=== PATIENT | female | born 1945 | race Caucasian/White ===

== ENCOUNTER 2017-11-25 08:26 | Day surgery (SDC) | payer MEDICARE, OTHER, SELFPAY ==
[2017-11-23 09:42] LABS: Absolute Lymphocyte Count 2.62 X10^3/ul (0.83-4.51); Absolute Neutrophil Count 3.1 X10^3/uL (2.0-7.7); Basophil# 0.07 X10^3/uL; Basophil% 0.8 % (0-1); Eosinophil# 1.31 X10^3/uL; Eosinophils% 15.8 % (0-5); Hemoglobin 12.8 g/dl (12.0-15.0); Lymphocyte # 2.62 X10^3/ul (4.0); Lymphocyte % 31.6 % (19-41); Mean Corp Hgb Conc 32.8 g/gl (32-36); Mean Corpuscular Hgb 30.5 pg (27.0-32.0); Mean Corpuscular Volume 92.9 fL (81-99); Mean Platelet Vol. 11.5 fl (6.2-12.0); Monocyte# 1.16 X10^3/uL; Neutrophil # 3.09 X10^3/uL (2.7-7.7); Neutrophil % 37.4 % (47-70); Platelet Count 321 K/mm3 (150-450); RBC Distribution Width CV 13.3 % (11.6-14.6); RBC Distribution Width SD 44.1 fl (35.1-43.9); White Blood Count 8.3 K/mm3 (4.4-11.0)
[2017-11-23 09:45] LABS: POSITIVE COUNT NO; POSITIVE DIFFERENTIAL NO; POSITIVE MORPHOLOGY NO
[2017-11-23 10:12] LABS: ALB/GLOB Ratio 0.9 RATIO (0.9-2.4); AST(SGOT) 28 U/L (15-37); Alanine Aminotransfer ALT/SGPT 22 U/L (13-56); Albumin, Serum 3.5 g/dL (3.2-5.0); Alkaline Phosphatase 69 U/L (45-117); Anion Gap 6 (5-15); BUN 16 mg/dL (7-18); BUN/Creat Ratio 18.2 RATIO (10-20); Calcium,Total 9.1 mg/dL (8.5-10.1); Chloride 104 mmol/L (98-107); Creatinine, Serum 0.88 mg/dL (0.55-1.02); EST Glomerular Filtration Rate 67 mL/min (>60); Est Glom Filt Rate - Afr Amer 81 mL/min (>60); Globulin 4.1 g/dL (2.2-4.2); Glucose 86 mg/dL (74-106); Potassium 3.8 mmol/L (3.5-5.1); Protein, Total 7.6 g/dL (6.4-8.2); Sodium Level 142 mmol/L (136-145)
[2017-11-25 08:47] VITALS: BP 172/68; PULSE 47; RESP 14; TEMP 36.5; O2SAT 100; BMI 23.7
--- NOTE | 2017-11-25 10:00 | BON_PTH ---
PATIENT: DAVID BARRETO LOC: [facility] U#:[id number] AGE/SX: 72/F ROOM: RE11/25/[address]: Dr. Boone Fernandes DPM : 1945 BED: DIS: 11/25/2017 SPEC #: [id number] RECD: 11/25/17 16:06 STATUS: CAREY DEVIN #: [id number] MACY: 11/25/17 10:[address]: Boone Fernandes DEPT: SURGICAL PATHOLOGY RECD BY: Panchito Reina ENTERED: 11/28/17 07:35 SP TYPE: Bone OTHR DR: Dr. Mike Aden DO Tissues: Bone of foot, NOS Procedures: Decalcification bone/plaque Surgery Specimen Level III HEADER OPERATION: Left foot, second metatarsophalangeal joint implant arthroplasty PRE-OP DIAGNOSIS: Osteoarthritis, torn plantar plate, osteochondral lesion second metatarso-phalangeal joint; hammer toe second toe, deformed second metatarsal TISSUE SUBMITTED: Left foot, second metatarsal head MICROSCOPIC DIAGNOSIS Left foot, second metatarsal head: A piece of bone with reactive changes, clinically hammertoe. KAREN:kelley 12/01/17 MICROSCOPIC DESCRIPTION Slides are reviewed. GROSS DESCRIPTION Received in fixative is one container labeled with the patient's name and designated left foot, second metatarsal head. The specimen consists of one irregular fragment of light quiñones soft tissue that measures 1 x 1 x 0.4 cm. The entire specimen is submitted in one cassette after decalcification. / KAREN:kelley 11/28/17 TC:5 CPT: 50690, 02949
--- NOTE | 2017-11-25 10:25 | RAD_ITS ---
STUDY: X-RAY - LEFT FOOT CLINICAL: Female, 72 years old. Implant of the second metatarsophalangeal joint. TECHNIQUE: 7 C-arm view(s) of the foot. 30 seconds of fluoroscopy time. COMPARISON: MRI 08/03/2017. FINDINGS: This sequence of images shows a prosthesis in the head of the second metatarsal, and a K wire along the length of the second digit. Correlate with procedure note. Electronically Signed: Mejia Jane MD at 16:25 EDT , Service support , RAD/Foot min 3 Views
[2017-11-25] MEDS: Ondansetron 4 MG/2 ML Vial (10:28)
[2017-11-25] MEDS: Clindamycin 900 MG/50 ML BAG 75 MG IV (10:41)
[2017-11-25] MEDS: Bupivacaine Mpf 0.5% 30 ML VIAL (10:52)
--- NOTE | 2017-11-25 12:46 | RAD_ITS ---
STUDY: X-RAY - LEFT FOOT CLINICAL: Female, 72 years old. Postop left foot. TECHNIQUE: 3 view(s) of the foot. COMPARISON: Intraoperative radiographs of the same day.. FINDINGS: Post surgical changes of the second ray. There is a screw with prosthesis of the metatarsal head in the second metatarsal. Probable calcification, contrast or bone formation around the distal second metatarsal. Lateral view suggests possibility of a nondisplaced fracture along the dorsal surface of the distal metatarsal. A K wire passes through the phalanges of the second digit. Dorsal soft tissue swelling with air consistent with recent surgery. RAD/Foot min 3 Views IMPRESSION: Postoperative changes of the second ray. Calcifications, contrast, or bone fragments including possible fracture around the distal second metatarsal prosthesis. Electronically Signed: Mejia Jane MD at 16:38 EDT , Service support ,
[2017-11-25 12:50] VITALS: BP 140/66; BP 172/68; PULSE 78; RESP 18; TEMP 36.2; O2SAT 92
--- NOTE | 2017-11-25 12:52 | PCM.DC.POD ---
Discharge Diet: Light diet - advance as tolerated Discharge Activity: May Not Drive Weight Bearing Status: No weight bearing - No weightbearing left foot Keep extremity elevated above heart level: Left Leg - Keep left foot elevated for at least 50 minutes of every hour Call your doctor if your incision/area has: Continuous Slow Oozing, Sudden Increased Bleeding, Increased Pain/ Swelling, Foul Smelling Discharge Call your doctor if you observe: Fever of 101 or Higher, Coldness, Increased Pain, Shortness of breath, Chest pain, Increased palpitations (irregular heartbeat), Calf discomfort, Uncontrolled pain Cleanse incision/area with: Do not get Incision Wet, Keep Dressing Clean & Dry Allergies/Adverse Reactions: Allergies Penicillins Allergy (Verified 11/25/17 08:42) Rash acetaminophen [From Vicodin] Adverse Reaction (Verified 11/25/17 09:12) Nausea codeine Adverse Reaction (Verified 11/25/17 08:42) Nausea erythromycin base Adverse Reaction (Verified 11/25/17 08:42) Nausea hydrocodone [From Vicodin] Adverse Reaction (Verified 11/25/17 09:12) Nausea Sulfa (Sulfonamide Antibiotics) Adverse Reaction (Verified 11/25/17 08:42) Nausea Tetracyclines Adverse Reaction (Verified 11/25/17 08:42) Nausea Medications to take at Discharge Amlodipine Besylate [Norvasc] 2.5 mg PO DAILY 11/22/17 Aspirin [Aspirin, Baby] 81 mg PO DAILY@0800 11/22/17 Calcium Carbonate/Vitamin D3 [Calcium 500-Vit D3 600 Caplet] 1 each PO DAILY 11/22/17 Hydrochlorothiazide [Hctz] 25 mg PO DAILY 11/22/17 Levothyroxine Sodium [Synthroid] 100 mcg PO DAILY 11/22/17 Metoprolol Tartrate [Lopressor (beta sobia)] 50 mg PO BID 11/22/17 Multivitamin with Minerals [Hair, Skin & Nails] 1 each PO DAILY 11/22/17 Vitamin E 400 unit PO DAILY 11/22/17 Docusate Sodium [Colace] 100 mg PO BID #15 cap 11/25/17 Hydrocodone/Acetaminophen [Vicodin 5-300 mg Tablet] 1 - 2 tab PO Q6H PRN PRN 3 Days #30 tab 11/25/17 Ondansetron HCl [Zofran] 4 mg PO Q8H PRN PRN #15 tab 11/25/17 The following prescriptions were given: Hydrocodone/Acetaminophen [Vicodin 5-300 mg Tablet] 1 - 2 tab PO Q6H PRN PRN 3 Days #30 tab PRN Reason: Pain Ondansetron HCl [Zofran] 4 mg PO Q8H PRN PRN #15 tab PRN Reason: Nausea Docusate Sodium [Colace] 100 mg PO BID #15 cap Primary Care Physician: Mike Aden DO [Primary Care Provider] - Please Follow Up With: Boone Fernandes DPM When: within 1 week, sooner if needed
--- NOTE | 2017-11-25 12:55 | OP.PCM_ITS ---
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 Coco Shine Type of Anesthesia:: General Specimen's removed: Bone from left 2nd metatarsal head sent to pathology Estimated Blood Loss (mL): 2mL Description of Procedure: Indications: This is a 72 year old with chronic pain to the 2nd metatarsal phalagneal joint (2nd MTPJ) of the left foot despite extensive conservative/ nonsurgical management. Symptoms persist and she continues to have pain and significant activity limitations. She elected to undergo surgical intervention. We discussed the procedure. We reviewed the rationale of each as well as the possible benefits, risks, potential complications goals and expectations of each. This was discussed with her in great detail. Typical post op recovery was reviewed with her. She expressed understanding and agreement. The consent forms were reviewed with her in detail, and she freely signed them. No guarantees were given. All of her questions were answered. Operative Procedure: The patient was brought back into the operating room and was placed on the operating room table in the supine position. She was carefully secured to the operating room table with a safety belt around her waist. A time out was performed and the patient was properly identified and the surgical plan was confirmed. The patient received 2 grams of IV Ancef for antibiotic prophylaxis. A well padded pneumatic tourniquet was applied around the left ankle. The patient did receive general anesthesia per the anesthesiologist. The skin was cleansed with 70% Isopropyl alcohol, and 10mL of 0.5% Bupivacaine plain was given as a 2nd ray block on the left foot. The left foot was scrubbed, prepped, draped in the usual aseptic fashion. A timeout was performed and the patient was properly identified and the surgical plan was confirmed. The left foot was elevated for 3 minutes and the left ankle pneumatic tourniquet was inflated to 250mmHg. Attention was directed to the 2nd MTPJ, there was limited range of motion consistent with osteoarthritis, the toe was contracted consistent with a hammer toe. Using a 15 blade a linear longitudinal skin incision was overlying the dorsal lateral aspect of the 2nd metatarsal phalangeal joint (MTPJ). Careful blunt dissection was completed down through the subcutaneous layer to the dorsal 2nd MTPJ capsule. The capsule of the 2nd MTPJ was identified and was carefully incised dorsally, it was carefully reflected from the dorsal, medial and lateral aspect, exposing the 2nd metatarsal head. There was noted to be significant degenerative changes of the 2nd metatarsal head with significant chondral thinning and yellow nonviable cartilage. There was an osteochondral lesion to the head of the 2nd metatarsal head. The bone was softer than normal. The cartilage on the base of the 2nd toe proximal phalanx did appear healthier and more viable. A guide wire was placed centrally and perpendicular to the 2nd metatarsal head and was placed down the shaft of the 2nd metatarsal. This was checked using intraoperative fluoroscopy. A step drill was used to prepare the screw hole to the 2nd metatarsal head. The 7mm taper post fixation component was inserted in standard fashion; however during this process a nondisplaced stress fracture occurred to the distal 2nd metatarsal. The stress fracture was stabilized by wrapping 2 FiberWire around the fracture site. A reamer was carefully used to remove the nonviable damaged cartilage and bone to creat a socket for the implant. The excised bone / cartilage was sent to pathology ( with the resected portion of the 2nd metatarsal head) for further evaluation. All bone ledges were removed from the 2nd metatarsal head. The 2nd MTPJ plantar plate was also visualized, it was noted to be intact with no tear or degeneration seen, it was stable with negative dorsal drawer at this time. It was left intact. The Arthrosurface implant was ready to be inserted. The Arthrosurface implant was placed with bone cement into the prepared distal 2nd metatarsal surface. The uziel cement was also placed around the fracture site. The bone cement was allowed to dry. The implant was carefully tamped in place, being sure not to disrupt the fracture site or cause any new fracture. At this time, the implant was noted to be stable and in good position, this was confirmed using intra operative fluoroscopy without the use of a echocardiography radiology technologist. The fracture site was also stable and in good alignment. There was good smooth normal range of motion to the 2nd MTPJ with no grinding, popping or clicking. There was negative dorsal drawer or instability of the 2nd MTPJ plantar plate at this time. The site was flushed out with copious amounts of normal saline solution. The joint capsule was reapproximated using 3-0 Vicryl, the subcutaneous tissue layer was reapproximated using 3-0 Vicryl, and the skin was reapproximated using 3-0 Monocryl. Further attention was directed to the 2nd toe which was contracted at the distal interphalangeal joint. Two semi-elliptical conversing skin incisions were made using a 15 blade overlying the dorsal distal interphalangeal joint. The skin within these incisions was excised. Careful dissection was completed down to the extensor digitorum longus tendon and it was incised transversely over the joint, and it was retracted exposing the proximal interphalangeal joint capsule. The distal interphalangeal joint capsule was incised and the collateral ligament of the joint were released using a 15 blade. The cartilage on the head of the 2nd toe middle phalanx and base of the distal phalanx were resected using a powered sagittal saw as well as a bone cutting rongeur. A kwire was placed down the middle of the phalanges holding the toe in rectus position. The site was flushed out with copious amounts of normal saline solution. The skin was reapproximated using 3-0 Monocryl. The kwire was trimmed and capped. Intraoperative fluoroscopy confirmed proper placement of the kwire and rectus position of the 2nd toe. Cavilon was painted to the sutured skin edges and steristrips were applied across the sutured skin incisions. All vital structure, including all vital neurovascular structures were properly identified and protected as necessary throughout the procedure. The pneumatic tourniquet was deflated, there was immediate return of vascular flow to the foot and all toes. CFT < 2 seconds to all toes, and had normal temperature gradient present. An additional 10mL of 0.5 % Bupivacaine plain was given as a local nerve block around the 2nd ray of the left foot for further post operative pain control. A dressing was applied which consisted of Betadine soaked adaptic, 4x4 gauze, kerlix and loco dressing to the left foot. The patient tolerated the above operative procedure well at the anesthesia well with no complications. The patient was transported to the recovery room with vital signs stable and in good condition. Post operative orders were placed. Post operative instructions were reviewed with patient today. No weightbearing left foot, keep foot elevated for at least 50 minutes of every hour, keep dressing clean, dry and intact. Prescription for Vicodin 5mg/325mg was prescribed: 1-2 tabs PO q 6 hours PRN pain for pain control, as well as Zofran and Docusate. Patient was fitted for a surgical shoe. Post operative xrays were obtained in the recovery room which confirmed 2nd MTPJ implant arthroplasty, with bone cement around the fracture site; as well as arthrodesis of the 2nd toe DIPJ with intact kwire. Intact implant 2nd metatarsal head. Otherwise no acute changes and stable xrays. Grafts/Implants Used: 1 Arthrosurface lesser metatarsal implant, 1 Kwire - Complications None
[2017-11-25 13:00] VITALS: BP 138/58; BP 172/68; PULSE 73; RESP 16; O2SAT 93
[2017-11-25 13:15] VITALS: BP 133/58; BP 172/68; PULSE 75; RESP 16; O2SAT 99
[2017-11-25 13:26] VITALS: BP 144/67; BP 172/68; PULSE 67; RESP 16; TEMP 36; O2SAT 96
== END 2017-11-25 14:17 | disposition home or self-care (01) ==
LOC: SDC 08:27 → AC 08:27
PROVIDERS: Family Provider Preventive Medicine Occupational Medicine; PCP Preventive Medicine Occupational Medicine; Visit Provider Podiatrist
PROC: (CPT 28899; principal; 2017-11-25 09:45)
DX: M19.072 Primary osteoarthritis, left ankle and foot (principal); M20.42 Other hammer toe(s) (acquired), left foot; M92.62 Juvenile osteochondrosis of tarsus, left ankle; I47.1 Supraventricular tachycardia; I34.1 Nonrheumatic mitral (valve) prolapse; I10 Essential (primary) hypertension; E03.9 Hypothyroidism, unspecified; Z87.891 Personal history of nicotine dependence; Z79.82 Long term (current) use of aspirin; Z79.899 Other long term (current) drug therapy
CPT/HCPCS: 28285; 28899; 36415; 73630; 76000; 80053; 85025; 88304; 88305; 88311; J7120; J2405

== ENCOUNTER 2018-07-01 14:25 | Inpatient (IN) | payer MEDICARE, OTHER, SELFPAY ==
[2018-07-01] VITALS (18 sets, daily range): BP systolic 137–184; BP diastolic 53–89; PULSE 55–91; RESP 14–23; TEMP 36.7; O2SAT 94–99; BMI 23.0; BMI 22.8
--- NOTE | 2018-07-01 14:53 | ECHOD_ITS ---
Reason For Study: CHEST PAIN Procedure This was a 2D Doppler, Color Flow transthoracic echocardiogram. Exam performed portable in ED. Left Ventricle Normal size and thickness. The estimated ejection fraction is 75 %. Stage 2 diastolic dysfunction. No regional wall motion abnormalities noted. Right Ventricle Normal size and thickness. Normal systolic function. Atria Normal left atrium. Normal right atrium. Normal atrial septum. Mitral Valve Mild diffuse mitral valve thickening. Mild-Moderate (1-2+) eccentric mitral valve insufficiency. Tricuspid Valve Normal tricuspid valve. Mild (1+) tricuspid valve insufficiency. Right ventricular systolic pressure estimated to be 47 mmHg. Moderate pulmonary hypertension. Aortic Valve Normal aortic valve. Trisinus/trileaflet aortic valve. Pulmonic Valve Normal pulmonic valve. Great Vessels Normal aortic root. Mild atherosclerosis of the aortic arch. Normal inferior vena cava. Inferior vena cava collapse with sniff. MMode/2D Measurements & Calculations LVIDd: 3.5 cm IVSd: 1.0 cm Ao root diam: 3.0 cm LVIDs: 2.4 cm LVPWd: 1.00 cm RVDd: 3.2 cm FS: 32.8 % LAV(MOD-bp): 37.1 ml LVAd ap4: 25.6 cm2 SV(MOD-sp4): 46.3 ml LAV(MOD-bp) Indexed: 23.1 ml/m2 EDV(MOD-sp4): 77.6 ml LAV(MOD-sp2): 37.3 ml EDV(sp4-el): 84.2 ml LAV(MOD-sp4): 36.5 ml LVAs ap4: 14.8 cm2 ESV(MOD-sp4): 31.3 ml ESV(sp4-el): 32.7 ml EF(MOD-sp4): 59.6 % EF(sp4-el): 61.1 % SV(sp4-el): 51.4 ml LA dimension(2D): 3.9 cm LA A4 area: 16.2 cm2 RA A4 area: 14.5 cm2 Time Measurements MV dec time: 0.21 sec Doppler Measurements & Calculations MV E max loki: 88.0 cm/sec Lat Peak E' Loki: 9.3 cm/sec Med Peak E' Loki: 8.3 cm/sec MV A max loki: 85.8 cm/sec E/E' lat: 9.5 E/E' med: 10.6 MV E/A: 1.0 Ao V2 max: 128.1 cm/sec LV V1 max: 128.2 cm/sec TR max loki: 322.7 cm/sec Ao max P.6 mmHg LV V1 max P.6 mmHg TR max P.8 mmHg Interpretation Summary The estimated ejection fraction is 75 %. Stage 2 diastolic dysfunction. Mild-Moderate (1-2+) eccentric mitral valve insufficiency. Mild (1+) tricuspid valve insufficiency. Right ventricular systolic pressure estimated to be 47 mmHg. Moderate pulmonary hypertension. There is no comparison study available. Ordering Physician: Patrick Lopez Referring Physician: [place] WHITMAN Performed By: Solange Baca, MEENAKSHI, RVT
--- NOTE | 2018-07-01 14:54 | RAD_ITS ---
STUDY: X-RAY CHEST REASON FOR EXAM: Female, 73 years old. Chest pain TECHNIQUE: AP COMPARISON: None. FINDINGS: EKG leads project over the chest. Well-defined dense nodule in the lateral left upper lobe is compatible with a granuloma. Lungs are mildly hyperexpanded. No airspace consolidation. There is no demonstrated pleural abnormality. Normal size heart. Normal mediastinum and lior. Normal visualized pulmonary arteries. There is atherosclerotic calcification of the aortic arch with tortuosity. No acute bony process. There is no demonstrated abnormality of the visualized soft tissue structures of the upper abdomen. RAD/Chest 1 View (Portable) IMPRESSION: No airspace consolidation or pleural effusion. Electronically Signed: Rios Luu MD at 15:36 EST , Service support ,
[2018-07-01] MEDS: 0.9% Normal Saline 1,000 ML 150 ML IV (14:56)
[2018-07-01] MEDS: Metoprolol Tartrate 5 MG/5 ML Vial IV (15:09)
[2018-07-01 15:11] LABS: Absolute Lymphocyte Count 4.07 X10^3/ul (0.83-4.51); Absolute Neutrophil Count 4.3 X10^3/uL (2.0-7.7); Anion Gap 7 (5-15); BUN 20 mg/dL (7-18); BUN/Creat Ratio 22.8 RATIO (10-20); Basophil# 0.06 X10^3/uL; Basophil% 0.5 % (0-1); Calcium,Total 9.1 mg/dL (8.5-10.1); Chloride 105 mmol/L (98-107); Creatinine, Serum 0.88 mg/dL (0.55-1.02); EST Glomerular Filtration Rate 67 mL/min (>60); Eosinophil# 1.72 X10^3/uL; Eosinophils% 15.6 % (0-5); Est Glom Filt Rate - Afr Amer 81 mL/min (>60); Glucose 119 mg/dL (74-106); Hematocrit 38.6 % (37-47); Hemoglobin 12.8 g/dl (12.0-15.0); Lymphocyte # 4.07 X10^3/ul (4.0); Lymphocyte % 36.8 % (19-41); Mean Corp Hgb Conc 33.2 g/gl (32-36); Mean Corpuscular Volume 90.4 fL (81-99); Mean Platelet Vol. 10.8 fl (6.2-12.0); Monocyte# 0.88 X10^3/uL; Neutrophil % 38.8 % (47-70); POSITIVE COUNT NO; POSITIVE DIFFERENTIAL NO; POSITIVE MORPHOLOGY NO; Platelet Count 269 K/mm3 (150-450); Potassium 3.3 mmol/L (3.5-5.1); RBC Distribution Width CV 13.5 % (11.6-14.6); RBC Distribution Width SD 44.5 fl (35.1-43.9); Red Blood Count 4.27 M/mm3 (4.2-5.4); Sodium Level 141 mmol/L (136-145); White Blood Count 11.1 K/mm3 (4.4-11.0)
[2018-07-01] MEDS: Nitroglycerin Oint 1 INCH PACKET TRANSDERM. ×2 (15:17→17:31)
--- NOTE | 2018-07-01 15:27 | PCM.CONS.C ---
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 She apparently had a catheterization somewhere in [place] on 8-10 years ago, with reportedly normal coronary arteries. Prior to an ankle injury several months ago she used to walk between 4 and 5 miles per day without any difficulty whatsoever and has done so for the past 29 years. She is a non-smoker. She has not had a stress test since her last catheterization. Patient states that she was with her grandchild this morning when she developed midsternal chest pressure radiating down the inner part of both arms. She had no associated nausea, vomiting, shortness of breath or dyspnea. She denies any abdominal pain. When this did not resolve, she sought medical attention at the behest of her daughter who is a registered nurse in our office, and came to the emergency room. Upon arrival her blood pressure was 184/76, and in the emergency room an EKG was performed which showed normal sinus rhythm with subtle inferior and lateral ST segment depression, and subtle J-point elevation in aVL only. The patient was given a total of 3 sublingual nitroglycerin which reduced her pain down from a 5 down to a 2. In addition she received 5 mg of IV Lopressor and her chest pain further improved. Repeat EKG showed normal sinus rhythm with resolution of her ST segment changes. Blood pressure after medical therapy showed it to be 137/72. Urgent bedside echocardiogram showed normal LV size and function, hyperdynamic LV, EF around 75%, moderate pulmonary hypertension. Final result pending. On further history the patient states that she snores excessively, and is recently been noted to have daytime somnolence to the point where she has fallen asleep with food in her mouth. Her mobility is limited due to her injured foot, but she denies any exertional anginal symptoms. Her initial troponin is 0.329. [] Past Medical History Allergies/Adverse Reactions: Allergies Penicillins Allergy (Verified 07/01/18 14:26) Rash acetaminophen [From Vicodin] Adverse Reaction (Verified 07/01/18 14:26) Nausea codeine Adverse Reaction (Verified 07/01/18 14:26) Nausea erythromycin base Adverse Reaction (Verified 07/01/18 14:26) Nausea hydrocodone [From Vicodin] Adverse Reaction (Verified 07/01/18 14:26) Nausea Sulfa (Sulfonamide Antibiotics) Adverse Reaction (Verified 07/01/18 14:26) Nausea Tetracyclines Adverse Reaction (Verified 07/01/18 14:26) Nausea Home Medications: Ambulatory Orders Medication Instructions Recorded Amlodipine Besylate [Norvasc] 2.5 mg PO DAILY 11/22/17 Aspirin [Aspirin, Baby] 81 mg PO DAILY@0800 11/22/17 Calcium Carbonate/Vitamin D3 1 each PO DAILY 11/22/17 [Calcium 500-Vit D3 600 Caplet] Hydrochlorothiazide [Hctz] 25 mg PO DAILY 11/22/17 Levothyroxine Sodium [Synthroid] 100 mcg PO DAILY 11/22/17 Metoprolol Tartrate [Lopressor 50 mg PO BID 11/22/17 (beta sobia)] Vitamin E 400 unit PO DAILY 11/22/17 Multivitamin with Minerals [Hair, 1 each PO DAILY 07/01/18 Skin & Nails] Past Medical History (Chronic Problems): Chronic Problems Hypertension (Chronic) Surgical History: no surgical history Smoking Status: Former smoker Review of Systems - Review of Systems General: Denies: Fever, Night Sweats, Fatigue Cardiovascular: Reports: Chest Discomfort, Chest Discomfort at Rest. Denies: Shortness of Breath, Orthopnea, PND, Peripheral Edema, Palpitations, Lightheadedness, Dizziness, Near Syncope, Syncope Respiratory: Denies: Cough, Sputum Production, Hemoptysis Gastrointestinal: Denies: Hematemesis, Hematochezia, Melena Genitourinary: Denies: Dysuria, Hematuria Skin: Denies: Rash Subjectve: Patient resting comfortably, no acute distress. Objective: Vital Signs Temp Pulse Resp BP Pulse Ox 98.1 F 65 22 H 137/72 H 98 07/01/18 14:26 07/01/18 15:17 07/01/18 14:26 07/01/18 15:17 07/01/18 14:26 Oxygen Flow Rate (L/min) 2 Oxygen Delivery Method Nasal Cannula Weight: 130 lb Body Mass Index (BMI) 23.0 General: Awake, Alert, Oriented x 3 HEENT: PERRL, EOMI, Sclera Non Icteric Neck: Supple, Good ROM, No Lymph Node Enlargement Lungs: Clear to auscultation Cardiovascular: Regular Rhythm, Normal S1, Normal S2, No Murmurs, No Rubs, No Gallops Vascular: No Carotid Bruits, Normal Femoral Pulses, Normal Radial Pulses, Normal Dorsalis Pedal Pulse, Normal Posterior Tibial Pulses Abdomen: Bowel Sounds Present, Soft, Non Tender, No HSM, No Organomegaly Extremities: No Cyanosis, No Clubbing, No edema Neurological: No Focal Motor or Sensory Deficit 07/01/18 14:35: WBC 11.1 H, RBC 4.27, Hgb 12.8, Hct 38.6, MCV 90.4, MCH 30.0, MCHC 33.2, RDW 13.5, RDW Differential 44.5 H, Plt Count 269, MPV 10.8, Immature Gran % (Auto) 0.300, Neut % (Auto) 38.8 L, Lymph % (Auto) 36.8, [place] % (Auto) 8.0, Eos % (Auto) 15.6 H, Baso % (Auto) 0.5, Absolute Neuts (auto) 4.3, Total Counted Not Reportable 07/01/18 14:35: Sodium 141, Potassium 3.3 L, Chloride 105, Carbon Dioxide 29.0, Anion Gap 7, BUN 20 H, Creatinine 0.88, Est GFR (MDRD) Af Amer 81, Est GFR (MDRD) Non-Af 67, BUN/Creatinine Ratio 22.8 H, Glucose 119 H, Calcium 9.1, Troponin I 0.329 H Rhythm: EKG: As above ECHO: As above Stress Test: Cardiac Cath: PCI: CT Surgery: Holter monitor: EPS: PPM: CXR: Chest CT Scan: Assessment/Plan 1. Unstable angina: The patient presents with substernal chest pain radiating to both arms, with subtle dynamic EKG changes with inferior lateral ST segment depression, and subtle J-point elevation in aVL only. Stat bedside echo showed intact LV function in all major segments, and no evidence of hypokinesis inferiorly or laterally. Patient's chest pain has been relieved with sublingual nitroglycerin and IV beta-sobia for a significant hypertension. Her initial troponin is abnormal at 0.329. At this point I recommend baby aspirin 324 mill grams x1 which is artery been given, 81 mg a day, loaded with Plavix 3 mg x1 now, and 75 mg of Plavix daily. In addition I recommend Lovenox 1 mg/kg subcu twice daily as well as nitroglycerin paste 1 inch every 6 hours. Would recommend ruling out the patient with a series of troponins, and notifying cardiology if troponin is elevated above 5.0. If the patient's symptoms return during her hospital stay and have a low threshold for urgent catheterization. If however her chest pain remains at bay over the weekend, I would recommend left heart catheterization Tuesday morning. In addition recommend obtaining a fasting lipid profile to risk stratify her. The patient apparently had reportedly normal coronary arteries per the patient's daughter who is a registered nurse around 8-10 years ago. 2. Obstructive sleep apnea: The patient has signs and symptoms of possible non-diagnosed obstructive sleep apnea, would recommend an outpatient sleep study once her cardiac evaluation has been completed. 3. Hypertension: The patient's blood pressure was controlled with amlodipine, beta-blockers. Would recommend continuing Lopressor 50 mg p.o. twice daily, amlodipine 10 mg a day, and hydrochlorothiazide 25 mg p.o. daily. Keep potassium above 4.0 and magnesium above 2.0. 4. Discussed with Dr. Casiano. Thank you very much for the opportunity to participate in the cardiac care of your patient. Consultation time took place between 310 and 3:45 PM. Code Visit Inpatient E&M: 53737 Init Hosp L2
--- NOTE | 2018-07-01 15:53 | ED.VISSUMM ---
- ER Visit Summary Date of Service: 07/01/18 Chief Complaint: Chest pain ] History of Present Illness: The patient is a 73 F [presents to the emergency department with complaint of chest pain that started approximately 11:30 AM today. Patient describes a pressure in the center of her chest that radiates down into both arms to about the elbow. Patient denies any shortness of breath or nausea or vomiting. Patient denies any diaphoresis. Patient denies recent travel or surgery. She denies any pain in her back. Patient currently rates the pain a 5 out of 10. Patient is not had discomfort like this before. Patient does have a history of hypertension, SVT, and mitral valve prolapse.] Physical Examination: [HEENT-PERRLA, EOMI. Cranial nerves II through XII grossly intact. TMs clear. Mucous membranes moist. No adenopathy. Cardiovascular-regular rate and rhythm without murmur or ectopy Lungs-clear to auscultation, chest wall stable without crepitus or subcu emphysema Abdomen-normoactive bowel sounds, soft, nontender, no rebound or rigidity, no peritoneal signs. Extremities-intact ?4, normal range of motion, normal pulses, atraumatic] Test Results: [EKG obtained on arrival showed a sinus rhythm with a ventricular rate in the 70s with ST depression noted inferior laterally. No old EKGs available for comparison. Second EKG obtained actually looked somewhat improved with just subtle ST depression inferiorly. CBC with differential obtained showed a white count 11.1, hemoglobin 12.8, hematocrit 38.6, platelets 269. Chemistries unremarkable. Troponin was 0.329. Chest x-ray obtained showed nothing acute.] Emergency Department Course and Treatment: [Upon evaluation of the initial EKG I discussed case with cardiology and was able to fax the EKG to Dr. Patrick Lopez who then presented to the emergency department to evaluate the patient. I had concerns for an acute coronary syndrome given the patient's complaint and abnormal EKG. Dr. Lopez performed an echo at the bedside and did not see any wall motion abnormalities. Case will be discussed with hospitalist will evaluate patient for admission for suspected non-ST elevation MN] patient was treated in the department with nitroglycerin as well as Lopressor and Lovenox. Treatment Plan: [Admit] Disposition: [Admit] Impression: [Chest pain Non-ST elevation MN] This note was generated with Dragon dictation software. It may contain incorrect words, spelling, and punctuation that were not noted in review of the chart prior to signing ED Disposition - Plan for ED Patient: Chief Complaint: Chest Pain Referrals: Mike Aden DO [Primary Care Provider] -
--- NOTE | 2018-07-01 15:57 | ED.DCSUM_ITS ---
- ER Visit Summary Date of Service: 07/01/18 Chief Complaint: Chest pain ] History of Present Illness: The patient is a 73 F [presents to the emergency department with complaint of chest pain that started approximately 11:30 AM today. Patient describes a pressure in the center of her chest that radiates do wn into both arms to about the elbow. Patient denies any shortness of breath or nausea or vomiting. Patient denies any diaphoresis. Patient denies recent travel or surgery. She denies any pain in her back. Patient currently rates the pain a 5 out of 10. Patient is not had discomfort like this before. Patient does have a history of hypertension, SVT, and mitral valve prolapse.] Physical Examination: [HEENT-PERRLA, EOMI. Cranial nerves II through XII grossly intact. TMs clear. Mucous membranes moist. No adenopathy. Cardiovascular-regular rate and rhythm without murmur or ectopy Lungs-clear to auscultation, chest wall stable without crepitus or subcu emphysema Abdomen-normoactive bowel sounds, soft, nontender, no rebound or rigidity, no peritoneal signs. Extremities-intact ?4, normal range of motion, normal pulses, atraumatic] Test Results: [EKG obtained on arrival showed a sinus rhythm with a ventricular rate in the 70s with ST depression noted inferior laterally. No old EKGs available for comparison. Second EKG obtained actually looked somewhat improved with just subtle ST depression inferiorly. CBC with differential obtained showed a white count 11.1, hemoglobin 12.8, hematocrit 38.6, platelets 269. Chemistries unremarkable. Troponin was 0.329. Chest x-ray obtained showed nothing acute.] Emergency Department Course and Treatment: [Upon evaluation of the initial EKG I discussed case with cardiology and was able to fax the EKG to Dr. Patrick Lopez who then presented to the emergency department to evaluate the patient. I had concerns for an acute coronary syndrome given the patient's complaint and abnormal EKG. Dr. Lopez performed an echo at the bedside and did not see any wall motion abnormalities. Case will be discussed with hospitalist will evaluate patient for admission for suspected non-ST elevation [place]] patient was treated in the department with nitroglycerin as well as Lopressor and Lovenox. Treatment Plan: [Admit] Disposition: [Admit] Impression: [Chest pain Non-ST elevation ME] This note was generated with [employer] dictation software. It may contain incorrect words, spelling, and punctuation that were not noted in review of the chart prior to signing ED Disposition - Plan for ED Patient: Chief Complaint: Chest Pain Referrals: Mike Aden DO [Primary Care Provider] -
[2018-07-01 16:09] LABS: Cholesterol 216 mg/dL (200); High Density Lipoprotein 48 mg/dL; Triglycerides 188 mg/dL; Very Low Density Lipoprotein 38 mg/dL (5-40)
--- NOTE | 2018-07-01 16:11 | HP.PCM_ITS ---
Problem List (1) Hypertension Status: Chronic (2) STEMI (ST elevation myocardial infarction) Status: Acute (3) Hypothyroidism Status: Chronic History of Present Illness Date of Admission: 07/01/18 Chief Complaint: Chest pain. The patient is a 73 year old F who presents emergency room due to chest pain. Patient reports around 1130 this morning she developed sudden midsternal chest pressure which occurred while she was resting. Chest pain/pressure radiated to both arms. She denies associated dizziness, diaphoresis, shortness of breath, nausea. She states she has never had pain like this before. Patient's pain persisted until receiving nitro x3 in ER. She is currently pain-free. Patient reports a significant family history of heart disease with her brother and father both from [place]/CAD. Patient states she has had a stress test in the past which she reports was a few years ago and reported to be normal. She is a former smoker. Denies any history of CAD. Her other past medical history includes hypertension, hypothyroidism. Past Medical History Past Medical History (Chronic Problems): Chronic Problems Hypertension (Chronic) Hypothyroidism (Chronic) Allergies Penicillins Allergy (Verified 07/01/18 14:26) Rash acetaminophen [From Vicodin] Adverse Reaction (Verified 07/01/18 14:26) Nausea codeine Adverse Reaction (Verified 07/01/18 14:26) Nausea erythromycin base Adverse Reaction (Verified 07/01/18 14:26) Nausea hydrocodone [From Vicodin] Adverse Reaction (Verified 07/01/18 14:26) Nausea Sulfa (Sulfonamide Antibiotics) Adverse Reaction (Verified 07/01/18 14:26) Nausea Tetracyclines Adverse Reaction (Verified 07/01/18 14:26) Nausea Home Medications: Ambulatory Orders Medication Instructions Recorded Amlodipine Besylate [Norvasc] 2.5 mg PO DAILY 11/22/17 Aspirin [Aspirin, Baby] 81 mg PO DAILY@0800 11/22/17 Calcium Carbonate/Vitamin D3 1 each PO DAILY 11/22/17 [Calcium 500-Vit D3 600 Caplet] Hydrochlorothiazide [Hctz] 25 mg PO DAILY 11/22/17 Levothyroxine Sodium [Synthroid] 100 mcg PO DAILY 11/22/17 Metoprolol Tartrate [Lopressor 50 mg PO BID 11/22/17 (beta sobia)] Vitamin E 400 unit PO DAILY 11/22/17 Multivitamin with Minerals [Hair, 1 each PO DAILY 07/01/18 Skin & Nails] Surgical History: - - Hysterectomy, cystocele repair, second MTPJ implant arthroplasty left foot with correction of second digit hammertoe of left foot. Psychiatric History: No pertinent psych hx [employer] History: No pertinent [employer] history Lives: Alone Smoking Status: Former smoker Alcohol: Occasional Drugs: None - *Family History Maternal History Items: - - Past from complications following hernia surgery. Denies maternal cardiac history. Paternal History Items: Heart Disease - at age 74 from [place]. Review of Systems Constitutional: Denies: Chills, Fever, Weight Change HEENT: Denies: Head Aches, Sinus Congestion, Sinus Drainage Cardiovascular: Reports: Chest Pressure. Denies: Light Headedness, Palpitations, Syncope Respiratory: Denies: Cough, Shortness of breath at rest, Sputum production Gastrointestinal: Denies: Abdominal Pain, Nausea, Vomiting Genitourinary: Denies: Dysuria Musculoskeletal: Denies: Joint Pain, Joint Tenderness Skin: Denies: Rash, Wounds Neurological: Denies: Numbness, Tingling, Focal weakness Psychiatric: Denies: Anxiety, Depression, Homicidal Ideations, Suicidal Ideations Hematologic/ Lymphatic: Denies: Easy Bruising, Easy Bleeding VTE Information - Inpt Only VTE Present on Admission: No VTE Mechan Device Prophylaxis: None VTE Pharm Prophylaxis ordered?: Yes Patient Problems: Active and Suspected Problems STEMI (ST elevation myocardial infarction) (Acute) - Physical Exam General: Alert, Oriented x3, Cooperative HEENT: Atraumatic, PERRLA, EOMI, Normocephalic Neck: Supple, No JVD, Negative Carotid Bruits Lungs: Clear to auscultation, Normal air movement Cardiovascular: Regular rate, Regular Rhythm, Normal S1, Normal S2, No murmurs Abdomen: Bowel Sounds Present, Soft, Non Tender, Non-Distended Extremities: No clubbing, No cyanosis, No edema, Capillary Refill Less than 3 Seconds Skin: No rashes, No breakdown Musculoskeletal: No Tenderness to Palpation of Joints or Extremities Neurological: Cranial nerves II-XII grossly intact, Neuro grossly intact Psych/Mental Status: Normal Affect, Appropriate Vital Signs Temp Pulse Resp BP Pulse Ox 98.1 F 88 16 151/64 H 99 07/01/18 14:26 07/01/18 15:36 07/01/18 15:36 07/01/18 15:36 07/01/18 15:36 Oxygen Flow Rate (L/min) 2 Oxygen Delivery Method Nasal Cannula Weight: 130 lb Body Mass Index (BMI) 23.0 Laboratory Tests Past 24 Hrs 07/01/18 07/01/18 07/01/18 14:35 14:35 14:35 WBC 11.1 H RBC 4.27 Hgb 12.8 Hct 38.6 MCV 90.4 MCH 30.0 MCHC 33.2 RDW 13.5 RDW Differential 44.5 H Plt Count 269 MPV 10.8 Immature Gran % (Auto) 0.300 Neut % (Auto) 38.8 L Lymph % (Auto) 36.8 [place] % (Auto) 8.0 Eos % (Auto) 15.6 H Baso % (Auto) 0.5 Absolute Neuts (auto) 4.3 Absolute Lymphs (auto) 4.07 Total Counted Not Reportable Sodium 141 Potassium 3.3 L Chloride 105 Carbon Dioxide 29.0 Anion Gap 7 BUN 20 H Creatinine 0.88 Estim Creat Clear Calc 46.40 Est GFR (MDRD) Af Amer 81 Est GFR (MDRD) Non-Af 67 BUN/Creatinine Ratio 22.8 H Glucose 119 H Calcium 9.1 Troponin I 0.329 H Triglycerides Pending Cholesterol Pending LDL Cholesterol Pending VLDL Cholesterol Pending HDL Cholesterol Pending Assessment/Plan All Active Problems STEMI (ST elevation myocardial infarction) (Acute) 1. NSTEMI-initial troponin 0.3. EKG with inferior lateral ST depression. Dr. Lopez, cardiology consulted. Continue aspirin, Plavix. Therapeutic Lovenox. Nitropaste. Plan for cardiac catheterization Tuesday. Repeat EKG with new onset chest pain. Trend enzymes. Lipid panel pending. Echocardiogram completed in ER which shows an EF of 75%, stage II diastolic dysfunction, mild to moderate mitral valve insufficiency, mild tricuspid valve insufficiency, RVSP estimated to be 47 mmHg. 2. Hypertension-markedly elevated on admission. Improved. Patient received metoprolol 5 mg IV x1 in ER as well as amlodipine 10 mg p.o. x1. Started on metoprolol 50 mill grams p.o. twice daily per cardiology. Continue to monitor. 3. Mild hypokalemia-replace per protocol. Trend BMP. Suspect secondary to HCTZ regimen. 4. Hypothyroidism-continue Synthroid regimen. DVT prophylaxis- lovenox This patient was seen by [facility] under the supervision of Dr. Topete.
[2018-07-01] MEDS: Enoxaparin 60 MG/0.6 ML Syringe SC (17:30)
[2018-07-01] MEDS: amLODIPine 5 MG Tablet PO (17:30)
[2018-07-01] MEDS: Clopidogrel Bisulfate 300 MG Tablet PO (17:30)
[2018-07-01 18:00] LABS: Magnesium 2.1 mg/dL (1.6-2.6)
[2018-07-01] MEDS: Metoprolol Tartrate 50 MG Tablet PO (22:00)
[2018-07-01] MEDS: 0.9% NaCl Peripheral Flush Adult/Peds IV (22:35)
--- NOTE | 2018-07-01 22:55 | NURSING ---
This RN taking over care at this time.
--- NOTE | 2018-07-01 23:20 | NURSING ---
Report given to Jose Carlos Cardenas RN. She will resume care of pt at this time.
[2018-07-02] VITALS (32 sets, daily range): BP systolic 115–143; BP diastolic 56–103; PULSE 49–88; RESP 12–26; TEMP 36.8–37; O2SAT 92–97
[2018-07-02] MEDS: LORazepam 1 MG Tablet PO (01:07)
[2018-07-02] MEDS: Levothyroxine 100 MCG Tablet PO (05:43)
[2018-07-02] MEDS: Enoxaparin 60 MG/0.6 ML Syringe SC ×2 (05:43→22:22)
[2018-07-02] MEDS: Ondansetron 4 MG/2 ML Vial IV (08:42)
[2018-07-02] MEDS: 0.9% NaCl Peripheral Flush Adult/Peds IV ×2 (08:43→08:44)
[2018-07-02 09:42] LABS: Mucous, Urine 0 SEEN /hpf (<or=2+); Red Blood Cells-Urine 0 SEEN /hpf (0-5); Squamous Epithelial Cells - UA 0 SEEN /hpf (5-10)
[2018-07-02] MEDS: Aspirin 81 MG TAB.CHEW PO (09:43)
[2018-07-02] MEDS: hydroCHLOROthiazide 25 MG Tablet PO (09:43)
[2018-07-02] MEDS: Metoprolol Tartrate 50 MG Tablet PO ×2 (09:43→22:22)
[2018-07-02] MEDS: amLODIPine 5 MG Tablet PO (09:44)
[2018-07-02] MEDS: Clopidogrel Bisulfate 75 MG Tablet PO (09:44)
[2018-07-02] MEDS: Psyllium 1 PACKET PO ×2 (09:44→22:23)
[2018-07-02 09:50] LABS: Color, Urine Yellow (Yellow); Glucose, Dipstick Normal (Normal); Ketone-Dipstick Negative (Negative); Leukocyte Esterase-Dipstick 500 /ul (Negative); Nitrite-Dipstick Positive (Negative); Occult Blood-Urine 10 /ul (Negative); Protein-Dipstick Negative (Negative); Specific Gravity, Urine 1.015 (1.002-1.030); Urine Bilirubin Dipstick Negative (Negative); Urine Clarity Sl. Cloudy (Clear); Urine Urobilinogen Normal (Normal)
[2018-07-02 09:53] LABS: Bacteria 2+ /hpf (None Seen); White Blood Cells >100 SEEN /hpf (0-5)
--- NOTE | 2018-07-02 10:14 | PN.CARD_ITS ---
Subjectve: Patient doing well this morning except for some mild nausea. Her chest pain has markedly improved and is almost completely gone. Telemetry overnight showed sinus rhythm/sinus bradycardia, rare PVCs but no ventricular runs. EKG this morning shows normal sinus rhythm, no acute changes, and complete resolution of all ST segment changes. Peak troponin of 12.0. Bedside echo in ER yesterday showed excellent LV function with an EF of 75%, no wall motion abnormalities, and an RVSP of 47 mmHg. Objective: Vital Signs Temp Pulse Resp BP Pulse Ox 98.2 F 69 22 H 139/61 H 95 07/02/18 03:00 07/02/18 09:43 07/02/18 08:00 07/02/18 09:43 07/02/18 08:00 Oxygen Flow Rate (L/min) 2 Oxygen Delivery Method Room Air Weight: 132 lb 15.02 oz Body Mass Index (BMI) 22.8 Intake and Output for Last 24 Hours 06/30/18 07/01/18 07/02/18 23:59 23:59 23:59 Intake Total 692.8 / 692.8 Balance 692.8 / 692.8 General: Awake, Alert, Oriented x 3 HEENT: PERRL, EOMI, Sclera Non Icteric Neck: Supple, Good ROM, No Lymph Node Enlargement Lungs: Clear to auscultation Cardiovascular: Regular Rhythm, Normal S1, Normal S2, No Murmurs, No Rubs, No Gallops Vascular: No Carotid Bruits, Normal Femoral Pulses, Normal Radial Pulses, Normal Dorsalis Pedal Pulse, Normal Posterior Tibial Pulses Abdomen: Bowel Sounds Present, Soft, Non Tender, No HSM, No Organomegaly Extremities: No Cyanosis, No Clubbing, No edema Neurological: No Focal Motor or Sensory Deficit 07/01/18 14:35: WBC 11.1 H, RBC 4.27, Hgb 12.8, Hct 38.6, MCV 90.4, MCH 30.0, MCHC 33.2, RDW 13.5, RDW Differential 44.5 H, Plt Count 269, MPV 10.8, Immature Gran % (Auto) 0.300, Neut % (Auto) 38.8 L, Lymph % (Auto) 36.8, [place] % (Auto) 8.0, Eos % (Auto) 15.6 H, Baso % (Auto) 0.5, Absolute Neuts (auto) 4.3, Total Counted Not Reportable 07/01/18 14:35: Sodium 141, Potassium 3.3 L, Chloride 105, Carbon Dioxide 29.0, Anion Gap 7, BUN 20 H, Creatinine 0.88, Est GFR (MDRD) Af Amer 81, Est GFR (MDRD) Non-Af 67, BUN/Creatinine Ratio 22.8 H, Glucose 119 H, Calcium 9.1, Tr oponin I 0.329 H 07/01/18 14:35: Triglycerides 188, Cholesterol 216 H, LDL Cholesterol 130, VLDL Cholesterol 38, HDL Cholesterol 48 07/01/18 17:25: Troponin I 4.030 H* 07/01/18 17:25: Magnesium 2.1 07/01/18 20:26: Troponin I 12.700 H* 07/02/18 09:18: Urine Color Yellow, Urine Clarity Sl. Cloudy, Urine pH 8.0, Ur Specific [place] 1.015, Urine Protein Negative, Urine Glucose (UA) Normal, Urine Ketones Negative, Urine Occult Blood 10 H, Urine Nitrite Positive H, Urine Bilirubin Negative, Urine Urobilinogen Normal, Ur Leukocyte Esterase 500 H Rhythm: As above EKG: As above ECHO: As above Stress Test: Cardiac Cath: Pending PCI: CT Surgery: Holter monitor: EPS: PPM: CXR: Chest CT Scan: Medical Necessity - Tobacco Use Smoking Status: Former smoker Assessment/Plan 1. Unstable angina: The patient presented with substernal chest pain radiating to both arms, with subtle dynamic EKG changes with inferior lateral ST segment depression, and subtle J-point elevation in aVL only. Stat bedside echo showed intact LV function in all major segments, and no evidence of hypokinesis inferiorly or laterally. Patient's chest pain has been relieved with sublingual nitroglycerin and IV beta-sobia for a significant hypertension. Her initial troponin is abnormal at 0.329, and increased to 4.0, and peaked at 12.0. Telemetry showed normal sinus rhythm/sinus bradycardia with no PVCs. Repeat EKG this morning showed normal sinus rhythm, complete resolution of ST segment changes.. Would recommend continuing baby aspirin, beta blockers, Plavix, and proceeding with left heart catheterization tomorrow morning. Her chest vein is essentially resolved, and she has some mild nausea this morning, being treated with Zofran or equivalent. Should the patient's chest pain return, or the patient develop hemodynamic instability, I would have a low threshold for more urgent catheterization. Her LDL is 130, and HDL is 48. Recommend starting Lipitor 80 mg p.o. nightly. Repeat lipid profile in 6 weeks time. The patient apparently had reportedly normal coronary arteries per the patient's daughter who is a registered nurse around 8-10 years ago. 2. Obstructive sleep apnea: The patient has signs and symptoms of possible non- diagnosed obstructive sleep apnea, would recommend an outpatient sleep study once her cardiac evaluation has been completed. 3. Hypertension: The patient's blood pressure was controlled with amlodipine, beta-blockers. Would recommend continuing Lopressor 50 mg p.o. twice daily, am lodipine 10 mg a day, and hydrochlorothiazide 25 mg p.o. daily. Patient was placed on an IV nitroglycerin drip due to her elevated troponins and chest pain. Continue nitroglycerin drip until catheterization tomorrow morning. Keep potassium above 4.0 and magnesium above 2.0. 4. Thank you very much for the opportunity to participate in the cardiac care of your patient. Code Visit Inpatient E&M: 90566 Subs Hosp L2
--- NOTE | 2018-07-02 10:27 | PCM.PROGNOTE ---
<Nidhi Leslie - Last Filed: 07/02/18 10:44> Patient Problems: Active and Suspected Problems STEMI (ST elevation myocardial infarction) (Acute) Subjective: Patient seen and examined. States she had chest pain overnight which is now resolved. Complains of nausea this morning. Currently on nitro drip. - Physical Exam General: Alert, Oriented x3, Cooperative HEENT: Atraumatic, PERRLA, EOMI, Normocephalic Neck: Supple, No JVD, Negative Carotid Bruits Lungs: Clear to auscultation, Normal air movement Cardiovascular: Regular rate, Regular Rhythm, Normal S1, Normal S2, No murmurs Abdomen: Bowel Sounds Present, Soft, Non Tender, Non-Distended Extremities: No clubbing, No cyanosis, No edema, Capillary Refill Less than 3 Seconds Skin: No rashes, No breakdown Musculoskeletal: No Tenderness to Palpation of Joints or Extremities Neurological: Cranial nerves II-XII grossly intact, Neuro grossly intact Psych/Mental Status: Normal Affect, Appropriate Vital Signs Temp Pulse Resp BP Pulse Ox 98.3 F 70 16 125/76 H 95 07/02/18 09:00 07/02/18 10:00 07/02/18 10:00 07/02/18 10:00 07/02/18 10:00 Oxygen Flow Rate (L/min) 2 Oxygen Delivery Method Room Air Weight: 132 lb 15.02 oz Body Mass Index (BMI) 22.8 Intake and Output for Last 24 Hours 06/30/18 07/01/18 07/02/18 23:59 23:59 23:59 Intake Total 692.8 / 692.8 Balance 692.8 / 692.8 Laboratory Tests Past 24 Hrs 07/01/18 07/01/18 07/01/18 14:35 14:35 14:35 WBC 11.1 H RBC 4.27 Hgb 12.8 Hct 38.6 MCV 90.4 MCH 30.0 MCHC 33.2 RDW 13.5 RDW Differential 44.5 H Plt Count 269 MPV 10.8 Immature Gran % (Auto) 0.300 Neut % (Auto) 38.8 L Lymph % (Auto) 36.8 [place] % (Auto) 8.0 Eos % (Auto) 15.6 H Baso % (Auto) 0.5 Absolute Neuts (auto) 4.3 Absolute Lymphs (auto) 4.07 Total Counted Not Reportable Sodium 141 Potassium 3.3 L Chloride 105 Carbon Dioxide 29.0 Anion Gap 7 BUN 20 H Creatinine 0.88 Estim Creat Clear Calc 46.40 Est GFR (MDRD) Af Amer 81 Est GFR (MDRD) Non-Af 67 BUN/Creatinine Ratio 22.8 H Glucose 119 H Calcium 9.1 Magnesium Troponin I 0.329 H Triglycerides 188 Cholesterol 216 H LDL Cholesterol 130 VLDL Cholesterol 38 HDL Cholesterol 48 Urine Color Urine Clarity Urine pH Ur Specific [place] Urine Protein Urine Glucose (UA) Urine Ketones Urine Occult Blood Urine Nitrite Urine Bilirubin Urine Urobilinogen Ur Leukocyte Esterase Urine RBC Urine WBC Ur Squamous Epith Cells Urine Bacteria Urine Mucus 07/01/18 07/01/18 07/01/18 17:25 17:25 20:26 WBC RBC Hgb Hct MCV MCH MCHC RDW RDW Differential Plt Count MPV Immature Gran % (Auto) Neut % (Auto) Lymph % (Auto) [place] % (Auto) Eos % (Auto) Baso % (Auto) Absolute Neuts (auto) Absolute Lymphs (auto) Total Counted Sodium Potassium Chloride Carbon Dioxide Anion Gap BUN Creatinine Estim Creat Clear Calc Est GFR (MDRD) Af Amer Est GFR (MDRD) Non-Af BUN/Creatinine Ratio Glucose Calcium Magnesium 2.1 Troponin I 4.030 H* 12.700 H* Triglycerides Cholesterol LDL Cholesterol VLDL Cholesterol HDL Cholesterol Urine Color Urine Clarity Urine pH Ur Specific [place] Urine Protein Urine Glucose (UA) Urine Ketones Urine Occult Blood Urine Nitrite Urine Bilirubin Urine Urobilinogen Ur Leukocyte Esterase Urine RBC Urine WBC Ur Squamous Epith Cells Urine Bacteria Urine Mucus 07/02/18 09:18 WBC RBC Hgb Hct MCV MCH MCHC RDW RDW Differential Plt Count MPV Immature Gran % (Auto) Neut % (Auto) Lymph % (Auto) [place] % (Auto) Eos % (Auto) Baso % (Auto) Absolute Neuts (auto) Absolute Lymphs (auto) Total Counted Sodium Potassium Chloride Carbon Dioxide Anion Gap BUN Creatinine Estim Creat Clear Calc Est GFR (MDRD) Af Amer Est GFR (MDRD) Non-Af BUN/Creatinine Ratio Glucose Calcium Magnesium Troponin I Triglycerides Cholesterol LDL Cholesterol VLDL Cholesterol HDL Cholesterol Urine Color Yellow Urine Clarity Sl. Cloudy Urine pH 8.0 Ur Specific [place] 1.015 Urine Protein Negative Urine Glucose (UA) Normal Urine Ketones Negative Urine Occult Blood 10 H Urine Nitrite Positive H Urine Bilirubin Negative Urine Urobilinogen Normal Ur Leukocyte Esterase 500 H Urine RBC 0 SEEN Urine WBC >100 SEEN Ur Squamous Epith Cells 0 SEEN Urine Bacteria 2+ Urine Mucus 0 SEEN Medical Necessity - Tobacco Use Smoking Status: Former smoker Assessment/Plan All Active Problems STEMI (ST elevation myocardial infarction) (Acute) 1. NSTEMI-Trop peaked at 12.7. EKG on admission with inferior lateral ST depression. Repeat EKG showed resolution of ST changes. Dr. Lopez, cardiology consulted. Continue aspirin, Plavix, statin, beta-sobia. Therapeutic Lovenox. Nitro drip. Plan for cardiac catheterization Tuesday morning, 07/02/18. Echocardiogram completed in ER which shows an EF of 75%, stage II diastolic dysfunction, mild to moderate mitral valve insufficiency, mild tricuspid valve insufficiency, RVSP estimated to be 47 mmHg. 2. Hypertension-markedly elevated on admission. Improved. Patient received metoprolol 5 mg IV x1 in ER as well as amlodipine 10 mg p.o. x1. Continue amlodipine, metoprolol, HCTZ. 3. Mild hypokalemia-replaced per protocol. Trend BMP. Suspect secondary to HCTZ regimen. 4. Hypothyroidism-continue Synthroid regimen. 5. Hyperlipidemia-initiated on atorvastatin 80 mg p.o. nightly. 6. Asymptomatic bacteriuria-urinalysis with 500 leukocytes, positive nitrites. Patient denies urinary symptoms. Denies fever, chills. Check cx. DVT prophylaxis- lovenox This patient was seen by ELISA Bui under the supervision of Dr. Miller. <Dave Miller - Last Filed: 07/02/18 15:54> Subjective: Chest pain resolved. No shortness of breath. - Physical Exam General: Alert, Cooperative HEENT: Atraumatic, Normocephalic Oral: Moist Mucosa, No Gingival or Mucosal Lesions/ Ulcerations Lungs: Clear to auscultation, Normal air movement, No rhonchi, No wheeze Cardiovascular: Regular rate, Regular Rhythm, Normal S1, Normal S2 Abdomen: Bowel Sounds Present, Soft, Non Tender, Non-Distended Extremities: No edema, No Calf Tenderness Psych/Mental Status: Normal Affect, Appropriate Vital Signs Temp Pulse Resp BP Pulse Ox 36.8 C 71 15 135/68 H 96 07/02/18 09:00 07/02/18 14:00 07/02/18 14:00 07/02/18 14:00 07/02/18 14:00 Oxygen Flow Rate (L/min) 2 Oxygen Delivery Method Room Air Weight: 60.3 kg Body Mass Index (BMI) 22.8 Intake and Output for Last 24 Hours 06/30/18 07/01/18 07/02/18 23:59 23:59 23:59 Intake Total 1141.8 / 1141.8 Output Total 250 / 250 Balance 891.8 / 891.8 Laboratory Tests Past 24 Hrs 07/01/18 07/01/18 07/01/18 14:35 17:25 17:25 Magnesium 2.1 Troponin I 4.030 H* Triglycerides 188 Cholesterol 216 H LDL Cholesterol 130 VLDL Cholesterol 38 HDL Cholesterol 48 Urine Color Urine Clarity Urine pH Ur Specific [place] Urine Protein Urine Glucose (UA) Urine Ketones Urine Occult Blood Urine Nitrite Urine Bilirubin Urine Urobilinogen Ur Leukocyte Esterase Urine RBC Urine WBC Ur Squamous Epith Cells Urine Bacteria Urine Mucus 07/01/18 07/02/18 20:26 09:18 Magnesium Troponin I 12.700 H* Triglycerides Cholesterol LDL Cholesterol VLDL Cholesterol HDL Cholesterol Urine Color Yellow Urine Clarity Sl. Cloudy Urine pH 8.0 Ur Specific [place] 1.015 Urine Protein Negative Urine Glucose (UA) Normal Urine Ketones Negative Urine Occult Blood 10 H Urine Nitrite Positive H Urine Bilirubin Negative Urine Urobilinogen Normal Ur Leukocyte Esterase 500 H Urine RBC 0 SEEN Urine WBC >100 SEEN Ur Squamous Epith Cells 0 SEEN Urine Bacteria 2+ Urine Mucus 0 SEEN Assessment/Plan Patient seen and examined independently. Data reviewed. I agree with the above note by the nurse practitioner. 1. Non-STEMI Troponins peaked as high as 12.7 Symptomatically patient is improved On nitroglycerin drip, aspirin, Plavix, weight-based Lovenox, metoprolol tartrate 2. Hypertension Fair control HCTZ, metoprolol Code Visit Inpatient E&M: 66584 Subs Hosp L2
--- NOTE | 2018-07-02 10:31 | PN_ITS ---
<Nidhi Leslie - Last Filed: 07/02/18 10:44> Patient Problems: Active and Suspected Problems STEMI (ST elevation myocardial infarction) (Acute) Subjective: Patient seen and examined. States she had chest pain overnight which is now resolved. Complains of nausea this morning. Currently on nitro drip. - Physical Exam General: Alert, Oriented x3, Cooperative HEENT: Atraumatic, PERRLA, EOMI, Normocephalic Neck: Supple, No JVD, Negative Carotid Bruits Lungs: Clear to auscultation, Normal air movement Cardiovascular: Regular rate, Regular Rhythm, Normal S1, Normal S2, No murmurs Abdomen: Bowel Sounds Present, Soft, Non Tender, Non-Distended Extremities: No clubbing, No cyanosis, No edema, Capillary Refill Less than 3 S econds Skin: No rashes, No breakdown Musculoskeletal: No Tenderness to Palpation of Joints or Extremities Neurological: Cranial nerves II-XII grossly intact, Neuro grossly intact Psych/Mental Status: Normal Affect, Appropriate Vital Signs Temp Pulse Resp BP Pulse Ox 98.3 F 70 16 125/76 H 95 07/02/18 09:00 07/02/18 10:00 07/02/18 10:00 07/02/18 10:00 07/02/18 10:00 Oxygen Flow Rate (L/min) 2 Oxygen Delivery Method Room Air Weight: 132 lb 15.02 oz Body Mass Index (BMI) 22.8 Intake and Output for Last 24 Hours 06/30/18 07/01/18 07/02/18 23:59 23:59 23:59 Intake Total 692.8 / 692.8 Balance 692.8 / 692.8 Laboratory Tests Past 24 Hrs 07/01/18 07/01/18 07/01/18 14:35 14:35 14:35 WBC 11.1 H RBC 4.27 Hgb 12.8 Hct 38.6 MCV 90.4 MCH 30.0 MCHC 33.2 RDW 13.5 RDW Differential 44.5 H Plt Count 269 MPV 10.8 Immature Gran % (Auto) 0.300 Neut % (Auto) 38.8 L Lymph % (Auto) 36.8 [place] % (Auto) 8.0 Eos % (Auto) 15.6 H Baso % (Auto) 0.5 Absolute Neuts (auto) 4.3 Absolute Lymphs (auto) 4.07 Total Counted Not Reportable Sodium 141 Potassium 3.3 L Chloride 105 Carbon Dioxide 29.0 Anion Gap 7 BUN 20 H Creatinine 0.88 Estim Creat Clear Calc 46.40 Est GFR (MDRD) Af Amer 81 Est GFR (MDRD) Non-Af 67 BUN/Creatinine Ratio 22.8 H Glucose 119 H Calcium 9.1 Magnesium Troponin I 0.329 H Triglycerides 188 Cholesterol 216 H LDL Cholesterol 130 VLDL Cholesterol 38 HDL Cholesterol 48 Urine Color Urine Clarity Urine pH Ur Specific [place] Urine Protein Urine Glucose (UA) Urine Ketones Urine Occult Blood Urine Nitrite Urine Bilirubin Urine Urobilinogen Ur Leukocyte Esterase Urine RBC Urine WBC Ur Squamous Epith Cells Urine Bacteria Urine Mucus 07/01/18 07/01/18 07/01/18 17:25 17:25 20:26 WBC RBC Hgb Hct MCV MCH MCHC RDW RDW Differential Plt Count MPV Immature Gran % (Auto) Neut % (Auto) Lymph % (Auto) [place] % (Auto) Eos % (Auto) Baso % (Auto) Absolute Neuts (auto) Absolute Lymphs (auto) Total Counted Sodium Potassium Chloride Carbon Dioxide Anion Gap BUN Creatinine Estim Creat Clear Calc Est GFR (MDRD) Af Amer Est GFR (MDRD) Non-Af BUN/Creatinine Ratio Glucose Calcium Magnesium 2.1 Troponin I 4.030 H* 12.700 H* Triglycerides Cholesterol LDL Cholesterol VLDL Cholesterol HDL Cholesterol Urine Color Urine Clarity Urine pH Ur Specific [place] Urine Protein Urine Glucose (UA) Urine Ketones Urine Occult Blood Urine Nitrite Urine Bilirubin Urine Urobilinogen Ur Leukocyte Esterase Urine RBC Urine WBC Ur Squamous Epith Cells Urine Bacteria Urine Mucus 07/02/18 09:18 WBC RBC Hgb Hct MCV MCH MCHC RDW RDW Differential Plt Count MPV Immature Gran % (Auto) Neut % (Auto) Lymph % (Auto) [place] % (Auto) Eos % (Auto) Baso % (Auto) Absolute Neuts (auto) Absolute Lymphs (auto) Total Counted Sodium Potassium Chloride Carbon Dioxide Anion Gap BUN Creatinine Estim Creat Clear Calc Est GFR (MDRD) Af Amer Est GFR (MDRD) Non-Af BUN/Creatinine Ratio Glucose Calcium Magnesium Troponin I Triglycerides Cholesterol LDL Cholesterol VLDL Cholesterol HDL Cholesterol Urine Color Yellow Urine Clarity Sl. Cloudy Urine pH 8.0 Ur Specific [place] 1.015 Urine Protein Negative Urine Glucose (UA) Normal Urine Ketones Negative Urine Occult Blood 10 H Urine Nitrite Positive H Urine Bilirubin Negative Urine Urobilinogen Normal Ur Leukocyte Esterase 500 H Urine RBC 0 SEEN Urine WBC >100 SEEN Ur Squamous Epith Cells 0 SEEN Urine Bacteria 2+ Urine Mucus 0 SEEN Medical Necessity - Tobacco Use Smoking Status: Former smoker Assessment/Plan All Active Problems STEMI (ST elevation myocardial infarction) (Acute) 1. NSTEMI-Trop peaked at 12.7. EKG on admission with inferior lateral ST depression. Repeat EKG showed resolution of ST changes. Dr. Lopez, cardiology consulted. Continue aspirin, Plavix, statin, beta-sobia. Therapeutic Loven ox. Nitro drip. Plan for cardiac catheterization Tuesday morning, 07/02/18. Echocardiogram completed in ER which shows an EF of 75%, stage II diastolic dysfunction, mild to moderate mitral valve insufficiency, mild tricuspid valve insufficiency, RVSP estimated to be 47 mmHg. 2. Hypertension-markedly elevated on admission. Improved. Patient received metoprolol 5 mg IV x1 in ER as well as amlodipine 10 mg p.o. x1. Continue amlodipine, metoprolol, HCTZ. 3. Mild hypokalemia-replaced per protocol. Trend BMP. Suspect secondary to HCTZ regimen. 4. Hypothyroidism-continue Synthroid regimen. 5. Hyperlipidemia-initiated on atorvastatin 80 mg p.o. nightly. 6. Asymptomatic bacteriuria-urinalysis with 500 leukocytes, positive nitrites. Patient denies urinary symptoms. Denies fever, chills. Check cx. DVT prophylaxis- lovenox This patient was seen by ELISA Bui under the supervision of Dr. Miller. <Dave Miller - Last Filed: 07/02/18 15:54> Subjective: Chest pain resolved. No shortness of breath. - Physical Exam General: Alert, Cooperative HEENT: Atraumatic, Normocephalic Oral: Moist Mucosa, No Gingival or Mucosal Lesions/ Ulcerations Lungs: Clear to auscultation, Normal air movement, No rhonchi, No wheeze Cardiovascular: Regular rate, Regular Rhythm, Normal S1, Normal S2 Abdomen: Bowel Sounds Present, Soft, Non Tender, Non-Distended Extremities: No edema, No Calf Tenderness Psych/Mental Status: Normal Affect, Appropriate Vital Signs Temp Pulse Resp BP Pulse Ox 36.8 C 71 15 135/68 H 96 07/02/18 09:00 07/02/18 14:00 07/02/18 14:00 07/02/18 14:00 07/02/18 14:00 Oxygen Flow Rate (L/min) 2 Oxygen Delivery Method Room Air Weight: 60.3 kg Body Mass Index (BMI) 22.8 Intake and Output for Last 24 Hours 06/30/18 07/01/18 07/02/18 23:59 23:59 23:59 Intake Total 1141.8 / 1141.8 Output Total 250 / 250 Balance 891.8 / 891.8 Laboratory Tests Past 24 Hrs 07/01/18 07/01/18 07/01/18 14:35 17:25 17:25 Magnesium 2.1 Troponin I 4.030 H* Triglycerides 188 Cholesterol 216 H LDL Cholesterol 130 VLDL Cholesterol 38 HDL Cholesterol 48 Urine Color Urine Clarity Urine pH Ur Specific [place] Urine Protein Urine Glucose (UA) Urine Ketones Urine Occult Blood Urine Nitrite Urine Bilirubin Urine Urobilinogen Ur Leukocyte Esterase Urine RBC Urine WBC Ur Squamous Epith Cells Urine Bacteria Urine Mucus 07/01/18 07/02/18 20:26 09:18 Magnesium Troponin I 12.700 H* Triglycerides Cholesterol LDL Cholesterol VLDL Cholesterol HDL Cholesterol Urine Color Yellow Urine Clarity Sl. Cloudy Urine pH 8.0 Ur Specific [place] 1.015 Urine Protein Negative Urine Glucose (UA) Normal Urine Ketones Negative Urine Occult Blood 10 H Urine Nitrite Positive H Urine Bilirubin Negative Urine Urobilinogen Normal Ur Leukocyte Esterase 500 H Urine RBC 0 SEEN Urine WBC >100 SEEN Ur Squamous Epith Cells 0 SEEN Urine Bacteria 2+ Urine Mucus 0 SEEN Assessment/Plan Patient seen and examined independently. Data reviewed. I agree with the above note by the nurse practitioner. 1. Non-STEMI * Troponins peaked as high as 12.7 * Symptomatically patient is improved * On nitroglycerin drip, aspirin, Plavix, weight-based Lovenox, metoprolol tartrate 2. Hypertension * Fair control * HCTZ, metoprolol Code Visit Inpatient E&M: [id number] Subs Hosp L2
[2018-07-02] MEDS: Magnesium Hydroxide 30 ML UDC PO (12:32)
[2018-07-02] MEDS: Atorvastatin Calcium 80 MG Tablet PO (22:22)
[2018-07-03] VITALS (48 sets, daily range): BP systolic 99–163; BP diastolic 35–72; PULSE 57–77; RESP 15–23; TEMP 36.8; O2SAT 92–100
[2018-07-03] MEDS: amLODIPine 5 MG Tablet PO (05:05)
[2018-07-03] MEDS: Metoprolol Tartrate 50 MG Tablet PO ×2 (05:05→19:46)
[2018-07-03] MEDS: Levothyroxine 100 MCG Tablet PO (05:05)
[2018-07-03] MEDS: Clopidogrel Bisulfate 75 MG Tablet PO (05:05)
[2018-07-03] MEDS: Aspirin 81 MG TAB.CHEW PO (05:06)
[2018-07-03] MEDS: 0.9% Normal Saline 1,000 ML 15 ML IV (05:11)
[2018-07-03 05:16] LABS: Absolute Lymphocyte Count 2.26 X10^3/ul (0.83-4.51); Absolute Neutrophil Count 6.4 X10^3/uL (2.0-7.7); Basophil# 0.04 X10^3/uL; Basophil% 0.3 % (0-1); Eosinophil# 0.97 X10^3/uL; Eosinophils% 8.2 % (0-5); Hematocrit 37.2 % (37-47); Hemoglobin 12.3 g/dl (12.0-15.0); Lymphocyte # 2.26 X10^3/ul (4.0); Lymphocyte % 19.2 % (19-41); Mean Corp Hgb Conc 33.1 g/gl (32-36); Mean Corpuscular Hgb 30.4 pg (27.0-32.0); Mean Corpuscular Volume 91.9 fL (81-99); Mean Platelet Vol. 10.8 fl (6.2-12.0); Monocyte# 2.07 X10^3/uL; Monocyte% 17.6 % (0-10); Neutrophil # 6.42 X10^3/uL (2.7-7.7); Neutrophil % 54.4 % (47-70); Platelet Count 234 K/mm3 (150-450); RBC Distribution Width CV 13.7 % (11.6-14.6); RBC Distribution Width SD 45.3 fl (35.1-43.9); Red Blood Count 4.05 M/mm3 (4.2-5.4); White Blood Count 11.8 K/mm3 (4.4-11.0)
[2018-07-03 05:17] LABS: Differential Indicated SCAN CRITERIA MET; POSITIVE COUNT NO; POSITIVE DIFFERENTIAL YES; POSITIVE MORPHOLOGY NO
[2018-07-03] MEDS: Acetaminophen 325 MG Tablet 650 MG PO (05:19)
[2018-07-03 05:27] LABS: Anion Gap 7 (5-15); BUN 12 mg/dL (7-18); Calcium,Total 8.7 mg/dL (8.5-10.1); Chloride 105 mmol/L (98-107); EST Glomerular Filtration Rate 74 mL/min (>60); Est Glom Filt Rate - Afr Amer 90 mL/min (>60); Estimated Creatinine Clearance 53.28 ml/min; Glucose 101 mg/dL (74-106); Potassium 4.1 mmol/L (3.5-5.1); Sodium Level 140 mmol/L (136-145)
[2018-07-03 05:28] LABS: International Normalized Ratio 1.1
[2018-07-03 05:29] LABS: Partial Thromboplast Time 39.5 Seconds (24.1-36.2)
--- NOTE | 2018-07-03 05:55 | EKG12_ITS ---
Test Reason : AM EKG Blood Pressure : / mmHG Vent. Rate : 062 BPM Atrial Rate : 062 BPM P-R Int : 146 ms QRS Dur : 072 ms QT Int : 404 ms P-R-T Axes : 054 -07 047 degrees QTc Int : 410 ms Normal sinus rhythm Normal ECG When compared with ECG of 01-JUL-2018 21:57, MANUAL COMPARISON REQUIRED, DATA IS UNCONFIRMED Confirmed by AMALIA WU ([id number]), film or videotape editor KASIA YUNG ([id number] on 07/18/2018 1:11:49 PM Referred By: DR JACOB Confirmed By:AMALIA WU
[2018-07-03] MEDS: DiphenhydrAMINE 25 MG Capsule 50 MG PO (06:15)
--- NOTE | 2018-07-03 06:43 | NURSING ---
Report given to Shiela in laboratory sampler at this time by this RN.
--- NOTE | 2018-07-03 07:07 | NURSING ---
Patient off floor, taken to cardiac cath lab manager with this RN and EXERCISE PHYSIOLOGIST. Verbal report given to MELVINA Marshall.
--- NOTE | 2018-07-03 07:52 | NURSING ---
Report called to Neha in ICU
--- NOTE | 2018-07-03 08:21 | CL.I_ITS ---
Patient Name: DAVID BARRTEO Study Date: 07/03/2018 Performing: Patrick Lopez MD Ht: 64.17 inches 163 cm : 1945 Wt: 132.28 lbs 60 kg Age: 73 Gender: female BSA: 1.64 PROCEDURE(S) PERFORMED [id number] W OR WO PTCA, SINGLE CORONARY ARTERY CLINICAL PROFILE AND CO-MORBIDITIES Patient presents with NSTEMI for urgent cardiac cath Indications: ACS > 24 hrs, Suspected CAD Heart Failure: None Stress/Imaging Stress/Image Study Performed: No Angina Classification Anginal Classification w/in 2 Weeks: CCS IV CAD Presentations: Unstable angina. Non-STEMI. 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 Non obstructive coronary arteries of LAD/DIAG Normal LV size, wall motion,and systolic function Normal Left Ventricular systolic function Successful PTCA/SHEMAR mid LCX with a 2.25 x 12 Promus Synergy, 1000%-->0%, no dissection. RECOMMENDATIONS Referred for immediate PCI Elective PCI of distal RCA in 3 weeks. Highly recommend quitting all tobacco products Follow up with primary president trust company Risk factor modification ASA Indefinitley Plavix for at least 12 months Routine post interventional care Refer for Outpatient Cardiac Rehab Manual sheath removal per protocol Follow up with Dr. Lopez Elective PCI of RCA in 3 weeks. Manual sheath removal as pt is too skinny for Mynx closure. DESCRIPTION OF PROCEDURE The patient arrived to the procedure lab. The risks and benefits of the procedure as well as a full d escription of our services here and lack of surgical backup were fully explained to the patient and/o r their significant other prior to the catheterization. The Timeout was completed, verifying the gen ect patient and procedure. The patient's procedural site was prepped and draped in the usual fashion. Local anesthetic was given subcutaneously to right groin region with Lidocaine 2%. Using a modified Seldinger technique, arterial access was obtained via the right femoral artery, a 4Fr sheath was inse rted. Left Coronary Artery selective angiography was performed in multiple views using a 4 Fr. JL5 c atheter. Right Coronary Artery selective angiography was then performed in multiple views using a 4 F r. 3DRC catheter. Left Ventriculography was performed in BABIN projection using a 4 Fr. Pigtail cathete r. LV to AO pullback pressures were then recordedThe images were reviewed and options discussed. A decision was then made to proceed with an Intervention, IVUS or other adjunct procedure. Arterial sheath was exchanged for a 6 Fr Sheath. EBU 3.5 Guide catheter was inserted and engaged into the LCA. Arterial sheath was exchanged for a 6 Fr x 45cm Sheath. EBU 3.5 Guide catheter was inse rted and engaged into the LCA. JL 4 Guide catheter was inserted and engaged into the LCA. Runthrough Guide wire was advanced to the Circumflex. 2 x 8 Emerge Balloon catheter was inserted. Angiogram perf ormed pre balloon dilatation. 2 x 8 Emerge Balloon catheter was inserted. Balloon catheter was advanc ed across lesion in the circumflex, mid. PTCA balloon inflated at 4 atms for 8 secs. Angiogram perfor med pre balloon dilatation. PTCA balloon inflated at 4 atms for 8 secs. PTCA balloon inflated at 5 at ms for 11 secs. Angiogram performed post balloon dilatation. 2.25 x 12 Synergy Drug Eluting stent was inserted. Drug Eluting stent was advanced across the lesion in the circumflex, mid. Angiogram perfor med pre stent deployment. Angiogram performed post stent deployment. Arterial sheath was exchanged for a 6 Fr x 11 cm Sheath. The arterial sheath was sutured in place and capped CORONARY ANGIOGRAPHY DOMINANCE: Right Dominant LEFT HEART ASSESSMENT Left Ventricular Ejection Fraction: by LV Gram 65 % Normal Left Ventricular systolic function Normal LV wall motion LEFT MAIN: Mild calcification LEFT ANTERIOR DECENDING ARTERY: PROX LAD: Moderate calcification, Mild luminal irregularities less than 30% DIAGONAL 1: Proximal - Moderate luminal irregularities up to 50% CIRCUMFLEX ARTERY: MID CIRC: is occluded RIGHT CORONARY ARTERY: PROX RCA: Mild luminal irregularities less than 30% DISTAL RCA: 85 % Stenosis COLLATERAL FLOW: Collateral flow from Right to Left INTERVENTION INFORMATION LESION SITE: Circumflex (Mid) Lesion Complexity: High/C, lesion at bifurcation: No, thrombus present: Yes, lesion length: 12 mm, cu lprit lesion: Yes Pre Stenosis: 100 % Pre intervention DONALD flow: 0 PROCEDURE: Drug Eluting Stent with pre and post dilatation Post Stenosis: 0 % Post intervention DONALD flow: 3 Lesion Devices: Terumo .014 Runthrough Extra Floppy 180cm straight Dynamic Yieldtronic 6 Fr JL4.0 100cm Guide Catheter Clarence Sci EMERGE MR 2.00x08 BALLOON Clarence Sci Synergy MR SHEMAR 2.25x12 COMPLICATIONS No Complications PROCEDURE MEDICATIONS Oxygen: 2 L/min via nasal cannula Heparin 6000 unit(s) IV 07/03/2018 07:42:19 Nitro glycerin 25mg / 250ml D5W @ 5 mcg/min IV cont. from floor 07/03/2018 07:11:02 Nitro glycerin 25mg / 250ml D5W @ 0 mcg/min discontinued 07/03/2018 07:42:33 Nitro 200 mcg IC 07/03/2018 07:55:27 Nitro 200 mcg IC 07/03/2018 07:59:24 Nitro 200 mcg IC 07/03/2018 08:03:22 Nitro glycerin 25mg / 250ml D5W @ 5 mcg/min IV started 07/03/2018 08:11:30 IV Bolus: .9 NaCl 500 ml total 07/03/2018 08:07:56 IV Fluids: .9 NaCl increased to WO ml/hr 07/03/2018 07:42:46 SUMMARY OF HEMODYNAMIC DATA Time AIR REST ECG 07:12:25 AO 125/48 (76) SA 07:34:13 LV 118/1, 14 07:39:33 LV 120/-17, 12 07:39:43 LV 125/-17, 14 07:39:49 LVp 121/-21, 14 07:39:54 AOp 121/43 (73) 07:39:59 Signed By Patrick Lopez MD On 07/03/2018 08:20:34 Patrick Lopez MD
--- NOTE | 2018-07-03 08:49 | PCM.PN.HOSP ---
Patient Problems: Active and Suspected Problems NSTEMI (non-ST elevated myocardial infarction) (Acute) Subjective: post cath today w SHEMAR to mid LCx. No chest pain. No shortness of breath. Vitals/I&O's: Vital Signs Temp Pulse Resp BP Pulse Ox 36.8 C 60 21 H 104/72 95 07/03/18 06:00 07/03/18 07:00 07/03/18 07:00 07/03/18 07:00 07/03/18 07:00 Oxygen Flow Rate (L/min) 2 Oxygen Delivery Method Room Air Weight: 60.3 kg Body Mass Index (BMI) 22.8 Intake and Output for Last 24 Hours 07/01/18 07/02/18 07/03/18 23:59 23:59 23:59 Intake Total 1658.8 / 1658.8 568.9 / 568.9 Output Total 250 / 250 Balance 1408.8 / 1408.8 568.9 / 568.9 General: Alert, No apparent distress, - - lying flat, post cath. HEENT: Atraumatic, Normocephalic Oral: Moist Mucosa Neck: No Nodes, Thyroid Normal Size and Texture Lungs: Clear to auscultation, Normal air movement, No rhonchi, No wheeze Cardiovascular: Regular rate, Regular Rhythm, Normal S1, Normal S2, No murmurs Abdomen: Bowel Sounds Present, Soft, Non Tender, Non-Distended Extremities: No edema, No Calf Tenderness Skin: No rashes, No breakdown Musculoskeletal: No Tenderness to Palpation of Joints or Extremities, No Muscle Wasting Psych/Mental Status: Normal Affect, Appropriate Laboratory Results 07/02/18 09:18: Urine Color Yellow, Urine Clarity Sl. Cloudy, Urine pH 8.0, Ur Specific [place] 1.015, Urine Protein Negative, Urine Glucose (UA) Normal, Urine Ketones Negative, Urine Occult Blood 10 H, Urine Nitrite Positive H, Urine Bilirubin Negative, Urine Urobilinogen Normal, Ur Leukocyte Esterase 500 H, Urine RBC 0 SEEN, Urine WBC >100 SEEN, Ur Squamous Epith Cells 0 SEEN, Urine Bacteria 2+, Urine Mucus 0 SEEN 07/03/18 05:08: WBC 11.8 H, RBC 4.05 L, Hgb 12.3, Hct 37.2, MCV 91.9, MCH 30.4, MCHC 33.1, RDW 13.7, RDW Differential 45.3 H, Plt Count 234, MPV 10.8, Immature Gran % (Auto) 0.300, Neut % (Auto) 54.4, Lymph % (Auto) 19.2, [place] % (Auto) 17.6 H, Eos % (Auto) 8.2 H, Baso % (Auto) 0.3, Absolute Neuts (auto) 6.4, Absolute Lymphs (auto) 2.26, Total Counted Not Reportable 07/03/18 05:08: PT 14.0, INR 1.1, APTT 39.5 H 07/03/18 05:08: Sodium 140, Potassium 4.1, Chloride 105, Carbon Dioxide 28.0, Anion Gap 7, BUN 12, Creatinine 0.80, Estim Creat Clear Calc 53.28, Est GFR (MDRD) Af Amer 90, Est GFR (MDRD) Non-Af 74, BUN/Creatinine Ratio 15.0, Glucose 101, Calcium 8.7 Current Medications Acetaminophen (Tylenol) 650 mg PO Q6H PRN PRN PRN Reason: Mild Pain (1-3)/Temp > 100.7 F Last Admin: 07/03/18 05:19 Dose: 650 mg Amlodipine Besylate (Norvasc) 5 mg PO DAILY [facility] Last Admin: 07/03/18 05:05 Dose: 5 mg Aspirin (Aspirin, Baby) 81 mg PO DAILY@0800 [facility] Last Admin: 07/03/18 05:06 Dose: 81 mg Atorvastatin Calcium (Lipitor) 80 mg PO QHS [facility] Last Admin: 07/02/18 22:22 Dose: 80 mg Clopidogrel Bisulfate (Plavix) 75 mg PO DAILY [facility] Last Admin: 07/03/18 05:05 Dose: 75 mg Enoxaparin Sodium (Lovenox) 60 mg SC Q12 [facility] Last Admin: 07/02/18 22:22 Dose: 60 mg Hydrochlorothiazide (Hctz) 25 mg PO DAILY [facility] Last Admin: 07/02/18 09:43 Dose: 25 mg Nitroglycerin/Dextrose 25 mg/ (N/A) 250 mls @ 3 mls/hr IV .[id number] [facility] Last Admin: 07/01/18 22:29 Dose: 3 mls/hr Sodium Chloride () 1,000 mls @ 15 mls/hr IV .Q48H [facility] Last Admin: 07/03/18 05:11 Dose: 15 mls/hr Sodium Chloride () 250 mls @ 15 mls/hr IV .[id number] PRN PRN Reason: SALINE FLUSH Sodium Chloride () 250 mls @ 15 mls/hr IV .[id number] PRN PRN Reason: SALINE FLUSH Levothyroxine Sodium (Synthroid) 100 mcg PO DAILY@0600 [facility] Last Admin: 07/03/18 05:05 Dose: 100 mcg Magnesium Hydroxide (Milk Of Magnesia) 30 ml PO DAILY PRN PRN Reason: Constipation Last Admin: 07/02/18 12:32 Dose: 30 ml Metoprolol Tartrate (Lopressor (Beta Sarthak)) 50 mg PO BID [facility] Last Admin: 07/03/18 05:05 Dose: 50 mg Morphine Sulfate () 2 mg IV Q4H PRN PRN PRN Reason: PAIN Ondansetron HCl (Zofran) 4 mg IV Q6H PRN PRN PRN Reason: NAUSEA Last Admin: 07/02/18 08:42 Dose: 4 mg Potassium Chloride (K-Dur) 20 meq PO DAILYCM [facility] Last Admin: 07/03/18 05:06 Dose: 20 meq Psyllium Hydrophilic Mucilloid (Metamucil) 1 packet PO BID [facility] Last Admin: 07/02/18 22:23 Dose: 1 packet Sodium Chloride () 5 - 15 ml IV UD PRN PRN Reason: SALINE FLUSH Last Admin: 07/02/18 08:44 Dose: 10 ml Medical Necessity - Tobacco Use Smoking Status: Former smoker Assessment/Plan All Active Problems STEMI (ST elevation myocardial infarction) (Ruled-out) NSTEMI (non-ST elevated myocardial infarction) (Acute) 1. Non-STEMI Troponins peaked as high as 12.7 Symptomatically patient is improved s/p SHEMAR to mid LCx will have outpt PCI to RCA continue ASA, Plavix and high-intensity statin Bedrest until 0 2. Hypertension Fair control HCTZ, metoprolol 3. Bunion patient has follow up appointment with podiatry on 07/06. Per patient, this is a follow up, and no surgery is planned. I told her she would be able to keep that appointment 4. DVT prophylaxis anticoagulated on Lovenox 5. Disposition: pending on her post-cath course and cardiology, but anticipate discharge 07/04. Code Visit Inpatient E&M: [id number] Subs Hosp L2
[2018-07-03] MEDS: 0.9% Normal Saline 1,000 ML 150 ML IV ×2 (08:50)
--- NOTE | 2018-07-03 08:56 | PN_ITS ---
Patient Problems: Active and Suspected Problems NSTEMI (non-ST elevated myocardial infarction) (Acute) Subjective: post cath today w SHEMAR to mid LCx. No chest pain. No shortness of breath. Vitals/I&O's: Vital Signs Temp Pulse Resp BP Pulse Ox 36.8 C 60 21 H 104/72 95 07/03/18 06:00 07/03/18 07:00 07/03/18 07:00 07/03/18 07:00 07/03/18 07:00 Oxygen Flow Rate (L/min) 2 Oxygen Delivery Method Room Air Weight: 60.3 kg Body Mass Index (BMI) 22.8 Intake and Output for Last 24 Hours 07/01/18 07/02/18 07/03/18 23:59 23:59 23:59 Intake Total 1658.8 / 1658.8 568.9 / 568.9 Output Total 250 / 250 Balance 1408.8 / 1408.8 568.9 / 568.9 General: Alert, No apparent distress, - - lying flat, post cath. HEENT: Atraumatic, Normocephalic Oral: Moist Mucosa Neck: No Nodes, Thyroid Normal Size and Texture Lungs: Clear to auscultation, Normal air movement, No rhonchi, No wheeze Cardiovascular: Regular rate, Regular Rhythm, Normal S1, Normal S2, No murmurs Abdomen: Bowel Sounds Present, Soft, Non Tender, Non-Distended Extremities: No edema, No Calf Tenderness Skin: No rashes, No breakdown Musculoskeletal: No Tenderness to Palpation of Joints or Extremities, No Muscle Wasting Psych/Mental Status: Normal Affect, Appropriate Laboratory Results 07/02/18 09:18: Urine Color Yellow, Urine Clarity Sl. Cloudy, Urine pH 8.0, Ur Specific [place] 1.015, Urine Protein Negative, Urine Glucose (UA) Normal, Urine Ketones Negative, Urine Occult Blood 10 H, Urine Nitrite Positive H, Urine Bilirubin Negative, Urine Urobilinogen Normal, Ur Leukocyte Esterase 500 H, Urine RBC 0 SEEN, Urine WBC >100 SEEN, Ur Squamous Epith Cells 0 SEEN, Urine Bacteria 2+, Urine Mucus 0 SEEN 07/03/18 05:08: WBC 11.8 H, RBC 4.05 L, Hgb 12.3, Hct 37.2, MCV 91.9, MCH 30.4, MCHC 33.1, RDW 13.7, RDW Differential 45.3 H, Plt Count 234, MPV 10.8, Immature Gran % (Auto) 0.300, Neut % (Auto) 54.4, Lymph % (Auto) 19.2, [place] % (Auto) 17.6 H, Eos % (Auto) 8.2 H, Baso % (Auto) 0.3, Absolute Neuts (auto) 6.4, Absolute Lymphs (auto) 2.26, Total Counted Not Reportable 07/03/18 05:08: PT 14.0, INR 1.1, APTT 39.5 H 07/03/18 05:08: Sodium 140, Potassium 4.1, Chloride 105, Carbon Dioxide 28.0, Anion Gap 7, BUN 12, Creatinine 0.80, Estim Creat Clear Calc 53.28, Est GFR (MDRD) Af Amer 90, Est GFR (MDRD) Non-Af 74, BUN/Creatinine Ratio 15.0, Glucose 101, Calcium 8.7 Current Medications Acetaminophen (Tylenol) 650 mg PO Q6H PRN PRN PRN Reason: Mild Pain (1-3)/Temp > 100.7 F Last Admin: 07/03/18 05:19 Dose: 650 mg Amlodipine Besylate (Norvasc) 5 mg PO DAILY [facility] Last Admin: 07/03/18 05:05 Dose: 5 mg Aspirin (Aspirin, Baby) 81 mg PO DAILY@0800 [facility] Last Admin: 07/03/18 05:06 Dose: 81 mg Atorvastatin Calcium (Lipitor) 80 mg PO QHS [facility] Last Admin: 07/02/18 22:22 Dose: 80 mg Clopidogrel Bisulfate (Plavix) 75 mg PO DAILY [facility] Last Admin: 07/03/18 05:05 Dose: 75 mg Enoxaparin Sodium (Lovenox) 60 mg SC Q12 [facility] Last Admin: 07/02/18 22:22 Dose: 60 mg Hydrochlorothiazide (Hctz) 25 mg PO DAILY [facility] Last Admin: 07/02/18 09:43 Dose: 25 mg Nitroglycerin/Dextrose 25 mg/ (N/A) 250 mls @ 3 mls/hr IV .[id number] [facility] Last Admin: 07/01/18 22:29 Dose: 3 mls/hr Sodium Chloride () 1,000 mls @ 15 mls/hr IV .Q48H [facility] Last Admin: 07/03/18 05:11 Dose: 15 mls/hr Sodium Chloride () 250 mls @ 15 mls/hr IV .[id number] PRN PRN Reason: SALINE FLUSH Sodium Chloride () 250 mls @ 15 mls/hr IV .[id number] PRN PRN Reason: SALINE FLUSH Levothyroxine Sodium (Synthroid) 100 mcg PO DAILY@0600 [facility] Last Admin: 07/03/18 05:05 Dose: 100 mcg Magnesium Hydroxide (Milk Of Magnesia) 30 ml PO DAILY PRN PRN Reason: Constipation Last Admin: 07/02/18 12:32 Dose: 30 ml Metoprolol Tartrate (Lopressor (Beta Sarthak)) 50 mg PO BID [facility] Last Admin: 07/03/18 05:05 Dose: 50 mg Morphine Sulfate () 2 mg IV Q4H PRN PRN PRN Reason: PAIN Ondansetron HCl (Zofran) 4 mg IV Q6H PRN PRN PRN Reason: NAUSEA Last Admin: 07/02/18 08:42 Dose: 4 mg Potassium Chloride (K-Dur) 20 meq PO DAILYCM [facility] Last Admin: 07/03/18 05:06 Dose: 20 meq Psyllium Hydrophilic Mucilloid (Metamucil) 1 packet PO BID [facility] Last Admin: 07/02/18 22:23 Dose: 1 packet Sodium Chloride () 5 - 15 ml IV UD PRN PRN Reason: SALINE FLUSH Last Admin: 07/02/18 08:44 Dose: 10 ml Medical Necessity - Tobacco Use Smoking Status: Former smoker Assessment/Plan All Active Problems STEMI (ST elevation myocardial infarction) (Ruled-out) NSTEMI (non-ST elevated myocardial infarction) (Acute) 1. Non-STEMI * Troponins peaked as high as 12.7 * Symptomatically patient is improved * s/p SHEMAR to mid LCx * will have outpt PCI to RCA * continue ASA, Plavix and high-intensity statin * Bedrest until 0 2. Hypertension * Fair control * HCTZ, metoprolol 3. Bunion * patient has follow up appointment with podiatry on 07/06. Per patient, this is a follow up, and no surgery is planned. * I told her she would be able to keep that appointment 4. DVT prophylaxis * anticoagulated on Lovenox 5. Disposition: * pending on her post-cath course and cardiology, but anticipate discharge 07/04. Code Visit Inpatient E&M: [id number] Subs Hosp L2
--- NOTE | 2018-07-03 10:00 | EKG12_ITS ---
Test Reason : POST PCI Blood Pressure : / mmHG Vent. Rate : 064 BPM Atrial Rate : 064 BPM P-R Int : 162 ms QRS Dur : 084 ms QT Int : 426 ms P-R-T Axes : 055 -14 048 degrees QTc Int : 439 ms Normal sinus rhythm Normal ECG Confirmed by AMALIA WU [id number]), deputy editor in chief KASIA YUNG ([id number] on 07/18/2018 1:21:13 PM Referred By: BRYCE Confirmed By:AMALIA WU
--- NOTE | 2018-07-03 10:14 | CASEMGMT ---
SW met w/pt and daughter Amanda in the room to assess for any discharge needs. Pt alert and oriented, sleepy as just recently returned from the [place], and is on bed rest at present. Pt lives home alone, fully independent with all ADL's, drives, uses no DME. Pt's PCP is Dr. Mike Aden, pt's pharmacy is [facility] in [place]. Pt has Medicare and [employer] insurance. 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 Pt's daughter Amanda in the room states pt has four daughters, four son in laws and 12 grandchildren, pt confirms has a lot of family support. Pt and daughter anticipated pt will be able to return home at discharge and will not have any homegoing needs. SW let pt and daughter know if any needs arise, SW is available today and to ask RN, SW can return. Otherwise, plan will be for pt to return home at discharge with family support as needed. 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
[2018-07-03 11:10] LABS: ACT Activated Clotting Time 158 sec (74-137)
[2018-07-03 11:36] LABS: ACT Activated Clotting Time 202 sec (74-137)
[2018-07-03] MEDS: Psyllium 1 PACKET PO (19:45)
[2018-07-03] MEDS: Atorvastatin Calcium 80 MG Tablet PO (19:46)
[2018-07-03] MEDS: Ciprofloxacin 500 MG Tablet PO (19:49)
[2018-07-04] VITALS (14 sets, daily range): BP systolic 119–137; BP diastolic 42–68; PULSE 60–78; RESP 14–23; TEMP 36.8–36.9; O2SAT 94–98
[2018-07-04 04:46] LABS: Anion Gap 8 (5-15); BUN 12 mg/dL (7-18); BUN/Creat Ratio 18.1 RATIO (10-20); Calcium,Total 8.8 mg/dL (8.5-10.1); Chloride 107 mmol/L (98-107); Creatinine, Serum 0.66 mg/dL (0.55-1.02); EST Glomerular Filtration Rate 93 mL/min (>60); Est Glom Filt Rate - Afr Amer 112 mL/min (>60); Estimated Creatinine Clearance 42.62 ml/min; Glucose 92 mg/dL (74-106); Potassium 4.2 mmol/L (3.5-5.1); Sodium Level 142 mmol/L (136-145)
[2018-07-04 04:48] LABS: Absolute Lymphocyte Count 2.45 X10^3/ul (0.83-4.51); Absolute Neutrophil Count 5.4 X10^3/uL (2.0-7.7); Basophil# 0.04 X10^3/uL; Basophil% 0.4 % (0-1); Eosinophil# 1.03 X10^3/uL; Eosinophils% 9.8 % (0-5); Hematocrit 35.4 % (37-47); Hemoglobin 11.6 g/dl (12.0-15.0); Lymphocyte # 2.45 X10^3/ul (4.0); Lymphocyte % 23.3 % (19-41); Mean Corp Hgb Conc 32.8 g/gl (32-36); Mean Corpuscular Hgb 29.9 pg (27.0-32.0); Mean Corpuscular Volume 91.2 fL (81-99); Mean Platelet Vol. 11.1 fl (6.2-12.0); Monocyte# 1.58 X10^3/uL; Neutrophil # 5.41 X10^3/uL (2.7-7.7); Neutrophil % 51.4 % (47-70); Platelet Count 225 K/mm3 (150-450); RBC Distribution Width SD 46.6 fl (35.1-43.9); Red Blood Count 3.88 M/mm3 (4.2-5.4); White Blood Count 10.5 K/mm3 (4.4-11.0)
[2018-07-04 04:50] LABS: Differential Indicated SCAN CRITERIA MET; POSITIVE COUNT NO; POSITIVE DIFFERENTIAL YES; POSITIVE MORPHOLOGY NO
[2018-07-04] MEDS: Levothyroxine 100 MCG Tablet PO (05:23)
--- NOTE | 2018-07-04 07:48 | PCM.DC.SUM ---
Discharge Date and Diagnosis - Problem List Patient Problems: Active and Suspected Problems NSTEMI (non-ST elevated myocardial infarction) (Acute) Date of Admission: 07/01/18 Date of Discharge: 07/04/18 - Primary Discharge Diagnosis Active and Suspected Problems NSTEMI (non-ST elevated myocardial infarction) (Acute) Cystitis - due to E. Coli (resistant to Fluroquinolones - Secondary Discharge Diagnosis Chronic Problems Hypertension (Chronic) Hypothyroidism (Chronic) Coronary artery disease Stage II diastolic dysfunction Moderate pulmonary hypertension Mitral [id number]-[id number]+ Tricuspid regurgitation 1+ Hospital Course and Treatment Imaging Results: Clinical Impression(s) from Imaging Studies Chest X-Ray 07/01/18 14:54 IMPRESSION: No airspace consolidation or pleural effusion. Electronically Signed: Rios Luu MD at 15:36 EST , Service support , Laboratory Results - last 24 hr 07/03/18 07/03/18 07/04/18 08:07 10:51 04:05 WBC 10.5 RBC 3.88 L Hgb 11.6 L Hct 35.4 L MCV 91.2 MCH 29.9 MCHC 32.8 RDW 14.0 RDW Differential 46.6 H Plt Count 225 MPV 11.1 Immature Gran % (Auto) 0.100 Neut % (Auto) 51.4 Lymph % (Auto) 23.3 Tyler % (Auto) 15.0 H Eos % (Auto) 9.8 H Baso % (Auto) 0.4 Absolute Neuts (auto) 5.4 Absolute Lymphs (auto) 2.45 Total Counted Not Reportable Differential Comment Activated Clotting Time 202 H 158 H Sodium Potassium Chloride Carbon Dioxide Anion Gap BUN Creatinine Estim Creat Clear Calc Est GFR (MDRD) Af Amer Est GFR (MDRD) Non-Af BUN/Creatinine Ratio Glucose Calcium 07/04/18 04:05 WBC RBC Hgb Hct MCV MCH MCHC RDW RDW Differential Plt Count MPV Immature Gran % (Auto) Neut % (Auto) Lymph % (Auto) Tyler % (Auto) Eos % (Auto) Baso % (Auto) Absolute Neuts (auto) Absolute Lymphs (auto) Total Counted Differential Comment Activated Clotting Time Sodium 142 Potassium 4.2 Chloride 107 Carbon Dioxide 27.0 Anion Gap 8 BUN 12 Creatinine 0.66 Estim Creat Clear Calc 42.62 Est GFR (MDRD) Af Amer 112 Est GFR (MDRD) Non-Af 93 BUN/Creatinine Ratio 18.1 Glucose 92 Calcium 8.8 Microbiology 07/02/18 09:18 Urine, Clean Catch Urine Culture - Final Escherichia coli Dr. Patrick Lopez[facility] Operations: None Procedures: Cardiac catheterization - With SHEMAR To the mid circumflex artery which was 100% occluded preprocedure and 0% occluded post procedure, Transthoracic echo - Estimated ejection fraction is 75%, stage II diastolic dysfunction, 1-2+ MR, 1+ TR, right ventricular systolic pressure elevated to 47 consistent with moderate pulmonary hypertension. Summary of Care Provided: The patient is a 73 year old F with a past medical history of hypertension and hypothyroidism who presented to the emergency department at [facility] on 07/01/2018 complaining of chest pain radiating into both arms. She received 3 sublingual nitroglycerin tablets in the emergency department and her pain subsided. The initial troponin was 0.329 and peaked at 12.7. She was seen in consultation by Dr. Patrick Lopez and an echocardiogram was obtained which showed a 75% ejection fraction with stage II diastolic dysfunction, 1-2+ MR, 1+ TR, elevated right ventricular systolic pressure at 47 and no wall motion abnormalities. She was taken to the [facility] on 07/03/2018 and had a 100% occluded circumflex artery. PTCA/SHEMAR was performed and the postprocedure stenosis was 0%. Postprocedure she was transferred to the intensive care unit. She had no significant ventricular ectopy overnight. On 07/04 she denied chest pain, shortness of breath, nausea, palpitation, lightheadedness. An incidental finding in the emergency room was a UA showing greater than 100 WBCs per high-power field with 0 squamous epithelial cells. The urine was nitrate positive and she was started on ciprofloxacin. Urine culture grew E. coli resistant to cristobal quinolones and she was discharged with a prescription for Duricef 1 g p.o. daily times 7 tablets. She was discharged on 07/04 on atorvastatin, Lopressor, Lasix, aspirin, Norvasc, Plavix and Duricef. She was given a prescription for Nitrostat. General: alert, oriented X3, NAD, appropriate with normal affect, sitting in a chair at the bedside Neck: supple, trachea midline, carotids have brisk upstroke and normal pulse volume, no JVD Lungs: CTA, symmetric chest expansion, not tachypneic, able to lie flat with no respiratory distress Heart: Regular rate and rhythm, normal S1, normal S2, no murmur, no gallop, no rub Abdomen: soft, NT, ND, BS's present Extremities: no edema, no calf tenderness, peripheral pulses are normal, no cyanosis R groin bandage is dry and there is no hematoma or tenderness at the site with palpation This note was generated with [employer] dictation software. It may contain incorrect words, spelling, and punctuation that were not noted in checking the note before signing. Patient Problems: Active and Suspected Problems NSTEMI (non-ST elevated myocardial infarction) (Acute) - Physical Exam Vital Signs Temp Pulse Resp BP Pulse Ox 98.3 F 75 17 133/48 H 95 07/04/18 00:00 07/04/18 07:20 07/04/18 07:00 07/04/18 07:00 07/04/18 07:00 Oxygen Flow Rate (L/min) 2 Oxygen Delivery Method Room Air Weight: 132 lb 15.02 oz Body Mass Index (BMI) 22.8 Intake and Output for Last 24 Hours 07/02/18 07/03/18 07/04/18 23:59 23:59 23:59 Intake Total 1658.8 / 1658.8 1868.9 / 1868.9 360 / 360 Output Total 250 / 250 1100 / 1100 Balance 1408.8 / 1408.8 768.9 / 768.9 360 / 360 Microbiology Past 72 Hours 07/02/18 09:18 Urine Culture - Final Urine, Clean Catch Escherichia coli Laboratory Tests Past 24 Hrs 07/03/18 07/03/18 07/04/18 08:07 10:51 04:05 WBC 10.5 RBC 3.88 L Hgb 11.6 L Hct 35.4 L MCV 91.2 MCH 29.9 MCHC 32.8 RDW 14.0 RDW Differential 46.6 H Plt Count 225 MPV 11.1 Immature Gran % (Auto) 0.100 Neut % (Auto) 51.4 Lymph % (Auto) 23.3 [place] % (Auto) 15.0 H Eos % (Auto) 9.8 H Baso % (Auto) 0.4 Absolute Neuts (auto) 5.4 Absolute Lymphs (auto) 2.45 Total Counted Not Reportable Differential Comment Activated Clotting Time 202 H 158 H Sodium Potassium Chloride Carbon Dioxide Anion Gap BUN Creatinine Estim Creat Clear Calc Est GFR (MDRD) Af Amer Est GFR (MDRD) Non-Af BUN/Creatinine Ratio Glucose Calcium 07/04/18 04:05 WBC RBC Hgb Hct MCV MCH MCHC RDW RDW Differential Plt Count MPV Immature Gran % (Auto) Neut % (Auto) Lymph % (Auto) Tyler % (Auto) Eos % (Auto) Baso % (Auto) Absolute Neuts (auto) Absolute Lymphs (auto) Total Counted Differential Comment Activated Clotting Time Sodium 142 Potassium 4.2 Chloride 107 Carbon Dioxide 27.0 Anion Gap 8 BUN 12 Creatinine 0.66 Estim Creat Clear Calc 42.62 Est GFR (MDRD) Af Amer 112 Est GFR (MDRD) Non-Af 93 BUN/Creatinine Ratio 18.1 Glucose 92 Calcium 8.8 Discharge Diet: Low fat/ Low Cholesterol Discharge Activity: - - You may remove the dressing in 1 day.You may shower in 1 day.No sex for 10-14 days.Do not lift more than 10 pounds for the next 10-14 days. No strenuous activity. You may start a walking program and work up to 30 minutes daily 5-6 times a week. No hills. Call your doctor if your incision/area has: Continuous Slow Oozing, Sudden Increased Bleeding, Increased Pain/ Swelling, Increased Redness, Foul Smelling Discharge, - - Swelling at the puncture site in the right groin Call your doctor if you observe: Fever of 101 or Higher, Shortness of breath, Dizziness, Fainting spells, Swelling in the ankles, Chest pain, - - Call your PCP if severe diarrhea ( > 5 stools a day), painful sores in the mouth, painful swallowing, rash or itching. Taking a probiotic such as Lactobacillus or Kefir can help with loose stools while taking antibiotics. Home Medications: Medications to take at Discharge Aspirin [Aspirin, Baby] 81 mg PO DAILY@0800 11/22/17 Calcium Carbonate/Vitamin D3 [Calcium 500-Vit D3 600 Caplet] 1 each PO DAILY 11/22/17 Hydrochlorothiazide [Hctz] 25 mg PO DAILY 11/22/17 Levothyroxine Sodium [Synthroid] 100 mcg PO DAILY 11/22/17 Metoprolol Tartrate [Lopressor (beta sarthak)] 50 mg PO BID 11/22/17 Vitamin E 400 unit PO DAILY 11/22/17 Multivitamin with Minerals [Hair, Skin and Nails] 1 each PO DAILY 07/01/18 clopidogrel 75 mg tablet 75 mg PO DAILY #30 tab 07/03/18 Amlodipine [Norvasc] 5 mg PO DAILY #30 tab 07/04/18 Atorvastatin Calcium [Lipitor] 80 mg PO QHS #30 tab 07/04/18 Cefadroxil 1 gm PO DAILY #7 tab 07/04/18 Fluconazole [Diflucan] 150 mg PO X1 #1 tab 07/04/18 Nitroglycerin [Nitrostat] 0.4 mg SUBLINGUAL Q5M PRN #1 bottle 07/04/18 Potassium Chloride [K-Dur] 20 meq PO DAILYCM #30 tab 07/04/18 Following Prescrptions Were Given to Patient: Amlodipine [Norvasc] 5 mg PO DAILY #30 tab Atorvastatin Calcium [Lipitor] 80 mg PO QHS #30 tab Cefadroxil 1 gm PO DAILY #7 tab Fluconazole [Diflucan] 150 mg PO X1 #1 tab Nitroglycerin [Nitrostat] 0.4 mg SUBLINGUAL Q5M PRN #1 bottle PRN Reason: Chest Pain Potassium Chloride [K-Dur] 20 meq PO DAILYCM #30 tab Primary Care Physician: Mike Aden DO [Primary Care Provider] - Please follow up with your Primary Care Physician in: 7-10 days Please Follow Up With: Patrick Lopez MD When: 1 week Disposition: Home Minutes spent on discharge:: 35 Patient Condition:: Good Medical Necessity - Tobacco Use Smoking Status: Former smoker Tobacco Use: Non-smoker Meaningful Use Info Meaningful Use Diagnoses (Choose all that apply): AMI - AMI Aspirin given w/in 24hrs of arrival?: Yes ASA at discharge?: Yes Statins at discharge?: Yes Hira/ARB at discharge?: No Reason Hira/ARB not ordered:: Not indicated Beta Sarthak at discharge?: Yes Done w/ Acute [place] measure.: Yes Code Visit Inpatient E&M: 83682 Disch Hosp
--- NOTE | 2018-07-04 07:52 | DS.PCM_ITS ---
Discharge Date and Diagnosis - Problem List Patient Problems: Active and Suspected Problems NSTEMI (non-ST elevated myocardial infarction) (Acute) Date of Admission: 07/01/18 Date of Discharge: 07/04/18 - Primary Discharge Diagnosis Active and Suspected Problems NSTEMI (non-ST elevated myocardial infarction) (Acute) Cystitis - due to E. Coli (resistant to Fluroquinolones - Secondary Discharge Diagnosis Chronic Problems Hypertension (Chronic) Hypothyroidism (Chronic) Coronary artery disease Stage II diastolic dysfunction Moderate pulmonary hypertension Mitral [id number]-5-2+ Tricuspid regurgitation 1+ Hospital Course and Treatment Imaging Results: Clinical Impression(s) from Imaging Studies Chest X-Ray 07/01/18 14:54 IMPRESSION: No airspace consolidation or pleural effusion. Electronically Signed: Rios Luu MD at 15:36 EST , Service support , Laboratory Results - last 24 hr 07/03/18 07/03/18 07/04/18 08:07 10:51 04:05 WBC 10.5 RBC 3.88 L Hgb 11.6 L Hct 35.4 L MCV 91.2 MCH 29.9 MCHC 32.8 RDW 14.0 RDW Differential 46.6 H Plt Count 225 MPV 11.1 Immature Gran % (Auto) 0.100 Neut % (Auto) 51.4 Lymph % (Auto) 23.3 [place] % (Auto) 15.0 H Eos % (Auto) 9.8 H Baso % (Auto) 0.4 Absolute Neuts (auto) 5.4 Absolute Lymphs (auto) 2.45 Total Counted Not Reportable Differential Comment Activated Clotting Time 202 H 158 H Sodium Potassium Chloride Carbon Dioxide Anion Gap BUN Creatinine Estim Creat Clear Calc Est GFR (MDRD) Af Amer Est GFR (MDRD) Non-Af BUN/Creatinine Ratio Glucose Calcium 07/04/18 04:05 WBC RBC Hgb Hct MCV MCH MCHC RDW RDW Differential Plt Count MPV Immature Gran % (Auto) Neut % (Auto) Lymph % (Auto) [place] % (Auto) Eos % (Auto) Baso % (Auto) Absolute Neuts (auto) Absolute Lymphs (auto) Total Counted Differential Comment Activated Clotting Time Sodium 142 Potassium 4.2 Chloride 107 Carbon Dioxide 27.0 Anion Gap 8 BUN 12 Creatinine 0.66 Estim Creat Clear Calc 42.62 Est GFR (MDRD) Af Amer 112 Est GFR (MDRD) Non-Af 93 BUN/Creatinine Ratio 18.1 Glucose 92 Calcium 8.8 Microbiology 07/02/18 09:18 Urine, Clean Catch Urine Culture - Final Escherichia coli Dr. Patrick Lopez-[facility] Operations: None Procedures: Cardiac catheterization - With SHEMAR To the mid circumflex artery which was 100% occluded preprocedure and 0% occluded post procedure, Transthoracic echo - Estimated ejection fraction is 75%, stage II diastolic dysfunction, 1-2+ MR, 1+ TR, right ventricular systolic pressure elevated to 47 consistent with moderate pulmonary hypertension. Summary of Care Provided: The patient is a 73 year old F with a past medical history of hypertension and hypothyroidism who presented to the emergency department at [facility] on 07/01/2018 complaining of chest pain radiating into both arms. She received 3 sublingual nitroglycerin tablets in the emergency department and her pain subsided. The initial troponin was 0.329 and peaked at 12.7. She was seen in consultation by Dr. Patrick Lopez and an echocardiogram was obtained which showed a 75% ejection fraction with stage II diastolic dysfunction, 1-2+ MR, 1+ TR, elevated right ventricular systolic pressure at 47 and no wall motion abnormalities. She was taken to [facility] on 07/03/2018 and had a 100% occluded circumflex artery. PTCA/SHEMAR was performed and the postprocedure stenosis was 0%. Postprocedure she was transferred to the intensive care unit. She had no significant ventricular ectopy overnight. On 07/04 she denied chest pain, shortness of breath, nausea, palpitation, lightheadedness. An incidental finding in the emergency room was a UA showing greater than 100 WBCs per high-power field with 0 squamous epithelial cells. The urine was nitrate positive and she was started on ciprofloxacin. Urine culture grew E. coli resistant to cristobal quinolones and she was discharged with a prescription for Duricef 1 g p.o. daily times 7 tablets. She was discharged on 07/04 on atorvastatin, Lopressor, Lasix, aspirin, Norvasc, Plavix and Duricef. She was given a prescription for Nitrostat. General: alert, oriented X3, NAD, appropriate with normal affect, sitting in a chair at the bedside Neck: supple, trachea midline, carotids have brisk upstroke and normal pulse volume, no JVD Lungs: CTA, symmetric chest expansion, not tachypneic, able to lie flat with no respiratory distress Heart: Regular rate and rhythm, normal S1, normal S2, no murmur, no gallop, no rub Abdomen: soft, NT, ND, BS's present Extremities: no edema, no calf tenderness, peripheral pulses are normal, no cyanosis R groin bandage is dry and there is no hematoma or tenderness at the site with palpation This note was generated with [employer] dictation software. It may contain incorrect words, spelling, and punctuation that were not noted in checking the note before signing. Patient Problems: Active and Suspected Problems NSTEMI (non-ST elevated myocardial infarction) (Acute) - Physical Exam Vital Signs Temp Pulse Resp BP Pulse Ox 98.3 F 75 17 133/48 H 95 07/04/18 00:00 07/04/18 07:20 07/04/18 07:00 07/04/18 07:00 07/04/18 07:00 Oxygen Flow Rate (L/min) 2 Oxygen Delivery Method Room Air Weight: 132 lb 15.02 oz Body Mass Index (BMI) 22.8 Intake and Output for Last 24 Hours 07/02/18 07/03/18 07/04/18 23:59 23:59 23:59 Intake Total 1658.8 / 1658.8 1868.9 / 1868.9 360 / 360 Output Total 250 / 250 1100 / 1100 Balance 1408.8 / 1408.8 768.9 / 768.9 360 / 360 Microbiology Past 72 Hours 07/02/18 09:18 Urine Culture - Final Urine, Clean Catch Escherichia coli Laboratory Tests Past 24 Hrs 07/03/18 07/03/18 07/04/18 08:07 10:51 04:05 WBC 10.5 RBC 3.88 L Hgb 11.6 L Hct 35.4 L MCV 91.2 MCH 29.9 MCHC 32.8 RDW 14.0 RDW Differential 46.6 H Plt Count 225 MPV 11.1 Immature Gran % (Auto) 0.100 Neut % (Auto) 51.4 Lymph % (Auto) 23.3 Josephine % (Auto) 15.0 H Eos % (Auto) 9.8 H Baso % (Auto) 0.4 Absolute Neuts (auto) 5.4 Absolute Lymphs (auto) 2.45 Total Counted Not Reportable Differential Comment Activated Clotting Time 202 H 158 H Sodium Potassium Chloride Carbon Dioxide Anion Gap BUN Creatinine Estim Creat Clear Calc Est GFR (MDRD) Af Amer Est GFR (MDRD) Non-Af BUN/Creatinine Ratio Glucose Calcium 07/04/18 04:05 WBC RBC Hgb Hct MCV MCH MCHC RDW RDW Differential Plt Count MPV Immature Gran % (Auto) Neut % (Auto) Lymph % (Auto) Josephine % (Auto) Eos % (Auto) Baso % (Auto) Absolute Neuts (auto) Absolute Lymphs (auto) Total Counted Differential Comment Activated Clotting Time Sodium 142 Potassium 4.2 Chloride 107 Carbon Dioxide 27.0 Anion Gap 8 BUN 12 Creatinine 0.66 Estim Creat Clear Calc 42.62 Est GFR (MDRD) Af Amer 112 Est GFR (MDRD) Non-Af 93 BUN/Creatinine Ratio 18.1 Glucose 92 Calcium 8.8 Discharge Diet: Low fat/ Low Cholesterol Discharge Activity: - - You may remove the dressing in 1 day.You may shower in 1 day.No sex for 10-14 days.Do not lift more than 10 pounds for the next 10-14 days. No strenuous activity. You may start a walking program and work up to 30 minutes daily 5-6 times a week. No hills. Call your doctor if your incision/area has: Continuous Slow Oozing, Sudden Increased Bleeding, Increased Pain/ Swelling, Increased Redness, Foul Smelling Discharge, - - Swelling at the puncture site in the right groin Call your doctor if you observe: Fever of 101 or Higher, Shortness of breath, Dizziness, Fainting spells, Swelling in the ankles, Chest pain, - - Call your PCP if severe diarrhea ( > 5 stools a day), painful sores in the mouth, painful swallowing, rash or itching. Taking a probiotic such as Lactobacillus or Kefir can help with loose stools while taking antibiotics. Home Medications: Medications to take at Discharge Aspirin [Aspirin, Baby] 81 mg PO DAILY@0800 11/22/17 Calcium Carbonate/Vitamin D3 [Calcium 500-Vit D3 600 Caplet] 1 each PO DAILY 11/22/17 Hydrochlorothiazide [Hctz] 25 mg PO DAILY 11/22/17 Levothyroxine Sodium [Synthroid] 100 mcg PO DAILY 11/22/17 Metoprolol Tartrate [Lopressor (beta sarthak)] 50 mg PO BID 11/22/17 Vitamin E 400 unit PO DAILY 11/22/17 Multivitamin with Minerals [Hair, Skin and Nails] 1 each PO DAILY 07/01/18 clopidogrel 75 mg tablet 75 mg PO DAILY #30 tab 07/03/18 Amlodipine [Norvasc] 5 mg PO DAILY #30 tab 07/04/18 Atorvastatin Calcium [Lipitor] 80 mg PO QHS #30 tab 07/04/18 Cefadroxil 1 gm PO DAILY #7 tab 07/04/18 Fluconazole [Diflucan] 150 mg PO X1 #1 tab 07/04/18 Nitroglycerin [Nitrostat] 0.4 mg SUBLINGUAL Q5M PRN #1 bottle 07/04/18 Potassium Chloride [K-Dur] 20 meq PO DAILYCM #30 tab 07/04/18 Following Prescrptions Were Given to Patient: Amlodipine [Norvasc] 5 mg PO DAILY #30 tab Atorvastatin Calcium [Lipitor] 80 mg PO QHS #30 tab Cefadroxil 1 gm PO DAILY #7 tab Fluconazole [Diflucan] 150 mg PO X1 #1 tab Nitroglycerin [Nitrostat] 0.4 mg SUBLINGUAL Q5M PRN #1 bottle PRN Reason: Chest Pain Potassium Chloride [K-Dur] 20 meq PO DAILYCM #30 tab Primary Care Physician: Mike Aden DO [Primary Care Provider] - Please follow up with your Primary Care Physician in: 7-10 days Please Follow Up With: Patrick Lopez MD When: 1 week Disposition: Home Minutes spent on discharge:: 35 Patient Condition:: Good Medical Necessity - Tobacco Use Smoking Status: Former smoker Tobacco Use: Non-smoker Meaningful Use Info Meaningful Use Diagnoses (Choose all that apply): AMI - AMI Aspirin given w/in 24hrs of arrival?: Yes ASA at discharge?: Yes Statins at discharge?: Yes Hira/ARB at discharge?: No Reason Hira/ARB not ordered:: Not indicated Beta Sarthak at discharge?: Yes Done w/ Acute [place] measure.: Yes Code Visit Inpatient E&M: 38459 Disch Hosp
[2018-07-04] MEDS: hydroCHLOROthiazide 25 MG Tablet PO (08:40)
[2018-07-04] MEDS: Psyllium 1 PACKET PO (08:40)
[2018-07-04] MEDS: amLODIPine 5 MG Tablet PO (08:40)
[2018-07-04] MEDS: Clopidogrel Bisulfate 75 MG Tablet PO (08:41)
[2018-07-04] MEDS: Aspirin 81 MG TAB.CHEW PO (08:41)
[2018-07-04] MEDS: Ceftriaxone 1 GM/50 ML BAG IV (08:42)
[2018-07-04] MEDS: Metoprolol Tartrate 50 MG Tablet PO (08:43)
--- NOTE | 2018-07-04 10:17 | PN.CARD_ITS ---
Subjectve: Patient doing very well, no 24-hour events. EKG shows normal sinus rhythm, no acute changes. Telemetry negative. Right groin is clean/dry/intact without evidence of thrills, bruits or hematoma. 2+ DP and PT pulses bilaterally. Creatinine and hemoglobin within nominal limits. Objective: Vital Signs Temp Pulse Resp BP Pulse Ox 98.3 F 76 20 H 127/52 H 95 07/04/18 00:00 07/04/18 08:43 07/04/18 08:00 07/04/18 08:43 07/04/18 08:30 Oxygen Flow Rate (L/min) 2 Oxygen Delivery Method Room Air Weight: 132 lb 15.02 oz Body Mass Index (BMI) 22.8 Intake and Output for Last 24 Hours 07/02/18 07/03/18 07/04/18 23:59 23:59 23:59 Intake Total 1658.8 / 1658.8 1868.9 / 1868.9 360 / 360 Output Total 250 / 250 1100 / 1100 Balance 1408.8 / 1408.8 768.9 / 768.9 360 / 360 General: Awake, Alert, Oriented x 3 HEENT: PERRL, EOMI, Sclera Non Icteric Neck: Supple, Good ROM, No Lymph Node Enlargement Lungs: Clear to auscultation Cardiovascular: Regular Rhythm, Normal S1, Normal S2, No Murmurs, No Rubs, No Gallops Vascular: No Carotid Bruits, Normal Femoral Pulses, Normal Radial Pulses, Normal Dorsalis Pedal Pulse, Normal Posterior Tibial Pulses Abdomen: Bowel Sounds Present, Soft, Non Tender, No HSM, No Organomegaly Extremities: No Cyanosis, No Clubbing, No edema Neurological: No Focal Motor or Sensory Deficit 07/04/18 04:05: WBC 10.5, RBC 3.88 L, Hgb 11.6 L, Hct 35.4 L, MCV 91.2, MCH 29.9, MCHC 32.8, RDW 14.0, RDW Differential 46.6 H, Plt Count 225, MPV 11.1, Immature Gran % (Auto) 0.100, Neut % (Auto) 51.4, Lymph % (Auto) 23.3, [place] % (Auto) 15.0 H, Eos % (Auto) 9.8 H, Baso % (Auto) 0.4, Absolute Neuts (auto) 5.4, Total Counted Not Reportable 07/04/18 04:05: Sodium 142, Potassium 4.2, Chloride 107, Carbon Dioxide 27.0, Anion Gap 8, BUN 12, Creatinine 0.66, Est GFR (MDRD) Af Amer 112, Est GFR (MDRD) Non-Af 93, BUN/Creatinine Ratio 18.1, Glucose 92, Calcium 8.8 Rhythm: EKG: ECHO: Stress Test: Cardiac Cath: PCI: CT Surgery: Holter monitor: EPS: PPM: CXR: Chest CT Scan: Medical Necessity - Tobacco Use Smoking Status: Former smoker Tobacco Use: Non-smoker Assessment/Plan 1. Unstable angina: The patient presented with substernal chest pain radiating to both arms, with subtle dynamic EKG changes with inferior lateral ST segment depression, and subtle J-point elevation in aVL only. Stat bedside echo showed intact LV function in all major segments, and no evidence of hypokinesis inferiorly or laterally. Patient's chest pain has been relieved with sublingual nitroglycerin and IV beta-sobia for a significant hypertension. Her initial troponin is abnormal at 0.329, and increased to 4.0, and peaked at 12.0. Telemetry showed normal sinus rhythm/sinus bradycardia with no PVCs. Repeat EKG this morning showed normal sinus rhythm, complete resolution of ST segment changes.. Patient underwent left heart catheterization yesterday which demonstrated an occluded small left circumflex artery, with adequate right to left collaterals. Patient underwent successful angioplasty and drug-eluting stenting of her mid left circumflex. Patient will return in 3 weeks time for elective angioplasty and stenting of her distal and possible proximal RCA. LAD had minor nonobstructive disease. LV function was intact. She will continue baby aspirin, Plavix and antihypertensive medications as outlined in the MRF. Her LDL is 130, and HDL is 48. Recommend starting Lipitor 80 mg p.o. nightly. Repeat lipid profile in 6 weeks time. The patient apparently had reportedly normal coronary arteries per the patient's daughter who is a registered nurse around 8-10 years ago. 2. Obstructive sleep apnea: The patient has signs and symptoms of possible non- diagnosed obstructive sleep apnea, would recommend an outpatient sleep study once her cardiac evaluation has been completed. 3. Hypertension: The patient's blood pressure was controlled with amlodipine, beta-blockers. Would recommend continuing Lopressor 50 mg p.o. twice daily, amlodipine 10 mg a day, and hydrochlorothiazide 25 mg p.o. daily. Keep potassium above 4.0 and magnesium above 2.0. 4. Thank you very much for the opportunity to participate in the cardiac care of your patient. Patient may be discharged home. Code Visit Inpatient E&M: 27425 Subs Hosp L2
--- NOTE | 2018-07-04 10:49 | DCINST_ITS ---
- Discharge Diagnoses Current Active Problems: Current Active and Chronic Problems NSTEMI (non-ST elevated myocardial infarction) (Acute) Hypertension (Chronic) Hypothyroidism (Chronic) You will use the following diet at home:: Cardiac Your food should be the consistency of: Regular Your liquids should be the consistency of: Regular/Thin Discharge Activity: - - You may remove the dressing in 1 day.You may shower in 1 day.No sex for 10-14 days.Do not lift more than 10 pounds for the next 10-14 days. No strenuous activity. You may start a walking program and work up to 30 minutes daily 5-6 times a week. No hills. Call your doctor if your incision/area has: Continuous Slow Oozing, Sudden Increased Bleeding, Increased Pain/ Swelling, Increased Redness, Foul Smelling Discharge, - - Swelling at the puncture site in the right groin Call your doctor if you observe: Fever of 101 or Higher, Shortness of breath, Dizziness, Fainting spells, Swelling in the ankles, Chest pain, - - Call your PCP if severe diarrhea ( > 5 stools a day), painful sores in the mouth, painful swallowing, rash or itching. Taking a probiotic such as Lactobacillus or Kefir can help with loose stools while taking antibiotics. Allergies/Adverse Reactions: Allergies Penicillins Allergy (Verified 07/01/18 14:26) Rash acetaminophen [From Vicodin] Adverse Reaction (Verified 07/01/18 14:26) Nausea codeine Adverse Reaction (Verified 07/01/18 14:26) Nausea erythromycin base Adverse Reaction (Verified 07/01/18 14:26) Nausea hydrocodone [From Vicodin] Adverse Reaction (Verified 07/01/18 14:26) Nausea Sulfa (Sulfonamide Antibiotics) Adverse Reaction (Verified 07/01/18 14:26) Nausea Tetracyclines Adverse Reaction (Verified 07/01/18 14:26) Nausea Medications to take at Discharge Aspirin [Aspirin, Baby] 81 mg PO DAILY@0800 11/22/17 Calcium Carbonate/Vitamin D3 [Calcium 500-Vit D3 600 Caplet] 1 each PO DAILY 11/22/17 Hydrochlorothiazide [Hctz] 25 mg PO DAILY 11/22/17 Levothyroxine Sodium [Synthroid] 100 mcg PO DAILY 11/22/17 Metoprolol Tartrate [Lopressor (beta sobia)] 50 mg PO BID 11/22/17 Vitamin E 400 unit PO DAILY 11/22/17 Multivitamin with Minerals [Hair, Skin and Nails] 1 each PO DAILY 07/01/18 clopidogrel 75 mg tablet 75 mg PO DAILY #30 tab 07/03/18 Amlodipine [Norvasc] 5 mg PO DAILY #30 tab 07/04/18 Atorvastatin Calcium [Lipitor] 80 mg PO QHS #30 tab 07/04/18 Cefadroxil 1 gm PO DAILY #7 tab 07/04/18 Fluconazole [Diflucan] 150 mg PO X1 #1 tab 07/04/18 Nitroglycerin [Nitrostat] 0.4 mg SUBLINGUAL Q5M PRN #1 bottle 07/04/18 Potassium Chloride [K-Dur] 20 meq PO DAILYCM #30 tab 07/04/18 The following prescriptions were given: Amlodipine [Norvasc] 5 mg PO DAILY #30 tab Atorvastatin Calcium [Lipitor] 80 mg PO QHS #30 tab Cefadroxil 1 gm PO DAILY #7 tab Fluconazole [Diflucan] 150 mg PO X1 #1 tab Nitroglycerin [Nitrostat] 0.4 mg SUBLINGUAL Q5M PRN #1 bottle PRN Reason: Chest Pain Potassium Chloride [K-Dur] 20 meq PO DAILYCM #30 tab Primary Care Physician: Mike Aden DO [Primary Care Provider] - Please follow up with your Primary Care Physician in: 7-10 days Test Results: Test results from this visit will be discussed in further detail at your follow- up appointment, if applicable. Please Follow Up With: Patrick Lopez MD When: 1 week Proposed Discharge Date: 07/04/18
--- NOTE | 2018-07-05 09:21 | CRPHASE1 ---
Patient Data/Charges Refer Phase II:: Yes Reason Not Completed:: Patient had been discharged. Patient was contacted by CR staff on 07/05/18 via phone. Patient stated she did receive the CR Booklet from ICU staff at discharge. Reviewed information with patient and advised she would probably be receiving a call from us after receiving the physician referral for outpatient CR. Phase II Referral:: [facility] Start Phase II:: 2-weeks (14-days) of discharge. Risk Factors/Lifestyle Hx Dyslipidemia: Yes Height: 5 ft 4 in Weight:: 132 lb BMI: 22.6 Risk Factor for Sedentary Lifestyle: Lowest Risk Laboratory Values: Cardiac Rehab Phase I Labs Triglycerides 188 mg/dL (-199) 07/01/18 14:35 Cholesterol 216 mg/dL (200) H 07/01/18 14:35 LDL Cholesterol 130 mg/dL (0-130) 07/01/18 14:35 HDL Cholesterol 48 mg/dL (40-) 07/01/18 14:35 Phase I Education Given On:: [place] Knowledge of Condition:: Yes Learning Preferences: Verbal, Written, Audio/Visual Medical/Surgical History [place]:: Yes - NSTEMI CAD:: Yes Cardiomyopathy:: Yes - Stage II diastolic dysfunction Pulmonary:: Yes - moderate pulmonary hypertension Hypertension:: Yes Dyslipidemia:: Yes
--- NOTE | 2018-07-05 09:25 | CRPHASE1_ITS ---
Patient Data/Charges Refer Phase II:: Yes Reason Not Completed:: Patient had been discharged. Patient was contacted by CR staff on 07/05/18 via phone. Patient stated she did receive the CR Booklet from ICU staff at discharge. Reviewed information with patient and advised she would probably be receiving a call from us after receiving the physician referral for outpatient CR. Phase II Referral:: [facility] Start Phase II:: 2-weeks (14-days) of discharge. Risk Factors/Lifestyle Hx Dyslipidemia: Yes Height: 5 ft 4 in Weight:: 132 lb BMI: 22.6 Risk Factor for Sedentary Lifestyle: Lowest Risk Laboratory Values: Cardiac Rehab Phase I Labs Triglycerides 188 mg/dL (-199) 07/01/18 14:35 Cholesterol 216 mg/dL (200) H 07/01/18 14:35 LDL Cholesterol 130 mg/dL (0-130) 07/01/18 14:35 HDL Cholesterol 48 mg/dL (40-) 07/01/18 14:35 Phase I Education Given On:: [place] Knowledge of Condition:: Yes Learning Preferences: Verbal, Written, Audio/Visual Medical/Surgical History CT:: Yes - NSTEMI CAD:: Yes Cardiomyopathy:: Yes - Stage II diastolic dysfunction Pulmonary:: Yes - moderate pulmonary hypertension Hypertension:: Yes Dyslipidemia:: Yes
[2018-07-05 09:27] VITALS: BMI 22.6
--- NOTE | 2018-07-05 09:29 | CRPH1.INSTRU ---
General Education CAD and cardiac anatomy and function:: Patient communicates acknowledgment Explanation of diagnoses and procedures:: Patient communicates acknowledgment Sign/Symptoms of CT:: Patient communicates acknowledgment Antiplatelet therapy: Patient communicates acknowledgment Proper use of NTG-SL: Patient communicates acknowledgment Emergency procedures and activation of EMS: Patient communicates acknowledgment Compliance of all prescribed medications: Patient communicates acknowledgment - Communication via telephone Smoking Patient Nicotine/Smoking Risk Factors Are:: Never smoked Dyslipidemia Patient Dyslipidemia Risk Factors Are:: Total Cholesterol - 216, Triglycerides - 188, HDL - 48, LDL - 130 Recommendations Include:: Lipid profile provided Dyslipidemia Response Code:: Patient communicates acknowledgment Overweight/Obesity Patient Overweight/Obesity Risk Factors Are:: BMI Normal [18-25 & < 65 years old] Overweight/Obesity:: Patient communicates acknowledgment Hypertension Patient Hypertension Risk Factors Are:: No documented hx of HTN Recommendations Include:: Maintain BP <130/85, DASH dietary guidelines Hypertension:: Patient communicates acknowledgment Heart Disease Patient Heart Disease Risk Factors Are:: Family history of heart disease < 65 years old, Previous cardiac event Recommendations Include:: Educated family members of their risk Heart Disease Response Code:: Patient communicates acknowledgment
== END 2018-07-04 11:30 | disposition home or self-care (01) | DRG 247 ==
LOC: ED 15:05 → PCU 16:27 → ICU 07-03 07:41
PROVIDERS: Internal Medicine Cardiovascular Disease; Nurse Practitioner Family; Admitting Provider Internal Medicine; Emergency Provider Emergency Medicine; Family Provider Preventive Medicine Occupational Medicine; PCP Preventive Medicine Occupational Medicine; Visit Provider Internal Medicine
DX: I21.4 Non-ST elevation (NSTEMI) myocardial infarction (principal); I25.110 Atherosclerotic heart disease of native coronary artery with unstable angina pectoris; E87.6 Hypokalemia; E03.9 Hypothyroidism, unspecified; Z82.49 Family history of ischemic heart disease and other diseases of the circulatory system; Z87.891 Personal history of nicotine dependence; I10 Essential (primary) hypertension; Z79.899 Other long term (current) drug therapy; E78.5 Hyperlipidemia, unspecified; Z16.23 Resistance to quinolones and fluoroquinolones; N30.90 Cystitis, unspecified without hematuria; B96.20 Unspecified Escherichia coli [E. coli] as the cause of diseases classified elsewhere; I27.20 Pulmonary hypertension, unspecified; I08.1 Rheumatic disorders of both mitral and tricuspid valves
CPT/HCPCS: 36415; 71045; 80048; 80061; 81001; 83735; 84484; 85025; 85347; 85610; 85730; 87086; 87088; 87186; 92928; 93005; 93306; 93458; 99284; J7030; A4216; C1725; C1769; C1874; C1887; C1894; C9600; J2405; Q9967

== ENCOUNTER → 2018-07-24 13:40 | Outpatient (CLI) | payer MEDICARE, OTHER, SELFPAY ==
[2018-07-18 08:58] VITALS: BMI 23.6
--- NOTE | 2018-07-24 13:47 | CDU_ITS ---
Reason For Study: Dizziness, Facial Numbness Rt. Velocities/BP Lt. Velocities/BP Prox CCA 87/18 cm/sec. Prox CCA 93/20 cm/sec. Mid CCA 72/16 cm/sec. Mid CCA 74/17 cm/sec. Dist CCA 52/15 cm/sec. Dist CCA 74/18 cm/sec. Prox ICA 240/58 cm/sec. Prox ICA 92/21 cm/sec. Mid ICA 230/59 cm/sec. Mid ICA 90/25 cm/sec. Dist ICA 132/34 cm/sec. Dist ICA 88/25 cm/sec. Rt. ICA/CCA = 3.33. Lt. ICA/CCA = 1.24. Prox ECA 60/7 cm/sec. Prox ECA 84/11 cm/sec. Rt. Vert. 77/19 cm/sec. Lt. Vert. 39/9 cm/sec. Right Extracranial There is heterogeneous, irregular atherosclerotic plaque noted in the right common carotid artery. There is heterogeneous, irregular atherosclerotic plaque noted in the right internal carotid artery. There is heterogeneous, irregular atherosclerotic plaque noted in the right external carotid artery. Antegrade flow is noted in the right vertebral artery. Left Extracranial There is homogeneous, smooth atherosclerotic plaque noted in the left common carotid artery. There is heterogeneous, irregular atherosclerotic plaque noted in the left internal carotid artery. There is intimal thickening but no significant atherosclerotic plaque noted in the left external carotid artery. Antegrade flow is noted in the left vertebral artery. Procedure Carotid Duplex [id number]. Prelim given to Murtaza Slaughter NP. Exam performed in department. 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 Mild calcific plague left distal common carotid. Mild irregular plague within the proximal left internal carotid with <50% stenosis. Normal flow bilateral external carotids Patent and antegrade vertebrals bilaterally Ordering Physician: Murtaza Slaughter Referring Physician: Mike Aden Performed By: Maxine Slaughter, MEENAKSHI, RVT
== END ==
PROVIDERS: Family Provider Preventive Medicine Occupational Medicine; PCP Preventive Medicine Occupational Medicine; Referring Provider Nurse Practitioner Family; Visit Provider Nurse Practitioner Family
DX: R42 Dizziness and giddiness (principal)
CPT/HCPCS: 93880

== ENCOUNTER 2018-07-26 09:31 | Day surgery (SDC) | payer MEDICARE, OTHER, SELFPAY ==
[2018-07-01 16:35] VITALS: BMI 22.8
[2018-07-18 08:58] VITALS: BMI 23.6
[2018-07-26] VITALS (32 sets, daily range): BP systolic 103–148; BP diastolic 38–59; PULSE 57–82; RESP 15–23; TEMP 36.8; O2SAT 92–97; BMI 23.3
[2018-07-26] MEDS: Nitroglycerin Infusion 250 ML 3 MG IV (11:30)
--- NOTE | 2018-07-26 11:56 | CL.I_ITS ---
Patient Name: DAVID BARRETO Study Date: 07/26/2018 Performing: Patrick Lopez MD Ht: inches cm : 1945 Wt: 132.28 lbs 60 kg Age: 73 Gender: female BSA: PROCEDURE(S) PERFORMED [id number] W OR WO PTCA, SINGLE CORONARY ARTERY CLINICAL PROFILE AND CO-MORBIDITIES Indications: Stable Known CAD Heart Failure: None Stress/Imaging Stress/Image Study Performed: No Angina Classification Anginal Classification w/in 2 Weeks: CCS I CAD Presentations: Unstable angina. Comorbidities/Risk Factors: Hypertension Dyslipidemia Prior NM Prior PCI CONCLUSIONS Successful PTCA/SHEMAR of distal RCA with a 3.0 x 12 Promus Synergy; 85%-->0%, no dissection. Successful PTCA/SHEMAR proximal RCA with a 3.0 x 12 Promus Synergy, post dilated with a 3.0 x 8 NC Ballo on; 75%-->0%, no dissection. RECOMMENDATIONS Highly recommend quitting all tobacco products Follow up with primary freelance copywriter Risk factor modification ASA Indefinitley Plavix for at least 12 months Routine post interventional care Refer for Outpatient Cardiac Rehab Manual sheath removal per protocol Follow up with Dr. Lopez Manual sheath removal given significant RFA calcification and shallow access site. Stress test in 3 weeks to evaluate LAD/DIAG lesions; if abnormal may need PCI of DIAG and LAD prior t o cardiac rehab. If no anterior ischemia, will proceed with cardiac rehab. DESCRIPTION OF PROCEDURE The patient arrived to the procedure lab. The risks and benefits of the procedure as well as a full d escription of our services here and current unavailability of surgical backup were fully explained to the patient and/or their significant other prior to the catheterization. The Timeout was completed, verifying the correct patient and procedure. The patient's procedural site was prepped and draped in the usual fashion. Local anesthetic was given subcutaneously to right groin region with Lidocaine 2%. Using a modified Seldinger technique, arterial access was obtained via the right femoral artery, a 6 Fr 45 cm sheath was inserted.. HS1 Guide catheter was inserted and engaged into the RCA. BMW Oberon Guide wire was advanced t o the RCA. Emerge 2.0 x 8 Balloon catheter was inserted. Balloon catheter was advanced across lesion in the right coronary, distal. PTCA balloon inflated at 10 atms for 8 secs. Balloon catheter was repo sitioned to additional lesion in the right coronary, proximal. PTCA balloon inflated at 12 atms for 8 secs. Angiogram performed post balloon dilatation. Synergy 3.0 x 12 Drug Eluting stent was inserted. Drug Eluting stent was advanced across the lesion in the right coronary, distal. Angiogram performed pre stent deployment. Angiogram performed post stent deployment. Synergy 3.0 x 12 Drug Eluting stent was inserted. Drug Eluting stent was advanced across the lesion in the graft to the RCA. Angiogram p erformed post stent deployment. NC Emerge 3.0 x 8 Balloon catheter was inserted. Balloon catheter was advanced across lesion in the right coronary, distal. Angiogram performed post balloon dilatation. Balloon catheter was repositioned to additional lesion in the right coronary, proximal. A ngiogram performed post balloon dilatation. Arterial sheath was exchanged for a 6 Fr 11cm Sheath. Con trast was injected through the sheath and the Right Iliac and Femoral artery were assessed for possib le closure device. The arterial sheath was sutured in place and capped INTERVENTION INFORMATION LESION SITE: RCA (Distal) Lesion Complexity: Non-High/Non-C, lesion at bifurcation: Yes, thrombus present: No, culprit lesion: No Pre Stenosis: 85 % Pre intervention DONALD flow: 3 PROCEDURE: Drug Eluting Stent with pre dilatation. Post Stenosis: 0 % Post intervention DONALD flow: 3 Lesion Devices: Medtronic 6 Fr HS1 100cm Guide Catheter Ferrer .014 BMW Oberon Straight 190cm Clarence Sci EMERGE MR 2.00x08 BALLOON Clarence Sci Synergy MR SHEMAR 3.00x12 Clarence Sci NC EMERGE MR 3.00x08 BALLOON LESION SITE: RCA (Proximal) Lesion Complexity: Non-High/Non-C, lesion at bifurcation: No, thrombus present: No, lesion length: 12 mm, culprit lesion: No Pre Stenosis: 75 % Pre intervention DONALD flow: 3 PROCEDURE: Drug Eluting Stent with pre and post dilatation Post Stenosis: 0 % Post intervention DONALD flow: 3 Lesion Devices: Medtronic 6 Fr HS1 100cm Guide Catheter Ferrer .014 BMW Oberon Straight 190cm Clarence Sci EMERGE MR 2.00x08 BALLOON Clarence Sci Synergy MR SHEMAR 3.00x12 Clarence Sci NC EMERGE MR 3.00x08 BALLOON COMPLICATIONS No Complications PROCEDURE MEDICATIONS Oxygen: 2 L/min via nasal cannula Heparin 6000 unit(s) IV 07/26/2018 11:27:23 Nitro 200 mcg IC 07/26/2018 11:28:50 Nitro 200 mcg IC 07/26/2018 11:28:50 Nitro 200 mcg IC 07/26/2018 11:35:01 Nitro glycerin 25mg / 250ml D5W @ 5 mcg/min IV started 07/26/2018 11:52:18 IV Bolus: .9 NaCl 500 ml total 07/26/2018 11:26:47 IV Fluids: .9 NaCl decreased to 150 ml/hr 07/26/2018 11:50:36 SUMMARY OF HEMODYNAMIC DATA Time AIR REST ECG 09:54:57 AO 167/58 (102) SA 11:28:43 Signed By Patrick Lopez MD On 07/26/2018 11:54:54 AM Patrick Lopez MD
[2018-07-26 12:06] LABS: ACT Activated Clotting Time 180 sec (74-137)
--- NOTE | 2018-07-26 12:10 | EKG12_ITS ---
Test Reason : POST PCI Blood Pressure : / mmHG Vent. Rate : 065 BPM Atrial Rate : 065 BPM P-R Int : 176 ms QRS Dur : 088 ms QT Int : 428 ms P-R-T Axes : 118 188 126 degrees QTc Int : 445 ms Suspect arm lead reversal, interpretation assumes no reversal Normal sinus rhythm Normal ECG Confirmed by MARISOL LOVE, JOSEFINA ([id number]), supervising film or videotape editor ADWOA LAWTON ([id number]) on 07/31/2018 10:05:04 AM Referred By: Patrick Lopez Confirmed By:JOSEFINA DAMON MD
[2018-07-26] MEDS: 0.9% Normal Saline 1,000 ML 150 ML IV (12:30)
[2018-07-26 13:16] LABS: ACT Activated Clotting Time 153 sec (74-137)
--- NOTE | 2018-07-26 14:05 | CRPHASE1 ---
Patient Data/Charges Clinching Machine Operator:: Patrick Hoover Admit Date:: 07/26/18 Phase I Charge:: Level I - Education Risk Factors/Lifestyle Smoking Status: Never smoker Hx Hypertension: Yes Weight:: 59.8 kg Post-Menopausal: Yes ETOH: No Caffeine: Yes Substance Abuse: No Family History: Family History (Last Reviewed 07/18/18 @ 08:58 by Carlita Wood) Father CAD (coronary artery disease) Hypertension Brother CAD (coronary artery disease) Stented coronary artery Brother Lung cancer CAD (coronary artery disease) Stented coronary artery Sister Diabetes Daughter Thyroid disorder Family History: Heart Disease Past Cardiac Illness: Previous PCI w/Stent Phase I Education Given On:: [place], Nutrition Issues Affecting Care:: None Knowledge of Condition:: Yes Hospital Course Cardiac Cath Date:: 07/26/18 Medical/Surgical History [place]:: Yes - 07/01/2018 Hypertension:: Yes PTCA:: Yes - 07/03/18 Discharge/Home/Social Eval Discharge Disposition: Home - She needs a stress test p rior to starting rehab per Dr. hoover
--- NOTE | 2018-07-26 14:09 | CRPHASE1_ITS ---
Patient Data/Charges Bank Consultant:: Patrick Hoover Admit Date:: 07/26/18 Phase I Charge:: Level I - Education Risk Factors/Lifestyle Smoking Status: Never smoker Hx Hypertension: Yes Weight:: 59.8 kg Post-Menopausal: Yes ETOH: No Caffeine: Yes Substance Abuse: No Family History: Family History (Last Reviewed 07/18/18 @ 08:58 by Carlita Wood) Father CAD (coronary artery disease) Hypertension Brother CAD (coronary artery disease) Stented coronary artery Brother Lung cancer CAD (coronary artery disease) Stented coronary artery Sister Diabetes Daughter Thyroid disorder Family History: Heart Disease Past Cardiac Illness: Previous PCI w/Stent Phase I Education Given On:: [place], Nutrition Issues Affecting Care:: None Knowledge of Condition:: Yes Hospital Course Cardiac Cath Date:: 07/26/18 Medical/Surgical History [place]:: Yes - 07/01/2018 Hypertension:: Yes PTCA:: Yes - 07/03/18 Discharge/Home/Social Eval Discharge Disposition: Home - She needs a stress test p rior to starting rehab per Dr. hoover
--- NOTE | 2018-07-26 14:09 | CRPH1.INSTRU ---
General Education CAD and cardiac anatomy and function:: Patient communicates acknowledgment, Family communicates acknowledgment Explanation of diagnoses and procedures:: Patient communicates acknowledgment, Family communicates acknowledgment Smoking Patient Nicotine/Smoking Risk Factors Are:: Never smoked Dyslipidemia Recommendations Include:: Lipid profile not available Hypertension Recommendations Include:: Maintain BP <130/85 Hypertension:: Patient communicates acknowledgment Heart Disease Patient Heart Disease Risk Factors Are:: Family history of heart disease < 65 years old, Previous cardiac event Heart Disease Response Code:: Patient communicates acknowledgment Diabetes Patient Diabetes Risk Factors Are:: No documented hx of diabetes Metabolic Syndrome Patient Metabolic Syndrome Risk Factors Are [3 of 5]:: Hypertension Recommendations Include:: Does not meet criteria Sedentary Recommendations Include:: Aerobic exercise 5-7 times/week for 20-30 minutes continuously - Shr has been exercising for many yrs on own. Stress Patient Stress Risk Factors Are:: Patient denies stress as a risk factor
--- NOTE | 2018-07-26 16:42 | DCINST_ITS ---
Discharge Diet: No Restrictions - You may continue your normal diet. May shower in (days): 1 May resume sexual activity in: 1 week - if no groin problems occur. Lifting Restrictions: 10 pounds and also avoid any pushing or pulling for 3 days after your test. Call your doctor if your incision/area has: Increased Pain/ Swelling, Increased Redness, Foul Smelling Discharge, Swelling at the incision site Call your doctor if you observe: Fever of 101 or Higher Remove Dressing in (days):: 1 Additional Dressing/Incision Instructions:: Keep the dressing (bandage) on until the next morning. You may then shower, but do not take a tub bath for 5 days after your test. It is normal to have some tenderness and discomfort at the puncture site. Sometimes bruising also occurs. However, if pain, numbness, or coldness occurs below the puncture site (in your leg, toes, arms or fingers) call your doctor at once. You may have a small, marble sized knot at the puncture site. This is normal. Do not rub it. It will go away in 4-6 weeks. Bleeding can occur from the area where the puncture was done. Blood may spurt or drip from the site. If blood spurts, apply pressure right away to stop bleeding and call 911. Although rare, bleeding into the tissue (hematoma) can also occur. If this happens, a large, firm area goose egg under the skin will appear. If any of these occur, lie down as flat as you can and have someone apply firm pressure to the cath site with a gauze pad or a clean washcloth for 10-15 minutes. Call 911 or go to the Emergency Department. Additional Instructions: You will need to stay on your plavix for at least one year post stent placement We will discuss cardiac rehab at your next Office visit Allergies/Adverse Reactions: Allergies Penicillins Allergy (Verified 07/13/18 08:47) Rash acetaminophen [From Vicodin] Adverse Reaction (Verified 07/13/18 08:47) Nausea codeine Adverse Reaction (Verified 07/13/18 08:47) Nausea erythromycin base Adverse Reaction (Verified 07/13/18 08:47) Nausea hydrocodone [From Vicodin] Adverse Reaction (Verified 07/13/18 08:47) Nausea Sulfa (Sulfonamide Antibiotics) Adverse Reaction (Verified 07/13/18 08:47) Nausea Tetracyclines Adverse Reaction (Verified 07/13/18 08:47) Nausea Medications to take at Discharge RX: Aspirin [Aspirin, Baby] 81 mg PO DAILY@0800 11/22/17 RX: Calcium Carbonate/Vitamin D3 [Calcium 500-Vit D3 600 Caplet] 1 ea PO DAILY 11/22/17 RX: Levothyroxine Sodium [Synthroid] 100 mcg PO DAILY 11/22/17 RX: Vitamin E 400 unit PO DAILY 11/22/17 RX: Multivitamin with Minerals [Hair, Skin and Nails] 1 ea PO DAILY 07/01/18 RX: Nitroglycerin [Nitrostat] 0.4 mg SUBLINGUAL Q5M PRN #1 bottle 07/04/18 atorvastatin 80 mg tablet 80 mg PO QHS #90 tab 07/18/18 diclofenac 1 % topical gel 2 g TOPICAL UD 07/18/18 meclizine 25 mg tablet 12.5 mg PO DAILY PRN tab 07/18/18 potassium chloride ER 20 mEq tablet,extended release(part/cryst) 20 meq PO DAILYCM #90 tab 07/18/18 clopidogrel 75 mg tablet 75 mg PO DAILY #90 tab 07/25/18 hydrochlorothiazide 25 mg tablet 25 mg PO DAILY #90 tab 07/25/18 isosorbide mononitrate ER 30 mg tablet,extended release 24 hr 30 mg PO DAILY #90 tab 07/25/18 metoprolol tartrate 50 mg tablet 50 mg PO BID #180 tab 07/25/18 Primary Care Physician: Mike Aden DO [Primary Care Provider] - Test Results: Test results from this visit will be discussed in further detail at your follow- up appointment, if applicable. Please Follow Up With: Patrick Lopez MD When: 08/10 at 2:30 Cardiac Rehabilitation Info Cardiac Rehabilitation Program Information: Cardiac Rehabilitation is important for patients like you who are recovering from a heart problem. Cardiac rehabilitation programs are recognized as integral to the continued care of the patient with coronary heart disease. The cardiac rehabilitation program is designed to optimize a patient's physical, psychological, and social functioning. Health restorative care technician work in cardiac rehabilitation programs and assist you with getting the treatments you need to get stronger and healthier - like exercise, healthy eating habits, and medications. Cardiac rehabilitation has been show to help people with heart problems live longer and have better life enjoyment than people who do not go to cardiac rehabilitation. Please contact the Cardiac Rehabilitation Program at [facility] at in two weeks if you have not heard from them.
[2018-07-26] MEDS: Metoprolol Tartrate 50 MG Tablet PO (21:29)
[2018-07-26] MEDS: Atorvastatin Calcium 80 MG Tablet PO (21:29)
[2018-07-26] MEDS: 0.9% NaCl Peripheral Flush Adult/Peds IV (21:30)
[2018-07-27] VITALS (15 sets, daily range): BP systolic 125–152; BP diastolic 30–55; PULSE 61–84; RESP 14–25; TEMP 36.7–37.2; O2SAT 85–96
[2018-07-27 04:35] LABS: Hematocrit 34.2 % (37-47); Hemoglobin 11.1 g/dl (12.0-15.0); Mean Corp Hgb Conc 32.5 g/gl (32-36); Mean Corpuscular Hgb 30.1 pg (27.0-32.0); Mean Corpuscular Volume 92.7 fL (81-99); Mean Platelet Vol. 11.1 fl (6.2-12.0); Platelet Count 252 K/mm3 (150-450); RBC Distribution Width SD 45.6 fl (35.1-43.9); Red Blood Count 3.69 M/mm3 (4.2-5.4); White Blood Count 10.3 K/mm3 (4.4-11.0)
[2018-07-27 04:37] LABS: Scan Indicated on CBC? Y/N NO
[2018-07-27 04:51] LABS: ALB/GLOB Ratio 0.9 RATIO (0.9-2.4); AST(SGOT) 27 U/L (15-37); Alanine Aminotransfer ALT/SGPT 30 U/L (13-56); Albumin, Serum 3.1 g/dL (3.2-5.0); Alkaline Phosphatase 79 U/L (45-117); Anion Gap 8 (5-15); BUN 15 mg/dL (7-18); BUN/Creat Ratio 22.2 RATIO (10-20); Calcium,Total 8.8 mg/dL (8.5-10.1); Chloride 109 mmol/L (98-107); Creatinine, Serum 0.68 mg/dL (0.55-1.02); EST Glomerular Filtration Rate 90 mL/min (>60); Est Glom Filt Rate - Afr Amer 109 mL/min (>60); Estimated Creatinine Clearance 40.83 ml/min; Globulin 3.5 g/dL (2.2-4.2); Glucose 89 mg/dL (74-106); Potassium 3.9 mmol/L (3.5-5.1); Protein, Total 6.6 g/dL (6.4-8.2); Sodium Level 143 mmol/L (136-145)
[2018-07-27] MEDS: Levothyroxine 100 MCG Tablet PO (06:02)
[2018-07-27] MEDS: hydroCHLOROthiazide 25 MG Tablet PO (07:53)
[2018-07-27] MEDS: Metoprolol Tartrate 50 MG Tablet PO (07:53)
[2018-07-27] MEDS: Aspirin 81 MG TAB.CHEW PO (07:53)
[2018-07-27] MEDS: Clopidogrel Bisulfate 75 MG Tablet PO (07:54)
[2018-07-27] MEDS: Vitamin E 400 UNITS Capsule PO (07:54)
--- NOTE | 2018-07-27 10:00 | EKG12_ITS ---
Test Reason : AM EKG Blood Pressure : / mmHG Vent. Rate : 070 BPM Atrial Rate : 070 BPM P-R Int : 160 ms QRS Dur : 082 ms QT Int : 402 ms P-R-T Axes : 059 000 069 degrees QTc Int : 434 ms Normal sinus rhythm Normal ECG When compared with ECG of 26-JUL-2018 12:23, MANUAL COMPARISON REQUIRED, DATA IS UNCONFIRMED Confirmed by MARISOL LOVE, JOSEFINA ([id number]), proposal editor ADWOA LAWTON ([id number]) on 07/31/2018 9:55:15 AM Referred By: Patrick Lopez Confirmed By:JOSEFINA DAMON MD
--- OUTSIDE RECORDS SUMMARY | 2018-09-30 01:22 | XMS RPT_ITS ---
:1945 Author Organization [place] Support Name Relationship Address Phone MINOR, NAYE Unavailable Unavailable + MINOR, NAYE Unavailable Unavailable + MINOR, NAYE Unavailable Unavailable + R Unavailable Unavailable Unavailable THUT, MARK Unavailable [address] + [place] [address] MINOR, NAYE Unavailable [address] + [place] [address] R Unavailable Unavailable Unavailable THUT, MARK Unavailable [address] + [place] [address] MINOR, NAYE Unavailable [address] + [place] [address] R Unavailable Unavailable Unavailable THUT, MARK Unavailable [address] + [place] [address] MINOR, NAYE Unavailable [address] + [place] [address] R Unavailable Unavailable Unavailable THUT, MARK Unavailable [address] + [place] [address] MINOR, NAYE Unavailable [address] + [place] [address] MINOR, NAYE Unavailable Unavailable + MINOR, NAYE Unavailable Unavailable + MINOR, NAYE Unavailable Unavailable + R Unavailable Unavailable Unavailable THUT, MARK Unavailable [address] + [place] [address] MINOR, NAYE Unavailable [address] + [place] [address] R Unavailable Unavailable Unavailable THUT, MARK Unavailable [address] + [place] [address] MINOR, NAYE Unavailable [address] + [place] [address] R Unavailable Unavailable Unavailable THUT, MARK Unavailable [address] + [place] [address] MINOR, NAYE Unavailable [address] + [place] [address] R Unavailable Unavailable Unavailable THUT, MARK Unavailable [address] + [place] [address] MINOR, NAYE Unavailable [address] + [place] [address] R Unavailable Unavailable Unavailable THUT, MARK Unavailable [address] + [place] [address] MINOR, NAYE Unavailable [address] + [place] [address] R Unavailable Unavailable Unavailable THUT, MARK Unavailable [address] + [place] [address] MINOR, NAYE Unavailable [address] + [place] [address] R Unavailable Unavailable Unavailable THUT, MARK Unavailable [address] + [place] [address] MINOR, NAYE Unavailable [address] + [place] [address] R Unavailable Unavailable Unavailable THUT, MARK Unavailable [address] + [place] [address] MINOR, NAYE Unavailable [address] + [place] [address] R Unavailable Unavailable Unavailable THUT, MARK Unavailable [address] + [place] [address] MINOR, NAYE Unavailable [address] + [place] [address] R Unavailable Unavailable Unavailable THUT, MARK Unavailable [address] + [place] [address] MINOR, NAYE Unavailable [address] + [place] [address] MINOR, NAYE Unavailable Unavailable + MINOR, NAYE Unavailable Unavailable + MINOR, NAYE Unavailable Unavailable + MINOR, NAYE Unavailable Unavailable + MINOR, ANYE Unavailable Unavailable + MINOR, NAYE Unavailable Unavailable + MINOR, NAYE Unavailable Unavailable + MINOR, NAYE Unavailable Unavailable + MINOR, NAYE Unavailable Unavailable + R Unavailable Unavailable Unavailable THRICHAR, MARK Unavailable [address] + [place] [address] MINOR, NAYE Unavailable [address] + [place] [address] Care Team Providers Name Role Phone [facility] Unavailable Tereletsky, Mohsen Admitting Unavailable Patrick Wu Consulting Unavailable SemenJosi mccain Attending Unavailable Patrick Wu Attending Unavailable [facility] Unavailable Tereletsky, Mohsen Admitting Unavailable [facility] Unavailable Patrick Wu Consulting Unavailable Tereletsky, Mohsen Attending Unavailable Tereletsky, Mohsen Consulting Unavailable Tereletsky, Mohsen Admitting Unavailable Patrick Wu Attending Unavailable [facility] Unavailable Patrick Wu Consulting Unavailable Joppindira Dave Consulting Unavailable Tereletsky, Mohsen Admitting Unavailable [facility] Unavailable Patrick Wu Consulting Unavailable Jopperi, Dave Attending Unavailable Jopperi, Dave Consulting Unavailable Tereletsky, Mohsen Admitting Unavailable Jopperi, Dave Attending Unavailable [facility] Unavailable Patrick Wu Consulting Unavailable Joppindira, Dave Consulting Unavailable Tereletsky, Mohsen Admitting Unavailable Patrick Wu Attending Unavailable [facility] Unavailable Patrick Wu Consulting Unavailable Sementi, Josi Consulting Unavailable Tereletsky, Mohsen Admitting Unavailable Sementi, Josi Attending Unavailable [facility] Unavailable Patrick Wu Consulting Unavailable Sementi, Josi Consulting Unavailable Patrick Wu Attending Unavailable Christal, Wilman Referring Unavailable Wu, Patrick Attending Unavailable Wu, Patrick Referring Unavailable Christal, Wilman Primary Care Unavailable Roof, Murtaza H Attending Unavailable Roof, Murtaza H Referring Unavailable Christal, Wilman Primary Care Unavailable Cebul, Wilman Attending Unavailable Roof, Murtaza H Referring Unavailable Christal, Wilman Primary Care Unavailable Roof, Murtaza H Consulting Unavailable Bryce, Patrick Attending Unavailable Sementi, Josi Referring Unavailable Roof, Murtaza H Attending Unavailable Boone Fernandes Attending Unavailable Odellnndoris, Boone Referring Unavailable Christal, Wilman Primary Care Unavailable [place] DPM, DR. BOONE Contreras Attending Unavailable [place] DPM, DR. 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 / I25.10(ICD-10) 07/24/2018 Unknown R42 - Dizziness and Cebul, Wilman Active [place] giddiness / Community R42(ICD-10) Hospital Repository 07/18/2018 Unknown R06.83 - Snoring / Patrick Wu Active [place] R06.83(ICD-10) [facility] Repository 07/25/2018 Unknown R07.9 - Chest pain, Patrick Wu Active [place] unspecified / Community R07.9(ICD-10) Hospital Repository 11/25/2017 Unknown 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 Heart size and mediastinal contours are within normal limits for age and projection. No acute skeletal abnormality. Mild ca lcification of the aortic knob. IMPRESSION: No acute cardiopulmonary process. Interpreted By: Eusebio Raines MD Preliminary Report By: Eusebio Raines MD Electronically Signed By: Eusebio Raines MD Dictated Date: 08/01/2018 11:38:33 PM Prelim Date: 08/01/2018 11:38:33 PM Sign Date: 08/01/2018 11:38:58 PM 12 LEAD ELECTROCARDIOGRAM Observed: 07/31/2018 Status: F Source: [place] 10:05 AM [facility] REPOSITORY [facility] Cardiovascular Services [address] [place] [address] 12 Lead EKG 07/26/18 1223 MR#: [id number] Acct: [id number] Name: DAVID BARRETO Rep #: [id number] : 1945 73 From: Antonio Mason MD Attending Dr: Patrick Wu MD Status: [facility] Ordering Dr: Patrick Wu MD Date: 07/26/18 Location: [facility] Sex: F C Admitted: Test Reason : POST PCI Blood Pressure : / mmHG Vent. Rate : 065 BPM Atrial Rate : 065 BPM P-R Int : 176 ms QRS Dur : 088 ms QT Int : 428 ms P-R-T Axes : 118 188 126 degrees QTc Int : 445 ms Suspect arm lead reversal, interpretation assumes no reversal Normal sinus rhythm Normal ECG Confirmed by ANTONIO MASON MD ([id number]), web editor ADWOA LAWTON ([id number]) on 07/31/2018 10:05:04 AM Referred By: Patrick Wu Confirmed By:ANTONIO MASON MD 07/31/18 1005 Date Antonio Mason MD CC: Patrick Wu MD; Wilman Aden DO Signed 12 LEAD ELECTROCARDIOGRAM Observed: 07/31/2018 Status: F Source: [place] 9:55 AM [facility] REPOSITORY [facility] Cardiovascular Services [address] [address] 12 Lead EKG 07/27/18 0532 MR#: [id number] Acct: [id number] Name: DAVID BARRETO Rep #: [id number] : 1945 73 From: Antonio Mason MD Attending Dr: Patrick Wu MD Status: DEP [facility] Ordering Dr: Patrick Wu MD Date: 07/27/18 Location: [facility] Sex: F C Admitted: Test Reason : AM EKG Blood Pressure : / mmHG Vent. Rate : 070 BPM Atrial Rate : 070 BPM P-R Int : 160 ms QRS Dur : 082 ms QT Int : 402 ms P-R-T Axes : 059 000 069 degrees QTc Int : 434 ms Normal sinus rhythm Normal ECG When compared with ECG of 26-JUL-2018 12:23, MANUAL COMPARISON REQUIRED, DATA IS UNCONFIRMED Confirmed by ANTONIO MASON MD ([id number]), web editor ADWOA LAWTON ([id number]) on 07/31/2018 9:55:15 AM Referred By: Patrick Wu Confirmed By:ANTONIO MASON MD 07/31/18 0955 Date Antonio Mason MD CC: Patrick Wu MD; Wilman Aden DO Signed DISCHARGE INSTRUCTION Observed: 07/27/2018 Status: F Source: [place] 10:13 AM [facility] Medical Records Department [address] [place] [address] Instructions for Home/Discharge Instructions 07/26/18 [facility] MR#: [id number] Acct: [id number] Name: DAVID BARRETO Rep #: [id number] : 1945 73 From: Frida JOAQUIN PCP: Wilman Aden DO Status: REG [facility] Discharge Diet: No Restrictions - You may continue your normal diet. May shower in (days): 1 May resume sexual activity in: 1 week - if no groin problems occur. Lifting Restrictions: 10 pounds and also avoid any pushing or pulling for 3 days after your test. Call your doctor if your incision/area has: Increased Pain/ Swelling, Increased Redness, Foul Smelling Discharge, Swelling at the incision site Call your doctor if you observe: Fever of 101 or Higher Remove Dressing in (days):: 1 Additional Dressing/Incision Instructions:: Keep the dressing (bandage) on until the next morning. You may then shower, but do not take a tub bath for 5 days after your test. It is normal to have some tenderness and discomfort at the puncture site. Sometimes bruising also occurs. However, if pain, numbness, or coldness occurs below the puncture site (in your leg, toes, arms or fingers) call your doctor at once. You may have a small, marble sized knot at the puncture site. This is normal. Do not rub it. It will go away in 4-6 weeks. Bleeding can occur from the area where the puncture was done. Blood may spurt or drip from the site. If blood spurts, apply pressure right away to stop bleeding and call 911. Although rare, bleeding into the tissue (hematoma) can also occur. If this happens, a large, firm area goose egg under the skin will appear. If any of these occur, lie down as flat as you can and have someone apply firm pressure to the cath site with a gauze pad or a clean washcloth for 10-15 minutes. Call 911 or go to the Emergency Department. Additional Instructions: You will need to stay on your plavix for at least one year post stent placement We will discuss cardiac rehab at your next Office visit Allergies/Adverse Reactions: Allergies Penicillins Allergy (Verified 07/13/18 08:47) Rash acetaminophen [From Vicodin] Adverse Reaction (Verified 07/13/18 08:47) Nausea codeine Adverse Reaction (Verified 07/13/18 08:47) Nausea erythromycin base Adverse Reaction (Verified 07/13/18 08:47) Nausea hydrocodone [From Vicodin] Adverse Reaction (Verified 07/13/18 08:47) Nausea Sulfa (Sulfonamide Antibiotics) Adverse Reaction (Verified 07/13/18 08:47) Nausea Tetracyclines Adverse Reaction (Verified 07/13/18 08:47) Nausea Medications to take at Discharge RX: Aspirin [Aspirin, Baby] 81 mg PO DAILY@0800 11/22/17 RX: Calcium Carbonate/Vitamin D3 [Calcium 500-Vit D3 600 Caplet] 1 ea PO DAILY 11/22/17 RX: Levothyroxine Sodium [Synthroid] 100 mcg PO DAILY 11/22/17 RX: Vitamin E 400 unit PO DAILY 11/22/17 RX: Multivitamin with Minerals [Hair, Skin and Nails] 1 ea PO DAILY 07/01/18 RX: Nitroglycerin [Nitrostat] 0.4 mg SUBLINGUAL Q5M PRN #1 bottle 07/04/18 atorvastatin 80 mg tablet 80 mg PO QHS #90 tab 07/18/18 diclofenac 1 % topical gel 2 g TOPICAL UD 07/18/18 meclizine 25 mg tablet 12.5 mg PO DAILY PRN tab 07/18/18 potassium chloride ER 20 mEq tablet,extended release(part/cryst) 20 meq PO DAILYCM #90 tab 07/18/18 clopidogrel 75 mg tablet 75 mg PO DAILY #90 tab 07/25/18 hydrochlorothiazide 25 mg tablet 25 mg PO DAILY #90 tab 07/25/18 isosorbide mononitrate ER 30 mg tablet,extended release 24 hr 30 mg PO DAILY #90 tab 07/25/18 metoprolol tartrate 50 mg tablet 50 mg PO BID #180 tab 07/25/18 Primary Care Physician: Wilman Aden DO [Primary Care Provider] - Test Results: Test results from this visit will be discussed in further detail at your follow-up appointment, if applicable. Please Follow Up With: Patrick Wu MD When: 08/10 at 2:30 Cardiac Rehabilitation Info Cardiac Rehabilitation Program Information: Cardiac Rehabilitation is important for patients like you who are recovering from a heart problem. Cardiac rehabilitation programs are recognized as integral to the continued care of the patient with coronary heart disease. The cardiac rehabilitation program is designed to optimize a patient's physical, psychological, and social functioning. Health rn complex care work in cardiac rehabilitation programs and assist you with getting the treatments you need to get stronger and healthier - like exercise, healthy eating habits, and medications. Cardiac rehabilitation has been show to help people with heart problems live longer and have better life enjoyment than people who do not go to cardiac rehabilitation. Please contact the Cardiac Rehabilitation Program at [facility] at in two weeks if you have not heard from them. 07/27/18 1013 <Electronically signed by Frida JOAQUIN> Date Frida JOAQUIN CC: Wilman Aden DO Signed CBC-COMPLETE BLOOD CNT Collected: 07/27/2018 Status: F Source: [place] NO DIFF 4:20 AM [facility] REPOSITORY TYPE CODE TESTS RESULT OUT OF RANGE REFERENCE UNITS LAB L100.1000 4.4-11.0 K/mm3 Normal WBC 10.3 LAB L100.1200 4.2-5.4 M/mm3 Low RBC 3.69 LAB L100.1300 12.0-15.0 g/dl Low HGB 11.1 LAB L100.1400 37-47 % Low HCT 34.2 LAB L100.1500 81-99 fL Normal MCV 92.7 LAB L100.1600 27.0-32.0 pg Normal MCH 30.1 LAB L100.1700 32-36 g/gl Normal MCHC 32.5 LAB L100.1810 11.6-14.6 % Normal RDW CV 14.0 LAB L100.1820 35.1-43.9 fl High RDW SD 45.6 LAB L100.1900 150-450 K/mm3 Normal PLT 252 LAB L100.2000 6.2-12.0 fl Normal MPV 11.1 Performed By: #### L100.0500 #### [facility] [address], [address] COMPREHENSIVE METABOLIC Collected: 07/27/2018 Status: F Source: [place] PROFIL 4:20 AM [facility] REPOSITORY TYPE CODE TESTS RESULT OUT OF RANGE REFERENCE UNITS LAB L501.0100 74-106 mg/dL Normal GLU 89 Result Comment: Please note revised GLUCOSE reference range effective 2017. LAB L501.1000 7-18 mg/dL Normal BUN 15 LAB L501.1100 0.55-1.02 mg/dL Normal CREAT,SERUM 0.68 Result Comment: The validity of the calculated GFR AND GFRAA in patients over 70 years has not been determined. Clinical correlation is essential. LAB L501.1110 >60 mL/min Normal EST GFR 90 Result Comment: Non- GFR Calc LAB L501.1115 >60 mL/min Normal EST GFR - AA 109 Result Comment: GFR Calc LAB L501.1255 ml/min Normal Estimated CRCL 40.83 LAB L501.1300 10-20 RATIO High BUN/CRE 22.2 LAB L501.1500 6.4-8. g/dL Normal 2 T PROT 6.6 LAB L501.1800 3.2-5. g/dL Low 0 ALB 3.1 LAB L501.1950 2.2-4. g/dL Normal 2 GLOB 3.5 LAB L501.2000 0.9-2. RATIO Normal 4 A/G 0.9 LAB L501.2200 8.5-10 mg/dL Normal .1 CA 8.8 LAB L501.4100 15-37 U/L Normal AST 27 LAB L501.4305 45-117 U/L Normal ALK P 79 LAB L501.4405 13-56 U/L Normal ALT 30 LAB L501.4600 0.20-1 mg/dL Normal .00 T BILI 0.70 LAB L501.5300 136-14 mmol/L Normal 5 NA 143 LAB L501.5600 3.5-5. mmol/L Normal 1 K 3.9 LAB L501.5900 98-107 mmol/L High CL 109 LAB L501.6100 21.0-3 mmol/L Normal 2.0 CO2 26.0 LAB L501.6200 5-15 Normal GAP 8 Performed By: #### L500.4050 #### [facility] [address] [place], [place], [address] ACT ACTIVATED CLOTTING Collected: 07/26/2018 Status: F Source: [place] TIME 1:06 PM [facility] REPOSITORY TYPE CODE TESTS RESULT OUT OF RANGE REFERENCE UNITS LAB L9100.0100 74-137 sec High ACTk CLOT 153 TIME Performed By: #### L9100.0100 #### [facility] Point of [facility] [address] [place], [place] [address] ACT ACTIVATED CLOTTING Collected: 07/26/2018 Status: F Source: [place] TIME 11:47 AM [facility] REPOSITORY TYPE CODE TESTS RESULT OUT OF RANGE REFERENCE UNITS LAB L9100.0100 74-137 sec High ACTk CLOT 180 TIME Performed By: #### L9100.0100 #### [facility] Point of Care [address] [place] [place] [address] CAROTID DUPLEX Observed: 07/24/2018 Status: F Source: [place] ULTRASOUND 2:36 PM [facility] REPOSITORY [facility] Cardiovascular Services [address] [place] [address] Carotid Duplex Ultrasound 07/24/18 1348 MR#: [id number] Acct: [id number] Name: DAVID BARRETO Rep #: [id number] : 1945 73 From: Wilman Flores MD Attending Dr: Murtaza Slaughter NP Status: REG CLI Ordering Dr: Murtaza Slaughter REINFORCING ROD 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 Velocities/BP Lt. Velocities/BP Prox CCA 87/18 cm/sec. Prox CCA 93/20 cm/sec. Mid CCA 72/16 cm/sec. Mid CCA 74/17 cm/sec. Dist CCA 52/15 cm/sec. Dist CCA 74/18 cm/sec. Prox ICA 240/58 cm/sec. Prox ICA 92/21 cm/sec. Mid ICA 230/59 cm/sec. Mid ICA 90/25 cm/sec. Dist ICA 132/34 cm/sec. Dist ICA 88/25 cm/sec. Rt. ICA/CCA = 3.33. Lt. ICA/CCA = 1.24. Prox ECA 60/7 cm/sec. Prox ECA 84/11 cm/sec. Rt. Vert. 77/19 cm/sec. Lt. Vert. 39/9 cm/sec. Right Extracranial There is heterogeneous, irregular atherosclerotic plaque noted in the right common carotid artery. There is heterogeneous, irregular atherosclerotic plaque noted in the right internal carotid artery. There is heterogeneous, irregular atherosclerotic plaque noted in the right external carotid artery. Antegrade flow is noted in the right vertebral artery. Left Extracranial There is homogeneous, smooth atherosclerotic plaque noted in the left common carotid artery. There is heterogeneous, irregular atherosclerotic plaque noted in the left internal carotid artery. There is intimal thickening but no significant atherosclerotic plaque noted in the left external carotid artery. Antegrade flow is noted in the left vertebral artery. Procedure Carotid Duplex 38526. Prelim given to Murtaza Slaughter NP. Exam performed in department. 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 Mild calcific plague left distal common carotid. Mild irregular plague within the proximal left internal carotid with <50% stenosis. Normal flow bilateral external carotids Patent and antegrade vertebrals bilaterally Ordering Physician: Murtaza Slaughter Referring Physician: Wilman Aden Performed By: Maxine Slaughter, MEENAKSHI, RVT 07/24/18 1435 Date Wilman Flores MD CC: SABAS Slaughter; Wilman Aden DO Date Dictated: 07/24/18 1348 Date Transcribed: 07/24/181434 Vendor Relationship Manager: Signed 12 LEAD ELECTROCARDIOGRAM Observed: 07/18/2018 Status: F Source: [place] 1:21 PM [facility] REPOSITORY [facility] Cardiovascular Services [address] [place] [address] 12 Lead EKG 07/03/18 0830 MR#: [id number] Acct: [id number] Name: DAVID BARRETO Rep #: [id number] : 1945 73 From: Patrick Wu MD Attending Dr: Josi Young Status: DIS IN Ordering Dr: Patrick Wu MD Date: 07/03/18 Location: ICU Sex: F C Admitted: 07/01/18 Test Reason : POST PCI Blood Pressure : / mmHG Vent. Rate : 064 BPM Atrial Rate : 064 BPM P-R Int : 162 ms QRS Dur : 084 ms QT Int : 426 ms P-R-T Axes : 055 -14 048 degrees QTc Int : 439 ms Normal sinus rhythm Normal ECG Confirmed by PATRICK WU ([id number]), web editor KASIA YUNG ([id number]) on 07/18/2018 1:21:13 PM Referred By: BRYCE Confirmed By:PATRICK WU 07/18/18 1321 Date Patrick Wu MD CC: Josi Young; Patrick Wu MD; Wilman Aden DO Signed 12 LEAD ELECTROCARDIOGRAM Observed: 07/18/2018 Status: F Source: [place] 1:12 PM [facility] REPOSITORY [facility] Cardiovascular Services [address] [place] [address] 12 Lead EKG 07/03/18 0600 MR#: [id number] Acct: [id number] Name: DAVID BARRETO Chelsi Rep #: [id number] : 1945 73 From: Patrick Wu MD Attending Dr: Josi Young Status: DIS IN Ordering Dr: Patrick Wu MD Date: 07/03/18 Location: ICU Sex: F C Admitted: 07/01/18 Test Reason : AM EKG Blood Pressure : / mmHG Vent. Rate : 062 BPM Atrial Rate : 062 BPM P-R Int : 146 ms QRS Dur : 072 ms QT Int : 404 ms P-R-T Axes : 054 -07 047 degrees QTc Int : 410 ms Normal sinus rhythm Normal ECG When compared with ECG of 01-JUL-2018 21:57, MANUAL COMPARISON REQUIRED, DATA IS UNCONFIRMED Confirmed by PATRICK WU ([id number]), web editor KASIA YUNG ([id number]) on 07/18/2018 1:11:49 PM Referred By: DR JACOB Confirmed By:PATRICK WU 07/18/18 1311 Date Patrick Wu MD CC: Josi Young; Patrick Wu MD; Wilman Aden DO Signed CARDIOLOGY VISIT Observed: 07/18/2018 Status: F Source: [place] REPORT 9:49 AM [facility] REPOSITORY [facility] 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 At that time she developed midsternal chest pain, and came to the emergency room where an urgent echocardiogram was performed which showed hyperdynamic LV function with an EF around 75%. Patient was treated medically, and underwent a left heart catheterization on 07/03/18 which demonstrated a occluded vessel in her mid left circumflex which was quite small. She underwent a successful angioplasty and drug-eluting stenting receiving a 2.25 ex- 12 Promus Synergy stent. She also has a significant lesion in her mid RCA and is awaiting elective angioplasty of her RCA. Patient had nonobstructive disease of her LAD and diagonal which do not appear to require intervention In addition the patient has a history of excessive snoring, and is in the process of awaiting a sleep study. Patient denies any exertional chest pain, angina, shortness of breath or dyspnea on exertion. She is taking and tolerating her medicines well. In our office today her blood pressure is 130/60, pulse is 72 and regular. Her physical exam is as below. Her lipids as of 07/01/18 show an LDL of 130 and an HDL of 48. Intake Vital Signs07/18/18 Height 5 ft 3 in 07/18/18 Weight: 133 lb 07/18/18 Body Mass Index (BMI) 23.6 07/18/18 Blood Pressure 130/60 H Intake Visit Reasons: 2 WK S/P PCI Registered Nurse Cardiac Telemetry Required: No Is patient in pain?: No Allergies Penicillins Allergy (Verified 07/13/18 08:47) Rash acetaminophen [From Vicodin] Adverse Reaction (Verified 07/13/18 08:47) Nausea codeine Adverse Reaction (Verified 07/13/18 08:47) Nausea erythromycin base Adverse Reaction (Verified 07/13/18 08:47) Nausea hydrocodone [From Vicodin] Adverse Reaction (Verified 07/13/18 08:47) Nausea Sulfa (Sulfonamide Antibiotics) Adverse Reaction (Verified 07/13/18 08:47) Nausea Tetracyclines Adverse Reaction (Verified 07/13/18 08:47) Nausea Medications Aspirin [Aspirin, Baby] 81 mg PO DAILY@0800 11/22/17 [History Confirmed 07/13/18] Calcium Carbonate/Vitamin D3 [Calcium 500-Vit D3 600 Caplet] 1 ea PO DAILY 11/22/17 [History Confirmed 07/13/18] Hydrochlorothiazide [Hctz] 25 mg PO DAILY 11/22/17 [History Confirmed 07/13/18] Levothyroxine Sodium [Synthroid] 100 mcg PO DAILY 11/22/17 [History Confirmed 07/13/18] Metoprolol Tartrate [Lopressor (beta sobia)] 50 mg PO BID 11/22/17 [History Confirmed 07/13/18] Vitamin E 400 unit PO DAILY 11/22/17 [History Confirmed 07/13/18] Multivitamin with Minerals [Hair, Skin and Nails] 1 ea PO DAILY 07/01/18 [History Confirmed 07/13/18] clopidogrel 75 mg tablet 75 mg PO DAILY #30 tab 07/03/18 [Rx Confirmed 07/13/18] Amlodipine [Norvasc] 5 mg PO DAILY #30 tab 07/04/18 [Rx Confirmed 07/13/18] Nitroglycerin [Nitrostat] 0.4 mg SUBLINGUAL Q5M PRN #1 bottle 07/04/18 [Rx Confirmed 07/13/18] atorvastatin 80 mg tablet 80 mg PO QHS #90 tab 07/18/18 [Rx] diclofenac 1 % topical gel 2 g TOPICAL .COMPLEX 07/18/18 [History Confirmed 07/18/18] meclizine 25 mg tablet 12.5 mg PO DAILY PRN tab 07/18/18 [History Confirmed 07/18/18] potassium chloride ER 20 mEq tablet,extended release(part/cryst) 20 meq PO DAILYCM #90 tab 07/18/18 [Rx Confirmed 07/18/18] [facility] Medical History Bursitis of right hip (Chronic) Premature ventricular contractions (Chronic) Snoring (Chronic) Daytime somnolence (Chronic) History of non-ST elevation myocardial infarction (NSTEMI) (Chronic 07/03/18) Atherosclerotic heart disease of [place] coronary artery without angina pectoris (Chronic) Hypertension (Chronic) Hypothyroidism (Chronic) Surgical History History of left heart catheterization (Chronic 06/22/05) Stented coronary artery (Chronic 07/03/18) H/O total hysterectomy (Chronic 11/17/88) History of bladder suspension procedure (Chronic) Status post left foot surgery (Chronic 11/22/17) Family History Father CAD (coronary artery disease) Hypertension Brother CAD (coronary artery disease) Stented coronary artery Brother Lung cancer CAD (coronary artery disease) Stented coronary artery Sister Diabetes Daughter Thyroid disorder Social History Smoking Status: Former smoker ROS Const Const: Positive for other (Had NSTEMI, PCI of LCX on 07/03/18: feels well now); negative for fatigue, weakness, body ache, fever(s), headache(s), chills, frequent falls, night sweats, daytime sleepiness, difficulty sleeping, excessive sweating, weight gain, weight loss, increased appetite, poor appetite or anorexia Eyes Eyes: Negative for blind spots, loss of peripheral vision, transient loss of vision, blurry vision, change in vision, double vision, floaters, tunnel vision or other ENT ENT: Negative for headache(s), dizziness, hearing loss, tinnitus, Nosebleed/epistaxis, balance problems, post nasal drip, lip swelling, tongue swelling, bleeding gums, hoarseness, neck pain, dry mouth or other Cardio Chest Pain: No Palpitations: Yes (right after stent felt a little, none now) Edema: None Muscle aches with walking: None Resp Respiratory: Positive for Cough (Gets sinus drainage every winter.); negative for SOB with activity, SOB at rest, SOB orthopnea\SOB lying down, Coughing up blood/hemoptysis, chest congestion, pain on inspiration, snoring, stridor, wheezing, crackles, paroxysmal nocturnal dyspnea or other GI GI: Negative nausea, vomiting, heartburn, constipation, belching, bloating, cramping, vomiting blood/hematemesis, bright, red blood in stools, black,tarry stools, loose stools, Difficulty Swallowing or other : Negative for hematuria, frequent nighttime urination/ nocturia, erectile dysfunction or abnormal vaginal bleeding Musc Musc: Negative for balance problems, muscle aches/ myalgia, muscle weakness or joint pain Skin Skin: Negative redness, non-healing lesions, rash, unusual bruising, skin ulcer, wounds, jaundice or other Neuro Neuro: Negative for weakness, headache(s), frequent falls, blurry vision, double vision, dizziness, lightheadedness, near syncope, syncope, orthostatic symptoms, confusion, memory loss, restless legs, vertigo, seizures, lack of coordination or other Johan Hematologic/Lymphatic: Negative for easy bleeding, easy bruising, enlarged lymph nodes or other Endo Endo: Negative for fatigue, excessive sweating, cold intolerance, heat intolerance, flushing, increased thirst/drinking, increased hunger, hair loss, hair growth or other Psych Psych: Negative for anxiety, depression, thoughts of harming anyone, thoughts of harming yourself, visual hallucinations, panic attacks or audible hallucinations Allergy Allergy/Immunology: Negative for lip swelling, Negative for tongue swelling, Negative for rash, Negative for throat swelling, Negative for hives Cardiology Exam Const Appearance: cooperative, healthy appearing and no acute distress Nutritional Appearance: well nourished Orientation: alert, oriented x3 and oriented to person Head Head: normal to inspection, atraumatic and normocephalic Nose: external nose normal Face and Sinus: face symmetric Mouth: oral mucosae normal Eyes General: appearance normal, both eyes and all related structures Eyelids: eyelids normal Conjunctivae: conjunctivae normal Pupils: PERRL and normal by confrontation EOM: EOM intact bilaterally Neck Neck: normal visual inspection and full ROM Carotids: normal carotid upstroke Chest Chest inspection: normal inspection of the chest Auscultation: Bilateral: Clear to Auscultation Cardio Palpation: normal PMI Rate: regular rate Rhythm: regular rhythm Heart sounds: S1 normal and S2 normal GI GI: normal to inspection, no hepatosplenomegaly and bowel sounds present Neuro General: alert, oriented x3, awake, CN's II-XI intact bilaterally and moves all extremities Skin Skin: no rashes or lesions noted Extremities Pulses: Normal: Right Femoral Pulse, Left Femoral Pulse, Right Dorsalis Pedis Pulse, Left Dorsalis Pedis Pulse, Right Posterior Tibial Pulse, Left Posterior Tibial Pulse, Right Radial Pulse, Left Radial Pulse Lower Extremity Edema: None: Bilateral Psych Psychological: normal affect Assessment AND Plan 1. Atherosclerotic heart disease of [place] coronary artery without angina pectoris I25.10 SHEMAR to mid LCX (2.25 X 12 Promus Synergy) per Dr. Wu @ [facility]: pt to have staged PCI to RCA on 07/26/17 Plan 1. Coronary artery disease: Patient denies any chest pain or angina and is awaiting elective angioplasty of her distal RCA. She has nonobstructive disease of her LAD and diagonal, and would not recommend further intervention at this time. Would recommend that she continue her baby aspirin, Plavix, amlodipine and metoprolol. Once we have revascularized her RCA, would recommend proceeding with cardiac rehab. I advised the patient not to use her snowblower even after repairing her RCA. In addition she will continue her atorvastatin and repeat lipid profile in 6 weeks time 2. Snoring R06.83 Plan 2. Excessive snoring: Patient reports that she has excessive snoring and has for some time. She will undergo a sleep study once we have repaired her RCA. 3. Return office in 6 months. This note was generated using a voice recognition system and there may be incorrect words, spelling or punctuation that were not noted when reviewing the office note prior to saving. Plan Detail Other Medications New: Refilled: Follow Up +6M (Bryce) Coding Level of Care Code Off vis,est,level 3 Diagnoses Atherosclerotic heart disease of [place] coronary artery without angina pectoris I25.10 Snoring R06.83 Coding Level of Care Code Off vis,est,level 3 Diagnoses Atherosclerotic heart disease of [place] coronary artery without angina pectoris I25.10 Snoring R06.83 Supplemental Info Supplemental Information Labs LDL Cholesterol 130 mg/dL (0-130) 07/01/18 HDL Cholesterol 48 mg/dL (40-) 07/01/18 Triglycerides 188 mg/dL (-199) 07/01/18 VLDL Cholesterol 38 mg/dL (5-40) 07/01/18 Diagnostics Echocardiogram 07/01/18 Chest X-Ray 07/01/18 07/18/18 0949 <Electronically signed by Patrick Wu MD> Date Patrick Wu MD Cosigner Signature: Date (if applicable) CC: Wilman Aden DO DISCHARGE SUMMARY Observed: 07/04/2018 Status: F Source: [place] 10:50 AM [facility] REPOSITORY [facility] Medical Records Department [address] [place] [address] [place] [address] Discharge Summary 07/04/18 0748 MR#: [id number] Acct: [id number] Name: DAVID BARRETO Rep #: [id number] : 1945 73 From: Peyton Young DO PCP: Wilman Aden DO Status: ADM IN Y Location: ICU [id number] Discharge Date and Diagnosis - Problem List Patient Problems: Active and Suspected Problems NSTEMI (non-ST elevated myocardial infarction) (Acute) Date of Admission: 07/01/18 Date of Discharge: 07/04/18 - Primary Discharge Diagnosis Active and Suspected Problems NSTEMI (non-ST elevated myocardial infarction) (Acute) Cystitis - due to E. Coli (resistant to Fluroquinolones - Secondary Discharge Diagnosis Chronic Problems Hypertension (Chronic) Hypothyroidism (Chronic) Coronary artery disease Stage II diastolic dysfunction Moderate pulmonary hypertension Mitral [id number]+ Tricuspid regurgitation 1+ Hospital Course and Treatment Imaging Results: Clinical Impression(s) from Imaging Studies Chest X-Ray 07/01/18 14:54 IMPRESSION: No airspace consolidation or pleural effusion. Electronically Signed: Rios Luu MD at 15:36 EST , Service support , Laboratory Results - last 24 hr WBC 10.5 RBC 3.88 L Hgb 11.6 L Hct 35.4 L MCV 91.2 MCH 29.9 MCHC 32.8 RDW 14.0 RDW Differential 46.6 H Microbiology 07/02/18 09:18 Urine, Clean Catch Urine Culture - Final Escherichia coli Dr. Patrick Wu-[facility] Operations: None Procedures: Cardiac catheterization - With SHEMAR To the mid circumflex artery which was 100% occluded preprocedure and 0% occluded post procedure, Transthoracic echo - Estimated ejection fraction is 75%, stage II diastolic dysfunction, 1-2+ MR, 1+ TR, right ventricular systolic pressure elevated to 47 consistent with moderate pulmonary hypertension. Summary of Care Provided: The patient is a 73 year old F with a past medical history of hypertension and hypothyroidism who presented to the emergency department at [facility] on 07/01/2018 complaining of chest pain radiating into both arms. She received 3 sublingual nitroglycerin tablets in the emergency department and her pain subsided. The initial troponin was 0.329 and peaked at 12.7. She was seen in consultation by Dr. Patrick Wu and an echocardiogram was obtained which showed a 75% ejection fraction with stage II diastolic dysfunction, 1-2+ MR, 1+ TR, elevated right ventricular systolic pressure at 47 and no wall motion abnormalities. She was taken to [facility] on 07/03/2018 and had a 100% occluded circumflex artery. PTCA/SHEMAR was performed and the postprocedure stenosis was 0%. Postprocedure she was transferred to the intensive care unit. She had no significant ventricular ectopy overnight. On 07/04 she denied chest pain, shortness of breath, nausea, palpitation, lightheadedness. An incidental finding in the emergency room was a UA showing greater than 100 WBCs per high-power field with 0 squamous epithelial cells. The urine was nitrate positive and she was started on ciprofloxacin. Urine culture grew E. coli resistant to cristobal quinolones and she was discharged with a prescription for Duricef 1 g p.o. daily times 7 tablets. She was discharged on 07/04 on atorvastatin, Lopressor, Lasix, aspirin, Norvasc, Plavix and Duricef. She was given a prescription for Nitrostat. General: alert, oriented X3, NAD, appropriate with normal affect, sitting in a chair at the bedside Neck: supple, trachea midline, carotids have brisk upstroke and normal pulse volume, no JVD Lungs: CTA, symmetric chest expansion, not tachypneic, able to lie flat with no respiratory distress Heart: Regular rate and rhythm, normal S1, normal S2, no murmur, no gallop, no rub Abdomen: soft, NT, ND, BS's present Extremities: no edema, no calf tenderness, peripheral pulses are normal, no cyanosis R groin bandage is dry and there is no hematoma or tenderness at the site with palpation This note was generated with Morphy dictation software. It may contain incorrect words, spelling, and punctuation that were not noted in checking the note before signing. Patient Problems: Active and Suspected Problems NSTEMI (non-ST elevated myocardial infarction) (Acute) - Physical Exam Vital Signs Temp Pulse Resp BP Pulse Ox 98.3 F 75 17 133/48 H 95 07/04/18 00:00 07/04/18 07:20 07/04/18 07:00 07/04/18 07:00 07/04/18 07:00 Oxygen Flow Rate (L/min) 2 Oxygen Delivery Method Room Air Weight: 132 lb 15.02 oz Body Mass Index (BMI) 22.8 Intake and Output for Last 24 Hours Intake Total 1658.8 / 1658.8 1868.9 / 1868.9 360 / 360 Output Total 250 / 250 1100 / 1100 Balance 1408.8 / 1408.8 768.9 / 768.9 360 / 360 Microbiology Past 72 Hours 07/02/18 09:18 Urine Culture - Final Urine, Clean Catch Escherichia coli Laboratory Tests Past 24 Hrs WBC 10.5 RBC 3.88 L Hgb 11.6 L Hct 35.4 L MCV 91.2 MCH 29.9 MCHC 32.8 RDW 14.0 RDW Differential 46.6 H Discharge Diet: Low fat/ Low Cholesterol Discharge Activity: - - You may remove the dressing in 1 day.You may shower in 1 day.No sex for 10-14 days.Do not lift more than 10 pounds for the next 10- 14 days. No strenuous activity. You may start a walking program and work up to 30 minutes daily 5-6 times a week. No hills. Call your doctor if your incision/area has: Continuous Slow Oozing, Sudden Increased Bleeding, Increased Pain/ Swelling, Increased Redness, Foul Smelling Discharge, - - Swelling at the puncture site in the right groin Call your doctor if you observe: Fever of 101 or Higher, Shortness of breath, Dizziness, Fainting spells, Swelling in the ankles, Chest pain, - - Call your PCP if severe diarrhea ( > 5 stools a day), painful sores in the mouth, painful swallowing, rash or itching. Taking a probiotic such as Lactobacillus or Kefir can help with loose stools while taking antibiotics. Home Medications: Medications to take at Discharge Aspirin [Aspirin, Baby] 81 mg PO DAILY@0800 11/22/17 Calcium Carbonate/Vitamin D3 [Calcium 500-Vit D3 600 Caplet] 1 each PO DAILY 11/22/17 Hydrochlorothiazide [Hctz] 25 mg PO DAILY 11/22/17 Levothyroxine Sodium [Synthroid] 100 mcg PO DAILY 11/22/17 Metoprolol Tartrate [Lopressor (beta sobia)] 50 mg PO BID 11/22/17 Vitamin E 400 unit PO DAILY 11/22/17 Multivitamin with Minerals [Hair, Skin and Nails] 1 each PO DAILY 07/01/18 clopidogrel 75 mg tablet 75 mg PO DAILY #30 tab 07/03/18 Amlodipine [Norvasc] 5 mg PO DAILY #30 tab 07/04/18 Atorvastatin Calcium [Lipitor] 80 mg PO QHS #30 tab 07/04/18 Cefadroxil 1 gm PO DAILY #7 tab 07/04/18 Fluconazole [Diflucan] 150 mg PO X1 #1 tab 07/04/18 Nitroglycerin [Nitrostat] 0.4 mg SUBLINGUAL Q5M PRN #1 bottle 07/04/18 Potassium Chloride [K-Dur] 20 meq PO DAILYCM #30 tab 07/04/18 Following Prescrptions Were Given to Patient: Amlodipine [Norvasc] 5 mg PO DAILY #30 tab Atorvastatin Calcium [Lipitor] 80 mg PO QHS #30 tab Cefadroxil 1 gm PO DAILY #7 tab Fluconazole [Diflucan] 150 mg PO X1 #1 tab Nitroglycerin [Nitrostat] 0.4 mg SUBLINGUAL Q5M PRN #1 bottle PRN Reason: Chest Pain Potassium Chloride [K-Dur] 20 meq PO DAILYCM #30 tab Primary Care Physician: Wilman Aden DO [Primary Care Provider] - Please follow up with your Primary Care Physician in: 7-10 days Please Follow Up With: Patrick Wu MD When: 1 week Disposition: Home Minutes spent on discharge:: 35 Patient Condition:: Good Medical Necessity - Tobacco Use Smoking Status: Former smoker Tobacco Use: Non-smoker Meaningful Use Info Meaningful Use Diagnoses (Choose all that apply): AMI - AMI Aspirin given w/in 24hrs of arrival?: Yes ASA at discharge?: Yes Statins at discharge?: Yes Loco/ARB at discharge?: No Reason Loco/ARB not ordered:: Not indicated Beta Sobia at discharge?: Yes Done w/ Acute MS measure.: Yes Code Visit Inpatient E AND M: 23044 Disch Hosp 07/04/18 1050 <Electronically signed by Peyton Young DO> Date M Fabiana Young DO Cosigner Signature (if applicable): Date CC: Josi Young; Patrick Wu MD; Wilman Aden DO Signed DISCHARGE INSTRUCTION Observed: 07/04/2018 Status: F Source: [place] 10:49 AM [facility] REPOSITORY [facility] Medical Records Department [address] [place] [address] Instructions for Home/Discharge Instructions 07/04/18 1047 MR#: [id number] Acct: [id number] Name: DAVID BARRETO Rep #: [id number] : 1945 73 From: Peyton Young DO PCP: Wilman Aden DO Status: ADM IN - Discharge Diagnoses Current Active Problems: Current Active and Chronic Problems NSTEMI (non-ST elevated myocardial infarction) (Acute) Hypertension (Chronic) Hypothyroidism (Chronic) You will use the following diet at home:: Cardiac Your food should be the consistency of: Regular Your liquids should be the consistency of: Regular/Thin Discharge Activity: - - You may remove the dressing in 1 day.You may shower in 1 day.No sex for 10-14 days.Do not lift more than 10 pounds for the next 10- 14 days. No strenuous activity. You may start a walking program and work up to 30 minutes daily 5-6 times a week. No hills. Call your doctor if your incision/area has: Continuous Slow Oozing, Sudden Increased Bleeding, Increased Pain/ Swelling, Increased Redness, Foul Smelling Discharge, - - Swelling at the puncture site in the right groin Call your doctor if you observe: Fever of 101 or Higher, Shortness of breath, Dizziness, Fainting spells, Swelling in the ankles, Chest pain, - - Call your PCP if severe diarrhea ( > 5 stools a day), painful sores in the mouth, painful swallowing, rash or itching. Taking a probiotic such as Lactobacillus or Kefir can help with loose stools while taking antibiotics. Allergies/Adverse Reactions: Allergies Penicillins Allergy (Verified 07/01/18 14:26) Rash acetaminophen [From Vicodin] Adverse Reaction (Verified 07/01/18 14:26) Nausea codeine Adverse Reaction (Verified 07/01/18 14:26) Nausea erythromycin base Adverse Reaction (Verified 07/01/18 14:26) Nausea hydrocodone [From Vicodin] Adverse Reaction (Verified 07/01/18 14:26) Nausea Sulfa (Sulfonamide Antibiotics) Adverse Reaction (Verified 07/01/18 14:26) Nausea Tetracyclines Adverse Reaction (Verified 07/01/18 14:26) Nausea Medications to take at Discharge Aspirin [Aspirin, Baby] 81 mg PO DAILY@0800 11/22/17 Calcium Carbonate/Vitamin D3 [Calcium 500-Vit D3 600 Caplet] 1 each PO DAILY 11/22/17 Hydrochlorothiazide [Hctz] 25 mg PO DAILY 11/22/17 Levothyroxine Sodium [Synthroid] 100 mcg PO DAILY 11/22/17 Metoprolol Tartrate [Lopressor (beta sobia)] 50 mg PO BID 11/22/17 Vitamin E 400 unit PO DAILY 11/22/17 Multivitamin with Minerals [Hair, Skin and Nails] 1 each PO DAILY 07/01/18 clopidogrel 75 mg tablet 75 mg PO DAILY #30 tab 07/03/18 Amlodipine [Norvasc] 5 mg PO DAILY #30 tab 07/04/18 Atorvastatin Calcium [Lipitor] 80 mg PO QHS #30 tab 07/04/18 Cefadroxil 1 gm PO DAILY #7 tab 07/04/18 Fluconazole [Diflucan] 150 mg PO X1 #1 tab 07/04/18 Nitroglycerin [Nitrostat] 0.4 mg SUBLINGUAL Q5M PRN #1 bottle 07/04/18 Potassium Chloride [K-Dur] 20 meq PO DAILYCM #30 tab 07/04/18 The following prescriptions were given: Amlodipine [Norvasc] 5 mg PO DAILY #30 tab Atorvastatin Calcium [Lipitor] 80 mg PO QHS #30 tab Cefadroxil 1 gm PO DAILY #7 tab Fluconazole [Diflucan] 150 mg PO X1 #1 tab Nitroglycerin [Nitrostat] 0.4 mg SUBLINGUAL Q5M PRN #1 bottle PRN Reason: Chest Pain Potassium Chloride [K-Dur] 20 meq PO DAILYCM #30 tab Primary Care Physician: Wilman Aden DO [Primary Care Provider] - Please follow up with your Primary Care Physician in: 7-10 days Test Results: Test results from this visit will be discussed in further detail at your follow-up appointment, if applicable. Please Follow Up With: Patrick Wu MD When: 1 week Proposed Discharge Date: 07/04/18 07/04/18 1049 <Electronically signed by Peyton Young DO> Date Peyton Young DO CC: Patrick Wu MD; Wilman Aden DO Signed BASIC METABOLIC Collected: 07/04/2018 Status: F Source: [place] PROFILE (BMP) 4:05 AM [facility] REPOSITORY TYPE CODE TESTS RESULT OUT OF RANGE REFERENCE UNITS LAB L501.0100 74-106 mg/dL Normal GLU 92 Result Comment: Please note revised GLUCOSE reference range effective 2017. LAB L501.1000 7-18 mg/dL Normal BUN 12 LAB L501.1100 0.55-1.02 mg/dL Normal CREAT,SERUM 0.66 Result Comment: The validity of the calculated GFR AND GFRAA in patients over 70 years has not been determined. Clinical correlation is essential. LAB L501.1110 >60 mL/min Normal EST GFR 93 Result Comment: Non- GFR Calc LAB L501.1115 >60 mL/min Normal EST GFR - AA 112 Result Comment: GFR Calc LAB L501.1255 ml/min Normal Estimated CRCL 42.62 LAB L501.1300 10-20 RATIO Normal BUN/CRE 18.1 LAB L501.2200 8.5-10 mg/dL Normal .1 CA 8.8 LAB L501.5300 136-14 mmol/L Normal 5 NA 142 LAB L501.5600 3.5-5. mmol/L Normal 1 K 4.2 LAB L501.5900 98-107 mmol/L Normal CL 107 LAB L501.6100 21.0-3 mmol/L Normal 2.0 CO2 27.0 LAB L501.6200 5-15 Normal GAP 8 Performed By: #### L500.2500 #### [facility] [address] [place], [address] CBC W/DIFF, AUTOMATED Collected: 07/04/2018 Status: F Source: [place] 4:05 AM [facility] REPOSITORY TYPE CODE TESTS RESULT OUT OF RANGE REFERENCE UNITS LAB L100.1000 4.4-11.0 K/mm3 Normal WBC 10.5 LAB L100.1200 4.2-5.4 M/mm3 Low RBC 3.88 LAB L100.1300 12.0-15.0 g/dl Low HGB 11.6 LAB L100.1400 37-47 % Low HCT 35.4 LAB L100.1500 81-99 fL Normal MCV 91.2 LAB L100.1600 27.0-32.0 pg Normal MCH 29.9 LAB L100.1700 32-36 g/gl Normal MCHC 32.8 LAB L100.1810 11.6-14.6 % Normal RDW CV 14.0 LAB L100.1820 35.1-43.9 fl High RDW SD 46.6 LAB L100.1900 150-450 K/mm3 Normal PLT 225 LAB L100.2000 6.2-12.0 fl Normal MPV 11.1 LAB L100.2100 47-70 % Normal NEUT% 51.4 LAB L100.2200 19-41 % Normal LY% 23.3 LAB L100.2300 0-10 % High MONO% 15.0 LAB L100.2400 0-5 % High EO% 9.8 LAB L100.2500 0-1 % Normal BASO% 0.4 LAB L100.2550 0.0-0.9 % Normal IM GRAN % 0.100 Result Comment: IG% - Immature Granulocytes (promyelocytes, myelocytes and metamyelocytes) > 1% indicates that a LEFT SHIFT is Present. LAB L100.2620 2.0-7.7 X10 3/uL Normal Absolute Neut 5.4 LAB L100.2720 0.83-4.51 X10 3/ul Normal Absolute Lymph 2.45 LAB L100.4500 SMEAR Normal COMMENT Result Comment: MONOCYTOSIS NOTED Performed By: #### L100.0100 #### [facility] [address] [place], [address] ACT ACTIVATED [place]OTTING Collected: 07/03/2018 Status: F Source: [place] TIME 10:51 AM [facility] REPOSITORY TYPE CODE TESTS RESULT OUT OF RANGE REFERENCE UNITS LAB L9100.0100 74-137 sec High ACTk CLOT 158 TIME Performed By: #### L9100.0100 #### [facility] Point of Care [address] [place] [address] ACT ACTIVATED [place]ING Collected: 07/03/2018 Status: F Source: [place] TIME 8:07 AM [facility] REPOSITORY TYPE CODE TESTS RESULT OUT OF RANGE REFERENCE UNITS LAB L9100.0100 74-137 sec High ACTk CLOT 202 TIME Performed By: #### L9100.0100 #### [facility] Point of Care [address] [place] [address] CBC W/DIFF, AUTOMATED Collected: 07/03/2018 Status: F Source: [place] 5:08 AM [facility] REPOSITORY TYPE CODE TESTS RESULT OUT OF RANGE REFERENCE UNITS LAB L100.1000 4.4-11.0 K/mm3 High WBC 11.8 LAB L100.1200 4.2-5.4 M/mm3 Low RBC 4.05 LAB L100.1300 12.0-15.0 g/dl Normal HGB 12.3 LAB L100.1400 37-47 % Normal HCT 37.2 LAB L100.1500 81-99 fL Normal MCV 91.9 LAB L100.1600 27.0-32.0 pg Normal MCH 30.4 LAB L100.1700 32-36 g/gl Normal MCHC 33.1 LAB L100.1810 11.6-14.6 % Normal RDW CV 13.7 LAB L100.1820 35.1-43.9 fl High RDW SD 45.3 LAB L100.1900 150-450 K/mm3 Normal PLT 234 LAB L100.2000 6.2-12.0 fl Normal MPV 10.8 LAB L100.2100 47-70 % Normal NEUT% 54.4 LAB L100.2200 19-41 % Normal LY% 19.2 LAB L100.2300 0-10 % High MONO% 17.6 LAB L100.2400 0-5 % High EO% 8.2 LAB L100.2500 0-1 % Normal BASO% 0.3 LAB L100.2550 0.0-0.9 % Normal IM GRAN % 0.300 Result Comment: IG% - Immature Granulocytes (promyelocytes, myelocytes and metamyelocytes) > 1% indicates that a LEFT SHIFT is Present. LAB L100.2620 2.0-7.7 X10 3/uL Normal Absolute Neut 6.4 LAB L100.2720 0.83-4.51 X10 3/ul Normal Absolute Lymph 2.26 Performed By: #### L100.0100, L500.2500 #### [facility] [address], [address] BASIC METABOLIC Collected: 07/03/2018 Status: F Source: [facility] PROFILE ([facility]) 5:08 AM [facility] REPOSITORY TYPE CODE TESTS RESULT OUT OF RANGE REFERENCE UNITS LAB L501.0100 74-106 mg/dL Normal GLU 101 Result Comment: Fasting Glucose result from 100 to 125 mg/dL suggests IMPAIRED HOMEOSTASIS per A.D.A. criteria. Please note revised GLUCOSE reference range effective 2017. LAB L501.1000 7-18 mg/dL Normal BUN 12 LAB L501.1100 0.55-1.02 mg/dL Normal CREAT,SERUM 0.80 Result Comment: The validity of the calculated GFR AND GFRAA in patients over 70 years has not been determined. Clinical correlation is essential. LAB L501.1110 >60 mL/min Normal EST GFR 74 Result Comment: Non- GFR Calc LAB L501.1115 >60 mL/min Normal EST GFR - AA 90 Result Comment: GFR Calc LAB L501.1255 ml/min Normal Estimated CRCL 53.28 LAB L501.1300 10-20 RATIO Normal BUN/CRE 15.0 LAB L501.2200 8.5-10 mg/dL Normal .1 CA 8.7 LAB L501.5300 136-14 mmol/L Normal 5 NA 140 LAB L501.5600 3.5-5. mmol/L Normal 1 K 4.1 LAB L501.5900 98-107 mmol/L Normal CL 105 LAB L501.6100 21.0-3 mmol/L Normal 2.0 CO2 28.0 LAB L501.6200 5-15 Normal GAP 7 Performed By: #### L100.0100, L500.2500 #### [facility] [address] [place], [place], [id number] PROTHROMBIN TIME W/INR Collected: 07/03/2018 Status: F Source: [place] 5:08 AM [facility] REPOSITORY TYPE CODE TESTS RESULT OUT OF RANGE REFERENCE UNITS LAB L300.4150 11.7-14.9 SECONDS Normal PROTIME 14.0 LAB L300.4200 Normal INR 1.1 Performed By: #### L300.3900, L300.4310 #### [facility] [address] [facility] [place], [address] PARTIAL THROMBOPLAST Collected: 07/03/2018 Status: F Source: [place] TIME 5:08 AM [facility] REPOSITORY TYPE CODE TESTS RESULT OUT OF REFERENCE UNITS RANGE LAB L300.4310 24.1-36.2 Seconds High PTT 39.5 Performed By: #### L300.3900, L300.4310 #### [facility] [address] [facility] [place], [address] URINALYSIS, COMPLETE Collected: 07/02/2018 Status: F Source: [place] 9:18 AM [facility] REPOSITORY Order Comment: How was Urine Obtained? FAMILY AND CONSUMER SCIENCE PROFESSOR TO SPECIFY TYPE CODE TESTS RESULT OUT OF RANGE REFERENCE UNITS LAB L400.3000 Yellow COLOR Normal Yellow LAB L400.3050 Clear Normal CLARITY Sl. Cloudy LAB L400.3200 Normal mg/dl Normal GLUCOSE, UR Normal LAB L400.3300 Negative mg/dL Normal BILIRUBIN URINE Negative LAB L400.3400 Negative mg/dl Normal KETONE UR Negative LAB L400.3465 1.002-1.030 Normal SP.GR. DIPSTX 1.015 LAB L400.3550 5.0 - 8.0 pH UR Normal 8.0 LAB L400.3600 Negative mg/dl PROT Normal DIPSTX Negative LAB L400.3700 Normal mg/dl Normal UROBILI Normal LAB L400.3750 Negative High NITRITE UR Positive LAB L400.3780 Negative /ul High 10 OCCULT BLOOD-UR LAB L400.3800 Negative /ul High LEUK ESTERASE 500 LAB L400.4050 0-5 /hpf WBC Normal >100 SEEN LAB L400.4100 0-5 /hpf 0 Normal RBC-UA SEEN LAB L400.4150 5-10 /hpf SQUAM 0 Normal EPI SEEN LAB L400.4300 None Seen /hpf 2+ Normal BACTERIA LAB L400.4350 <or=2+ /hpf 0 Normal MUCUS, URINE SEEN Performed By: #### L400.0001 #### [facility] [address] [place], [address] Observed: 07/02/2018 Status: F Source: [place] CULTURE, URINE 9:18 AM [facility] REPOSITORY Comments: please add on to UA Urine Culture ORGANISM 1: Presumptive E. coli [place] Count >100,000 Presumptive E. coli: REACTION Amoxacillin/Clavulanic Acid $ 4 S Ampicillin $ 4 S Ampicillin/Sulbactam $ <=2 S Cefazolin $ <=4 S Cefepime $ <=1 S Ceftriaxone $ <=1 S Ciprofloxacin $ >=4 R ESBL - Ertapenim $$$ <=0.5 S Gentamicin $ <=1 S Imipenem *NF <=0.25 S Levofloxacin $ >=8 R Nitrofurantoin $ <=16 S Piperacillin/Tazobactam $$ <=4 S Tobramycin $ <=1 S Trimethoprim/Sulfametho $ <=20 S (NF) indicates non-formulary drug at [facility]. Approval by Infectious Disease Specialist required before non-formulary drugs may be ordered and/or dispensed. Performed By: #### M100.0650 #### [facility] [address] [place], [address] TROPONIN-I Collected: 07/01/2018 Status: F Source: [place] 8:26 PM [facility] REPOSITORY Order Comment: 'TROP' Serial specimen #1, #2 or #3: 3 TYPE CODE TESTS RESULT OUT OF RANGE REFERENCE UNITS LAB L501.4010 <0.045 ng/mL High alert 12.700 TROPONIN-I Result Comment: Critical Result(s) Called MELVINA Ramirez at: 21:19:07 07/01/2018 by: NIDHI HUA TROPONIN-I EXPECTED VALUES <0.045 Negative 0.045 - 0.590 Consistent with Cardiac Damage > OR = 0.600 Critical Value Not every elevated troponin is indicative of MS. These values should be used with clinical judgement in examining the patient's clinical picture for diagnosis. To establish a diagnosis of MS versus myocardial injury, there must be a demonstrated rise and/or fall in the troponin values, in addition to ischemic symptoms, EKG changes, new regional wall motion abnormality, and/or angiographical evidence. PLEASE NOTE: REFERENCE RANGES EDITED 17 Performed By: #### L501.4010 #### [facility] [address] [place], [address] HISTORY AND PHYSICAL Observed: 07/01/2018 Status: F Source: [place] EXAM 8:09 PM [facility] REPOSITORY [facility] Medical Records Department [address] [place] [address] History and Physical 07/01/18 1606 MR#: [id number] Acct: [id number] Name: DAVID BARRETO Chelsi Rep #: [id number] : 1945 73 From: Nidhi Leslie NP-C PCP: Wilman Aden DO Status: ADM IN Y Location: [facility] [id number] ADDENDUM by Mohsen Topete DO on 07/01/18 at 2009 Code Visit Patient seen and examined independently of Nidhi Leslie today, she was seen in the emergency room at [facility] with complaints of midsternal chest pressure radiating down to the inner part of both arms that started this morning. Patient had no nausea or vomiting, she did not complain of any shortness of breath. Upon arrival in the emergency room, it was noted that her blood pressure was elevated, patient was given a total of 3 sublingual nitroglycerin which reduced her chest pain. Patient also received 5 mg IV Lopressor. EKG performed in the emergency room upon her arrival showed a normal sinus rhythm with a subtle inferior and lateral ST segment depression. An urgent echocardiogram was obtained and Dr. Wu saw the patient in the emergency room. Echocardiogram showed a preserved ejection fraction at 75% with moderate pulmonary hypertension. Patient had labs drawn, initial troponin was 0.32, white blood cell count was 11.1, BUN was elevated at 20, and potassium was 3.3. Physical exam: On examination she appeared in good health and spirits. Vital signs as documented. Skin warm and dry and without overt rashes. Neck without JVD. Lungs clear. Heart exam notable for regular rhythm, normal sounds and absence of murmurs, rubs or gallops. Abdomen unremarkable and without evidence of organomegaly, masses, or abdominal aortic enlargement. Extremities nonedematous. Neuro: Cranial nerves II through XII are grossly intact, no focal motor deficits were noted. Psych: Patient is alert and oriented x3, she does not appear anxious or depressed at this time. Patient will be admitted to PCU for acute non-STEMI, cardiac enzymes will be cycled, she will be fully anticoagulated with Lovenox. I have reviewed Nidhi Leslie's history and physical including her assessment and medical plan of care and endorse it. Inpatient E AND M: 03197 Init Hosp L3 07/01/182008 <Electronically signed by Mohsen Topete DO> Date Mohsen Topete DO cc: ELISA Leslie; Mohsen Topete DO; Wilman Aden DO * Signed Problem List (1) Hypertension Status: Chronic (2) STEMI (ST elevation myocardial infarction) Status: Acute (3) Hypothyroidism Status: Chronic History of Present Illness Date of Admission: 07/01/18 Chief Complaint: Chest pain. The patient is a 73 year old F who presents emergency room due to chest pain. Patient reports around 1130 this morning she developed sudden midsternal chest pressure which occurred while she was resting. Chest pain/pressure radiated to both arms. She denies associated dizziness, diaphoresis, shortness of breath, nausea. She states she has never had pain like this before. Patient's pain persisted until receiving nitro x3 in ER. She is currently pain-free. Patient reports a significant family history of heart disease with her brother and father both from MS/CAD. Patient states she has had a stress test in the past which she reports was a few years ago and reported to be normal. She is a former smoker. Denies any history of CAD. Her other past medical history includes hypertension, hypothyroidism. Past Medical History Past Medical History (Chronic Problems): Chronic Problems Hypertension (Chronic) Hypothyroidism (Chronic) Allergies Penicillins Allergy (Verified 07/01/18 14:26) Rash acetaminophen [From Vicodin] Adverse Reaction (Verified 07/01/18 14:26) Nausea codeine Adverse Reaction (Verified 07/01/18 14:26) Nausea erythromycin base Adverse Reaction (Verified 07/01/18 14:26) Nausea hydrocodone [From Vicodin] Adverse Reaction (Verified 07/01/18 14:26) Nausea Sulfa (Sulfonamide Antibiotics) Adverse Reaction (Verified 07/01/18 14:26) Nausea Tetracyclines Adverse Reaction (Verified 07/01/18 14:26) Nausea Home Medications: Ambulatory Orders Medication Instructions Recorded Amlodipine Besylate [Norvasc] 2.5 mg PO DAILY 11/22/17 Aspirin [Aspirin, Baby] 81 mg PO DAILY@0800 11/22/17 Surgical History: - - Hysterectomy, cystocele repair, second MTPJ implant arthroplasty left foot with correction of second digit hammertoe of left foot. 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 Denies maternal cardiac history. Paternal History Items: Heart Disease - at age 74 from MS. Review of Systems Constitutional: Denies: Chills, Fever, Weight Change HEENT: Denies: Head Aches, Sinus Congestion, Sinus Drainage Cardiovascular: Reports: Chest Pressure. Denies: Light Headedness, Palpitations, Syncope Respiratory: Denies: Cough, Shortness of breath at rest, Sputum production Gastrointestinal: Denies: Abdominal Pain, Nausea, Vomiting Genitourinary: Denies: Dysuria Musculoskeletal: Denies: Joint Pain, Joint Tenderness Skin: Denies: Rash, Wounds Neurological: Denies: Numbness, Tingling, Focal weakness Psychiatric: Denies: Anxiety, Depression, Homicidal Ideations, Suicidal Ideations Hematologic/ Lymphatic: Denies: Easy Bruising, Easy Bleeding VTE Information - Inpt Only VTE Present on Admission: No VTE Mechan Device Prophylaxis: None VTE Pharm Prophylaxis ordered?: Yes Patient Problems: Active and Suspected Problems STEMI (ST elevation myocardial infarction) (Acute) - Physical Exam General: Alert, Oriented x3, Cooperative HEENT: Atraumatic, PERRLA, EOMI, Normocephalic Neck: Supple, No JVD, Negative Carotid Bruits Lungs: Clear to auscultation, Normal air movement Cardiovascular: Regular rate, Regular Rhythm, Normal S1, Normal S2, No murmurs Abdomen: Bowel Sounds Present, Soft, Non Tender, Non-Distended Extremities: No clubbing, No cyanosis, No edema, Capillary Refill Less than 3 Seconds Skin: No rashes, No breakdown Musculoskeletal: No Tenderness to Palpation of Joints or Extremities Neurological: Cranial nerves II-XII grossly intact, Neuro grossly intact Psych/Mental Status: Normal Affect, Appropriate Vital Signs Temp Pulse Resp BP Pulse Ox 98.1 F 88 16 151/64 H 99 07/01/18 14:26 07/01/18 15:36 07/01/18 15:36 07/01/18 15:36 07/01/18 15:36 Oxygen Flow Rate (L/min) 2 Oxygen Delivery Method Nasal Cannula Weight: 130 lb Body Mass Index (BMI) 23.0 Laboratory Tests Past 24 Hrs WBC 11.1 H RBC 4.27 Hgb 12.8 Hct 38.6 MCV 90.4 MCH 30.0 MCHC 33.2 Assessment/Plan All Active Problems STEMI (ST elevation myocardial infarction) (Acute) 1. NSTEMI-initial troponin 0.3. EKG with inferior lateral ST depression. Dr. Wu, cardiology consulted. Continue aspirin, Plavix. Therapeutic Lovenox. Nitropaste. Plan for cardiac catheterization Tuesday. Repeat EKG with new onset chest pain. Trend enzymes. Lipid panel pending. Echocardiogram completed in ER which shows an EF of 75%, stage II diastolic dysfunction, mild to moderate mitral valve insufficiency, mild tricuspid valve insufficiency, RVSP estimated to be 47 mmHg. 2. Hypertension-markedly elevated on admission. Improved. Patient received metoprolol 5 mg IV x1 in ER as well as amlodipine 10 mg p.o. x1. Started on metoprolol 50 mill grams p.o. twice daily per cardiology. Continue to monitor. 3. Mild hypokalemia-replace per protocol. Trend BMP. Suspect secondary to HCTZ regimen. 4. Hypothyroidism-continue Synthroid regimen. DVT prophylaxis- lovenox This patient was seen by ELISA Bui under the supervision of Dr. Topete. 07/01/181623 <Electronically signed by Nidhi PÉREZ> Date Nidhi ÉPREZ 07/01/182003<Electronically signed by Mohsen Topete DO> Cosigner Signature: Date (if applicable) Mohsen Topete DO CC: ELISA Leslie; Mohsen Topete DO; Wilman Aden DO Signed MAGNESIUM Collected: 07/01/2018 Status: F Source: [facility] 5:25 PM [facility] REPOSITORY TYPE CODE TESTS RESULT OUT OF RANGE REFERENCE UNITS LAB L501.5200 1.6-2.6 mg/dL Normal MG 2.1 Performed By: #### L501.5200 #### [facility] [address] [place], [address] TROPONIN-I Collected: 07/01/2018 Status: F Source: [place] 5:25 PM [facility] REPOSITORY Order Comment: 'TROP' Serial specimen #1, #2 or #3: 2 'TROP' Serial specimen #1, #2, #3, or #4: 2 TYPE CODE TESTS RESULT OUT OF RANGE REFERENCE UNITS LAB L501.4010 <0.045 ng/mL High alert 4.030 TROPONIN-I Result Comment: Critical Result(s) Called to MELVINA Lagos at: 18:10:26 07/01/2018 by: NIDHI HUA TROPONIN-I EXPECTED VALUES <0.045 Negative 0.045 - 0.590 Consistent with Cardiac Damage > OR = 0.600 Critical Value Not every elevated troponin is indicative of MS. These values should be used with clinical judgement in examining the patient's clinical picture for diagnosis. To establish a diagnosis of MS versus myocardial injury, there must be a demonstrated rise and/or fall in the troponin values, in addition to ischemic symptoms, EKG changes, new regional wall motion abnormality, and/or angiographical evidence. PLEASE NOTE: REFERENCE RANGES EDITED 17 Performed By: #### L501.4010 #### [facility] [address] [facility] [place], [address] EMERGENCY DEPARTMENT Observed: 07/01/2018 Status: F Source: [place] SUMMARY 3:57 PM [facility] REPOSITORY [facility] Medical Records Department [address] [place] [address] Emergency Department Summary 07/01/18 1553 MR#: [id number] Acct: [id number] Name: DAVID BARRETO Rep #: [id number] : 1945 73 From: Edward Archuleta DO PCP: Wilman Aden DO Status: REG ER - ER Visit Summary Date of Service: 07/01/18 Chief Complaint: Chest pain ] History of Present Illness: The patient is a 73 F [presents to the emergency department with complaint of chest pain that started approximately 11:30 AM today. Patient describes a pressure in the center of her chest that radiates down into both arms to about the elbow. Patient denies any shortness of breath or nausea or vomiting. Patient denies any diaphoresis. Patient denies recent travel or surgery. She denies any pain in her back. Patient currently rates the pain a 5 out of 10. Patient is not had discomfort like this before. Patient does have a history of hypertension, SVT, and mitral valve prolapse.] Physical Examination: [HEENT-PERRLA, EOMI. Cranial nerves II through XII grossly intact. TMs clear. Mucous membranes moist. No adenopathy. Cardiovascular-regular rate and rhythm without murmur or ectopy Lungs-clear to auscultation, chest wall stable without crepitus or subcu emphysema Abdomen-normoactive bowel sounds, soft, nontender, no rebound or rigidity, no peritoneal signs. Extremities-intact 4, normal range of motion, normal pulses, atraumatic] Test Results: [EKG obtained on arrival showed a sinus rhythm with a ventricular rate in the 70s with ST depression noted inferior laterally. No old EKGs available for comparison. Second EKG obtained actually looked somewhat improved with just subtle ST depression inferiorly. CBC with differential obtained showed a white count 11.1, hemoglobin 12.8, hematocrit 38.6, platelets 269. Chemistries unremarkable. Troponin was 0.329. Chest x-ray obtained showed nothing acute.] Emergency Department Course and Treatment: [Upon evaluation of the initial EKG I discussed case with cardiology and was able to fax the EKG to Dr. Patrick Wu who then presented to the emergency department to evaluate the patient. I had concerns for an acute coronary syndrome given the patient's complaint and abnormal EKG. Dr. Wu performed an echo at the bedside and did not see any wall motion abnormalities. Case will be discussed with hospitalist will evaluate patient for admission for suspected non-ST elevation MS] patient was treated in the department with nitroglycerin as well as Lopressor and Lovenox. Treatment Plan: [Admit] Disposition: [Admit] Impression: [Chest pain Non-ST elevation MS] This note was generated with Morphy dictation software. It may contain incorrect words, spelling, and punctuation that were not noted in review of the chart prior to signing ED Disposition - Plan for ED Patient: Chief Complaint: Chest Pain Referrals: Wilman Aden DO [Primary Care Provider] - What to do if you have Problems For any increased pain, shortness of breath, bleeding, nausea or vomiting, chest pain, or any unexpected problems, contact your Primary Care Provider. Call [facility] ([phone]) or report to the closest Emergency Room. Call 911 if necessary. 07/01/18 1557 <Electronically signed by Edward Archuleta DO> Date Edward Archuleta DO Isela Signature (If Indicated): Date CC: Wilman Aden DO ECHOCARDIOGRAM COMPLETE Observed: 07/01/2018 Status: F Source: [place] 3:55 PM [facility] REPOSITORY [facility] Cardiovascular Services [address] [place] [address] Echo Complete 07/01/18 1506 MR#: [id number] Acct: [id number] Name: DAVID BARRETO Rep #: [id number] : 1945 73 From: Patrick Wu MD Attending Dr: Status: REG ER Ordering Dr: Patrick Wu MD Date: 07/01/18 Location: ED Sex: F C Admitted: Reason For Study: CHEST PAIN Procedure This was a 2D Doppler, Color Flow transthoracic echocardiogram. Exam performed portable in ED. Left Ventricle Normal size and thickness. The estimated ejection fraction is 75 %. Stage 2 diastolic dysfunction. No regional wall motion abnormalities noted. Right Ventricle Normal size and thickness. Normal systolic function. Atria Normal left atrium. Normal right atrium. Normal atrial septum. Mitral Valve Mild diffuse mitral valve thickening. Mild-Moderate (1-2+) eccentric mitral valve insufficiency. Tricuspid Valve Normal tricuspid valve. Mild (1+) tricuspid valve insufficiency. Right ventricular systolic pressure estimated to be 47 mmHg. Moderate pulmonary hypertension. Aortic Valve Normal aortic valve. Trisinus/trileaflet aortic valve. Pulmonic Valve Normal pulmonic valve. Great Vessels Normal aortic root. Mild atherosclerosis of the aortic arch. Normal inferior vena cava. Inferior vena cava collapse with sniff. MMode/2D Measurements AND Calculations LVIDd: 3.5 cm IVSd: 1.0 cm Ao root diam: 3.0 cm LVIDs: 2.4 cm LVPWd: 1.00 cm RVDd: 3.2 cm FS: 32.8 % LAV(MOD-bp): 37.1 ml LVAd ap4: 25.6 cm2 SV(MOD-sp4): 46.3 ml LAV(MOD-bp) Indexed: 23.1 ml/m2 EDV(MOD-sp4): 77.6 ml LAV(MOD-sp2): 37.3 ml EDV(sp4-el): 84.2 ml LAV(MOD-sp4): 36.5 ml LVAs ap4: 14.8 cm2 ESV(MOD-sp4): 31.3 ml ESV(sp4-el): 32.7 ml EF(MOD-sp4): 59.6 % EF(sp4-el): 61.1 % SV(sp4-el): 51.4 ml LA dimension(2D): 3.9 cm LA A4 area: 16.2 cm2 RA A4 area: 14.5 cm2 Time Measurements MV dec time: 0.21 sec Doppler Measurements AND Calculations MV E max albaro: 88.0 cm/sec Lat Peak E' Albaro: 9.3 cm/sec Med Peak E' Albaro: 8.3 cm/sec MV A max albaro: 85.8 cm/sec E/E' lat: 9.5 E/E' med: 10.6 MV E/A: 1.0 Ao V2 max: 128.1 cm/sec LV V1 max: 128.2 cm/sec TR max albaro: 322.7 cm/sec Ao max P.6 mmHg LV V1 max P.6 mmHg TR max P.8 mmHg Interpretation Summary The estimated ejection fraction is 75 %. Stage 2 diastolic dysfunction. Mild-Moderate (1-2+) eccentric mitral valve insufficiency. Mild (1+) tricuspid valve insufficiency. Right ventricular systolic pressure estimated to be 47 mmHg. Moderate pulmonary hypertension. There is no comparison study available. Ordering Physician: Patrick Wu Referring Physician: EDWARD CASIANO Performed By: Solange Baca, MEENAKSHI, RVT 07/01/18 1554 Date Patrick Wu MD CC: Patrick Wu MD; Edward Archuleta DO; Wilman Aden DO Date Dictated: 07/01/18 1506 Date Transcribed: 07/01/181553 Vendor Relationship Manager: Signed CONSULTATION Observed: 07/01/2018 Status: F Source: [place] 3:44 PM [facility] REPOSITORY [facility] Medical Records Department [address] [place] [address] Consultation 07/01/18 1527 MR#: [id number] Acct: [id number] Name: DAVID BARRETO #: [id number] : 1945 73 From: Patrick Wu MD PCP: Wilman Aden DO Status: REG ER Y Location: ED Problem List (1) Chest pain Status: Acute (2) Abnormal EKG Status: Acute (3) Hypertension Status: Chronic Reason for Consult Date of Consultation: 07/01/18 Reason for Consultation: Unstable angina, chest pain, abnormal EKG, hypertension History of Present Illness: The patient is a 73 year old F, 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 She apparently had a catheterization somewhere in [place] on 8- 10 years ago, with reportedly normal coronary arteries. Prior to an ankle injury several months ago she used to walk between 4 and 5 miles per day without any difficulty whatsoever and has done so for the past 29 years. She is a non-smoker. She has not had a stress test since her last catheterization. Patient states that she was with her grandchild this morning when she developed midsternal chest pressure radiating down the inner part of both arms. She had no associated nausea, vomiting, shortness of breath or dyspnea. She denies any abdominal pain. When this did not resolve, she sought medical attention at the behest of her daughter who is a registered nurse in our office, and came to the emergency room. Upon arrival her blood pressure was 184/76, and in the emergency room an EKG was performed which showed normal sinus rhythm with subtle inferior and lateral ST segment depression, and subtle J-point elevation in aVL only. The patient was given a total of 3 sublingual nitroglycerin which reduced her pain down from a 5 down to a 2. In addition she received 5 mg of IV Lopressor and her chest pain further improved. Repeat EKG showed normal sinus rhythm with resolution of her ST segment changes. Blood pressure after medical therapy showed it to be 137/72. Urgent bedside echocardiogram showed normal LV size and function, hyperdynamic LV, EF around 75%, moderate pulmonary hypertension. Final result pending. On further history the patient states that she snores excessively, and is recently been noted to have daytime somnolence to the point where she has fallen asleep with food in her mouth. Her mobility is limited due to her injured foot, but she denies any exertional anginal symptoms. Her initial troponin is 0.329. [] Past Medical History Allergies/Adverse Reactions: Allergies Penicillins Allergy (Verified 07/01/18 14:26) Rash acetaminophen [From Vicodin] Adverse Reaction (Verified 07/01/18 14:26) Nausea codeine Adverse Reaction (Verified 07/01/18 14:26) Nausea erythromycin base Adverse Reaction (Verified 07/01/18 14:26) Nausea hydrocodone [From Vicodin] Adverse Reaction (Verified 07/01/18 14:26) Nausea Sulfa (Sulfonamide Antibiotics) Adverse Reaction (Verified 07/01/18 14:26) Nausea Tetracyclines Adverse Reaction (Verified 07/01/18 14:26) Nausea Home Medications: Ambulatory Orders Medication Instructions Recorded Amlodipine Besylate [Norvasc] 2.5 mg PO DAILY 11/22/17 Aspirin [Aspirin, Baby] 81 mg PO DAILY@0800 11/22/17 Past Medical History (Chronic Problems): Chronic Problems Hypertension (Chronic) Surgical History: no surgical history Smoking Status: Former smoker Review of Systems - Review of Systems General: Denies: Fever, Night Sweats, Fatigue Cardiovascular: Reports: Chest Discomfort, Chest Discomfort at Rest. Denies: Shortness of Breath, Orthopnea, PND, Peripheral Edema, Palpitations, Lightheadedness, Dizziness, Near Syncope, Syncope Respiratory: Denies: Cough, Sputum Production, Hemoptysis Gastrointestinal: Denies: Hematemesis, Hematochezia, Melena Genitourinary: Denies: Dysuria, Hematuria Skin: Denies: Rash Subjectve: Patient resting comfortably, no acute distress. Objective: Vital Signs Temp Pulse Resp BP Pulse Ox 98.1 F 65 22 H 137/72 H 98 07/01/18 14:26 07/01/18 15:17 07/01/18 14:26 07/01/18 15:17 07/01/18 14:26 Oxygen Flow Rate (L/min) 2 Oxygen Delivery Method Nasal Cannula Weight: 130 lb Body Mass Index (BMI) 23.0 General: Awake, Alert, Oriented x 3 HEENT: PERRL, EOMI, Sclera Non Icteric Neck: Supple, Good ROM, No Lymph Node Enlargement Lungs: Clear to auscultation Cardiovascular: Regular Rhythm, Normal S1, Normal S2, No Murmurs, No Rubs, No Gallops Vascular: No Carotid Bruits, Normal Femoral Pulses, Normal Radial Pulses, Normal Dorsalis Pedal Pulse, Normal Posterior Tibial Pulses Abdomen: Bowel Sounds Present, Soft, Non Tender, No HSM, No Organomegaly Extremities: No Cyanosis, No Clubbing, No edema Neurological: No Focal Motor or Sensory Deficit 07/01/18 14:35: WBC 11.1 H, RBC 4.27, Hgb 12.8, Hct 38.6, MCV 90.4, MCH 30.0, MCHC 33.2, RDW 13.5, RDW Differential 44.5 H, Plt Count 269, MPV 10.8, Immature Gran % (Auto) 0.300, Neut % (Auto) 38.8 L, Lymph % (Auto) 36.8, [place] % (Auto) 8.0, Eos % (Auto) 15.6 H, Baso % (Auto) 0.5, Absolute Neuts (auto) 4.3, Total Counted Not Reportable 07/01/18 14:35: Sodium 141, Potassium 3.3 L, Chloride 105, Carbon Dioxide 29.0, Anion Gap 7, BUN 20 H, Creatinine 0.88, Est GFR (MDRD) Af Amer 81, Est GFR (MDRD) Non-Af 67, BUN/Creatinine Ratio 22.8 H, Glucose 119 H, Calcium 9.1, Troponin I 0.329 H Rhythm: EKG: As above ECHO: As above Stress Test: Cardiac Cath: PCI: CT Surgery: Holter monitor: EPS: PPM: CXR: Chest CT Scan: Assessment/Plan 1. Unstable angina: The patient presents with substernal chest pain radiating to both arms, with subtle dynamic EKG changes with inferior lateral ST segment depression, and subtle J-point elevation in aVL only. Stat bedside echo showed intact LV function in all major segments, and no evidence of hypokinesis inferiorly or laterally. Patient's chest pain has been relieved with sublingual nitroglycerin and IV beta-sobia for a significant hypertension. Her initial troponin is abnormal at 0.329. At this point I recommend baby aspirin 324 mill grams x1 which is artery been given, 81 mg a day, loaded with Plavix 3 mg x1 now, and 75 mg of Plavix daily. In addition I recommend Lovenox 1 mg/kg subcu twice daily as well as nitroglycerin paste 1 inch every 6 hours. Would recommend ruling out the patient with a series of troponins, and notifying cardiology if troponin is elevated above 5.0. If the patient's symptoms return during her hospital stay and have a low threshold for urgent catheterization. If however her chest pain remains at bay over the weekend, I would recommend left heart catheterization Tuesday morning. In addition recommend obtaining a fasting lipid profile to risk stratify her. The patient apparently had reportedly normal coronary arteries per the patient's daughter who is a registered nurse around 8-10 years ago. 2. Obstructive sleep apnea: The patient has signs and symptoms of possible non-diagnosed obstructive sleep apnea, would recommend an outpatient sleep study once her cardiac evaluation has been completed. 3. Hypertension: The patient's blood pressure was controlled with amlodipine, beta-blockers. Would recommend continuing Lopressor 50 mg p.o. twice daily, amlodipine 10 mg a day, and hydrochlorothiazide 25 mg p.o. daily. Keep potassium above 4.0 and magnesium above 2.0. 4. Discussed with Dr. Casiano. Thank you very much for the opportunity to participate in the cardiac care of your patient. Consultation time took place between 310 and 3:45 PM. Code Visit Inpatient E AND M: 38599 Init Hosp L2 07/01/18 1544 <Electronically signed by Patrick Wu MD> Date [facility] Signature (if applicable): Date CC: Wilman Aden DO Signed CHEST 1 VIEW Observed: 07/01/2018 Status: F Source: [place] (PORTABLE) 2:42 PM [facility] REPOSITORY [facility] Imaging Services [address] [place] [address] Chest 1 View (Portable) MR#: [id number] Acct: [id number] Name: DAVID BARRETO Rep #: [id number] : 1945 F 73 From: Rios Luu MD PCP: Wilman Aden DO Status: REG ER Study: Chest 1 View (Portable) Date of Exam: 07/01/18 Exam# [id number] Ordering Dr: Edward Archuleta DO STUDY: X-RAY CHEST REASON FOR EXAM: Female, 73 years old. Chest pain TECHNIQUE: AP COMPARISON: None. FINDINGS: EKG leads project over the chest. Well-defined dense nodule in the lateral left upper lobe is compatible with a granuloma. Lungs are mildly hyperexpanded. No airspace consolidation. There is no demonstrated pleural abnormality. Normal size heart. Normal mediastinum and lior. Normal visualized pulmonary arteries. There is atherosclerotic calcification of the aortic arch with tortuosity. No acute bony process. There is no demonstrated abnormality of the visualized soft tissue structures of the upper abdomen. RAD/Chest 1 View (Portable) IMPRESSION: No airspace consolidation or pleural effusion. Electronically Signed: Rios Luu MD at 15:36 EST , Service support , CC: Edward Archuleta DO; Wilman Aden DO Vendor Relationship Manager: Signed CBC W/DIFF, AUTOMATED Collected: 07/01/2018 Status: F Source: [place] 2:35 PM [facility] REPOSITORY TYPE CODE TESTS RESULT OUT OF RANGE REFERENCE UNITS LAB L100.1000 4.4-11.0 K/mm3 High WBC 11.1 LAB L100.1200 4.2-5.4 M/mm3 Normal RBC 4.27 LAB L100.1300 12.0-15.0 g/dl Normal HGB 12.8 LAB L100.1400 37-47 % Normal HCT 38.6 LAB L100.1500 81-99 fL Normal MCV 90.4 LAB L100.1600 27.0-32.0 pg Normal MCH 30.0 LAB L100.1700 32-36 g/gl Normal MCHC 33.2 LAB L100.1810 11.6-14.6 % Normal RDW CV 13.5 LAB L100.1820 35.1-43.9 fl High RDW SD 44.5 LAB L100.1900 150-450 K/mm3 Normal PLT 269 LAB L100.2000 6.2-12.0 fl Normal MPV 10.8 LAB L100.2100 47-70 % Low NEUT% 38.8 LAB L100.2200 19-41 % Normal LY% 36.8 LAB L100.2300 0-10 % Normal MONO% 8.0 LAB L100.2400 0-5 % High EO% 15.6 LAB L100.2500 0-1 % Normal BASO% 0.5 LAB L100.2550 0.0-0.9 % Normal IM GRAN % 0.300 Result Comment: IG% - Immature Granulocytes (promyelocytes, myelocytes and metamyelocytes) > 1% indicates that a LEFT SHIFT is Present. LAB L100.2620 2.0-7.7 X10 3/uL Normal Absolute Neut 4.3 LAB L100.2720 0.83-4.51 X10 3/ul Normal Absolute Lymph 4.07 Performed By: #### L100.0100 #### [facility] [address] [place], [place], [id number] BASIC METABOLIC Collected: 07/01/2018 Status: F Source: [place] PROFILE (BMP) 2:35 PM [facility] REPOSITORY TYPE CODE TESTS RESULT OUT OF RANGE REFERENCE UNITS LAB L501.0100 74-106 mg/dL High GLU 119 Result Comment: Fasting Glucose result from 100 to 125 mg/dL suggests IMPAIRED HOMEOSTASIS per A.D.A. criteria. Please note revised GLUCOSE reference range effective 2017. LAB L501.1000 7-18 mg/dL High BUN 20 LAB L501.1100 0.55-1.02 mg/dL Normal CREAT,SERUM 0.88 Result Comment: The validity of the calculated GFR AND GFRAA in patients over 70 years has not been determined. Clinical correlation is essential. LAB L501.1110 >60 mL/min Normal EST GFR 67 Result Comment: Non- GFR Calc LAB L501.1115 >60 mL/min Normal EST GFR - AA 81 Result Comment: GFR Calc LAB L501.1255 ml/min Normal Estimated CRCL 46.40 LAB L501.1300 10-20 RATIO High BUN/CRE 22.8 LAB L501.2200 8.5-10 mg/dL Normal .1 CA 9.1 LAB L501.5300 136-14 mmol/L Normal 5 NA 141 LAB L501.5600 3.5-5. mmol/L Low 1 K 3.3 LAB L501.5900 98-107 mmol/L Normal CL 105 LAB L501.6100 21.0-3 mmol/L Normal 2.0 CO2 29.0 LAB L501.6200 5-15 Normal GAP 7 Performed By: #### L500.2500, L501.4010 #### [facility] [address] [facility]. [place], [place], [id number] TROPONIN-I Collected: 07/01/2018 Status: F Source: [place] 2:35 PM [facility] REPOSITORY TYPE CODE TESTS RESULT OUT OF RANGE REFERENCE UNITS LAB L501.4010 <0.045 ng/mL High 0.329 TROPONIN-I Result Comment: TROPONIN-I EXPECTED VALUES <0.045 Negative 0.045 - 0.590 Consistent with Cardiac Damage > OR = 0.600 Critical Value Not every elevated troponin is indicative of MS. These values should be used with clinical judgement in examining the patient's clinical picture for diagnosis. To establish a diagnosis of MS versus myocardial injury, there must be a demonstrated rise and/or fall in the troponin values, in addition to ischemic symptoms, EKG changes, new regional wall motion abnormality, and/or angiographical evidence. PLEASE NOTE: REFERENCE RANGES EDITED 17 Performed By: #### L500.2500, L501.4010 #### [facility] [address] [facility]. [place], [place], [phone] LIPID PROFILE Collected: 07/01/2018 Status: F Source: [place] 2:35 PM [facility] REPOSITORY TYPE CODE TESTS RESULT OUT OF RANGE REFERENCE UNITS LAB L501.4900 200 mg/dL High CHOL 216 Result Comment: <200 mg/dL Desirable 200-240 mg/dL Borderline >240 mg/dL High Risk LAB L501.5000 mg/dL Normal TRIG 188 Result Comment: The drugs N-Acetylcysteine and Metamizole may falsely depress this assay. Serum Triglycerides Reference Interval Normal <150 mg/dL Borderline high 150 - 199 mg/dL High 200 - 499 mg/dL Very High > or = 500 mg/dL LAB L501.6400 mg/dL Normal HDL 48 Result Comment: The drugs N-Acetylcysteine and Metamizole may falsely depress this assay. Reference Range HDL <40 mg/dL Low HDL Cholesterol HDL >or= 60 mg/dL High HDL Cholesterol LAB L501.6500 0-130 mg/dL Normal LDL 130 LAB L501.6600 5-40 mg/dL Normal VLDL 38 Performed By: #### L500.4100 #### [facility] [address] [place], [address] IR ASPIRATION OR INJ. Observed: 06/12/2018 Status: F Source: [facility] LARGE JOINTS 10:00 AM [facility] EMERGENCY DEPARTMENT REPOSITORY ORIGINAL IR ASPIRATION OR INJ. LARGE JOINTS CLINICAL STATEMENT: Trochanteric bursitis of right hip. Technique: The risks and benefits of the procedure were discussed with the patient expressed understanding wished to proceed. Informed consent was obtained. Under fluoroscopic guidance the RIGHT hip was localized with the patient in supine position. The area was prepped and draped in sterile fashion. Skin was anesthetized with 1% lidocaine. 13 seconds of fluoroscopy time was utilized. 2 fluoroscopic i mages were used. A 20-gauge needle was placed into the RIGHT hip joint under fluoroscopic guidance. Thereafter 40 mg of Kenalog and 4 mL of 1% ropivocaine was placed into the hip joint. Patient tolerated procedure well without complication. IMPRESSION: Unremarkable RIGHT hip joint injection. Interpreted By: Kj Kelly MD Preliminary Report By: Kj Kelly MD Electronically Signed By: Kj Kelly MD Dictated Date: 06/13/2018 9:33:00 AM Prelim Date: 06/13/2018 9:33:00 AM Sign Date: 06/13/2018 9:38:30 AM MA MAMMOGRAM SCREENING Observed: 03/25/2018 Status: F Source: [facility] BILATERAL W/TOÑA 9:30 AM [facility] EMERGENCY DEPARTMENT REPOSITORY ORIGINAL FROM: [facility] [address] [place], [place] [address] PROCEDURE FOR: DAVID BARRETO [address] [place] [address] Home: PID#: [id number] Exam#: [id number] : 1945 Age: 73 TO: WILMAN ADEN DO [address] [place], [place] [address] #[id number] DIGITAL SCREENING MAMMOGRAM 3D/2D WITH CAD WITH MEDIOLATERAL OBLIQUE CRANIOCAUDAL: 03/25/2018 Comparison is made to exams dated: 02/22/2017 mammogram and 02/10/2016 mammogram - [facility]. The tissue of both breasts is heterogeneously dense. Current study was also evaluated with a Computer Aided Detection (CAD) system. No significant masses, calcifications, or other findings are seen in either breast. There has been no significant interval change. IMPRESSION: NEGATIVE There is no mammographic evidence of malignancy. A 1 year screening mammogram is recommended. GUDELIA COLON M.D. vfg/penrad:03/27/2018 15:20:54 Fruit Grader Operator: ISAMAR OCHOA RT(R)(M)(CT) [facility] letter sent: Normal BI-RADS 1&2 Mammogram BI-RADS: 1 Negative OPERATIVE REPORT Observed: 11/26/2017 Status: F Source: [place] 10:54 AM [facility] REPOSITORY [facility] Medical Records Department [address] [place] [id number] Operative Report 11/25/17 1253 MR#: [id number] Acct: [id number] Name: DAVID BARRETO Rep #: [id number] : 1945 72 From: Boone Fernandes DPM PCP: Wilman Aden DO Status: [facility] Y Location: [facility] Report of Operation Date of Procedure: 11/25/17 - Surgeon: Boone Fernandes DPM Pre-Operative Diagnosis: 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 Coco Shine Type of Anesthesia:: General Specimen's removed: Bone from left 2nd metatarsal head sent to pathology Estimated Blood Loss (mL): 2mL Description of Procedure: Indications: This is a 72 year old with chronic pain to the 2nd metatarsal phalagneal joint (2nd MTPJ) of the left foot despite extensive conservative/nonsurgical management. Symptoms persist and she continues to have pain and significant activity limitations. She elected to undergo surgical intervention. We discussed the procedure. We reviewed the rationale of each as well as the possible benefits, risks, potential complications goals and expectations of each. This was discussed with her in great detail. Typical post op recovery was reviewed with her. She expressed understanding and agreement. The consent forms were reviewed with her in detail, and she freely signed them. No guarantees were given. All of her questions were answered. Operative Procedure: The patient was brought back into the operating room and was placed on the operating room table in the supine position. She was carefully secured to the operating room table with a safety belt around her waist. A time out was performed and the patient was properly identified and the surgical plan was confirmed. The patient received 2 grams of IV Ancef for antibiotic prophylaxis. A well padded pneumatic tourniquet was applied around the left ankle. The patient did receive general anesthesia per the anesthesiologist. The skin was cleansed with 70% Isopropyl alcohol, and 10mL of 0.5% Bupivacaine plain was given as a 2nd ray block on the left foot. The left foot was scrubbed, prepped, draped in the usual aseptic fashion. A timeout was performed and the patient was properly identified and the surgical plan was confirmed. The left foot was elevated for 3 minutes and the left ankle pneumatic tourniquet was inflated to 250mmHg. Attention was directed to the 2nd MTPJ, there was limited range of motion consistent with osteoarthritis, the toe was contracted consistent with a hammer toe. Using a 15 blade a linear longitudinal skin incision was overlying the dorsal lateral aspect of the 2nd metatarsal phalangeal joint (MTPJ). Careful blunt dissection was completed down through the subcutaneous layer to the dorsal 2nd MTPJ capsule. The capsule of the 2nd MTPJ was identified and was carefully incised dorsally, it was carefully reflected from the dorsal, medial and lateral aspect, exposing the 2nd metatarsal head. There was noted to be significant degenerative changes of the 2nd metatarsal head with significant chondral thinning and yellow nonviable cartilage. There was an osteochondral lesion to the head of the 2nd metatarsal head. The bone was softer than normal. The cartilage on the base of the 2nd toe proximal phalanx did appear healthier and more viable. A guide wire was placed centrally and perpendicular to the 2nd metatarsal head and was placed down the shaft of the 2nd metatarsal. This was checked using intraoperative fluoroscopy. A step drill was used to prepare the screw hole to the 2nd metatarsal head. The 7mm taper post fixation component was inserted in standard fashion; however during this process a nondisplaced stress fracture occurred to the distal 2nd metatarsal. The stress fracture was stabilized by wrapping 2 FiberWire around the fracture site. A reamer was carefully used to remove the nonviable damaged cartilage and bone to creat a socket for the implant. The excised bone / cartilage was sent to pathology (with the resected portion of the 2nd metatarsal head) for further evaluation. All bone ledges were removed from the 2nd metatarsal head. The 2nd MTPJ plantar plate was also visualized, it was noted to be intact with no tear or degeneration seen, it was stable with negative dorsal drawer at this time. It was left intact. The Arthrosurface implant was ready to be inserted. The Arthrosurface implant was placed with bone cement into the prepared distal 2nd metatarsal surface. The uziel cement was also placed around the fracture site. The bone cement was allowed to dry. The implant was carefully tamped in place, being sure not to disrupt the fracture site or cause any new fracture. At this time, the implant was noted to be stable and in good position, this was confirmed using intra operative fluoroscopy without the use of a associate professor of radiology. The fracture site was also stable and in good alignment. There was good smooth normal range of motion to the 2nd MTPJ with no grinding, popping or clicking. There was negative dorsal drawer or instability of the 2nd MTPJ plantar plate at this time. The site was flushed out with copious amounts of normal saline solution. The joint capsule was reapproximated using 3-0 Vicryl, the subcutaneous tissue layer was reapproximated using 3-0 Vicryl, and the skin was reapproximated using 3-0 Monocryl. Further attention was directed to the 2nd toe which was contracted at the distal interphalangeal joint. Two semi-elliptical conversing skin incisions were made using a 15 blade overlying the dorsal distal interphalangeal joint. The skin within these incisions was excised. Careful dissection was completed down to the extensor digitorum longus tendon and it was incised transversely over the joint, and it was retracted exposing the proximal interphalangeal joint capsule. The distal interphalangeal joint capsule was incised and the collateral ligament of the joint were released using a 15 blade. The cartilage on the head of the 2nd toe middle phalanx and base of the distal phalanx were resected using a powered sagittal saw as well as a bone cutting rongeur. A kwire was placed down the middle of the phalanges holding the toe in rectus position. The site was flushed out with copious amounts of normal saline solution. The skin was reapproximated using 3-0 Monocryl. The kwire was trimmed and capped. Intraoperative fluoroscopy confirmed proper placement of the kwire and rectus position of the 2nd toe. Cavilon was painted to the sutured skin edges and steristrips were applied across the sutured skin incisions. All vital structure, including all vital neurovascular structures were properly identified and protected as necessary throughout the procedure. The pneumatic tourniquet was deflated, there was immediate return of vascular flow to the foot and all toes. CFT < 2 seconds to all toes, and had normal temperature gradient present. An additional 10mL of 0.5% Bupivacaine plain was given as a local nerve block around the 2nd ray of the left foot for further post operative pain control. A dressing was applied which consisted of Betadine soaked adaptic, 4x4 gauze, kerlix and loco dressing to the left foot. The patient tolerated the above operative procedure well at the anesthesia well with no complications. The patient was transported to the recovery room with vital signs stable and in good condition. Post operative orders were placed. Post operative instructions were reviewed with patient today. No weightbearing left foot, keep foot elevated for at least 50 minutes of every hour, keep dressing clean, dry and intact. Prescription for Vicodin 5mg/325mg was prescribed: 1-2 tabs PO q 6 hours PRN pain for pain control, as well as Zofran and Docusate. Patient was fitted for a surgical shoe. Post operative xrays were obtained in the recovery room which confirmed 2nd MTPJ implant arthroplasty, with bone cement around the fracture site; as well as arthrodesis of the 2nd toe DIPJ with intact kwire. Intact implant 2nd metatarsal head. Otherwise no acute changes and stable xrays. Grafts/Implants Used: 1 Arthrosurface lesser metatarsal implant, 1 Kwire - Complications None 11/26/17 1054 <Electronically signed by Boone Fernandes DPM> Date Boone Fernandes DPM CC: Boone Fernandes DPM; Wilman Aden DO Signed DISCHARGE INSTRUCTION Observed: 11/25/2017 Status: F Source: [place] 12:53 PM [facility] REPOSITORY [facility] Medical Records Department [address] [place] [id number] Instructions for Home/Discharge Instructions 11/25/17 1252 MR#: [id number] Acct: [id number] Name: ESTEVANDAVID C Rep #: [id number] : 1945 72 From: Boone Fernandes DPM PCP: Wilman Aden DO Status: REG SDC Discharge Diet: Light diet - advance as tolerated Discharge Activity: May Not Drive Weight Bearing Status: No weight bearing - No weightbearing left foot Keep extremity elevated above heart level: Left Leg - Keep left foot elevated for at least 50 minutes of every hour Call your doctor if your incision/area has: Continuous Slow Oozing, Sudden Increased Bleeding, Increased Pain/ Swelling, Foul Smelling Discharge Call your doctor if you observe: Fever of 101 or Higher, Coldness, Increased Pain, Shortness of breath, Chest pain, Increased palpitations (irregular heartbeat), Calf discomfort, Uncontrolled pain Cleanse incision/area with: Do not get Incision Wet, Keep Dressing Clean AND Dry Allergies/Adverse Reactions: Allergies Penicillins Allergy (Verified 11/25/17 08:42) Rash acetaminophen [From Vicodin] Adverse Reaction (Verified 11/25/17 09:12) Nausea codeine Adverse Reaction (Verified 11/25/17 08:42) Nausea erythromycin base Adverse Reaction (Verified 11/25/17 08:42) Nausea hydrocodone [From Vicodin] Adverse Reaction (Verified 11/25/17 09:12) Nausea Sulfa (Sulfonamide Antibiotics) Adverse Reaction (Verified 11/25/17 08:42) Nausea Tetracyclines Adverse Reaction (Verified 11/25/17 08:42) Nausea Medications to take at Discharge Amlodipine Besylate [Norvasc] 2.5 mg PO DAILY 11/22/17 Aspirin [Aspirin, Baby] 81 mg PO DAILY@0800 11/22/17 Calcium Carbonate/Vitamin D3 [Calcium 500-Vit D3 600 Caplet] 1 each PO DAILY 11/22/17 Hydrochlorothiazide [Hctz] 25 mg PO DAILY 11/22/17 Levothyroxine Sodium [Synthroid] 100 mcg PO DAILY 11/22/17 Metoprolol Tartrate [Lopressor (beta sobia)] 50 mg PO BID 11/22/17 Multivitamin with Minerals [Hair, Skin AND Nails] 1 each PO DAILY 11/22/17 Vitamin E 400 unit PO DAILY 11/22/17 Docusate Sodium [Colace] 100 mg PO BID #15 cap 11/25/17 Hydrocodone/Acetaminophen [Vicodin 5-300 mg Tablet] 1 - 2 tab PO Q6H PRN PRN 3 Days #30 tab 11/25/17 Ondansetron HCl [Zofran] 4 mg PO Q8H PRN PRN #15 tab 11/25/17 The following prescriptions were given: Hydrocodone/Acetaminophen [Vicodin 5-300 mg Tablet] 1 - 2 tab PO Q6H PRN PRN 3 Days #30 tab PRN Reason: Pain Ondansetron HCl [Zofran] 4 mg PO Q8H PRN PRN #15 tab PRN Reason: Nausea Docusate Sodium [Colace] 100 mg PO BID #15 cap Primary Care Physician: Wilman Aden DO [Primary Care Provider] - Please Follow Up With: Boone Fernandes DPM When: within 1 week, sooner if needed 11/25/17 9513 <Electronically signed by Boone Fernandes DPM> Date Boone Fernandes DPM CC: Wilman Aden DO FOOT MIN 3 VIEWS Observed: 11/25/2017 Status: F Source: [place] 12:47 PM [facility] REPOSITORY [facility] Imaging Services [address] [place] [address] Foot min 3 Views MR#: [id number] Acct: [id number] Name: DAVID BARRETO Rep #: [id number] : 1945 F 72 From: Mejia Jane MD PCP: Wilman Aden DO Status: [facility] Study: Foot min 3 Views Date of Exam: 11/25/17 Exam# [id number] Ordering Dr: Boone Fernandes DPM STUDY: X-RAY - LEFT FOOT CLINICAL: Female, 72 years old. Postop left foot. TECHNIQUE: 3 view(s) of the foot. COMPARISON: Intraoperative radiographs of the same day.. FINDINGS: Post surgical changes of the second ray. There is a screw with prosthesis of the metatarsal head in the second metatarsal. Probable calcification, contrast or bone formation around the distal second metatarsal. Lateral view suggests possibility of a nondisplaced fracture along the dorsal surface of the distal metatarsal. A K wire passes through the phalanges of the second digit. Dorsal soft tissue swelling with air consistent with recent surgery. RAD/Foot min 3 Views IMPRESSION: Postoperative changes of the second ray. Calcifications, contrast, or bone fragments including possible fracture around the distal second metatarsal prosthesis. Electronically Signed: Mejia Jane MD at 16:38 EDT , Service support , CC: Boone Fernandes DPM; Wilman Aden DO Vendor Relationship Manager: Signed BONE (FX/NONFRACTURE) Observed: 11/25/2017 Status: F Source: ISAAC 10:00 AM [facility] REPOSITORY Patient: DAVID BARRETO : 1945 (72/F) Acct Num: [id number] Phys: Boone Fernandes DPM Unit Num: [id number] Loc: [facility] [place] Specimen: Received: 11/25/17 - 1606 Spec Type: Bone TISSUES TISSUES: Bone of foot, NOS GROSS DESCRIPTION Received in fixative is one container labeled with the patient's name and designated left foot, second metatarsal head. The specimen consists of one irregular fragment of light quiñones soft tissue that measures 1 x 1 x 0.4 cm. The entire specimen is submitted in one cassette after decalcification. / SJ:kelley TC:5 CPT: 54688, 95762 HEADER OPERATION: Left foot, second metatarsophalangeal joint implant arthroplasty PRE-OP DIAGNOSIS: Osteoarthritis, torn plantar plate, osteochondral lesion second metatarso-phalangeal joint; hammer toe second toe, deformed second metatarsal TISSUE SUBMITTED: Left foot, second metatarsal head MICROSCOPIC DESCRIPTION Slides are reviewed. MICROSCOPIC DIAGNOSIS Left foot, second metatarsal head: A piece of bone with reactive changes, clinically hammertoe. SJ:kelley 12/01/17 Signed Adelso Oconnor 12/01/17 <signature on file> Performed By: #### PBON #### [facility] [address] [facility]. [place], [place], [address] FOOT MIN 3 VIEWS Observed: 11/25/2017 Status: F Source: [place] 2:15 AM [facility] REPOSITORY [facility] Imaging Services [address] [place] [address] Foot min 3 Views MR#: [id number] Acct: [id number] Name: DAVID BARRETO Rep #: [id number] : 1945 F 72 From: Mejia Jane MD PCP: Wilman Aden DO Status: [facility] Study: Foot min 3 Views Date of Exam: 11/25/17 Exam# [id number] Ordering Dr: Boone Fernandes DPM STUDY: X-RAY - LEFT FOOT CLINICAL: Female, 72 years old. Implant of the second metatarsophalangeal joint. TECHNIQUE: 7 C-arm view(s) of the foot. 30 seconds of fluoroscopy time. COMPARISON: MRI 08/03/2017. FINDINGS: This sequence of images shows a prosthesis in the head of the second metatarsal, and a K wire along the length of the second digit. Correlate with procedure note. Electronically Signed: Mejia Jane MD at 16:25 EDT , Service support , RAD/Foot min 3 Views CC: Boone Fernandes DPM; Wilman Aden DO Vendor Relationship Manager: Signed CBC W/DIFF, AUTOMATED Collected: 11/23/2017 Status: F Source: [place] 8:45 AM [facility] REPOSITORY TYPE CODE TESTS RESULT OUT OF RANGE REFERENCE UNITS LAB L100.1000 4.4-11.0 K/mm3 Normal WBC 8.3 LAB L100.1200 4.2-5.4 M/mm3 Normal RBC 4.20 LAB L100.1300 12.0-15.0 g/dl Normal HGB 12.8 LAB L100.1400 37-47 % Normal HCT 39.0 LAB L100.1500 81-99 fL Normal MCV 92.9 LAB L100.1600 27.0-32.0 pg Normal MCH 30.5 LAB L100.1700 32-36 g/gl Normal MCHC 32.8 LAB L100.1810 11.6-14.6 % Normal RDW CV 13.3 LAB L100.1820 35.1-43.9 fl High RDW SD 44.1 LAB L100.1900 150-450 K/mm3 Normal PLT 321 LAB L100.2000 6.2-12.0 fl Normal MPV 11.5 LAB L100.2100 47-70 % Low NEUT% 37.4 LAB L100.2200 19-41 % Normal LY% 31.6 LAB L100.2300 0-10 % High MONO% 14.0 LAB L100.2400 0-5 % High EO% 15.8 LAB L100.2500 0-1 % Normal BASO% 0.8 LAB L100.2550 0.0-0.9 % Normal IM GRAN % 0.400 Result Comment: IG% - Immature Granulocytes (promyelocytes, myelocytes and metamyelocytes) > 1% indicates that a LEFT SHIFT is Present. LAB L100.2620 2.0-7.7 X10 3/uL Normal Absolute Neut 3.1 LAB L100.2720 0.83-4.51 X10 3/ul Normal Absolute Lymph 2.62 Performed By: #### L100.0100 #### [facility] [address] [place], [place], [address] COMPREHENSIVE METABOLIC Collected: 11/23/2017 Status: F Source: [facility] 8:45 AM [facility] REPOSITORY TYPE CODE TESTS RESULT OUT OF RANGE REFERENCE UNITS LAB L501.0100 74-106 mg/dL Normal GLU 86 Result Comment: Please note revised GLUCOSE reference range effective 2017. LAB L501.1000 7-18 mg/dL Normal BUN 16 LAB L501.1100 0.55-1.02 mg/dL Normal CREAT,SERUM 0.88 Result Comment: The validity of the calculated GFR AND GFRAA in patients over 70 years has not been determined. Clinical correlation is essential. LAB L501.1110 >60 mL/min Normal EST GFR 67 Result Comment: Non- GFR Calc LAB L501.1115 >60 mL/min Normal EST GFR - AA 81 Result Comment: GFR Calc LAB L501.1300 10-20 RATIO Normal BUN/CRE 18.2 LAB L501.1500 6.4-8.2 g/dL T Normal PROT 7.6 LAB L501.1800 3.2-5.0 g/dL Normal ALB 3.5 LAB L501.1950 2.2-4.2 g/dL Normal GLOB 4.1 LAB L501.2000 0.9-2.4 RATIO Normal A/G 0.9 LAB L501.2200 8.5-10.1 mg/dL CA Normal 9.1 LAB L501.4100 15-37 U/L Normal AST 28 LAB L501.4305 45-117 U/L Normal ALK P 69 LAB L501.4405 13-56 U/L Normal ALT 22 LAB L501.4600 0.20-1.00 mg/dL T Normal BILI 0.40 LAB L501.5300 136-145 mmol/L NA Normal 142 LAB L501.5600 3.5-5.1 mmol/L K Normal 3.8 LAB L501.5900 98-107 mmol/L CL Normal 104 LAB L501.6100 21.0-32.0 mmol/L Normal CO2 32.0 LAB L501.6200 5-15 Normal GAP 6 Performed By: #### L500.4050 #### [facility] [address] [place], [address] ALLERGIES ALLERGIES DATE TYPE / CODE NAME / CODE REACTION SEVERITY SOURCE 07/13/2018 Drug Penicillins/N818341 Rash Unknown Isaac Allergy/416 476(RXNORM) [facility] 197141([facility] ED CT) Repository 07/13/2018 Drug Tetracyclines/F0010 Nausea Unknown [place] Allergy/416 36454(RXNORM) [facility] 478245([facility] ED CT) Repository 07/13/2018 Drug Sulfa (Sulfonamide Nausea Unknown Isaac Allergy/416 Antibiotics)/A51128 [facility] 880941([place] [address] Rep[facility] 07/13/2018 Drug codeine/[id number]( Nausea Unknown [place] Allergy/416 RXNORM) [facility] 800098([facility] ED CT) Repository 07/13/2018 Drug hydrocodone/J057594 Nausea Unknown [place] Allergy/416 554(RXNORM) [facility] 403009([facility] ED CT) Repository 07/13/2018 Drug acetaminophen/F0060 Nausea Unknown [place] Allergy/416 76997(RXNORM) [facility] 244732([facility] ED CT) Repository 07/13/2018 Drug erythromycin Nausea Unknown [place] Allergy/416 base/X214382109(RXN [facility] 505728([facility] ED CT) Repository ENCOUNTERS ENCOUNTERS ADMIT/DISCHARGE ACCOUNT NUMBER ADMITTING ENCOUNTER LOCATION SOURCE CLASS 08/01/2018/08/01/19 [id number] Ambulatory BBuilding:RA Mayer [address] [place] [address] Repository 07/26/2018 [id number] Ambulatory BMSBuilding: Isaac BMS.[facility] Repository 07/26/2018/07/27/19 [id number] Ambulatory [place] ding:CLSPRoo Repository m: [id number] 07/24/2018 [id number] Ambulatory BMSBuilding: Isaac BMS.CF.[facility] Repository 07/24/2018 [id number] Ambulatory Isaac [facility] ding:[facility] Repository 07/20/2018/07/20/19 [id number] Ambulatory BBuilding:ZZ Mal[place] 19 Z [facility] Repository 07/18/2018/07/18/19 [id number] Ambulatory BMSBuilding: [place] 19 BMS.[facility] Repository 07/01/2018/07/04/20 [id number] Tereletsky, Inpatient Isaac [place] 18 [facility] ding:ICURoom Repository : [id number]: 1 07/01/2018 [id number] Tereletsky, Ambulatory BMSBuilding: Isaac Mohsen BMS.[facility] Repository 07/01/2018 [id number] Tereletsky, Ambulatory BMSBuilding: Isaac [place] BMS.CF.[facility] Repository 07/01/2018 [id number] Tereletsky, Ambulatory BMSBuilding: [place] Mohsen BMS.[facility] Repository 07/01/2018 [id number] Tereletsky, Ambulatory BMSBuilding: Isaac Mohsen BMS.[facility] Repository 07/01/2018 [id number] Tereletsky, Ambulatory BMSBuilding: [place] Mohsen BMS.CF.[facility] Repository 07/01/2018 [id number] Tereletsky, Ambulatory BMSBuilding: Isaac Mohsen BMS.[facility] Repository 07/01/2018/07/04/20 [id number] Ambulatory BMSBuilding: [place] 18 [facility] Repository 07/01/2018 [id number] Ambulatory BMSBuilding: [place] BMS.CF.[facility] Repository 06/12/2018/06/12/20 [id number] Ambulatory BBuilding:RA Malissa 18 D [facility] Repository 03/25/2018/03/25/20 [id number] Ambulatory MALISSA [address] ding:RAD [facility] Repository 02/14/2018/03/14/20 [id number] Ambulatory BBuilding: Malissa [address] [place] [address] Repository 11/25/2017/11/26/19 [id number] Ambulatory [place] Isaac 18 [facility] ding:SDCRoom Repository : AC07 PAYERS PAYERS ENCOUNTER GUARANTOR PAYER SUBSCRIBER SOURCE 08/01/2018 DAVID C Primary DAVID [facility] MCCROBIEDOB: Insurance:MEDICARE MCCROBIEDOB: [facility] [id number] PART B INSCOPolicy [id number] Repository [facility] Number: [address] [place], [place] [id number] [place], [place] [address]Khm: 330) Date:2018-08-01 48000Ubp: () [id number] [phone] Name:MISAEL ()Tel: (491) Administrators LLCPO 000-0000 () [address] [place] [address] 856[address]LP: 08/01/2018 [facility]ISC MCCROBIEDOB: [facility] INSURANCE SECONDARY [id number] Repository INSCOPolic Number: 9 [facility] [id number] [place] Date:2018-08-01 787[address]Knv: ([phone]) [id number] [phone] Name:BRITTANY John ()Tel: (217) [phone], [place] 000-0000 (WP) [id number]: 07/26/2018 DAVID C Primary DAVID C [place] [id number] Insurance:MEDICARE MCCROBIEDOB: [facility] PART A BPolicy [id number], [place] Number: Repository [address]Sqd: 330 [id number] [phone] () Date:2018-07-26 07/26/2018 Secondary DAVID C [place] Insurance:[facility] MCCROBIEDOB: [facility] Number: [id number] Hospital [id number] Repository Date:8936-17-21EN [address] [address]IFNCMTUEAQ, [place] [address]NA: 07/26/2018 Tertiary NOT GIVENUNK [place] Insurance:SELF PAY [facility] Number: Effective Repository Date:2018-07-26 07/26/2018 DAVID C Primary DAVID C Isaac [id number] Insurance:MEDICARE MCCROBIEDOB: [facility] PART A [facility] [id number], [place] Number: Repository [address]Kpv: 330 [id number] [phone] () Date:2018-07-03 07/26/2018 Secondary DAVID C Isaac Insurance:SHENANDOAHP MCCROBIEDOB: [facility] Number: [id number] [facility] [id number] Repository Date:3318-67-79JK [address] [address]KVTCKZHJYN, [place] [address]BP: 07/26/2018 Tertiary NOT GIVENUNK Isaac Insurance:SELF PAY [facility] Number: Effective Repository Date:2018-07-03 07/24/2018 DAVID C Primary DAVID C [place] [id number] Insurance:MEDICARE MCCROBIEDOB: [facility] PART A [facility] [id number], [place] Number: Repository [address]Mwo: 330 [id number] [phone] () Date:2018-07-19 07/24/2018 Secondary DAVID C Isaac Insurance:SHENANDOAHP MCCROBIEDOB: [facility] Number: [id number] Hospital [id number] Repository Date:0302-96-35JP [address] [address]IDCCVLXFCX, [place] [address]MB: 07/24/2018 Tertiary NOT GIVENUNK [place] Insurance:SELF PAY [facility] Number: Effective Repository Date:2018-07-24 07/24/2018 DAVID C Primary DAVID C Isaac [id number] Insurance:MEDICARE MCCROBIEDOB: [facility] PART A [facility] [id number], [place] Number: Repository [address]Xjd: ([phone]) [id number] [phone] (HP) Date:2018-07-19 07/24/2018 Secondary DAVID C Isaac Insurance:SHENANDOAHP MCCROBIEDOB: [facility] Number: [id number] Hospital [id number] Repository Date:1391-31-87VI [address] [address]EXYRNFUF[place], [place] [address]VD: 07/24/2018 Tertiary NOT GIVENUNK [place] Insurance:SELF PAY [facility] Number: Effective Repository Date:2018-07-19 07/20/2018 DAVID C Primary DAVID C [facility] MCCROBIEDOB: Insurance:MEDICARE MCCROBIEDOB: [facility] [id number] Repository [facility] Number: [address] [place], [place] [id number] [place], [place] [address]Zoo: (330) Date:2018-07-20 69025Qjm: (HP) [id number] [phone] Name:YOHANAS ()Tel: (000) Administrators LLCPO 000-0000 (WP) [address] [place] [address] 844[address]SD: 07/20/2018 [facility]:MISC MCCROBIEDOB: Foundation INSURANCE SECONDARY [id number] Repository INSCOPolic Number: 9 [facility] [id number] [place], [place] Date:2018-07-20 82951Zpq: [phone] [phone] Name:CP [address] ()Tel: (000) [address]Llafuhvtqt, [place] 000-0000 (WP) [id number]: 07/18/2018 DAVID C Primary DAVID C Isaac [id number] Insurance:MEDICARE MCCROBIEDOB: [facility] PART A [facility] [id number], [place] Number: Repository [address]Vfe: 330 [id number] [phone] (HP) Date:2018-07-03 07/18/2018 Secondary DAVID C [place] Insurance:SHENANDOAHP MCCROBIEDOB: [facility] Number: [id number] Hospital [id number] Repository Date:0279-60-75TG [address] [address]MBNDMPHZOY, [place] [address]KZ: 07/18/2018 Tertiary NOT GIVENUNK Isaac Insurance:SELF PAY [facility] Number: Effective Repository Date:2018-07-13 07/01/2018 DAVID C Primary DAVID C Isaac [id number] Insurance:MEDICARE MCCROBIEDOB: [facility] PART A [address] Number: Repository [id number]: 330 [id number] [phone] (HP) Date:2018-07-01 07/01/2018 Secondary DAVID C [place] Insurance:SHENANDOAHP [facility]: [facility] Number: [id number] Hospital [id number] Repository Date:2650-42-67PQ [address] [address]HZVOICEGLM, [place] [address]NW: 07/01/2018 Tertiary NOT GIVENUNK Isaac Insurance:SELF PAY [facility] Number: Effective Repository Date:2018-07-01 07/01/2018 DAVID C Primary DAVID C [place] [id number] Insurance:MEDICARE MCCROBIEDOB: [facility] PART A [place] [id number] [place] [address] Number: Repository [id number]: 330 [id number] [phone] (HP) Date:2018-07-01 07/01/2018 Secondary DAVID C Isaac Insurance:SHENANDOAHP MCCROBIEDOB: [facility] Number: [id number] Hospital [id number] Repository Date:3099-49-09FM [address] [address]ENPZOTWGFS, [place] [address]HT: 07/01/2018 Tertiary NOT GIVENUNK Isaac Insurance:SELF PAY [facility] Number: Effective Repository Date:2018-07-01 07/01/2018 DAVID C Primary DAVID C Isaac [id number] Insurance:MEDICARE MCCROBIEDOB: [address] Number: Repository [id number]: 330 [id number] [phone] (HP) Date:2018-07-01 07/01/2018 Secondary DAVID C Isaac Insurance:SHENANDOAHP MCCROBIEDOB: [facility] Number: [id number] [place] [address] [id number] Repository Date:7501-83-87TW [address] [place] [address]PE: 07/01/2018 Tertiary NOT GIVENUNK Isaac Insurance:SELF PAY [facility] Number: Effective Repository Date:2018-07-01 07/01/2018 DAVID C Primary DAVID C [place] [id number] Insurance:MEDICARE MCCROBIEDOB: [address] Number: Repository [id number]: 330 [id number] [phone] () Date:2018-07-01 07/01/2018 Secondary DAVID C [place] Insurance:SHENANDOAHP MCCROBIEDOB: [facility] Number: [id number] [place] [address] [id number] Repository Date:0862-18-23IW [address] [place] [address]BZ: 07/01/2018 Tertiary NOT GIVENUNK Isaac Insurance:SELF PAY [facility] Number: Effective Repository Date:2018-07-01 07/01/2018 DAVID C Primary DAVID C [place] [id number] Insurance:MEDICARE MCCROBIEDOB: [address] Number: Repository [id number]: 330 [id number] [phone] (HP) Date:2018-07-01 07/01/2018 Secondary DAVID C Isaac Insurance:SHENANDOAHP MCCROBIEDOB: [facility] Number: [id number] Hospital [id number] Repository Date:6713-42-27QF [address] [address]NTFSLPTXGN, [place] [address]AD: 07/01/2018 Tertiary NOT GIVENUNK [place] Insurance:SELF PAY [facility] Number: Effective Repository Date:2018-07-01 07/01/2018 DAVID C Primary DAVID C Isaac [id number] Insurance:MEDICARE MCCROBIEDOB: [facility] [id number] Number: Repository [address]Fnv: 330 [id number] [phone] () Date:2018-07-01 07/01/2018 Secondary DAVID C [place] Insurance:SHENANDOAHP MCCROBIEDOB: [facility] Number: [id number] Hospital [id number] Repository Date:6033-37-47DF [address] [address]UWCXXUJOMF, [place] [address]WC: 07/01/2018 Tertiary NOT GIVENUNK Isaac Insurance:SELF PAY [facility] Number: Effective Repository Date:2018-07-01 07/01/2018 DAVID C Primary DAVID C [place] [id number] Insurance:MEDICARE MCCROBIEDOB: [facility] [id number] Number: Repository [address]Iep: 330 [id number] [phone] () Date:2018-07-01 07/01/2018 Secondary DAVID C Isaac Insurance:SHENANDOAHP MCCROBIEDOB: [facility] Number: [id number] Hospital [id number] Repository Date:8479-82-68FU [address] [address]KNZADFEUNC, [place] [address]MT: 07/01/2018 Tertiary NOT GIVENUNK [place] Insurance:SELF PAY [facility] Number: Effective Repository Date:2018-07-01 07/01/2018 DAVID C Primary DAVID C Isaac [id number] Insurance:MEDICARE MCCROBIEDOB: [facility] [id number], [place] Number: Repository [address]Men: 330 [id number] [phone] () Date:2018-07-01 07/01/2018 Secondary DAVID C Isaac Insurance:SHENANDOAHP MCCROBIEDOB: [facility] Number: [id number] Hospital [id number] Repository Date:3072-15-21AV [address] [address]DIQRHDYVDR, [place] [address]BO: 07/01/2018 Tertiary NOT GIVENUNK Isaac Insurance:SELF PAY [facility] Number: Effective Repository Date:2018-07-01 07/01/2018 DAVID C Primary DAVID C [place] [id number] Insurance:MEDICARE MCCROBIEDOB: [facility] [id number], [place] Number: Repository [address]Xqd: 330 [id number] [phone] () Date:2018-07-01 07/01/2018 Secondary DAVID C Isaac Insurance:SHENANDOAHP MCCROBIEDOB: [facility] Number: [id number] Hospital [id number] Repository Date:4734-37-25TL [address] [place], [place] [address]WP: 07/01/2018 Tertiary NOT GIVENUNK Isaac Insurance:SELF PAY [facility] Number: Effective Repository Date:2018-07-01 06/12/2018 DAVID C Primary DAVID C [facility] MCCROBIEDOB: Insurance:MEDICARE MCCROBIEDOB: [facility] [id number] PART B INSCOPolicy [id number] Repository [facility] Number: [address] [place], [place] [id number] [place], [place] [address]Xke: (330) Date:2018-06-09 159[address]Bjk: () [id number] [phone] Name:MISAEL ()Tel: (000) Administrators LLCPO 000-0000 (WP) [address] [address]Skzlrylbk, [place] [address]TK: 06/12/2018 Secondary DAVID C [facility] Insurance:[facility] MCCROBIEDOB: Foundation INSURANCE SECONDARY [id number] Repository INSCOPolicy Number: 9 [facility] [id number] [place], [place] Date:2018-06-09 82[address]Wzi: ([phone]) [phone] [phone] Name:CP O Box (HP)Tel: (000) [address]Bceibwuwdj, [place] 000-0000 (WP) [id number]: 03/25/2018 [facility] MCCROBIEDOB: Insurance:MEDICARE MCCROBIEDOB: [facility] PART BPolicy Number: [id number] Repository [facility] [id number] [address] [place], [place] Date:2018-02-21 - [place], [place] [address]Rmh: (330 [id number] [phone]: (HP) Name:[facility] [phone] Administrators LLCPO (HP)Tel: (000) [address]Lxldoafji, 000-0000 () [place] [address]JS: 03/25/2018 Secondary DAVID C [facility] Insurance:[facility] MCCROBIEDOB: Foundation INSURANCE [id number] Repository SECONDARYPolicy 9 [facility] Number: [place], [place] [id number] [address]Hfe: (330) Date:2018-02-21 [phone] (HP)Tel: (000) Name:[address] 000-0000 (WP) [address]Haukkukivq, [place] [address]IL: 02/14/2018 [facility]ID [facility] MCCROBIEDOB: Insurance:MEDICARE MCCROBIEDOB: Foundation PART BPolicy Number: [id number] Repository [facility] [id number] [address] [place], [place] Date:2018-02-14 [place], [place] [address]Wwl: [phone] [address]Ihy: () Name:PCGS [phone] Administrators LLCPO (HP)Tel: (000) [address] [address]Mmtswahoj, 000-0000 (WP) [place] [address]SJ: 02/14/2018 Secondary DAVID C [facility] Insurance:[facility] MCCROBIEDOB: Foundation INSURANCE [id number] Repository SECONDARYPolic 9 [facility] Number: [place], [place] [id number]: (547) Date:[id number] ()Tel: (000) Name:BRITTANY Cruz [address] 000[address]0000 (WP) [address], [place] [id number]: 11/25/2017 DAVID C Primary DAVID C [place] [id number] Insurance:MEDICARE MCCROBIEDOB: [facility] PART A BPolicy [id number] Number: Repository [id number]: [phone] () Date:2017-11-08 11/25/2017 Secondary DAVID C [place] Insurance:SPENCER MCCROBIEDOB: [facility] [place] Number: [id number] [id number] Repository Date:[id number] [address] [address]WA: 11/25/2017 Tertiary NOT GIVENUNK Isaac Insurance:SELF PAY [facility] Number: Effective Repository Date:2017-11-08
== END 2018-07-27 11:00 | disposition home or self-care (01) ==
LOC: CLSP 09:32 → ICU 07-27 10:00
PROVIDERS: Family Provider Preventive Medicine Occupational Medicine; PCP Preventive Medicine Occupational Medicine; Referring Provider Internal Medicine Cardiovascular Disease; Visit Provider Internal Medicine Cardiovascular Disease
DX: I25.110 Atherosclerotic heart disease of native coronary artery with unstable angina pectoris (principal); I25.2 Old myocardial infarction; I10 Essential (primary) hypertension; G47.33 Obstructive sleep apnea (adult) (pediatric); E78.5 Hyperlipidemia, unspecified; Z79.82 Long term (current) use of aspirin; Z79.899 Other long term (current) drug therapy; Z87.891 Personal history of nicotine dependence
CPT/HCPCS: 80053; 85027; 85347; 92928; 93005; J7030; J7040; A4216; C1725; C1769; C1874; C1887; C1894; C9600; Q9967

== ENCOUNTER → 2018-08-07 15:57 | Outpatient (CLI) | payer MEDICARE, OTHER, SELFPAY ==
[2018-08-07 15:12] VITALS: BMI 23.3
[2018-08-07 17:17] LABS: Anion Gap 8 (5-15); BUN 20 mg/dL (7-18); BUN/Creat Ratio 22.9 RATIO (10-20); Chloride 106 mmol/L (98-107); Creatinine, Serum 0.87 mg/dL (0.55-1.02); EST Glomerular Filtration Rate 67 mL/min (>60); Est Glom Filt Rate - Afr Amer 81 mL/min (>60); Glucose 88 mg/dL (74-106); Potassium 3.4 mmol/L (3.5-5.1); Sodium Level 142 mmol/L (136-145)
== END ==
PROVIDERS: Family Provider Preventive Medicine Occupational Medicine; PCP Preventive Medicine Occupational Medicine; Referring Provider Surgery; Visit Provider Surgery
DX: I65.29 Occlusion and stenosis of unspecified carotid artery (principal)
CPT/HCPCS: 36415; 80048

== ENCOUNTER → 2018-08-10 14:57 | Outpatient (CLI) | payer MEDICARE, OTHER, SELFPAY ==
[2018-08-10 14:16] VITALS: BMI 23.6
--- NOTE | 2018-08-10 15:00 | RAD_ITS ---
STUDY: X-RAY CHEST REASON FOR EXAM: Female, 73 years old. Cough and congestion x several weeks. TECHNIQUE: PA and lateral views. COMPARISON: 07/01/2018. FINDINGS: Calcified granulomas in both lungs. No suspicious pulmonary nodules or infiltrates. There is no demonstrated pleural abnormality. Normal size heart. Normal mediastinum and lior. Normal visualized pulmonary arteries. Normal visualized aortic arch and descending thoracic aorta. Normal visualized thoracic spine. Normal visualized ribs, clavicles, and shoulders. There is no demonstrated abnormality of the visualized soft tissue structures of the upper abdomen. RAD/Chest PA and Lateral IMPRESSION: 1. No acute cardiopulmonary pathology. 2. No interval changes when compared to 07/01/2018. Electronically Signed: Sergio Church MD at 12:42 EST , Service support ,
== END ==
PROVIDERS: Family Provider Preventive Medicine Occupational Medicine; PCP Preventive Medicine Occupational Medicine; Referring Provider Internal Medicine Cardiovascular Disease; Visit Provider Internal Medicine Cardiovascular Disease
DX: R09.89 Other specified symptoms and signs involving the circulatory and respiratory systems (principal); R05 Cough
CPT/HCPCS: 71046

== ENCOUNTER → 2018-08-11 08:20 | Outpatient (CLI) | payer MEDICARE, OTHER, SELFPAY ==
[2018-08-07 15:12] VITALS: BMI 23.3
[2018-08-10 14:16] VITALS: BMI 23.6
--- NOTE | 2018-08-11 08:22 | CT_ITS ---
STUDY: CTA NECK WITH CONTRAST REASON FOR EXAM: Female, 73 years old. Right carotid stenosis seen on ultrasound. RADIATION DOSAGE (If Supplied By Facility): CTDIvol = ( 15.37 ) mGy, DLP = ( 460.19 ) mGycm TECHNIQUE: CT angiography with multi-detector data acquisition was performed from the aortic arch to the skull base following intravenous administration of 100 ml of Isovue 370 contrast. MIP images were reconstructed from the axial data set. Post-processing of the angiographic images was performed, with multiplanar reformation and 3D reconstruction. Individualized dose optimization techniques were used for this CT. COMPARISON: None. FINDINGS: AORTIC ARCH: Normal visualized aortic arch. Normal origins of the brachiocephalic, left common carotid, and left subclavian arteries. RIGHT CAROTID ARTERIES: Normal right common carotid artery (CCA). Calcified plaques in the right common carotid bifurcation extending to the right internal carotid artery bulb. 55% stenosis of the origin of the right internal carotid (ICA) artery due to calcified plaques of the right internal carotid artery bulb. Stenosis measurement using NASCET Criteria. Normal visualized cervical portion of the right internal carotid artery. Normal origin of the right external carotid artery (ECA). LEFT CAROTID ARTERIES: Normal left common carotid artery (CCA). Calcified plaques in the left common carotid bifurcation and left internal carotid bulb. Widely patent origin of the left internal carotid (ICA) artery without a hemodynamically significant stenosis. Normal visualized cervical portion of the left internal carotid artery. Normal origin of the left external carotid artery (ECA). VERTEBRAL ARTERIES: Normal bilateral vertebral arteries. The right vertebral artery is dominant. CT/CTA Neck W/WO Contrast IMPRESSION: 1. 55% stenosis at the origin of the right internal carotid artery bulb due to calcified plaques. 2. Widely patent left internal carotid artery. 3. Widely patent bilateral common carotid arteries. 4. Widely patent aortic arch and origins of the great vessels. 5. Widely patent vertebral arteries. The right is dominant. Electronically Signed: Sergio Church MD at 9:53 EST , Service support ,
== END ==
PROVIDERS: Family Provider Preventive Medicine Occupational Medicine; PCP Preventive Medicine Occupational Medicine; Referring Provider Surgery; Visit Provider Surgery
DX: I65.23 Occlusion and stenosis of bilateral carotid arteries (principal)
CPT/HCPCS: 70498; Q9967

== ENCOUNTER → 2018-08-17 10:17 | Outpatient (CLI) | payer MEDICARE, OTHER, SELFPAY ==
[2018-07-26 12:09] VITALS: BMI 23.3
[2018-08-15 08:13] VITALS: BMI 23.6
--- NOTE | 2018-08-17 10:19 | STE_ITS ---
Reason For Study: CAD/ASHD Stress Results Maximum Predicted HR: 146 bpm Target HR: 124 bpm % Maximum Predicted HR: 118 % DurationHeart Rate Stage (mm:ss) (bpm) BP BASELINE 1:12 140 70/ STAGE 1 3:00 151 170/84 STAGE 2 3:00 173 180/80 RECOVERY 107 140/62 Stress Duration: 7:12 mm:ss Maximum Stress HR: 173 bpm Baseline Echocardiogram Findings The estimated ejection fraction is 55 %. Stress Echo Wall motion Data Resting WM Intermediate WM Stress WM Resting Wall Motion Wall Motion Stress Mid-Lateral : Mildly hypokinetic. No regional wall motion abnormalities noted. EKG Data The baseline ECG displays normal sinus rhythm. The patient exercised according to the regular Delvin protocol for a total duration of 6:00. The maximum heart rate attained was 176 beats per minute. This was 120% of maximum predicted heart rate. The patient exercised into stage 3 of the Delvin protocol. At peak exercise, upsloping ST changes only were noted, which did not meet the criteria for ischemia. No clinical angina was noted. Interpretation Summary The estimated ejection fraction is 55 %. Mid-Lateral : Mildly hypokinetic Normal, adequate, treadmill echocardiogram. Negative for ischemia by EKG and echocardiographic criteria. No anginal symptoms noted. Rare PVC noted. Hypertensive blood pressure response to exercise. Average exercise capacity for age. Final LVEF of 65%. The patient had baseline mid lateral hypokinesis. Final test terminated due to target heart rate achieved. No complications. Ordering Physician: Patrick Lopez Referring Physician: Patrick Lopez Performed By: No Torres RDCS
== END ==
PROVIDERS: Family Provider Preventive Medicine Occupational Medicine; PCP Preventive Medicine Occupational Medicine; Referring Provider Internal Medicine Cardiovascular Disease; Visit Provider Internal Medicine Cardiovascular Disease
DX: I25.10 Atherosclerotic heart disease of native coronary artery without angina pectoris (principal)
CPT/HCPCS: 93017; 93350

== ENCOUNTER → 2018-08-22 11:48 | Outpatient (CLI) | payer MEDICARE, OTHER, SELFPAY ==
[2018-08-15 08:13] VITALS: BMI 23.6
--- NOTE | 2018-08-22 13:04 | PCM.CR.HP2 ---
CR - History & Physical - General Arrival date:: 08/22/18 Arrival time:: 12:00 Date of Referral:: 07/03/18 Date of CR Evaluation:: 08/22/18 Referring Physician: kiko Primary Diagnosis: nstemi, pci w/coronary stent - History of Present Cardiac Event Onset Date: Enter Onset Date of cardiac illnesses in Comment field below Acute Myocardial Infarction within 12 months:: Yes - 07/03/2018 PTCA or coronary stenting:: Yes - 07/03/2018 Type of Symptoms:: Pressure in chest and down both arms all at the same time. Interventions with present event:: Came to the emergency room Were there any complications?: none - Medications Home Medications: Ambulatory Orders Medication Instructions Recorded Aspirin [Aspirin, Baby] 81 mg PO DAILY@0800 11/22/17 Calcium Carbonate/Vitamin D3 1 ea PO DAILY 11/22/17 [Calcium 500-Vit D3 600 Caplet] Levothyroxine Sodium [Synthroid] 100 mcg PO DAILY 11/22/17 Vitamin E 400 unit PO DAILY 11/22/17 Multivitamin with Minerals [Hair, 1 ea PO DAILY 07/01/18 Skin and Nails] Nitroglycerin [Nitrostat] 0.4 mg SUBLINGUAL Q5M PRN #1 bottle 07/04/18 atorvastatin 80 mg tablet 80 mg PO QHS #90 tab 07/18/18 diclofenac 1 % topical gel 2 g TOPICAL UD 07/18/18 meclizine 25 mg tablet 12.5 mg PO DAILY PRN tab 07/18/18 potassium chloride ER 20 mEq 20 meq PO DAILYCM #90 tab 07/18/18 tablet,extended release(part/cryst) clopidogrel 75 mg tablet 75 mg PO DAILY #90 tab 07/25/18 hydrochlorothiazide 25 mg tablet 25 mg PO DAILY #90 tab 07/25/18 isosorbide mononitrate ER 30 mg 30 mg PO DAILY #90 tab 07/25/18 tablet,extended release 24 hr metoprolol tartrate 50 mg tablet 50 mg PO BID #180 tab 07/25/18 - Allergies Allergies/Adverse Reactions: Allergies azithromycin [From Zithromax Z-Demar] Allergy (Intermediate, Verified 08/15/18 07:57) Itching Penicillins Allergy (Verified 08/15/18 07:57) Rash acetaminophen [From Vicodin] Adverse Reaction (Verified 08/15/18 07:57) Nausea codeine Adverse Reaction (Verified 08/15/18 07:57) Nausea erythromycin base Adverse Reaction (Verified 08/15/18 07:57) Nausea hydrocodone [From Vicodin] Adverse Reaction (Verified 08/15/18 07:57) Nausea Sulfa (Sulfonamide Antibiotics) Adverse Reaction (Verified 08/15/18 07:57) Nausea Tetracyclines Adverse Reaction (Verified 08/15/18 07:57) Nausea - Sleep Disorder Evaluation Hx of Sleep Apnea: No Do you snore loudly (louder than talking or can be heard through closed doors)?: Yes - had a sleep test done and it was negative. Do you often feel tired/ fatigued/ sleepy during daytime?: Yes Has anyone observed you stop breathing during sleep?: No History of Hypertension (for STOP score): Yes STOP Results: Positive Advanced Directives - Advanced Directives Power of Slab Inspector: Yes Living Will: Yes Advance Directives Information Provided: No Advance Directives on File: Yes - supposed to be on file DNR Order?:: No - MOLST See MOLST form: No Past Medical History - Past Medical Illness Medical History: Past Medical History (Last Reviewed 08/15/18 @ 07:57 by Marivel Urbina) Premature ventricular contractions (Acute) I49.3 Carotid stenosis, right (Acute) I65.21 Bursitis of right hip (Chronic) M70.71 Premature ventricular contractions (Chronic) I49.3 Snoring (Chronic) R06.83 Daytime somnolence (Chronic) R40.0 History of non-ST elevation myocardial infarction (NSTEMI) (Chronic) Onset Date: 07/03/18 I25.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 Lopez @ [facility] 07/03/2019. SHEMAR to Distal RCA (3.0 X 12 Promus Synergy) and SHEMAR to Proximal RCA (3.0 X 12 Promus Synergy) 07/26/18. Hypertension (Chronic) I10 Hypothyroidism (Chronic) E03.9 - Past Surgical History Surgical History: Past Surgical History (Last Reviewed 08/15/18 @ 07:57 by Marivel Urbina) History of left heart catheterization (Chronic) Onset Date: 06/22/05 Z98.890 @ [place], [place]: mild luminary irregularities, normal EF per Dr. Kit Sewell. Stented coronary artery (Chronic) Onset Date: 07/26/18 Z95.5 SHEMAR to mid LCX (2.25 X 12 Promus Synergy) per Dr. Lopez @ [facility] 07/03/2019. SHEMAR to Distal RCA (3.0 X 12 Promus Synergy) and SHEMAR to Proximal RCA (3.0 X 12 Promus Synergy) 07/26/18. H/O total hysterectomy Onset Date: 11/17/88 Z90.710 History of bladder suspension procedure Z98.890, Z87.448 Status post left foot surgery Onset Date: 11/22/17 Z98.890 with cartilage graft Surgical History: - - Hysterectomy, cystocele repair, second MTPJ implant arthroplasty left foot with correction of second digit hammertoe of left foot. - Family History Summary Family History: Family History (Last Reviewed 08/15/18 @ 07:57 by Marivel Urbina) Father CAD (coronary artery disease) Hypertension Brother CAD (coronary artery disease) Stented coronary artery Brother Lung cancer CAD (coronary artery disease) Stented coronary artery Sister Diabetes Daughter Thyroid disorder Social History - Smoking History Smoking Status: Former smoker Years Smokin Packs Smoked per Day: 1.5 Hx Smoking Cessation Date: 1989 Hx Tobacco Use: Yes Hx Smoking Exposure: No - Alcohol Use Alcohol Usage: Yes - little bit of win or beer once in a great while. - Substance Abuse Hx Substance Use: No - Occupation Occupation (List type of work in comments):: Retired - Hobbies, Recreation, Social Activities Hobbies: Other - exercise, walking, Recreational Activities: I am able to engage in most, but not all activities Social Environment - Status Marital Status: - Current Living Arrangements Living Environment:: Spouse - Children How many children do you have?: 4 Do any of your children live nearby?: Yes - Safety Do you feel safe in your surroundings?: Yes - Assistance Do you need any assistance at home?: none Review of Systems - Review of Systems Hints: Right click = Denies (Slash). Left click = Reports (Douglas) Review of Present Symptoms: Reports: Dizziness/Lightheadedness - three to four times a year get very lightheadedness or foggy headed., Fatigue, Appetite - Normal, Appetite - Special Diet - try to eat healthy, more vegetables and fruits.. Denies: Shortness of Breath at Rest, Shortness of Breath with Exertion, Angina, Heart Arrhythmia/Irregularities - Pain Is Patient Pain Free?: Yes Pain Location: none Pain Level: 0/10 Risk Factor Assessment - Vital Signs Temperature: 98.7 F Respiratory Rate: 12 Nailbeds:: 130/50 - Pulse Pulse Rate: 62 Pulse Rhythm: Regular - Hypertension How long have you been treated?: Years, been on medication even before 2007 Blood Pressure Sitting - Left Arm: 130/50 - Blood Cholesterol/Lipids Total Cholesterol (mg/dL) Goal = less than 200 mg/dL: 216 HDL Cholesterol (mg/dL) Goal = less than 40 mg/dL: 48 LDL Cholesterol (mg/dL) Goal = less than 70 mg/dL: 130 Triglycerides (mg/dL) Goal = less than 150 mg/dL: 188 - Diabetes Nutrition Referral for Diabetes: No - Obesity Height: 5 ft 3 in Weight:: 133 lb Weight in Pounds: 133.0 lbs Weight Source: Estimated by Patient Body Mass Index (BMI): 23.6 Nutritional Referral for Obesity: No - Physical Inactivity Physical Inactivity: None - Risk Stratification Risk Guidelines: Lowest Risk: Risk Factor for Smoking, Risk Factor for Dyslipidemia, Risk Factor for Diabetes, Risk Factor for Obesity, Risk Factor for Sedentary Lifestyle, Risk Factor for Depression, Moderate Risk: Risk Factor for Hypertension - For Smoking Smoking Risk Guidelines: Smoking Low Risk: None or quit greater than 6 months ago. Smoking Moderate Risk: Smoker or quit 6 months or less ago. Smoking High Risk: Smoker - For Dyslipidemia Dyslipidemia Risk Guidelines: Low Risk: Moderate Risk: High Risk: 15-25% fat 25.1-29% fat >/= 30% fat. <7% sat fat 7-9% sat fat >9% sat fat. <150 mg chol 150-299 mg chol >/= 300 mg chol. LDL <100 LDL 100-129 LDL >/= 130. Chol/HDL ratio <5.0 Chol/HDL ratio 5.0-6.0 Chol/HDL ratio >6.0. Triglycerides <100 Triglycerides 100-149 Triglycerides >/= 150 - For Diabetes Mellitus Diabetes Risk Guidelines: Diabetes Low Risk: HgA1c <6.5% and/or FBG <120. Diabetes Moderate Risk: HgA1c 6.6-7.9% and/or FBG 120-180. Diabetes High Risk: HgA1c >/= 8% and/or FBG >180 - For Obesity/Overweight Obesity/Overweight Risk Guidelines: Obesity Low Risk: BMI <25.0. Obesity Moderate Risk: BMI 25-29.9. Obesity High Risk: BMI >/= 30.0 - For Hypertension Hypertension Risk Guidelines: Hypertension Low Risk: Systolic <120 and Diastolic <80. Hypertension Moderate Risk: Systolic 120-139 and Diastolic 80-89. Hypertension High Risk: Systolic >/= 140 and Diastolic >/= 90 - For Sedentary Lifestyle Sedentary Lifestyle Risk Guidelines: Sedentary Lifestyle Low Risk: >/= 1,500 kcal/week. Sedentary Lifestyle Moderate Risk: 700-1,499 kcal/week. Sedentary Lifestyle High Risk: < 700 kcal/week - For Depression Depression Risk Guidelines: Depression Low Risk: Not clinically depressed. Depression Moderate Risk: Mildly depressed. Depression High Risk: Clinically depressed - Family History Family History: Family History (Last Reviewed 08/15/18 @ 07:57 by Marivel Urbina) Father CAD (coronary artery disease) Hypertension Brother CAD (coronary artery disease) Stented coronary artery Brother Lung cancer CAD (coronary artery disease) Stented coronary artery Sister Diabetes Daughter Thyroid disorder Motivation - Motivation to Participate On a scale of 1 to 10, how prepared are you to commit to attending program?: 10 What do you see as barriers to successfully being able to complete the program?: none What do you see as the benefits of succesfully completing the program? In other words, what do you hope to get out of participating in the program?: learning more about heart condition and getting myself back to normal Are there issues you are dealing with that will interfere with completing the program?: none Do you have a spouse or signficant other, family or friends who will help support you to complete the program?: yes
[2018-08-22 13:17] VITALS: BP 130/50; PULSE 62; RESP 12; TEMP 37.1; BMI 23.6
[2018-08-22 13:44] VITALS: BP 130/50
--- NOTE | 2018-08-22 13:44 | CR.ITP_ITS ---
General Information - General Information Admitting Diagnosis: pci w/coronary stent - Education/Goals Barriers to Learning: Vision Impairment Individual Counseling: Initial Assessment: Abnormal Cholesterol Levels, High Blood Pressure Cardiac Rehabilitation Goals: 1. Maintain the individual as the primary focus of care. 2. To improve the patient's quality of life. 3. Identification of cardiac risk factors and provide cardiac risk factor management. 4. Enhance the psychosocial status of the patient. 5. Reconditioning enough to allow the patient to resume customary activities. 6. Control symptoms of cardiac disease Scale for measuring improvement of personal goals: Enter appropriate number in Comments. 2 = Unchanged. 3 = Slightly Better. 4 = Moderate Improvement. 5 = Met my Goal Personal Goals: Initial Assessment: Get back to work, or to resume activities faster, Improve muscle strength and endurance, Improve diet and eating habits (eat healthier) Exercise - Initial Assessment - Visit Date of Eval: 08/22/18 Session #:: 0 - start 08/28/2018 - Stages of Change Stages of Change:: Action - Exercise Prescription Mode:: Treadmill, Rower, Airdyne, NuStep Angina with exercise?: No Target Heart Rate:: 110-117 - Hypertension Do any of the following apply?: Yes, Medication, Diet Resting Blood Pressure:: 130/50 - 3 - Intervention Home Exercise/Activity Goal:: Moderate Exercise 30 min/day x 5 days/wk - Education Goals:: Warm-up, RPE MARCIN Scale, S/S, Safe Exercise, Self-Monitoring - Exercise Program Goals Exercise Program Goals: Aerobic Activity >30 min, B/P <130/80 Nutrition - Initial Assessment - Program Goals Nutrition Program Goals: LDL <70. Total Cholesterol <200. HDL >45. Triglycerides <150. HgbA1C <7%. BMI <25 - Visit Date of Assessment:: 08/22/18 - Stages of Change Stages of Change:: Action - Diabetes Diabetes:: No - Weight Management Height: 5 ft 3 in Weight:: 133 lb Body Fat %:: 23.6 - Intervention Referral to dietitian:: No Referral to Diabetic Clinic:: No Will attend diet classes:: Yes - Education Gave educational materials for:: Healthy eating Tobacco - Initial Assessment - Program Goals Tobacco Program Goals: Complete smoking cessation. Attend education classes. Improve Knowledge Test score - Stage of Change Stages of Change:: Action - Learning Barriers Learning Barriers: Vision, Ready to Learn - Family Support Do you have family support?: Yes - Tobacco Use Tobacco Use: Non-smoker Do you use smokeless tobacco?: No - Intervention Smoking Cessation Referral:: No Education Schedule Given:: Yes - Education Gave educational material for:: Coronary artery disease, Risk factors, Sexuality, Medical compliance, Cardiac A&P, Angina signs & symptoms Psychosocial - Initial Assess - Target Goals Target Goals: Assess presence or absence of depression. Using a valid screening tool, maximizes coping skills. Positive support system - Stages of Change Stages of Change:: Action - Psychosocial Test Tool Used:: HANDS Depression Questionnaire - Intervention PS - Interventions: Yes Attend Stress Management Classes, Yes Uses Stress Management Skills, No Referral to Mental Health, No Referral to [facility] Case Management, No Referral to Physician - Education Gave educational materials for:: Coping techniques, Signs & symptoms of depression, Stress management, Relaxation techniques - Patient/Program Goal Preventative Medication(s):: Aspirin, Clopidogrel, Beta sobia, Statin/lipid - Assistive Devices Assistive Devices:: None Fall Risk Assessed:: Yes Patient Health Questionnaire Initial Assessment 1. Little interest or pleasure in doing things: Not at all 2. Feeling down, depressed, or hopeless: Not at all 3. Trouble falling or staying asleep, or sleeping too much: More than half the days 4. Feeling tired or having little energy: Not at all 5. Poor appetite or overeating: Not at all 6. Feeling bad about yourself -- or that you are a failure or have let yourself or your family down: Not at all 7. Trouble concentrating on things, such as reading the newspaper or watching television: Not at all 8. Moving or speaking so slowly that other people could have noticed. Or the opposite - being so fidgety or restless that you have been moving around a lot more than usual: Not at all 9. Thoughts that you would be better off , or of hurting yourself in some way: Not at all How difficult have these problems made it for you to do your work, take care of things at home, or get along with other people?: Not difficult at all Total Score: 2 MARKO-Q SV Test - Statements CAD is a disease of the arteries in the heart: False Examples of risk factors for heart disease: True Angina is chest pain or discomfort: True The benefits of resistance training include: True Eating more meat and dairy products: False Anti-platelet medications such as aspirin are important: True The only effective way to manage stress: False An exercise warm-up slowly increases heart rate: True Prepared, processed foods usually have high sodium: True Depression is common after a heart attack: True The statin medications lower cholesterol: True To control blood pressure, lower the amount of sodium: True If someone gets chest discomfort during walking: False Transfats are partially hydrogenated vegetable oils: True Sleep apnea that is not treated increases the risk: False To control cholesterol, one should become a vegetarian: False Someone knows if he/she is exercising at the right level: True Diabetes cannot be prevented with exercise & health eating: False Stress is a large risk for heart attack: True A diet that can help lower blood pressure is rich in: True - Total Score Total Correct Responses: 20 Self-Efficacy Initial Assessment We would like to know how confident you are in doing certain activities. Please select your confidence level for:: Select your confidence level for the following using the scale 1-10 where 1 is not at all confident and 10 is totally confident. Your score is the average of all 6 responses. Fatigue: How confident are you that you can keep the fatigue caused by your disease from interfering with the things you want to do? Select Number: 9 Physical Discomfort or Pain: How confident are you that you can keep the physical discomfort or pain of your disease from interfering with the things you want to do? Select Number: 10 Emotional Distress: How confident are you that you can keep the emotional distress caused by your disease from interfering with the things you want to do? Select Number: 10 Other Symptoms or Health Problems: How confident are you that you can keep other symptoms or health problems from interfering with the things you want to do? Select Number: 9 Different Tasks and Activities: How confident are you that you can do the different tasks and activities needed to manage your health condition so as to reduce your need to see a doctor? Select Number: 10 Medication: How confident are you that you can do things other than just taking medication to reduce how much your illness affects your everyday life? Select Number: 10 Total Score:: 9 Nutrition Survey - Nutrition Survey Instructions Scoring Instructions: Scoring is as follows: Yes = 1 points. No = 0 point. Patient score that is >/=12 is considered to be at potential nutritional risk and could benefit from a referral to a registered dietitian. - Nutrition Survey Initial Have you lost >10 lbs over the past 2 months without trying?: No Are you following a special diet at home for diabetes, low fat, or low salt?: No Are you interested in meeting with a dietitian for help understanding your diet?: Yes Do you eat less than 3 meals a day?: No Do you eat fatty meats (richard, sausage, ribs, etc), fried foods, desserts, large amounts of salad dressings, margarine, butter, or cheese most days?: No Do you have food allergies? [Enter types in comment field]: No Do you eat in restaurants more than 3 times a week?: No Do you season food with salt, seasoning salt, or garlic salt?: Yes Do you used canned, boxed, frozen meals, or soups, seasoning packets?: Yes Total Score:: 3
== END ==
PROVIDERS: Family Provider Preventive Medicine Occupational Medicine; PCP Preventive Medicine Occupational Medicine; Referring Provider Internal Medicine Cardiovascular Disease; Visit Provider Internal Medicine Cardiovascular Disease
DX: Z95.5 Presence of coronary angioplasty implant and graft (principal); I25.2 Old myocardial infarction; Z87.891 Personal history of nicotine dependence

== ENCOUNTER 2018-09-06 09:15 | Outpatient (RCR) | payer MEDICARE, OTHER, SELFPAY ==
[2018-08-22 13:17] VITALS: BMI 23.6
== END 2018-09-07 23:59 ==
LOC: CR 09:15
PROVIDERS: Family Provider Preventive Medicine Occupational Medicine; PCP Preventive Medicine Occupational Medicine; Referring Provider Internal Medicine Cardiovascular Disease; Visit Provider Internal Medicine Cardiovascular Disease
DX: I25.10 Atherosclerotic heart disease of native coronary artery without angina pectoris (principal); Z95.5 Presence of coronary angioplasty implant and graft; I21.4 Non-ST elevation (NSTEMI) myocardial infarction
CPT/HCPCS: 93798

== ENCOUNTER 2018-10-06 09:15 | Outpatient (RCR) | payer MEDICARE, OTHER, SELFPAY ==
[2018-08-22 13:17] VITALS: BMI 23.6
--- NOTE | 2018-09-20 09:51 | PCM.CR.ITP ---
General Information - General Information Admitting Diagnosis: PCI W/Stenting - Education/Goals Cardiac Rehabilitation Goals: 1. Maintain the individual as the primary focus of care. 2. To improve the patient's quality of life. 3. Identification of cardiac risk factors and provide cardiac risk factor management. 4. Enhance the psychosocial status of the patient. 5. Reconditioning enough to allow the patient to resume customary activities. 6. Control symptoms of cardiac disease Scale for measuring improvement of personal goals: Enter appropriate number in Comments. 2 = Unchanged. 3 = Slightly Better. 4 = Moderate Improvement. 5 = Met my Goal Exercise - 30-day Assessment - Visit Date of Eval: 09/20/18 Session #:: 9 - Stages of Change Stages of Change:: Action - Physician Prescribed Exercise Modalities: Treadmill, NuStep, SciFit Frequency (days/week): 3 Duration (Minutes):: 30-45 Intensity: 60-80% age predicted maximum heart rate reserve METs - Progression: 0.5-1.0 MET, RPE 11-14 WEEK: 3 Target Heart Rate:: 110-117 Max HR 77 - Hypertension Resting Blood Pressure:: 144/72 Peak Exercise Blood Pressure:: 160/70 - Intervention Home Exercise/Activity Goal:: Sitting Time <3 hrs/day - Education Goals:: Warm-up, RPE MARCIN Scale, S/S, Safe Exercise, Self-Monitoring - Exercise Program Goals Exercise Program Goals: Aerobic Activity >30 min, B/P <130/80 Nutrition - 30-Day Assessment - Program Goals Nutrition Program Goals: LDL <70. Total Cholesterol <200. HDL >45. Triglycerides <150. HgbA1C <7%. BMI <25 - Visit Date of Eval: 09/20/18 - Stages of Change Stages of Change:: Action - Weight Management Weight:: 60.781 kg - Intervention Referral to dietitian:: No Referral to Diabetic Clinic:: No Will attend diet classes:: Yes - Education Attended class for:: Signs & symptoms of hypoglycemia, Signs & symptoms of hyperglycemia, Relate diabetes to coronary artery disease, Healthy eating Tobacco - Initial Assessment - Program Goals Tobacco Program Goals: Complete smoking cessation. Attend education classes. Improve Knowledge Test score - Learning Barriers Learning Barriers: Vision, Ready to Learn Tobacco - 30-Day Assessment - Program Goals Tobacco Program Goals: Complete smoking cessation. Attend education classes. Improve Knowledge Test score - Stage of Change Stages of Change:: Action - Learning Barriers Learning Barriers: Participates in education - Family Support Do you have family support?: Yes - Tobacco Use Tobacco Use: Non-smoker - Intervention Smoking Cessation Referral:: No Individual Education/Counseling:: No Education Schedule Given:: Yes - Education Attended class for:: Tobacco triggers, Coronary artery disease, Risk factors, Sexuality, Medical compliance, Cardiac A&P, Angina signs & symptoms Psychosocial - Initial Assess - Target Goals Target Goals: Assess presence or absence of depression. Using a valid screening tool, maximizes coping skills. Positive support system - Psychosocial Test Tool Used:: HANDS Depression Questionnaire - Assistive Devices Fall Risk Assessed:: Yes Psychosocial - 30-Day Assess - Target Goals Target Goals: Assess presence or absence of depression. Using a valid screening tool, maximizes coping skills. Positive support system - Stages of Change Stages of Change:: Action - Psychosocial Test Tool Used:: HANDS Depression Questionnaire - Intervention PS - Interventions: Yes Attend Stress Management Classes, Yes Uses Stress Management Skills, No Referral to Mental Health, No Referral to [facility] Case Management, No Referral to Physician - Education Attended classes for:: Coping techniques, Signs & symptoms of depression, Stress management, Relaxation techniques - Assistive Devices Fall Risk Assessed:: Yes Patient Health Questionnaire 30-Day Re-eval Assessment 1. Little interest or pleasure in doing things: Not at all 2. Feeling down, depressed, or hopeless: Not at all 3. Trouble falling or staying asleep, or sleeping too much: Not at all 4. Feeling tired or having little energy: Not at all 5. Poor appetite or overeating: Not at all 6. Feeling bad about yourself -- or that you are a failure or have let yourself or your family down: Not at all 7. Trouble concentrating on things, such as reading the newspaper or watching television: Not at all 8. Moving or speaking so slowly that other people could have noticed. Or the opposite - being so fidgety or restless that you have been moving around a lot more than usual: Not at all 9. Thoughts that you would be better off , or of hurting yourself in some way: Not at all How difficult have these problems made it for you to do your work, take care of things at home, or get along with other people?: Not difficult at all Total Score: 0 Self-Efficacy 30-Day Re-eval Assessment We would like to know how confident you are in doing certain activities. Please select your confidence level for:: Select your confidence level for the following using the scale 1-10 where 1 is not at all confident and 10 is totally confident. Your score is the average of all 6 responses. Fatigue: How confident are you that you can keep the fatigue caused by your disease from interfering with the things you want to do? Select Number: 10 Physical Discomfort or Pain: How confident are you that you can keep the physical discomfort or pain of your disease from interfering with the things you want to do? Select Number: 10 Emotional Distress: How confident are you that you can keep the emotional distress caused by your disease from interfering with the things you want to do? Select Number: 10 Other Symptoms or Health Problems: How confident are you that you can keep other symptoms or health problems from interfering with the things you want to do? Select Number: 10 Different Tasks and Activities: How confident are you that you can do the different tasks and activities needed to manage your health condition so as to reduce your need to see a doctor? Select Number: 10 Medication: How confident are you that you can do things other than just taking medication to reduce how much your illness affects your everyday life? Select Number: 10 Total Score:: 10
[2018-09-20 09:58] VITALS: BP 144/72; BP 160/70
== END 2018-10-08 23:59 ==
LOC: CR 09:15
PROVIDERS: Family Provider Preventive Medicine Occupational Medicine; PCP Preventive Medicine Occupational Medicine; Referring Provider Internal Medicine Cardiovascular Disease; Visit Provider Internal Medicine Cardiovascular Disease
DX: I25.10 Atherosclerotic heart disease of native coronary artery without angina pectoris (principal); I21.4 Non-ST elevation (NSTEMI) myocardial infarction; Z95.5 Presence of coronary angioplasty implant and graft
CPT/HCPCS: 93798

== ENCOUNTER 2018-11-06 09:15 | Outpatient (RCR) | payer MEDICARE, OTHER, SELFPAY ==
[2018-08-22 13:17] VITALS: BMI 23.6
[2018-10-09 01:18] VITALS: BP 144/72; BP 160/70
--- NOTE | 2018-10-11 08:02 | PCM.CR.ITP ---
Tobacco - Initial Assessment - Program Goals Tobacco Program Goals: Complete smoking cessation. Attend education classes. Improve Knowledge Test score - Learning Barriers Learning Barriers: Vision, Ready to Learn Psychosocial - Initial Assess - Target Goals Target Goals: Assess presence or absence of depression. Using a valid screening tool, maximizes coping skills. Positive support system - Psychosocial Test Tool Used:: HANDS Depression Questionnaire - Assistive Devices Fall Risk Assessed:: Yes
[2018-10-18 08:27] VITALS: BP 140/50; BP 150/64
--- NOTE | 2018-10-18 08:27 | CR.ITP_ITS ---
General Information - General Information Admitting Diagnosis: PCI with Stenting - Education/Goals Cardiac Rehabilitation Goals: 1. Maintain the individual as the primary focus of care. 2. To improve the patient's quality of life. 3. Identification of cardiac risk factors and provide cardiac risk factor management. 4. Enhance the psychosocial status of the patient. 5. Reconditioning enough to allow the patient to resume customary activities. 6. Control symptoms of cardiac disease Scale for measuring improvement of personal goals: Enter appropriate number in Comments. 2 = Unchanged. 3 = Slightly Better. 4 = Moderate Improvement. 5 = Met my Goal Exercise - 60-Day Assessment - Visit Date of Eval: 10/18/18 Session #:: 21 - Stages of Change Stages of Change:: Action - Physician Prescribed Exercise Modalities: Treadmill, Biodyne, NuStep Intensity: 60-80% age predicted maximum heart rate reserve METs - Progression: 0.5-1.0 MET, RPE 11-14 WEEK: 4.5 Target Heart Rate:: 110-117 Max HR 97 - Hypertension Resting Blood Pressure:: 140/50 Peak Exercise Blood Pressure:: 150/64 - Intervention Home Exercise/Activity Goal:: Sitting Time <3 hrs/day - Education Goals:: Warm-up, RPE MARCIN Scale, S/S, Safe Exercise, Self-Monitoring - Exercise Program Goals Exercise Program Goals: Aerobic Activity >30 min, B/P <130/80 Nutrition - 60-Day Assessment - Program Goals Nutrition Program Goals: LDL <70. Total Cholesterol <200. HDL >45. Triglycerides <150. HgbA1C <7%. BMI <25 - Visit Date of Eval: 10/18/18 - Stages of Change Stages of Change:: Action - Weight Management Weight:: 59.421 kg - Intervention Referral to dietitian:: No Referral to Diabetic Clinic:: No Will attend diet classes:: Yes - Education Attended class for:: Signs & symptoms of hypoglycemia, Signs & symptoms of hyperglycemia, Relate diabetes to coronary artery disease, Healthy eating Tobacco - Initial Assessment - Program Goals Tobacco Program Goals: Complete smoking cessation. Attend education classes. Improve Knowledge Test score - Learning Barriers Learning Barriers: Vision, Ready to Learn Tobacco - 60-Day Assessment - Program Goals Tobacco Program Goals: Complete smoking cessation. Attend education classes. Improve Knowledge Test score - Stage of Change Stages of Change:: Action - Learning Barriers Learning Barriers: Participates in education - Family Support Do you have family support?: Yes - Tobacco Use Tobacco Use: Non-smoker Do you use smokeless tobacco?: No - Intervention Smoking Cessation Referral:: No Individual Education/Counseling:: No Education Schedule Given:: Yes - Education Attended class for:: Tobacco triggers, Coronary artery disease, Risk factors, Sexuality, Medical compliance, Cardiac A&P, Angina signs & symptoms Psychosocial - 60-Day Assess - Target Goals Target Goals: Assess presence or absence of depression. Using a valid screening tool, maximizes coping skills. Positive support system - Stages of Change Stages of Change:: Action - Psychosocial Test Tool Used:: HANDS Depression Questionnaire - Intervention PS - Interventions: Yes Attend Stress Management Classes, Yes Uses Stress Management Skills, No Referral to Mental Health, No Referral to [facility] Case Management, No Referral to Physician - Education Attended classes for:: Coping techniques, Signs & symptoms of depression, Stress management, Relaxation techniques - Assistive Devices Assistive Devices:: None Fall Risk Assessed:: Yes Patient Health Questionnaire 60-Day Re-eval Assessment 1. Little interest or pleasure in doing things: Not at all 2. Feeling down, depressed, or hopeless: Not at all 3. Trouble falling or staying asleep, or sleeping too much: Not at all 4. Feeling tired or having little energy: Not at all 5. Poor appetite or overeating: Not at all 6. Feeling bad about yourself -- or that you are a failure or have let yourself or your family down: Not at all 7. Trouble concentrating on things, such as reading the newspaper or watching television: Not at all 8. Moving or speaking so slowly that other people could have noticed. Or the opposite - being so fidgety or restless that you have been moving around a lot more than usual: Not at all 9. Thoughts that you would be better off , or of hurting yourself in some way: Not at all How difficult have these problems made it for you to do your work, take care of things at home, or get along with other people?: Not difficult at all Total Score: 0 Self-Efficacy 60-Day Re-eval Assessment We would like to know how confident you are in doing certain activities. Please select your confidence level for:: Select your confidence level for the following using the scale 1-10 where 1 is not at all confident and 10 is totally confident. Your score is the average of all 6 responses. Fatigue: How confident are you that you can keep the fatigue caused by your disease from interfering with the things you want to do? Select Number: 10 Physical Discomfort or Pain: How confident are you that you can keep the physical discomfort or pain of your disease from interfering with the things you want to do? Select Number: 10 Emotional Distress: How confident are you that you can keep the emotional distress caused by your disease from interfering with the things you want to do? Select Number: 10 Other Symptoms or Health Problems: How confident are you that you can keep other symptoms or health problems from interfering with the things you want to do? Select Number: 10 Different Tasks and Activities: How confident are you that you can do the different tasks and activities needed to manage your health condition so as to reduce your need to see a doctor? Select Number: 10 Medication: How confident are you that you can do things other than just taking medication to reduce how much your illness affects your everyday life? Select Number: 10 Total Score:: 10
== END 2018-11-07 23:59 ==
LOC: CR 09:15
PROVIDERS: Family Provider Preventive Medicine Occupational Medicine; PCP Preventive Medicine Occupational Medicine; Referring Provider Internal Medicine Cardiovascular Disease; Visit Provider Internal Medicine Cardiovascular Disease
DX: I25.10 Atherosclerotic heart disease of native coronary artery without angina pectoris (principal); I21.4 Non-ST elevation (NSTEMI) myocardial infarction; Z95.5 Presence of coronary angioplasty implant and graft
CPT/HCPCS: 93798

== ENCOUNTER 2018-11-20 09:15 | Outpatient (RCR) | payer MEDICARE, OTHER, SELFPAY ==
[2018-08-22 13:17] VITALS: BMI 23.6
[2018-11-08 01:20] VITALS: BP 140/50; BP 150/64
--- NOTE | 2018-11-17 08:29 | PCM.CR.ITP ---
General Information - General Information Admitting Diagnosis: PCI with stenting - Education/Goals Cardiac Rehabilitation Goals: 1. Maintain the individual as the primary focus of care. 2. To improve the patient's quality of life. 3. Identification of cardiac risk factors and provide cardiac risk factor management. 4. Enhance the psychosocial status of the patient. 5. Reconditioning enough to allow the patient to resume customary activities. 6. Control symptoms of cardiac disease Scale for measuring improvement of personal goals: Enter appropriate number in Comments. 2 = Unchanged. 3 = Slightly Better. 4 = Moderate Improvement. 5 = Met my Goal Exercise - 90-Day Assessment - Visit Date of Eval: 11/17/18 Session #:: 34 - Stages of Change Stages of Change:: Action - Physician Prescribed Exercise Modalities: Treadmill, Biodyne, NuStep Frequency (days/week): 3 Duration (Minutes):: 30-45 Intensity: 60-80% age predicted maximum heart rate reserve METs - Progression: 0.5-1.0 MET, RPE 11-14 WEEK: 5.7 Target Heart Rate:: 110-117 Max HR 101 - Hypertension Resting Blood Pressure:: 122/60 Peak Exercise Blood Pressure:: 140/72 - Intervention Home Exercise/Activity Goal:: Sitting Time <3 hrs/day - Education Goals:: Warm-up, RPE MARCIN Scale, S/S, Safe Exercise, Self-Monitoring - Exercise Program Goals Exercise Program Goals: Aerobic Activity >30 min, B/P <130/80 Nutrition - 90-Day Assessment - Program Goals Nutrition Program Goals: LDL <70. Total Cholesterol <200. HDL >45. Triglycerides <150. HgbA1C <7%. BMI <25 - Visit Date of Eval: 11/17/18 - Stages of Change Stages of Change:: Action - Lipids Has the patient seen the dietitian?: No - Weight Management Weight:: 58.513 kg - Intervention Referral to dietitian:: No Referral to Diabetic Clinic:: No Will attend diet classes:: Yes - Education Attended class for:: Signs & symptoms of hypoglycemia, Signs & symptoms of hyperglycemia, Relate diabetes to coronary artery disease, Healthy eating Tobacco - Initial Assessment - Program Goals Tobacco Program Goals: Complete smoking cessation. Attend education classes. Improve Knowledge Test score - Learning Barriers Learning Barriers: Vision, Ready to Learn Tobacco - 90-Day Assessment - Program Goals Tobacco Program Goals: Complete smoking cessation. Attend education classes. Improve Knowledge Test score - Stage of Change Stages of Change:: Action - Learning Barriers Learning Barriers: Participates in education - Family Support Do you have family support?: Yes - Tobacco Use Tobacco Use: Non-smoker Do you use smokeless tobacco?: No - Intervention Smoking Cessation Referral:: No Individual Education/Counseling:: No Education Schedule Given:: Yes - Education Attended class for:: Tobacco triggers, Coronary artery disease, Risk factors, Sexuality, Medical compliance, Cardiac A&P, Angina signs & symptoms Psychosocial - Initial Assess - Target Goals Target Goals: Assess presence or absence of depression. Using a valid screening tool, maximizes coping skills. Positive support system - Psychosocial Test Tool Used:: HANDS Depression Questionnaire - Assistive Devices Fall Risk Assessed:: Yes Psychosocial - 90-Day Assess - Target Goals Target Goals: Assess presence or absence of depression. Using a valid screening tool, maximizes coping skills. Positive support system - Stages of Change Stages of Change:: Action - Psychosocial Test Tool Used:: HANDS Depression Questionnaire - Intervention PS - Interventions: Yes Attend Stress Management Classes, Yes Uses Stress Management Skills, No Referral to Mental Health, No Referral to [facility] Case Management, No Referral to Physician - Education Attended classes for:: Coping techniques, Signs & symptoms of depression, Stress management, Relaxation techniques - Assistive Devices Assistive Devices:: None Fall Risk Assessed:: Yes Patient Health Questionnaire 90-Day Re-eval Assessment 1. Little interest or pleasure in doing things: Not at all 2. Feeling down, depressed, or hopeless: Not at all 3. Trouble falling or staying asleep, or sleeping too much: Not at all 4. Feeling tired or having little energy: Not at all 5. Poor appetite or overeating: Not at all 6. Feeling bad about yourself -- or that you are a failure or have let yourself or your family down: Not at all 7. Trouble concentrating on things, such as reading the newspaper or watching television: Not at all 8. Moving or speaking so slowly that other people could have noticed. Or the opposite - being so fidgety or restless that you have been moving around a lot more than usual: Not at all 9. Thoughts that you would be better off , or of hurting yourself in some way: Not at all How difficult have these problems made it for you to do your work, take care of things at home, or get along with other people?: Not difficult at all Total Score: 0 Self-Efficacy 90-Day Re-eval Assessment We would like to know how confident you are in doing certain activities. Please select your confidence level for:: Select your confidence level for the following using the scale 1-10 where 1 is not at all confident and 10 is totally confident. Your score is the average of all 6 responses. Fatigue: How confident are you that you can keep the fatigue caused by your disease from interfering with the things you want to do? Select Number: 10 Physical Discomfort or Pain: How confident are you that you can keep the physical discomfort or pain of your disease from interfering with the things you want to do? Select Number: 10 Emotional Distress: How confident are you that you can keep the emotional distress caused by your disease from interfering with the things you want to do? Select Number: 10 Other Symptoms or Health Problems: How confident are you that you can keep other symptoms or health problems from interfering with the things you want to do? Select Number: 10 Different Tasks and Activities: How confident are you that you can do the different tasks and activities needed to manage your health condition so as to reduce your need to see a doctor? Select Number: 10 Medication: How confident are you that you can do things other than just taking medication to reduce how much your illness affects your everyday life? Select Number: 10 Total Score:: 10
[2018-11-17 08:33] VITALS: BP 122/60; BP 140/72
== END 2018-12-08 23:59 ==
LOC: CR 09:15
PROVIDERS: Family Provider Preventive Medicine Occupational Medicine; PCP Preventive Medicine Occupational Medicine; Referring Provider Internal Medicine Cardiovascular Disease; Visit Provider Internal Medicine Cardiovascular Disease
DX: I25.10 Atherosclerotic heart disease of native coronary artery without angina pectoris (principal); I21.4 Non-ST elevation (NSTEMI) myocardial infarction; Z95.5 Presence of coronary angioplasty implant and graft
CPT/HCPCS: 93798

== ENCOUNTER 2019-06-11 10:08 | Outpatient (RCR) | payer MEDICARE, OTHER, SELFPAY ==
[2019-03-08 13:14] VITALS: BMI 23.0
== END 2019-07-10 23:59 ==
LOC: CR 10:08
PROVIDERS: Family Provider Preventive Medicine Occupational Medicine; PCP Preventive Medicine Occupational Medicine; Referring Provider Internal Medicine Cardiovascular Disease; Visit Provider Internal Medicine Cardiovascular Disease
DX: I25.10 Atherosclerotic heart disease of native coronary artery without angina pectoris (principal); I21.4 Non-ST elevation (NSTEMI) myocardial infarction; Z95.5 Presence of coronary angioplasty implant and graft
CPT/HCPCS: 93798

== ENCOUNTER → 2019-08-13 09:49 | Outpatient (CLI) | payer MEDICARE, OTHER, SELFPAY ==
[2019-03-08 13:14] VITALS: BMI 23.0
--- NOTE | 2019-08-13 09:50 | CDU_ITS ---
Reason For Study: Carotid stenosis Rt. Velocities/BP Lt. Velocities/BP Prox CCA 86.5/10.8 cm/sec. Prox CCA 80.9/13.3 cm/sec. Mid CCA 57.5/11.3 cm/sec. Mid CCA 75.4/17 cm/sec. Dist CCA 59.7/11.3 cm/sec. Dist CCA 69.1/17.6 cm/sec. Prox ICA 204.6/43 cm/sec. Prox ICA 74.1/16.3 cm/sec. Mid ICA 174.3/24.1 cm/sec. Mid ICA 90/22.5 cm/sec. Dist ICA 121.4/22.6 cm/sec. Dist ICA 101.1/24.9 cm/sec. Rt. ICA/CCA = 3.3. Lt. ICA/CCA = 1.3. Prox ECA 57 cm/sec. Prox ECA 64.2 cm/sec. Rt. Vert. 63/12.6 cm/sec. Lt. Vert. 49.5/9 cm/sec. Right Extracranial There is heterogeneous, irregular atherosclerotic plaque noted in the right common carotid artery. There is heterogeneous, irregular atherosclerotic plaque noted in the right internal carotid artery. There is heterogeneous, irregular atherosclerotic plaque noted in the right external carotid artery. Antegrade flow is noted in the right vertebral artery. Left Extracranial There is homogeneous, smooth atherosclerotic plaque noted in the left common carotid artery. There is heterogeneous, irregular atherosclerotic plaque noted in the left internal carotid artery. There is intimal thickening but no significant atherosclerotic plaque noted in the left external carotid artery. Antegrade flow is noted in the left vertebral artery. Procedure Carotid Duplex 19606. Exam performed in department. Interpretation Summary Irregular calcific plaque in the distal right common carotid and proximal right internal and external carotid arteries 50-69% stenosis right internal carotid <50% stenosis right external carotid Irregular calcific plaque at the proximal left internal carotid <50% stenosis left internal carotid <50% stenosis left externalc carotid Patent, antegrade, <50% stenosis bilateral vertebrals No change from 07/24/18 Ordering Physician: Mike Flores Referring Physician: Mike Aden Performed By: Mikala Alvarado RVT
== END ==
PROVIDERS: PCP Preventive Medicine Occupational Medicine; Referring Provider Surgery; Visit Provider Surgery
DX: I65.21 Occlusion and stenosis of right carotid artery (principal)
CPT/HCPCS: 93880

== ENCOUNTER → 2019-08-30 07:31 | Outpatient (CLI) | payer MEDICARE, OTHER, SELFPAY ==
[2019-08-21 14:58] VITALS: BMI 23.0
--- NOTE | 2019-08-30 07:36 | AAAS_ITS ---
Reason For Study: screening Aorta Measurements Aorta Doppler Measurements Proximal aorta measures1.27 x 1.5cm. in cross- Peak systolic flow velocities within the proximal sectional axis. aorta measure 84.3 cm/sec. Proximal aorta measures1.37cm. in longitudinal Peak systolic flow velocities within the mid aorta axis. measure 72.0 cm/sec. Mid aorta measures1.57 x 1.41cm. in cross- Peak systolic flow velocities within the distal sectional axis. aorta measure 76.9 cm/sec. Mid aorta measures1.39cm. in longitudinal axis. Distal aorta measures1.38 x 1.42cm. in cross- sectional axis. Distal aorta measures1.33cm. in longitudinal axis. Left Iliac Artery Left iliac artery measures .65 x .63 cm. in the cross-sectional axis. Left iliac artery measures .53 cm. in the longitudinal axis. Peak systolic velocity in the left iliac artery measures 175.2 cm/sec. Right Iliac Artery Right iliac artery measures .59 x .73 cm. in the cross-sectional axis. Right iliac artery measures .63 cm. in the longitudinal axis. Peak systolic velocity in the right iliac artery measures 280.9 cm/sec. Procedure Aorta IVC Iliac vasculature or bypass grafts 06535. The exam was diagnostic. Exam performed in department. Interpretation Summary Maximal aortic dimensions in the mid aorta at 1.57 x 1.41 cm. No evidence for abdominal aortic aneurysm. Aortic flow rates are normal. Normal left common iliac artery 0.65 x 0.63 cm Normal right common iliac artery 0.59 x 0.73 cm Velocities are elevated within bilateral common iliac arteries suggesting a degree of occlusive disease bilaterally Ordering Physician: Mike Flores Performed By: Reynaldo Weaver RVLinad
== END ==
LOC: US 07:32 → CVS 07:35
PROVIDERS: PCP Preventive Medicine Occupational Medicine; Referring Provider Surgery; Visit Provider Surgery
DX: Z13.6 Encounter for screening for cardiovascular disorders (principal)
CPT/HCPCS: 76706

== ENCOUNTER → 2020-06-19 08:52 | Outpatient (CLI) | payer MEDICARE, OTHER, SELFPAY ==
[2020-04-21 12:58] VITALS: BMI 23.9
== END ==
PROVIDERS: PCP Preventive Medicine Occupational Medicine; Referring Provider Nurse Practitioner Family; Visit Provider Nurse Practitioner Family
DX: I49.3 Ventricular premature depolarization (principal); I25.10 Atherosclerotic heart disease of native coronary artery without angina pectoris; R00.0 Tachycardia, unspecified
CPT/HCPCS: 93225; 93226

== ENCOUNTER → 2020-08-14 12:39 | Outpatient (CLI) | payer MEDICARE, OTHER, SELFPAY ==
[2020-04-21 12:58] VITALS: BMI 23.9
--- NOTE | 2020-08-14 12:42 | CDU_ITS ---
Reason For Study: carotid stenosis Rt. Velocities/BP Lt. Velocities/BP Prox CCA 78.6/14.7 cm/sec. Prox CCA 77.2/14.6 cm/sec. Mid CCA 74.7/14.7 cm/sec. Mid CCA 87.1/20.1 cm/sec. Dist CCA 55.2/14.7 cm/sec. Dist CCA 71.7/15.7 cm/sec. Prox ICA 214.3/43.0 cm/sec. Prox ICA 85.1/22.5 cm/sec. Mid ICA 214.3/36.5 cm/sec. Mid ICA 91.3/23.7 cm/sec. Dist ICA 151.0/29.3 cm/sec. Dist ICA 97.4/23.7 cm/sec. Rt. ICA/CCA = 2.9. Lt. ICA/CCA = 1.1. Prox ECA 65.6/4.3 cm/sec. Prox ECA 67.3/5.8 cm/sec. Rt. Vert. 67.9/13.9 cm/sec. Lt. Vert. 54.4/10.2 cm/sec. Right Extracranial There is heterogeneous, irregular atherosclerotic plaque noted in the right common carotid artery. There is heterogeneous, irregular atherosclerotic plaque noted in the right internal carotid artery. There is heterogeneous, irregular atherosclerotic plaque noted in the right external carotid artery. Antegrade flow is noted in the right vertebral artery. Left Extracranial There is heterogeneous, irregular atherosclerotic plaque noted in the left common carotid artery. There is heterogeneous, irregular atherosclerotic plaque noted in the left internal carotid artery. There is intimal thickening but no significant atherosclerotic plaque noted in the left external carotid artery. Antegrade flow is noted in the left vertebral artery. Procedure Carotid Duplex 93041. This is a Carotid Duplex examination using B-mode, color flow and specral Doppler. The exam was diagnostic. Exam performed in department. Interpretation Summary Irregular calcific plague mid right common carotid, proximal right internal and external carotid arteries. 50-69% stenosis right internal carotid <50% stenosis right external carotid Irregular calcific plague proximal left internal carotid with <50% stenosis <50% stenosis left external carotid Patent, antegrade vertebrals bilaterally Similar to 08/13/19 Ordering Physician: Mike Flores Performed By: Renyaldo Weaver RVT
== END ==
PROVIDERS: PCP Preventive Medicine Occupational Medicine; Referring Provider Surgery; Visit Provider Surgery
DX: I65.21 Occlusion and stenosis of right carotid artery (principal)
CPT/HCPCS: 93880

== ENCOUNTER → 2021-04-02 07:50 | Outpatient (CLI) | payer MEDICARE, OTHER, SELFPAY ==
--- NOTE | 2021-04-02 07:55 | ECHOD_ITS ---
Reason For Study: MR Procedure This was a 2D Doppler, Color Flow transthoracic echocardiogram. Exam performed in department. Left Ventricle Normal LV size. The estimated ejection fraction is 60 %. Diastolic function is indeterminate. No regional wall motion abnormalities noted. Right Ventricle Normal RV size. Normal systolic function. Atria The left atrium is mildly enlarged. The right atrium is mildly enlarged. No doppler evidence for ASD. Mitral Valve There is no mitral valve stenosis. Trivial mitral valve insufficiency. Tricuspid Valve There is no tricuspid stenosis. Trivial tricuspid valve insufficiency. Pulmonary artery systolic pressure is 35 mmHg. Aortic Valve Trisinus/trileaflet aortic valve. There is no aortic stenosis. No aortic valve insufficiency. Pulmonic Valve There is no pulmonic valvular stenosis. No pulmonic valve insufficiency. Great Vessels Normal aortic root. Pericardium/Pleural No pericardial effusion. MMode/2D Measurements & Calculations LVIDd: 4.0 cm IVSd: 0.73 cm Ao root diam: 2.5 cm LVIDs: 2.8 cm LVPWd: 0.65 cm RVDd: 2.9 cm FS: 29.1 % LAV(MOD-bp): 53.3 ml LA A4 area: 18.8 cm2 LA dimension(2D): 3.8 cm LAV(MOD-bp) Indexed: 32.5 ml/m2 LAV(MOD-sp2): 51.5 ml LAV(MOD-sp4): 52.2 ml RA A4 area: 15.8 cm2 Doppler Measurements & Calculations MV E max loki: 85.2 cm/sec Lat Peak E' Loki: 8.7 cm/sec Med Peak E' Loki: 6.3 cm/sec MV A max loki: 73.7 cm/sec E/E' lat: 9.8 E/E' med: 13.5 MV E/A: 1.2 Ao V2 max: 123.2 cm/sec LV V1 max: 110.3 cm/sec PA V2 max: 70.4 cm/sec Ao max P.1 mmHg LV V1 max P.9 mmHg Ao V2 mean: 81.2 cm/sec Ao mean P.0 mmHg Ao V2 VTI: 31.0 cm TR max loki: 280.9 cm/sec TR max P.6 mmHg ECHO/Echo Complete Interpretation Summary The estimated ejection fraction is 60 %. Diastolic function is indeterminate. The left atrium is mildly enlarged. The right atrium is mildly enlarged. Trivial mitral valve insufficiency. Ordering Physician: Kerrie Lawler Referring Physician: WILMAN SIEGEL Performed By: Keven ARRIETA, Solange SANTOS and Student
== END ==
PROVIDERS: PCP Preventive Medicine Occupational Medicine; Referring Provider Specialist; Visit Provider Specialist
DX: I49.3 Ventricular premature depolarization (principal)
CPT/HCPCS: 93306

== ENCOUNTER → 2021-04-15 09:51 | Outpatient (CLI) | payer MEDICARE, OTHER, SELFPAY | PROVIDERS: PCP Preventive Medicine Occupational Medicine; Referring Provider Physician Assistant; Visit Provider Physician Assistant | DX: U07.1 COVID-19 (principal) | CPT/HCPCS: 87635; U0005; U0003 ==

== ENCOUNTER 2021-04-17 12:57 | Outpatient (CLI) | payer MEDICARE, OTHER, SELFPAY ==
[2021-04-17 13:11] VITALS: BP 112/74; PULSE 66; RESP 16; TEMP 36.7; O2SAT 98; BMI 23.0
[2021-04-17] MEDS: 0.9% Saline Lock 10 ML Syringe IV (13:16)
[2021-04-17 14:00] VITALS: BP 141/51; PULSE 58; RESP 16; TEMP 36.6; O2SAT 96
[2021-04-17 14:55] VITALS: BP 173/57; PULSE 66; RESP 16; TEMP 36.6; O2SAT 98
== END 2021-04-17 14:57 | disposition home or self-care (01) ==
LOC: MS3OUT 12:57 → MS3 12:58
PROVIDERS: PCP Preventive Medicine Occupational Medicine; Referring Provider Nurse Practitioner Adult Health; Visit Provider Nurse Practitioner Adult Health
DX: U07.1 COVID-19 (principal)
CPT/HCPCS: J7050; M0243; A4216; Q0240

== ENCOUNTER 2021-08-21 12:41 | Outpatient (CLI) | payer MEDICARE, OTHER, SELFPAY ==
--- NOTE | 2021-08-21 12:44 | CDU_ITS ---
Reason For Study: CAROTID STENOSIS Rt. Velocities/BP Lt. Velocities/BP Prox CCA 77.9/8.5 cm/sec. Prox CCA 75.6/11.8 cm/sec. Mid CCA 70/15.2 cm/sec. Mid CCA 85.5/10.6 cm/sec. Dist CCA 55.6/13.8 cm/sec. Dist CCA 69.5/11.8 cm/sec. Prox ICA 201.1/30.1 cm/sec. Prox ICA 94.1/22.8 cm/sec. Mid ICA 201/22.3 cm/sec. Mid ICA 74.4/15.5 cm/sec. Dist ICA 102.6/19.7 cm/sec. Dist ICA 112.5/25.3 cm/sec. Rt. ICA/CCA = 2.9. Lt. ICA/CCA = 1.5. Prox ECA 69.9/0.0 cm/sec. Prox ECA 102.7/0 cm/sec. Rt. Vert. 63.7/6.7 cm/sec. Lt. Vert. 105.1/13 cm/sec. Right Extracranial There is homogeneous, smooth atherosclerotic plaque noted in the right common carotid artery. There is heterogeneous, irregular atherosclerotic plaque noted in the right common carotid artery. There is heterogeneous, irregular atherosclerotic plaque noted in the right internal carotid artery. There is heterogeneous, irregular atherosclerotic plaque noted in the right external carotid artery. Antegrade flow is noted in the right vertebral artery. Left Extracranial There is homogeneous, smooth atherosclerotic plaque noted in the left common carotid artery. There is heterogeneous, irregular atherosclerotic plaque noted in the left common carotid artery. There is heterogeneous, irregular atherosclerotic plaque noted in the left internal carotid artery. There is heterogeneous, irregular atherosclerotic plaque noted in the left external carotid artery. Antegrade flow is noted in the left vertebral artery. There is heterogeneous, irregular atherosclerotic plaque noted in the left bulb. Procedure Carotid Duplex [id number]. Exam performed in department. VL/Carotid Duplex Ultrasound Interpretation Summary Dense irregular calcific plaque with heavy shadowing at the proximal right inte rnal carotid artery with 50 to 69% stenosis. Less than 50% stenosis right external carotid artery Smaller plaque at the proximal left internal carotid artery albeit with calcifi c shadowing. Less than 50% stenosis left internal carotid artery. Less than 50% stenosis left external carotid artery Patent antegrade vertebral arteries bilaterally No change from the previous examination of August 14, 2020 Ordering Physician: Mike Flores Referring Physician: MIKE SIEGEL Performed By: Solange Baca, MEENAKSHI, RVT
== END 2021-08-21 23:59 | disposition home or self-care (01) ==
LOC: CVS 12:43
PROVIDERS: PCP Preventive Medicine Occupational Medicine; Referring Provider Surgery; Visit Provider Surgery
DX: I65.23 Occlusion and stenosis of bilateral carotid arteries (principal)
CPT/HCPCS: 93880

== ENCOUNTER → 2021-11-25 | Outpatient (CLI) | payer MEDICARE, OTHER, SELFPAY ==
--- NOTE | 2021-11-25 11:38 | CT_ITS ---
STUDY: CTA CHEST REASON FOR EXAM: Female, 76 years old. Elevated D-dimer, Recent COVID-19 RADIATION DOSAGE (If Supplied By Facility): CTDIvol = ( 4.37 ) mGy, DLP = ( 148.72 ) mGycm TECHNIQUE: The examination was performed with the intravenous administration of IV 100mL Isovue-370. Post-processing of the angiographic images was performed, with multiplanar reformation and 3D reconstruction. Individualized dose optimization techniques were used for this CT. COMPARISON: None. FINDINGS: Normal enhancement of the main pulmonary artery and right and left pulmonary arteries. Normal enhancement of the bilateral peripheral pulmonary arteries. There is no demonstrated pulmonary embolism. There is atherosclerotic calcification of the aortic arch with tortuosity. There is no demonstrated aortic dissection. Normal heart and pericardium. There are calcifications of the coronary arteries. Normal mediastinum. Normal hilar regions. Normal visualized trachea and bronchi. The lungs are well expanded. Calcified granuloma in the right lower lobe. Centrilobular emphysema. Calcified granuloma in the left upper lobe. There is pleural fibrotic thickening of the pulmonary lung apices. Normal chest wall structures. 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 No lytic or sclerotic bone lesions. Moderate size hiatal hernia. CT/CTA Chest W/WO Contrast IMPRESSION: No central or segmental pulmonary embolism. Electronically Signed: Rios Luu MD (Brooks) at 12:10 EDT Reading Location ID and State: / [place] , Service support ,
[2021-11-25 11:56] LABS: CREATININE FINGERSTICK < 0.9 mg/dL (0.55-1.02); EGFR FINGERSTICK > 60.0000 mL/min (>60)
== END | disposition home or self-care (01) ==
LOC: CT 11:37
PROVIDERS: PCP Preventive Medicine Occupational Medicine; Referring Provider Nurse Practitioner Family; Visit Provider Nurse Practitioner Family
DX: R79.1 Abnormal coagulation profile (principal); Z86.16 Personal history of COVID-19
CPT/HCPCS: 71275; Q9967

== ENCOUNTER → 2022-08-26 | Outpatient (CLI) | payer MEDICARE, OTHER, SELFPAY ==
--- NOTE | 2022-08-26 12:42 | CDU_ITS ---
Reason For Study: Stenosis Rt. Velocities/BP Lt. Velocities/BP Prox CCA 71.1/12.6 cm/sec. Prox CCA 60.8/12.4 cm/sec. Mid CCA 61.7/14.5 cm/sec. Mid CCA 72.9/17.9 cm/sec. Dist CCA 55.1/11.6 cm/sec. Dist CCA 66.3/17.9 cm/sec. Prox ICA 205.5/47.4 cm/sec. Prox ICA 82.8/20.1 cm/sec. Mid ICA 177/26.7 cm/sec. Mid ICA 71.8/19 cm/sec. Dist ICA 106.5/22.5 cm/sec. Dist ICA 101.1/24.9 cm/sec. Rt. ICA/CCA = 3.33. Lt. ICA/CCA = 1.52. Prox ECA 57/5 cm/sec. Prox ECA 59.7/6.9 cm/sec. Rt. Vert. 57.5/14.6 cm/sec. Lt. Vert. 45.4/8 cm/sec. Right Extracranial There is heterogeneous, irregular atherosclerotic plaque noted in the right common carotid artery. There is heterogeneous, irregular atherosclerotic plaque noted in the right internal carotid artery. There is heterogeneous, irregular atherosclerotic plaque noted in the right external carotid artery. Antegrade flow is noted in the right vertebral artery. Left Extracranial There is heterogeneous, irregular atherosclerotic plaque noted in the left common carotid artery. There is heterogeneous, irregular atherosclerotic plaque noted in the left internal carotid artery. There is heterogeneous, irregular atherosclerotic plaque noted in the left external carotid artery. Antegrade flow is noted in the left vertebral artery. Procedure Carotid Duplex [id number]. This is a Carotid Duplex examination using B-mode, color flow and specral Doppler. Exam performed in department. VL/Carotid Duplex Ultrasound Interpretation Summary irregular calcific plaque at the proximal right internal carotid with 50 to 69% stenosis Less than 50% stenosis right external carotid Irregular calcific plaque of the proximal left internal carotid with less than 50% stenosis Less than 50% stenosis left external carotid Patent and antegrade vertebrals bilaterally No change from the previous examination of August 21, 2021 Ordering Physician: Mike Flores Referring Physician: Mike Aden Performed By: Mikala Alvarado RVT
== END | disposition home or self-care (01) ==
PROVIDERS: PCP Preventive Medicine Occupational Medicine; Referring Provider Surgery; Visit Provider Surgery
DX: I65.23 Occlusion and stenosis of bilateral carotid arteries (principal)
CPT/HCPCS: 93880

== ENCOUNTER → 2022-11-29 | Outpatient (CLI) | payer MEDICARE, OTHER, SELFPAY ==
--- NOTE | 2022-11-29 12:15 | STRESSREP ---
Stress Test Report Date: 11/29/2022 Procedure: Exercise tolerance test/imaging study Indications: Chest pain Consent: Per the patient Procedure: The patient exercised on a Delvin protocol for 5 minutes and 16 seconds achieving a peak heart rate of 144 bpm (101% predicted maximal heart rate) with a peak blood pressure 172/60 mmHg and a peak MET capacity of 7 METs. The baseline ECG demonstrated normal sinus rhythm. The peak exercise ECG demonstrated sinus tachycardia with upsloping ST depressions in the inferior and lateral leads. EKG during recovery revealed return of ST segments to baseline [There were no cardiac dysrhythmias pretest, during exercise, or recovery]. The functional capacity was considered normal for age. Patient had chest pain with exertion that started getting better in the recovery period. The examination was discontinued secondary to chest pressure. Impression: 1. Technically adequate (percent predicted maximal heart rate greater than 85%) exercise tolerance test 2. Stress test is negative for exercise-induced EKG changes of ischemia 3. The test test is positive for exercise-induced chest pain 4. Functional capacity is normal for age 5. Nuclear images pending Myocardial perfusion imaging study: Technique: The patient was injected with 10.9 mCi of technetium 99m Cardiolite and subsequently rest SPECT Cardiolite nuclear imaging was obtained in the horizontal long, vertical long, and short axis views. The patient exercised on a Delvin protocol. Please see above for details. The patient was injected with 32 mCi of technetium 99m Cardiolite and subsequently stress SPECT Cardiolite nuclear imaging was obtained in the horizontal long, vertical long, and short axis views. A gated Cardiolite study at peak stress was obtained. Interpretation: Rest and stress SPECT Cardiolite nuclear imaging status post realignment, normalization, and attenuation correction, demonstrates overall normal myocardial radioisotope uptake. The gated Cardiolite study demonstrates no significant regional wall motion abnormalities. The reported LVEF is 69%. Impression: 1. There is no evidence of significant ischemia or infarction. 2. The gated Cardiolite study reports an LVEF of 69%. This note was generated with [employer] software. It may contain incorrect words, spelling, and punctuation that were not noted in checking the note before signing.
== END | disposition home or self-care (01) ==
LOC: CVS 07:09
PROVIDERS: PCP Preventive Medicine Occupational Medicine; Referring Provider Physician Assistant Medical; Visit Provider Physician Assistant Medical
DX: R07.9 Chest pain, unspecified (principal)
CPT/HCPCS: 78452; 93017; A9500; A4216

== ENCOUNTER 2022-12-03 08:17 | Day surgery (SDC) | payer MEDICARE, OTHER, SELFPAY ==
--- NOTE | 2022-12-01 10:30 | RAD_ITS ---
INDICATION: Chest pain, preop cardiac catheterization EXAMINATION/TECHNIQUE: X-RAY - PA and lateral views of chest COMPARISON: Chest x-ray from 08/10/2018 FINDINGS: LINES/DEVICES: None. LUNGS: Hyperexpanded lungs again noted with small, benign granulomatous calcifications. No pulmonary edema or focal airspace consolidation. No sizable pleural effusion. No detectable pneumothorax. MEDIASTINUM AND CARDIOVASCULAR STRUCTURES: Heart size within normal limits. Atherosclerotic calcifications along aorta. BONES AND SOFT TISSUES: Skeletal degenerative changes. RAD/Chest PA and Lateral IMPRESSION: COPD and atherosclerotic disease Electronically Signed: Mohsen English MD at 23:33 EDT ,
[2022-12-01 10:33] LABS: Absolute Lymphocyte Count 2.21 X10^3/uL (0.83-4.51); Absolute Neutrophil Count 4.4 X10^3/uL (2.0-7.7); Basophil# 0.09 X10^3/uL; Basophil% 0.9 % (0-1); Eosinophil# 1.84 X10^3/uL; Eosinophils% 18.9 % (0-5); Hematocrit 39.5 % (37-47); Hemoglobin 12.8 g/dL (12.0-15.0); Lymphocyte # 2.21 X10^3/ul (0.83-4.51); Lymphocyte % 22.6 % (19-41); Mean Corp Hgb Conc 32.4 g/dL (32-36); Mean Corpuscular Hgb 31.3 pg (27.0-32.0); Mean Corpuscular Volume 96.6 fL (81-99); Mean Platelet Vol. 11.6 fl (6.2-12.0); Monocyte# 1.19 X10^3/uL; Monocyte% 12.2 % (0-10); NRBC Flagged by Analyzer 0 % (0-5); Neutrophil # 4.41 X10^3/uL (2.7-7.7); Neutrophil % 45.2 % (47-70); Platelet Count 255 K/mm3 (150-450); RBC Distribution Width CV 13.6 % (11.6-14.6); RBC Distribution Width SD 48.4 fl (35.1-43.9); Red Blood Count 4.09 M/mm3 (4.2-5.4); White Blood Count 9.8 K/mm3 (4.4-11.0)
[2022-12-01 10:35] LABS: Prothrombin Time (Protime)PT. 13.1 SECONDS (11.7-14.9)
[2022-12-01 10:36] LABS: Partial Thromboplast Time 26.3 Seconds (24.1-36.2)
[2022-12-01 11:01] LABS: Anion Gap 6 (5-15); BUN 18 mg/dL (7-18); BUN/Creat Ratio 21.3 RATIO (10-20); Calcium,Total 9.2 mg/dL (8.5-10.1); Chloride 107 mmol/L (98-107); Creatinine, Serum 0.84 mg/dL (0.55-1.02); EST Glomerular Filtration Rate 69 mL/min (>60); Est Glom Filt Rate - Afr Amer 84 mL/min (>60); Glucose 87 mg/dL (74-106); Potassium 4.1 mmol/L (3.5-5.1); Sodium Level 141 mmol/L (136-145)
--- NOTE | 2022-12-02 09:19 | PCM.HP.BLA ---
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 who presents to the office today for follow-up of her chest pain presentation on 07/01/18.? At that time she developed midsternal chest pain, and came to the emergency room where an urgent echocardiogram was performed which showed hyperdynamic LV function with an EF around 75%.? Patient was treated medically, and underwent a left heart catheterization on 07/03/18 which demonstrated an occluded vessel in her mid left circumflex which was quite small.? She underwent a successful angioplasty and drug-eluting stenting receiving a 2.25 ex-12 Promus Synergy stent.? She also has a significant lesion in her mid RCA and underwent successful elective angioplasty of her RCA on 07/18/17 with the following results Successful PTCA/SHEMAR of distal RCA with a 3.0 x 12 Promus Synergy; 85%-->0%, no dissection. Successful PTCA/SHEMAR proximal RCA with a 3.0 x 12 Promus Synergy, post dilated with a 3.0 x 8 NC Balloon; 75%-->0%, no dissection.? Patient had nonobstructive disease of her LAD and diagonal which do not appear to require intervention. In addition the patient has a history of excessive snoring, sleep study performed at [facility] on 07/20/18 was negative for obstructive sleep apnea.? Patient was also found to have significant carotid disease and is awaiting consultation with Dr. Mike Flores. Patient denies any exertional chest pain, angina, shortness of breath or dyspnea on exertion.? She is taking and tolerating her medicines well.? Patient graduated from cardiac rehab and is continuing her exercise 4 to 5 days/week without any difficulty. In our office today her blood pressure is 130/50, pulse is 62 and regular.? Her physical exam is as below.? Her lipids as of 07/01/18 show an LDL of 130 and an HDL of 48.? EKG today 08/10/18 shows normal sinus rhythm with PVC, no acute changes noted.? QT corrected of 417 ms.? Her lipids as of 07/01/2018 show an LDL of 130 and HDL of 48.? Repeat lipids are pending. 04/21/2020: Patient is doing very well.? She denies any cardiac complaints.She takes 20 mg of Lipitor as she gets muscle cramps with higher doses.? Her recent lipid profile reveals an LDL of 72. 04/28/2001: Patient is doing well.? She had Covid diagnosed on 04/15/2021.? She is currently asymptomatic from a cardiac and respiratory standpoint. 04/20/2022: Patient is doing well.? Denies any cardiac complaints.? 11/22/2022: Pt called the office with concerns over CP, increase in fatigue and elevated BP readings. Stress test was ordered. 12/01/2022: Pt underwent a stress test which was positive for chest pain with exercise, nuclear images were negative. 12/03/2022: Pt is here today for a diagnostic heart cath based on chest pain with her stress test. PFSH Medical History? Atherosclerotic heart disease of [place] coronary artery without angina pectoris Bursitis of right hip Carotid stenosis, right COVID-19 virus detected (04/15/21) Daytime somnolence History of non-ST elevation myocardial infarction (NSTEMI) (07/03/18) Hypertension Hypothyroidism Premature ventricular contractions Premature ventricular contractions Snoring Surgical History? H/O total hysterectomy (11/17/88) History of bilateral cataract extraction History of bladder suspension procedure History of left heart catheterization (06/22/05) Status post left foot surgery (11/22/17) Stented coronary artery (07/26/18) Family History? Father CAD (coronary artery disease) HypertensionBrother CAD (coronary artery disease) Stented coronary arteryBrother Lung cancer CAD (coronary artery disease) Stented coronary arterySister DiabetesDaughter Thyroid disorder Social History? Smoking Status:? Former smoker how long ago did patient quit smoking:? 1988 second hand exposure:? No alcohol intake:? current alcohol intake frequency: a few times a month Alcohol type: wine substance use type:? does not use caffeine:? Yes Type: coffee Number of servings: 2 ROS Const Const:Positive for fatigue Negative for weakness, headache(s), frequent falls, difficulty sleeping or excessive sweating Eyes Eyes: Negative for loss of peripheral vision, transient loss of vision, blurry vision, double vision or tunnel vision ENT ENT: Negative for headache(s), dizziness, Nosebleed/epistaxis or balance problems Cardio Chest Pain: yes Palpitations: No Edema: None Muscle aches with walking: None Resp Respiratory: Negative for SOB with activity, SOB at rest, SOB orthopnea\SOB lying down, Cough or paroxysmal nocturnal dyspnea GI GI: Negative nausea, vomiting, heartburn or black,tarry stools : Negative for hematuria Musc Musc: Positive for joint pain; Negative for muscle aches/ myalgia, muscle weakness or balance problems Skin Skin: Negative non-healing lesions, rash or unusual bruising Neuro Neuro: Negative for dizziness, lightheadedness, near syncope, syncope, frequent falls, headache(s), weakness, blurry vision, double vision or lack of coordination Johan Hematologic/Lymphatic: Negative for easy bleeding or easy bruising Endo Endo: Negative for fatigue, excessive sweating or increased thirst/drinking Psych Psych: Negative for anxiety or depression Allergy Allergy/Immunology: Negative for hives and Negative for rash Cardiology Exam Const Appearance: cooperative and healthy appearing Head Head: normal to inspection Eyes General: appearance normal, both eyes and all related structures Neck Neck: no JVD Chest Auscultation: Bilateral: Clear to Auscultation Cardio Rate: regular rate Rhythm: regular rhythm Extremities Pulses: Normal: Right Posterior Tibial Pulse and Left Posterior Tibial Pulse Lower Extremity Edema: None: Bilateral Assessment & Plan Assessment/Plan (1) Abnormal stress test: (2) Stented coronary artery: (3) Hypertension: QUALIFIERS: Hypertension type: essential hypertension Qualified Code(s): I10 - Essential (primary) hypertension PLAN: Plan Pt will undergo a diagnostic stress test, follow up will be based on findings.
[2022-12-02 12:21] VITALS: BMI 24.0
--- NOTE | 2022-12-03 11:48 | CL.D_ITS ---
Patient Name: DAVID BARRETO CARO Study Date: 12/03/2022 Performing: Luann Lawler MD Ht: 63 inches 160.02 cm : 1945 Wt: 136 lbs 61.69 kg Age: 77 Gender: female BSA: 1.64 PROCEDURE(S) PERFORMED [id number])[facility] CLINICAL PROFILE AND INDICATIONS Indications: Worsening Angina Heart Failure: None Stress/Imaging Stress Test w/SPECT MPI: Yes Result: Positive Intermediate RiskStress Test with SPECT MPI: Positive Intermediate Risk CAD Presentations: Unstable angina. CONCLUSIONS CAD as described. No significant . RECOMMENDATIONS Medical therapy DESCRIPTION OF PROCEDURE The patient arrived to the procedure lab. The risks and benefits of the procedure as well as a full description of our services here and current unavailability of surgical backup were fully explained to the patient and/or their significant other prior to the catheterization. The Timeout was completed, verifying the correct patient and procedure. The patient's procedural site was prepped and draped in the usual fashion. Local anesthetic was given subcutaneously to right radial region with Lidocaine 2%. Using a modified Seldinger technique, arterial access was obtained via the right radial artery, a 6Fr sheath was inserted. Left Coronary Artery selective angiography was performed in multiple views using a 5 Fr. JL3.5 catheter. Right Coronary Artery selective angiography was then performed in multiple views using a 5 Fr. 4.0 [place] catheter. LV to AO pullback pressures were then recorded.The arterial sheath was pulled and a TR Band was applied for hemostasis CORONARY ANGIOGRAPHY DOMINANCE: Right Dominant LEFT HEART ASSESSMENT LEFT MAIN: Mild luminal irregularities LEFT ANTERIOR DESCENDING ARTERY: MID LAD: 50-60 % Stenosis CIRCUMFLEX ARTERY: Mild luminal irregularities, Previously placed stent is patent RAMUS: Previously placed stent is patent RIGHT CORONARY ARTERY: Mild luminal irregularities VALVE FINDINGS: No Aortic Valve Stenosis COMPLICATIONS No Complications PROCEDURE MEDICATIONS Versed 1 mg IV Fentanyl 50 mcg IV Oxygen: 2 L/min via nasal cannula SUMMARY OF HEMODYNAMIC DATA Time AIR REST ECG 09:08:35 AO 126/60 (85) SA 10:48:33 LV 157/-2, 15 10:54:49 LV 149/0, 20 10:54:59 LVp 155/1, 23 10:56:55 AOp 149/51 (88) 10:57:02 Signed By Luann Lawler MD On 12/03/2022 11:47:43 Luann Lawler MD
== END 2022-12-03 13:00 | disposition home or self-care (01) ==
LOC: CLSP 08:17
PROVIDERS: Physician Assistant Medical; PCP Preventive Medicine Occupational Medicine; Referring Provider Specialist; Visit Provider Specialist
DX: I25.110 Atherosclerotic heart disease of native coronary artery with unstable angina pectoris (principal); I10 Essential (primary) hypertension; I49.3 Ventricular premature depolarization; E03.9 Hypothyroidism, unspecified; I25.2 Old myocardial infarction; R07.9 Chest pain, unspecified; Z87.891 Personal history of nicotine dependence; Z95.5 Presence of coronary angioplasty implant and graft; Z79.82 Long term (current) use of aspirin; Z79.899 Other long term (current) drug therapy; Z86.16 Personal history of COVID-19
CPT/HCPCS: 36415; 71046; 80048; 85025; 85610; 85730; 93454; 99152; 99153; J7040; C1769; C1894

== ENCOUNTER → 2023-08-29 | Outpatient (CLI) | payer MEDICARE, OTHER, SELFPAY ==
--- NOTE | 2023-08-29 12:48 | CDU_ITS ---
Reason For Study: Carotid stenosis Rt. Velocities/BP Lt. Velocities/BP Prox CCA 57.9/8.8 cm/sec. Prox CCA 67.9/11.4 cm/sec. Mid CCA 69.2/11.6 cm/sec. Mid CCA 83.9/12.6 cm/sec. Dist CCA 48.5/12.6 cm/sec. Dist CCA 53.2/11.4 cm/sec. Prox ICA 194.9/43 cm/sec. Prox ICA 86.1/17.9 cm/sec. Mid ICA 174.4/21.5 cm/sec. Mid ICA 75.1/16.8 cm/sec. Dist ICA 102.8/18.8 cm/sec. Dist ICA 88.3/20.1 cm/sec. Rt. ICA/CCA = 3.37. Lt. ICA/CCA = 1.30. Prox ECA 57.9/5 cm/sec. Prox ECA 70.7/4.7 cm/sec. Rt. Vert. 71.8/14.6 cm/sec. Lt. Vert. 33.4/3.8 cm/sec. Right Extracranial There is heterogeneous, irregular atherosclerotic plaque noted in the right common carotid artery. There is heterogeneous, irregular atherosclerotic plaque noted in the right internal carotid artery. There is heterogeneous, irregular atherosclerotic plaque noted in the right external carotid artery. Antegrade flow is noted in the right vertebral artery. Left Extracranial There is heterogeneous, irregular atherosclerotic plaque noted in the left common carotid artery. There is heterogeneous, irregular atherosclerotic plaque noted in the left internal carotid artery. There is heterogeneous, irregular atherosclerotic plaque noted in the left external carotid artery. Antegrade flow is noted in the left vertebral artery. Procedure Carotid Duplex [id number]. This is a Carotid Duplex examination using B-mode, color flow and specral Doppler. Exam performed in department. VL/Carotid Duplex Ultrasound Interpretation Summary Irregular calcific plaque with shadowing at the right internal carotid artery w ith 50 to 69% stenosis. Less than 50% stenosis right external carotid artery Irregular calcific plaque with shadowing at the left internal carotid artery wi th less than 50% stenosis. Less than 50% stenosis left external carotid artery Patent and antegrade vertebral arteries bilaterally No change from the previous examination of August 26, 2022 Ordering Physician: Mike Flores Referring Physician: Mike Aden Performed By: Mikala Alvarado RVT
== END | disposition home or self-care (01) ==
LOC: CVS 12:48
PROVIDERS: PCP Preventive Medicine Occupational Medicine; Referring Provider Surgery; Visit Provider Surgery
DX: R42 Dizziness and giddiness (principal); I65.23 Occlusion and stenosis of bilateral carotid arteries
CPT/HCPCS: 93880

== ENCOUNTER → 2024-08-03 | Outpatient (CLI) | payer MEDICARE, OTHER, SELFPAY ==
--- NOTE | 2024-08-03 15:05 | RAD_ITS ---
STUDY: X-RAY - LEFT HAND REASON FOR EXAM: Female, 79 years old. Trigger finger. TECHNIQUE: 3 views of the left hand. COMPARISON: None. FINDINGS: Normal radiocarpal articulation. Normal distal radioulnar joint. Normal visualized carpal bones. Normal carpal articulations There is degenerative arthrosis of the carpometacarpal (CMC) articulation of the thumb. Normal second through fifth carpometacarpal joints. Normal metacarpi. Normal proximal and distal phalanges of the thumb. Normal metacarpophalangeal joints of the second through fifth fingers. There is degenerative arthrosis of the first MCP joint, interphalangeal joint of the thumb, as well as second through fifth PIP and DIP joints. Intact phalanges of the second through fifth fingers. There is no demonstrated acute fracture. The soft tissue structures are unremarkable. 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 No demonstrated acute fracture. Electronically Signed: Dipak Wilson MD at 11:30 EST ,
--- NOTE | 2024-08-03 15:05 | RAD_ITS ---
STUDY: X-RAY - RIGHT HAND REASON FOR EXAM: Female, 79 years old. TRIGGER FINGER TECHNIQUE: 4 views of the right hand. COMPARISON: None. FINDINGS: Normal radiocarpal articulation. Normal distal radioulnar joint. Normal visualized carpal bones. Normal carpal articulations. There is degenerative arthrosis of the carpometacarpal (CMC) articulation of the thumb. Normal second through fifth carpometacarpal joints. Normal metacarpi. Normal metacarpophalangeal joint of the thumb. Normal proximal and distal phalanges of the thumb. Normal metacarpophalangeal joints of the second through fifth fingers. There is degenerative arthrosis of the interphalangeal joint of the thumb as well as second through fifth PIP and DIP joints. Intact phalanges of the second through fifth fingers. The soft tissue structures are unremarkable. 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 Electronically Signed: Dipak Wilson MD at 11:01 EST ,
== END | disposition home or self-care (01) ==
LOC: RAD 15:01
PROVIDERS: PCP Preventive Medicine Occupational Medicine; Referring Provider Surgery Plastic and Reconstructive Surgery; Visit Provider Surgery Plastic and Reconstructive Surgery
DX: M65.30 Trigger finger, unspecified finger (principal)
CPT/HCPCS: 73130

== ENCOUNTER → 2024-11-05 | Outpatient (CLI) | payer MEDICARE, OTHER, SELFPAY ==
--- NOTE | 2024-11-05 08:53 | CDU_ITS ---
Reason For Study Reason For Study: Right ICA stenosis Rt. Velocities/BP Lt. Velocities/BP Prox CCA 58.9/9.7 cm/sec. Prox CCA 77.7/12.6 cm/sec. Mid CCA 50.9/12.5 cm/sec. Mid CCA 65.4/11.4 cm/sec. Dist CCA 63.1/14.2 cm/sec. Dist CCA 53.1/12.4 cm/sec. Prox ICA 192.6/42.2 cm/sec. Prox ICA 80.6/16.8 cm/sec. Mid ICA 152.1/22.5 cm/sec. Mid ICA 90.5/23.4 cm/sec. Dist ICA 106/26.2 cm/sec. Dist ICA 93.8/21.2 cm/sec. Rt. ICA/CCA = 3.78. Lt. ICA/CCA = 1.43. Prox ECA 53.5/4.6 cm/sec. Prox ECA 67.4/5.8 cm/sec. Rt. Vert. 56.4/13.5 cm/sec. Lt. Vert. 43/8.1 cm/sec. Right Extracranial There is heterogeneous, irregular atherosclerotic plaque noted in the right common carotid artery. There is heterogeneous, irregular atherosclerotic plaque noted in the right internal carotid artery. There is heterogeneous, irregular atherosclerotic plaque noted in the right external carotid artery. Antegrade flow is noted in the right vertebral artery. Left Extracranial There is heterogeneous, irregular atherosclerotic plaque noted in the left common carotid artery. There is heterogeneous, irregular atherosclerotic plaque noted in the left internal carotid artery. There is heterogeneous, irregular atherosclerotic plaque noted in the left external carotid artery. Antegrade flow is noted in the left vertebral artery. Procedure Carotid Duplex [id number]. This is a Carotid Duplex examination using B-mode, color flow and specral Doppler. Exam performed in department. VL/Carotid Duplex Ultrasound Interpretation Summary Moderate (50-69%) stenosis right extracranial internal carotid. Mild (<50%) stenosis left extracranial internal carotid. Patent and antegrade vertebrals bilaterally. Ordering Physician: Izzy Dietrich Referring Physician: Mike Aden Performed By: Mikala Alvarado RVT
== END | disposition home or self-care (01) ==
LOC: CVS 08:52
PROVIDERS: PCP Preventive Medicine Occupational Medicine; Referring Provider Physician Assistant; Visit Provider Physician Assistant
DX: I65.21 Occlusion and stenosis of right carotid artery (principal)
CPT/HCPCS: 93880

== ENCOUNTER → 2025-01-10 | Outpatient (CLI) | payer MEDICARE, OTHER, SELFPAY ==
[2025-01-10 12:39] LABS: Hematocrit 38.7 % (37-47); Hemoglobin 12.9 g/dL (12.0-15.0); Immature Granulocytes Count 0.020 X10^3/uL (0.0-0.0); Mean Corp Hgb Conc 33.3 g/dL (32-36); Mean Corpuscular Volume 93.7 fL (81-99); Mean Platelet Vol. 11.1 fl (6.2-12.0); NRBC Flagged by Analyzer 0 % (0-5); Platelet Count 250 K/mm3 (150-450); RBC Distribution Width CV 13.2 % (11.6-14.6); RBC Distribution Width SD 45.3 fl (35.1-43.9); Red Blood Count 4.13 M/mm3 (4.2-5.4); White Blood Count 9.5 K/mm3 (4.4-11.0)
[2025-01-10 13:29] LABS: Anion Gap 8 (5-15); BUN 15 mg/dL (4-19); BUN/Creat Ratio 16.9 RATIO (10-20); Calcium,Total 9.7 mg/dL (7.6-11.0); Carbon Dioxide 28.7 mmol/L (21.0-32.0); Chloride 106 mmol/L (98-108); Glucose 81 mg/dL (70-99); Magnesium 2.3 mg/dL (1.5-2.2); Potassium 4.2 mmol/L (3.3-5.1)
== END | disposition home or self-care (01) ==
LOC: PSN 12:24
PROVIDERS: PCP Preventive Medicine Occupational Medicine; Referring Provider Physician Assistant Medical; Visit Provider Physician Assistant Medical
DX: R00.2 Palpitations (principal); R06.02 Shortness of breath; Z95.5 Presence of coronary angioplasty implant and graft
CPT/HCPCS: 36415; 80048; 83735; 84443; 85025; 93225; 93226

== ENCOUNTER → 2025-02-18 | Outpatient (CLI) | payer MEDICARE, OTHER, SELFPAY ==
--- OUTSIDE RECORDS SUMMARY | 2025-02-18 06:06 | XMS RPT_ITS | CCD ---
Author Organization [facility] CliniSyvt Care Team Providers Care Gm Mobile Name Role Phone WILMAN ADEN DO Primary Care Physician [phone] Manuel PT, Rosemary Unavailable Unavailable Dr. Wilman Aden Primary Care Provider Dr. Wilman Flores Attending Provider [phone] Dr. Wilman Flores Referring Provider [phone] WILMAN ADEN DO Primary Care Physician [phone] Dr. Wilman Aden Primary Care Provider Dr. Wilman Flores Attending Provider [phone] Dr. Wilman Aden Primary Care Provider Dr. Wilman Flores Attending Provider [phone] Dr. Wilman Flores Referring Provider [phone] Dr. Wilman Aden Referring Provider [phone] EMANI Brito Referring Provider EMANI Brito Other Provider [phone] Dr. Kerrie Lawler Attending Provider [phone] Dr. Kerrie Lawler Referring Provider [phone] Dr. Kerrie Lawler Other Provider EMANI Brito Attending Provider Dr. Wilman Aden Primary Care Provider Dr. Wilman Flores Attending Provider [phone] WILMAN ADEN DO Attending Unavailable WILMAN ADEN DO Primary Care Unavailable ATLANTA CONTINUOUS LOFT OPERATOR-DUARTE LYNN Attending Unavailabl e KEIKO DO, WILMAN Primary Care Unavailable IFEANYI RUFFIN Attending Unavailable KEIKO DO, WILMAN Primary Care Unavailable KEIKO DO, WILMAN Attending Unavailable KEIKO DO, WILMAN Primary Care Unavailable MAGNOLIA DODORA Attending Unavailable KEIKO DO, WILMAN Primary Care Unavailable KEIKO DO, WILMAN Attending Unavailable KEIKO DO, WILMAN Primary Care Unavailable Keiko LIEBERMAN, Dr. Mckeon Primary Care Provider [phone] Dr. Wilman Aden DO Referring Provider Izzy Albert Attending Provider [phone] Wilman Junior MD Attending Provider Kaur JOAQUIN, Izzy Referring Provider [phone] Dave Starkey MD Attending Provider [phone] Frida Brito Attending Provider [phone] Frida Brito Referring Provider [phone] KEIKO DO, WILMAN Primary Care Unavailable SARAH CONTINUOUS LOFT OPERATOR-FEROZ LYNN Attending Unapiotri lable KEIKO DO, WILMAN Primary Care Unavailable KEIKO DO, WILMAN Attending Unavailable KEIKO DO, WILMAN Primary Care Unavailable BONG CONTINUOUS LOFT OPERATORLAMONT MILLER Attending Unavailabl e KEIKO DO, WILMAN Primary Care Unavailable PRADEEP CONTINUOUS LOFT OPERATOR-MICRO PHOTOGRAPHERNAV Attending Unavailabl e KEIKO DO, WILMAN Primary Care Unavailable RAJANI CONTINUOUS LOFT OPERATORSUSIE GEIGER Attending Unavai lable Keiko, Wilman Referring Unavailable Keiko, Wilman Primary Care Unavailable Izzy Dietrich Attending Unavailable Keiko, Wilman Primary Care Unavailable Siska, Wilman Attending Unavailable Siska, Wilman Referring Unavailable Siska, Wilman Attending Unavailable Siska, Wilman Referring Unavailable Keiko, Wilman Primary Care Unavailable Keiko, Wilman Referring Unavailable Kerrie Lawler Attending Unavailabl e Keiko, Wilman Primary Care Unavailable Frida Brito Referring Unavail able Keiko, Wilman Primary Care Unavailable Antonio Mason Attending Unavailable Keiko, Wilman Primary Care Unavailable Dietrich Izzy Attending Unavailable Dietrich, Izzy Referring Unavailable Siska, Wilman Attending Unavailable Siska, Wilman Referring Unavailable Keiko, Wilman Primary Care Unavailable Keiko, Wilman Primary Care Unavailable Frida Brito Referring Unavail able Frida Brito Attending Unavail able Padmaja JOAQUIN, Frida M Attending Unavail able Frida Brito Referring Unavail able Wilman Aden Primary Care Unavailable Wilman Aden Primary Care Unavailable Izzy Dietrich Referring Unavailable Dave Starkey Attending Unavailable Frida Brito Attending Unavail able Wilman Aden Primary Care Unavailable Wilman Aden Referring Unavailable Wilman Aden Referring Unavailable KeikoWilman Primary Care Unavailable Wilman Junior Attending Unavailable Allergies Allergy Classification Reported Allergen(s) Allergy Type Date of Onset Reaction(s) Facility (16 sources) Acetaminophen / HYDROcodone; Translations: [acetaminophen-hy drocodone] Drug Allergy Nausea (finding) [facility] (20 sources) Codeine; Translations: [codeine] Drug Allergy 08-26-19 22 Nausea (finding) [facility] Comment on above: pt experiences sever e nausea (20 sources) Erythromycin; Translations: [erythromycin] Drug Allergy 08-26-19 22 Vomiting (disorder) [facility] (15 sources) Penicillin; Translations: [penicillins] Drug Allergy [facility] Comment on above: rash (15 sources) Sulfonamides (Antibiotic); Translations: [sulfa drugs] Drug allergy Tetracycline adverse reaction (disorder) [facility] Comment on above: rash (16 sources) Tetracycline; Translations: [tetracycline] Drug Allergy Eruption of skin (disorder) [facility] Comment on above: rash (5 sources) Acetaminophen Drug Allergy 08-26-19 22 Nausea [facility] (5 sources) Azithromycin Drug Allergy 08-26-19 22 Itching [facility] (5 sources) HYDROcodone Drug Allergy 08-26-19 22 Nausea [facility] (6 sources) Penicillins; Translations: [Penicillins] Allergy to substance 08-26-19 Rash [facility] (6 sources) Sulfonamides (Antibiotic); Translations: [Sulfa (Sulfonamide Antibiotics)] Propensity to adverse reactions 08-26-19 Nausea [facility] (6 sources) Tetracyclines; Translations: [Tetracyclines] Propensity to adverse reactions 08-26-19 Nausea [facility] (1 source) Penicillin; Translations: [penicillins] Drug Allergy [facility] Comment on above: rash (1 source) Sulfonamides (Antibiotic); Translations: [sulfa drugs] Drug allergy Tetracycline adverse reaction (disorder) [facility] Comment on above: rash (9 sources) meloxicam; Translations: [meloxicam] Drug Allergy 09-15-19 Nausea (finding) [facility] (1 source) Acetaminophen Drug Allergy 10-19-19 [facility] (1 source) Azithromycin Drug Allergy 10-19-19 [facility] (1 source) Codeine Drug Allergy 10-19-19 [facility] (1 source) Erythromycin Drug Allergy 10-19-19 [facility] (1 source) HYDROcodone Drug Allergy 10-19-19 [facility] (1 source) meloxicam Drug Allergy 10-19-19 [facility] Medications Current Medications Medication Drug Class(es) Dates Sig (Normalized) Sig (Original) acetaminophen 500 mg oral tablet (1 source) Start: 10-25-2024 acetaminophen 500 mg oral tablet Dose : 1,000 mg = 2 tab(s), Oral, TID, PRN pain or fever, 0 Refill(s) Start Date: 10/25/24 Status: Ordered Repeat number: 1 aspirin 81 mg chewable tablet (20 sources) Platelet Aggregation Inhibitor, Nonsteroidal Anti-inflammatory Drug Start: 11-22-2017 take 1 tablet by mouth once daily Aspirin 81 MG tablet,chewable Active 81 mg PO DAILY@0800 November 22, 2017 12:00am [facility] Start: 09-03-2013 aspirin 81 mg oral tablet (chewable) Dose : 81 mg = 1 tab(s), Oral, Daily Start Date: 09/03/13 Status: Ordered Repeat number: 1 atorvastatin 40 mg oral tablet (20 sources) HMG-CoA Reductase Inhibitor Start: 07-08-2020 End: 10-25-2024 atorvastatin 40 mg oral tablet Dose : 40 mg = 1 tab(s), Oral, qDay, # 30 tab(s), 0 Refill(s) Start Date: 07/08/20 Status: Ordered Quantity: 30.0 Unit: tab(s) Repeat number: 1 Start: 04-21-2020 End: 12-26-2020 Atorvastatin 80 mg tablet Discontinued 40 mg PO AT BEDTIME April 21, 2020 1:04pm December 26, 2020 3:53pm Start: 04-21-2020 End: 12-26-2020 take 40 mg by mouth at bedtime Atorvastatin Discontinu ed 40 MG PO AT BEDTIME April 21, 2020 12:04pm December 26, 2020 2:53pm Start: 07-04-2018 End: 04-21-2020 take 1 tablet by mouth at bedtime Atorvastatin 80 mg tablet Discontinued 80 mg PO AT BEDTIME 90 3 April 03, 2020 11:51am April 21, 2020 1:08pm augmented betamethasone 0.5 mg/ml topical cream (1 source) Corticosteroid Start: 2025 betamethasone dipropionate, augmented 0.05% topical cream 0 Refill(s), 61.9 Start Date: 01/22/25 Status: Ordered Repeat number: 1 calcium carbonate 1250 mg / cholecalciferol 600 unt oral tablet (10 sources) Vitamin D Start: 11-22-2017 End: 04-28-2021 Calcium Carbonate-Vitamin D3 500mg (1,250mg) -600 unit tablet Active 1 {tbl} PO DAILY April 28, 2021 1:36pm supplement ciclopirox 80 mg/ml topical solution (15 sources) Start: 08-12-2022 ciclopirox 8% topical solution See Instructions, Apply to toenails once daily as directed, dispense quantity sufficient for 90 day supply., # 3 EA, 3 Refill(s), Pharmacy: [id number], Soln, 161, cm, 08/12/22 8:58:00 EST, Height, 62.5, kg, 08/12/22 8:58:00 EST, Dosing Weight Start Date: 08/12/22 Status: Ordered Quantity: 3.0 Unit: EA Repeat number: 4 Start: 12-17-2020 ciclopirox 8% topical solution See Instructions, Apply to toenails once daily as directed, dispense quantity sufficient for 90 day supply., # 3 EA, 3 Refill(s), Pharmacy: [id number], Soln, 162, cm, 08/11/20 9:02:00 EST, Height, 61.5, kg, 08/11/20 9:02:00 EST, Dosing... Start Date: 12/17/20 Status: Ordered Start: 12-17-2020 ciclopirox 8% topical solution See Instructions, Apply to toenails once daily as directed, dispense quantity sufficient for 90 day supply., # 3 EA, 3 Refill(s), Pharmacy: [id number], Soln, 162, cm, 08/11/20 9:02:00 EST, Height, 61.5, kg, 08/11/20 9:02:00 EST, Dosing... Start Date: 12/17/20 Status: Ordered ciprofloxacin 250 mg oral tablet (3 sources) Quinolone Antimicrobial Start: 06-29-2022 End: 07-06-2022 ciprofloxacin 250 mg oral tablet Dose : 250 mg = 1 tab(s), Oral, q12h, X 7 day(s), # 14 tab(s), 0 Refill(s), 07/06/22 15:37:00 EST, Pharmacy: [facility]/pharmacy #[id number], UTI (urinary tract infection), 161, cm, 06/29/22 15:17:00 EST, Height, 61.7 Start Date: 06/29/22 Stop Date: 07/06/22 Status: Ordered Start: 04-30-2022 End: 05-14-2022 Cipro 250 mg oral tablet Dos e : 250 mg = 1 tab(s), Oral, q12h, X 7 day(s), # 14 tab(s), 1 Refill(s), 05/14/22 10:40:00 EDT, Pharmacy: [facility]/pharmacy #[id number], 161, cm, 04/30/22 10:22:00 EDT, Height, 61.3 Start Date: 04/30/22 Stop Date: 05/14/22 Status: Ordered Start: 04-05-2022 End: 04-12-2022 Cipro 500 mg oral tablet Dos e : 500 mg = 1 tab(s), Oral, q12h, X 7 day(s), # 14 tab(s), 0 Refill(s), 04/12/22 9:44:00 EDT, Pharmacy: [facility]/pharmacy #[id number], UTI symptoms, 161, cm, 04/05/22 9:19:00 EDT, Height, 61.9 Start Date: 04/05/22 Stop Date: 04/12/22 Status: Ordered diclofenac sodium 0.01 mg/mg topical gel (20 sources) Nonsteroidal Anti-inflammatory Drug Start: 02-10-2023 diclofenac 1% topical gel 4 = gram(s), Topical, QID, PRN as needed for pain, # 100 gram(s), 11 Refill(s), Pharmacy: [id number], Gel, 161, cm, 02/10/23 9:01:00 EDT, Height, 61.8, kg, 02/10/23 9:01:00 EDT, Dosing Weight Start Date: 02/10/23 Status: Ordered Quantity: 100.0 Unit: g Repeat number: 12 Start: 02-08-2020 diclofenac 1% topical gel 4 = gram(s), Topical, QID, PRN as needed for pain, # 100 gram(s), 5 Refill(s), Pharmacy: [facility]/pharmacy #[id number], Gel, 161, cm, 02/08/20 9:00:00 EDT, Height, 61, kg, 02/08/20 9:00:00 EDT, Dosing Weight Start Date: 02/08/20 Status: Ordered Start: 02-08-2020 diclofenac 1% topical gel 4 = gram(s), Topical, QID, PRN as needed for pain, # 100 gram(s), 5 Refill(s), Pharmacy: [facility]/pharmacy #[id number], Gel, 161, cm, 02/08/20 9:00:00 EDT, Height, 61, kg, 02/08/20 9:00:00 EDT, Dosing Weight Start Date: 02/08/20 Status: Ordered Start: 07-18-2018 End: 04-21-2020 Diclofenac Sodium 1 % gel Di scontinued 2 g TOPICAL DIRECTED July 18, 2018 1:00am April 21, 2020 1:08pm 2 g TOPICAL as directed; Start: 07-18-2018 End: 04-21-2020 Diclofenac Sodium Discontinu ed 2 GM TOPICAL DIRECTED July 18, 2018 12:00am April 21, 2020 12:08pm 2 g TOPICAL as directed; escitalopram 5 mg oral tablet (1 source) Serotonin Reuptake Inhibitor Start: 06-19-2021 escitalopram 5 mg oral tablet Dose : 5 mg = 1 tab(s), Oral, qDay, Start with one half tab p.o. daily x4 days then increase to 1 tab p.o. daily, # 30 tab(s), 2 Refill(s), Pharmacy: [facility]/pharmacy #[id number], Depression with anxiety, 160, cm, 06/19/21 16:11:00 EST, Height, kg, 06/19/21 16:... Start Date: 06/19/21 Status: Ordered hydroCHLOROthiazide 25 mg oral tablet (20 sources) Thiazide Diuretic Start: 06-18-2024 hydroCHLOROthiazide 25 mg oral tablet Dose : 25 mg = 1 tab(s), Oral, Daily, # 90 tab(s), 3 Refill(s), Pharmacy: [facility]/pharmacy #[id number], 159.8, cm, 03/28/24 11:18:00 EDT, Height, kg, 03/28/24 11:18:00 EDT, Dosing Weight Start Date: 06/18/24 Status: Ordered Quantity: 90.0 Unit: tab(s) Repeat number: 4 Start: 11-22-2017 End: 04-19-2023 take 1 tablet by mouth once daily Hydrochlorothiazide 25 mg tablet Discontinued 25 mg PO DAILY 90 3 July 25, 2018 1:06pm April 19, 2023 12:38pm water pill/blood pressure 24 hr isosorbide mononitrate 30 mg extended release oral tablet (20 sources) Nitrate Vasodilator Start: 08-02-2024 isosorbide mononitrate 30 mg oral tablet, extended release Dose : 30 mg = 1 tab(s), Oral, qAM, # 90 tab(s), 3 Refill(s), Pharmacy: [facility]/pharmacy #[id number], CAD (coronary artery disease), 160.5, cm, 08/02/24 9:55:00 EST, Height, kg, 08/02/24 9:55:00 EST, Dosing Weight Start Date: 08/02/24 Status: Ordered Quantity: 90.0 Unit: tab(s) Repeat number: 4 Indications: Atherosclerotic heart disease of [place] coronary artery without angina pectoris; Start: 07-19-2018 End: 04-19-2023 take 1 tablet by mouth once daily, then take 1 tablet by mouth every twenty-four hours Isosorbide Mononitrate 30 mg tablet extended release 24 hr Discontinued 30 mg PO DAILY 90 3 October 08, 2020 9:28am April 19, 2023 12:38pm ketoconazole 20 mg/ml topical cream (1 source) Azole Antifungal Start: 08-02-2024 End: 08-16-2024 ketoconazole 2% topical cream Apply 1 rahul, Topical, qDay, X 14 day(s), # 15 gram(s), 0 Refill(s), Pharmacy: [facility]/pharmacy #[id number], Cream, 160.5, cm, 08/02/24 9:55:00 EST, Height, 61.1, kg, 08/02/24 9:55:00 EST, Dosing Weight Start Date: 08/02/24 Stop Date: 08/16/24 Status: Ordered Quantity: 15.0 Unit: g Repeat number: 1 Indication: 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 levothyroxine sodium 0.075 mg oral tablet (20 sources) l-Thyroxine Start: 01-14-2025 take 1 tablet by mouth six times weekly Levothyroxine (Synthroid) 75 mcg tablet Active 75 ug PO 6 times per week January 14, 2025 12:00am Start: 02-02-2024 take 1 tablet by susanne th once daily levothyroxine 75 mcg (0.075 mg) oral tablet See Instructions, 1 tablets every day except for Tuesday, # 90 tab(s), 3 Refill(s), Pharmacy: [facility]/pharmacy #[id number], 161, cm, 02/02/24 9:20:00 EDT, Height, kg, 02/02/24 9:20:00 EDT, Dosing Weight Start Date: 02/02/24 Status: Ordered Quantity: 90.0 Unit: tab(s) Repeat number: 4 Start: 04-19-2023 End: 01-14-2025 Levothyroxine 88 mcg tablet Discontinued 75 ug PO 6 times per week April 19, 2023 10:59am January 14, 2025 6:14pm Start: 04-19-2023 take 75 ug by mouth six times weekly Levothyroxine Active 75 MCG PO 6 times per week April 19, 2023 9:59am Start: 06-07-2022 take 1 tablet by susanne th once daily levothyroxine 75 mcg (0.075 mg) oral tablet See Instructions, 1 tablets every day except for Tuesday, # 90 tab(s), 3 Refill(s), Pharmacy: [facility]/pharmacy #[id number], 161, cm, 04/30/22 10:22:00 EDT, Height, kg, 04/30/22 10:22:00 EDT, Dosing Weight Start Date: 06/07/22 Status: Ordered Start: 04-20-2022 End: 04-19-2023 take 1 tablet by mouth six times weekly Levothyroxine 88 mcg tablet Discontinued 88 ug PO 6 times per week April 20, 2022 11:38am April 19, 2023 11:00am Start: 12-04-2021 take 1 tablet by susanne th once daily levothyroxine 75 mcg (0.075 mg) oral tablet See Instructions, 1 tablets every day except for Tuesday, # 90 tab(s), 1 Refill(s), Pharmacy: [facility]/pharmacy #[id number], 160, cm, 11/27/21 9:11:00 EDT, Height Start Date: 12/04/21 Status: Ordered Start: 11-16-2021 take 1 tablet by susanne th once daily levothyroxine 100 mcg (0.1 mg) oral tablet Dose : 100 mcg = 1 tab(s), Oral, qDay, Replaces previous Rx for levothyroxine 88 mcg daily, # 90 tab(s), 0 Refill(s), Pharmacy: [facility]/pharmacy #[id number], 161, cm, 09/24/21 9:45:00 EDT, Height, kg, 09/24/21 9:45:00 EDT, Dosing Weight Start Date: 11/16/21 Status: Ordered Start: 08-23-2021 take 1 tablet by susanne th once daily levothyroxine 100 mcg (0.1 mg) oral tablet Dose : 100 mcg = 1 tab(s), Oral, qDay, Replaces previous Rx for levothyroxine 88 mcg daily, # 90 tab(s), 0 Refill(s), [id number] 161, cm, 08/11/21 9:00:00 EST, Height, kg, 08/11/21 9:00:00 EST, Dosing Weight Start Date: 08/23/21 Status: Ordered Start: 08-11-2021 levothyroxine 88 mcg (0.088 mg) oral tablet Dose : 88 mcg = 1 tab(s), Oral, qDay, # 90 tab(s), 3 Refill(s), Pharmacy: [facility]/pharmacy #[id number], Hypothyroid, 161, cm, 08/11/21 9:00:00 EST, Height, kg, 08/11/21 9:00:00 EST, Dosing Weight Start Date: 08/11/21 Status: Ordered Start: 04-28-2021 End: 04-20-2022 take 0.5 tablet by mouth once daily Levothyroxine 88 mcg tablet Discontinued 88 ug PO DAILY April 28, 2021 12:00am April 20, 2022 11:40am Take 1/2 tablet on Tuesday and , whole tablet all other days. Start: 04-21-2020 End: 04-28-2021 take 0.5 tablet by mouth once daily Levothyroxine 88 mcg capsule Discontinued 88 ug PO DAILY April 21, 2020 1:07pm April 28, 2021 1:37pm Take 1/2 tablet on Tuesday and , whole tablet all other days. Start: 03-08-2019 End: 04-21-2020 take 1 capsule by mouth once daily Levothyroxine 88 mcg capsule Discontinued 88 ug PO DAILY March 08, 2019 12:00am April 21, 2020 1:08pm Start: 11-22-2017 End: 03-08-2019 take 1 tablet by mouth once daily Levothyroxine 100 MCG tablet Discontinued 100 ug PO DAILY November 22, 2017 12:00am March 08, 2019 1:16pm thyroid medication Magnesium (2 sources) Start: 07-27-2019 Magnesium 250 mg tablet Dose : 500 mg = 2 tab(s), Oral, qDay, 0 Refill(s) Start Date: 07/27/19 Status: Ordered magnesium oxide 400 mg oral tablet (20 sources) Start: 04-28-2021 take 1 tablet by mouth once daily Magnesium Oxide 400 mg magnesium tablet Active 400 mg PO DAILY April 28, 2021 12:00am Start: 09-17-2019 End: 04-21-2020 take 2 tablets by mouth once daily Magnesium Oxide 250 mg magnesium tablet Discontinued 500 mg PO DAILY September 17, 2019 12:00am April 21, 2020 1:05pm Start: 09-17-2019 End: 04-21-2020 take 500 mg by mouth once daily Magnesium Oxide Discon tinued 500 MG PO DAILY September 16, 2019 11:00pm April 21, 2020 12:05pm Start: 07-27-2019 Magnesium 250 mg tablet Dose : 500 mg = 2 tab(s), Oral, qDay, 0 Refill(s) Start Date: 07/27/19 Status: Ordered Repeat number: 1 meclizine hydrochloride 12.5 mg oral tablet (11 sources) Antiemetic Start: 02-08-2020 meclizine 12.5 mg oral tablet Dose : 12.5 mg = 1 tab(s), Oral, TID, PRN for dizziness, # 60 tab(s), 1 Refill(s), Pharmacy: [facility]/pharmacy #[id number], 161, cm, 02/08/20 9:00:00 EDT, Height, kg, 02/08/20 9:00:00 EDT, Dosing Weight Start Date: 02/08/20 Status: Ordered Start: 07-18-2018 End: 04-28-2021 Meclizine 25 mg tablet Disco ntinued 12.5 mg PO DAILY as needed for Dizziness July 18, 2018 1:00am April 28, 2021 1:37pm Start: 07-18-2018 End: 04-28-2021 take 12.5 mg by mouth once daily Meclizine Discontinued 12.5 MG PO DAILY July 18, 2018 12:00am April 28, 2021 12:37pm Multivitamin With Minerals (Hair,Skin And Nails) tablet (5 sources) Start: 04-21-2020 take 1 tablet by mouth once daily Multivitamin With Minerals (Hair,Skin And Nails) tablet Active 1 TABLET PO DAILY April 21, 2020 1:08pm Start: 04-21-2020 Multivitamin W ith Minerals (Hair,Skin And Nails) tablet Active 1 {tbl} PO DAILY April 21, 2020 12:00am Start: 04-21-2020 take 1 tablet by susanne th once daily Multivitamin With Minerals (Hair,Skin And Nails) tablet Active 1 TABLET PO DAILY April 21, 2020 12:00am Start: 04-21-2020 take 1 tablet by susanne th once daily Multivitamin With Minerals (Hair,Skin And Nails) tablet Active 1 TABLET PO DAILY April 20, 2020 11:00pm nitrofurantoin macrocrystals-monohydrate 100 mg oral capsule (1 source) Start: 09-24-2021 End: 09-29-2021 nitrofurantoin macrocrystals-monohydrate 100 mg oral capsule Dose : 100 mg = 1 cap(s), Oral, BID, Take with food, X 5 day(s), # 10 cap(s), 0 Refill(s), 09/29/21 10:04:00 EDT, Pharmacy: [facility]/pharmacy #[id number], 161, cm, 09/24/21 9:45:00 EDT, Height, 60.5, kg, 09/24/21 9:45:00 EDT, Dosing Weight Start Date: 09/24/21 Stop Date: 09/29/21 Status: Ordered nitrofurantoin, macrocrystals 25 mg / nitrofurantoin, monohydrate 75 mg oral capsule (5 sources) Nitrofuran Antibacterial Start: 2025 End: 01-27-2025 Macrobid 100 mg oral capsule Dose : 100 mg = 1 cap(s), Oral, BID, Take with food, X 5 day(s), # 10 cap(s), 0 Refill(s), 01/27/25 10:05:00 AM EDT, Pharmacy: [facility]/pharmacy #[id number], 161, cm, 01/22/25 9:37:00 EDT, Height, 61.6, kg, 01/22/25 9:37:00 EDT, Dosing Weight Start Date: 01/22/25 Stop Date: 01/27/25 Status: Ordered Quantity: 10.0 Unit: cap(s) Repeat number: 1 Start: 07-16-2024 End: 07-23-2024 nitrofurantoin macrocrystals -monohydrate 100 mg oral capsule Dose : 100 mg = 1 cap(s), Oral, BID, Take with food, X 7 day(s), # 14 cap(s), 0 Refill(s), 07/23/24 12:57:00 PM EST, Pharmacy: [facility]/pharmacy #[id number], UTI symptoms, 159, cm, 07/16/24 12:39:00 EST, Height, 61.7, kg, 07/16/24 12:39:00 EST, Dosing Weight Start Date: 07/16/24 Stop Date: 07/23/24 Status: Ordered Quantity: 14.0 Unit: cap(s) Repeat number: 1 Indication: Unspecified symptoms and signs involving the genitourinary system Start: 03-28-2024 End: 04-02-2024 nitrofurantoin macrocrystals -monohydrate 100 mg oral capsule Dose : 100 mg = 1 cap(s), Oral, BID, Take with food, X 5 day(s), # 10 cap(s), 0 Refill(s), 04/02/24 11:44:00 AM EDT, Pharmacy: [facility]/pharmacy #[id number], 159.8, cm, 03/28/24 11:18:00 EDT, Height, 60.8, kg, 03/28/24 11:18:00 EDT, Dosing Weight Start Date: 03/28/24 Stop Date: 04/02/24 Status: Ordered Start: 04-04-2023 End: 04-11-2023 nitrofurantoin macrocrystals -monohydrate 100 mg oral capsule Dose : 100 mg = 1 cap(s), Oral, BID, Take with food (Please expedite filling the prescription, patient is on her way in to the pharmacy.), X 7 day(s), # 14 cap(s), 0 Refill(s), 04/11/23 11:55:00 AM EDT, Pharmacy: [facility]/pharmacy #[id number], UTI (urinary tract infection), bacterial, 155, cm, 04/04/23 11:24:00 EDT, Height, 61.3, kg, 04/04/23 11:24:00 EDT, Dosing Weight Start Date: 04/04/23 Stop Date: 04/11/23 Status: Ordered Start: 02-11-2023 End: 02-21-2023 nitrofurantoin macrocrystals -monohydrate 100 mg oral capsule Dose : 100 mg = 1 cap(s), Oral, BID, Take with food, X 10 day(s), # 20 cap(s), 0 Refill(s), 02/21/23 10:10:00 AM EDT, Pharmacy: [facility]/pharmacy #[id number], Urinary tract infection, 161, cm, 02/11/23 9:43:00 EDT, Height, 61.5, kg, 02/11/23 9:43:00 EDT, Dosing Weight Start Date: 02/11/23 Stop Date: 02/21/23 Status: Ordered nitroglycerin 0.4 mg subling ual tablet (2 sources) Start: 02-08-2020 nitroglycerin 0.4 mg sublingual tablet 0.4 mg Dose = 1 tab(s), Sublingual, q5min, PRN as needed for chest pain, # 25 tab(s), 1 Refill(s), [id number], 161, cm, 02/08/20 9:00:00 EDT, Height, kg, 02/08/20 9:00:00 EDT, Dosing Weight Start Date: 02/08/20 Status: Ordered microencapsulated potassium chloride 20 meq extended release oral tablet (20 sources) Start: 08-11-2021 Klor-Con M20 o ral tablet, extended release Dose : 20 mEq = 1 tab(s), Oral, qDay, Take with food, # 90 tab(s), 3 Refill(s), [id number], 161, cm, 08/11/21 9:00:00 EST, Height, kg, 08/11/21 9:00:00 EST, Dosing Weight Start Date: 08/11/21 Status: Ordered Start: 07-04-2018 End: 11-23-2023 Klor-Con M20 oral tablet, ex tended release Dose : 20 mEq = 1 tab(s), Oral, qDay, Take with food, # 90 tab(s), 3 Refill(s), Pharmacy: [facility]/pharmacy #[id number], 161, cm, 08/11/21 9:00:00 EST, Height, kg, 08/11/21 9:00:00 EST, Dosing Weight Start Date: 08/11/21 Status: Ordered Quantity: 90.0 Unit: tab(s) Repeat number: 4 Vitamin B Complex (B Complex-Vitamin B12) tablet (5 sources) Start: 04-21-2020 take 1 tablet by mouth once daily Vitamin B Complex (B Complex-Vitamin B12) tablet Active 1 TABLET PO DAILY April 21, 2020 1:05pm Start: 04-21-2020 End: 04-20-2022 Vitamin B Complex (B Complex -Vitamin B12) tablet Discontinued 1 {tbl} PO DAILY April 21, 2020 12:00am April 20, 2022 11:39am Start: 04-21-2020 End: 04-20-2022 take 1 tablet by mouth once daily Vitamin B Complex (B Complex-Vitamin B12) tablet Discontinued 1 TABLET PO DAILY April 21, 2020 12:00am April 20, 2022 11:39am Start: 04-21-2020 End: 04-20-2022 take 1 tablet by mouth once daily Vitamin B Complex (B Complex-Vitamin B12) tablet Discontinued 1 TABLET PO DAILY April 20, 2020 11:00pm April 20, 2022 10:39am vitamin B12 (9 sources) Vitamin B12 Start: 07-08-2020 Vitamin B12 0 Refill(s) Start Date: 07/08/20 Status: Ordered vitamin e 180 mg oral capsule (9 sources) Start: 11-22-2017 take 1 capsule by mouth once daily Vitamin E 400 UNIT capsule Active 400 U PO DAILY November 22, 2017 12:00am supplement Start: 09-03-2013 vitamin E 400 intl units oral capsule Dose : 400 International_Unit = 1 cap(s), Oral, Daily Start Date: 09/03/13 Status: Ordered Repeat number: 1 vitamin E 400 intl units oral capsule (12 sources) Start: 09-03-2013 vitamin E 400 intl units oral capsule Dose : 400 International_Unit = 1 cap(s), Oral, Daily Start Date: 09/03/13 Status: Ordered Completed/Discontinued Medications Medication Drug Class(es) Dates Sig (Normalized) Sig (Original) amLODIPine 5 mg oral tablet (17 sources) Dihydropyridine Calcium Channel Sarthak Start: 08-16-2022 End: 09-07-2022 take 1 tablet by mouth once daily Amlodipine 5 mg tablet Discontinued 5 mg PO DAILY 09 06September 07, 2022 2:22pm September 07, 2022 5:41pm Start: 07-04-2018 End: 07-19-2018 take 1 tablet by mouth once daily Amlodipine 5 MG tablet Discontinued 5 mg PO DAILY 30 0 July 04, 2018 1:00am July 19, 2018 9:14am Start: 11-22-2017 End: 07-04-2018 take 1 tablet by mouth once daily Amlodipine (Norvasc) 2.5 MG tablet Discontinued 2.5 mg PO DAILY November 22, 2017 12:00am July 04, 2018 8:40am blood pressure azithromycin 250 mg oral tablet (5 sources) Macrolide Antimicrobial Start: 07-28-2018 End: 08-07-2018 take 2-5 tablets by mouth once daily Azithromycin 250 mg tablet Discontinued 0 PO .COMPLEX 6 0 July 28, 2018 1:00am August 07, 2018 4:00pm take 500 mg today (day 1), then 250 mg for 4 days (days 2-5) PO carbidopa 10 mg / levodopa 100 mg oral tablet (3 sources) Aromatic Amino Acid Decarboxylation Inhibitor, Aromatic Amino Acid Start: 04-19-2023 End: 05-08-2024 Carbidopa-Levodop a 10-100 mg tablet Discontinued 1 {tbl} PO AT BEDTIME April 19, 2023 12:00am May 08, 2024 11:34am Start: 04-19-2023 take 1 tablet by susanne th at bedtime Carbidopa-Levodopa Active 1 TABLET PO AT BEDTIME April 18, 2023 11:00pm Start: 03-30-2023 take 1 tablet by susanne th once daily in the evening carbidopa-levodopa 10 mg-100 mg oral tablet Dose = 1 tab(s), Oral, qPM, # 30 tab(s), 1 Refill(s), Pharmacy: [facility]/pharmacy #[id number], Nocturnal leg cramps, 155, cm, 03/30/23 10:57:00 EDT, Height, kg, 03/30/23 10:57:00 EDT, Dosing Weight Start Date: 03/30/23 Status: Ordered cefadroxil 1000 mg oral tablet (5 sources) Cephalosporin Antibacterial Start: 07-04-2018 End: 07-18-2018 take 1 tablet by mouth once daily Cefadroxil 1 GM tablet Discontinued 1 g PO DAILY 7 0 July 04, 2018 1:00am July 18, 2018 10:16am clopidogrel 75 mg oral tablet (20 sources) [id number] Platelet Inhibitor Start: 07-03-2018 End: 04-21-2020 take 1 tablet by mouth once daily Clopidogrel (Plavix) 75 mg tablet Discontinued 75 mg PO DAILY 90 April 03, 2020 11:51am April 21, 2020 1:49pm fluconazole 150 mg oral tablet (5 sources) Azole Antifungal Start: 07-04-2018 End: 07-13-2018 take 1 tablet by mouth once Fluconazole 150 MG tablet Discontinued 150 mg PO ONE TIME 1 0 July 04, 2018 1:00am July 13, 2018 9:48am Handicap Placard (2 sources) Start: 04-21-2023 Handicap Placard Active 0 .Route .MEDSUPPLY 1 April 21, 2023 12:00am April 21, 2028 12:00am Atherosclerosis of [place] coronary artery without angina pectoris Difficulty walking involving foot History of non-ST elevation myocardial infarction (NSTEMI) Atherosclerotic heart disease of [place] coronary artery without angina pectoris Difficulty in walking, not elsewhere classified Old myocardial infarction CAD, 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 Lifetime Expires in 5 years (04/21/28) Start: 04-21-[address] Active 0 .Route .MEDSUPPLY April 20, 2023 11:00pm Lifetime Expires in 5 years (04/21/28) meloxicam 15 mg oral tablet (4 sources) Nonsteroidal Anti-inflammatory Drug Start: 08-16-2022 End: 09-07-2022 take 1 tablet by mouth once daily Meloxicam 15 mg tablet Discontinued 15 mg PO DAILY August 16, 2022 1:00am September 07, 2022 5:40pm metoprolol tartrate 50 mg oral tablet (20 sources) beta-Adrenergic Sarthak Start: 08-11-2023 End: 01-15-2025 Metoprolol Tartrate 50 mg oral tablet Dose : 50 mg = 1 tab(s), Oral, BID, # 200 tab(s), 3 Refill(s), Pharmacy: [facility]/pharmacy #[id number], 161, cm, 08/11/23 9:29:00 EST, Height, kg, 08/11/23 9:29:00 EST, Dosing Weight Start Date: 08/11/23 Stop Date: 11/28/24 Status: Ordered Quantity: 200.0 Unit: tab(s) Repeat number: 4 Start: 08-12-2022 Metoprolol Tar trate 50 mg oral tablet Dose : 75 mg = 1.5 tab(s), Oral, BID, # 270 tab(s), 3 Refill(s), Pharmacy: [facility]/pharmacy #[id number], 161, cm, 08/12/22 8:58:00 EST, Height, kg, 08/12/22 8:58:00 EST, Dosing Weight Start Date: 08/12/22 Status: Ordered Start: 01-25-2022 Metoprolol Tar trate 50 mg oral tablet Dose : 75 mg = 1.5 tab(s), Oral, BID, # 270 tab(s), 3 Refill(s), Pharmacy: [facility]/pharmacy #[id number], 160, cm, 11/27/21 9:11:00 EDT, Height, kg, 11/27/21 9:11:00 EDT, Dosing Weight Start Date: 01/25/22 Status: Ordered Start: 01-26-2021 Metoprolol Tar trate 50 mg oral tablet Dose : 75 mg = 1.5 tab(s), Oral, BID, # 270 tab(s), 3 Refill(s), Pharmacy: [facility]/pharmacy #[id number], 162, cm, 08/11/20 9:02:00 EST, Height, kg, 08/11/20 9:02:00 EST, Dosing Weight Start Date: 01/26/21 Status: Ordered Start: 06-17-2020 End: 09-06-2023 Metoprolol Tartrate 50 mg ta blet Discontinued 75 mg PO TWICE A DAY 180 April 19, 2023 12:37pm September 06, 2023 2:49pm blood pressure/heart rate Start: 06-17-2020 End: 04-19-2023 take 75 mg by mouth twice daily Metoprolol Tartrate Ac tive 75 MG PO TWICE A DAY 180 April 19, 2023 11:37am Start: 11-22-2017 End: 06-17-2020 take 1 tablet by mouth twice daily Metoprolol Tartrate 50 mg tablet Discontinued 50 mg PO TWICE A DAY 180 July 25, 2018 1:06pm June 17, 2020 9:12am blood pressure/heart rate Multivitamin With Minerals (4 sources) Start: 07-01-2018 End: 09-17-2019 Multivitamin With Minerals Discontinued 1 EACH PO DAILY July 01, 2018 3:43pm September 17, 2019 1:51pm Start: 07-01-2018 End: 09-17-2019 Multivitamin With Minerals D iscontinued 1 EACH PO DAILY July 01, 2018 1:00am September 17, 2019 1:51pm Start: 07-01-2018 End: 09-17-2019 Multivitamin With Minerals D iscontinued 1 EACH PO DAILY July 01, 2018 12:00am September 17, 2019 12:51pm Multivitamin With Minerals 1 EACH tablet (1 source) Start: 07-01-2018 End: 09-17-2019 take 1 tablet by mouth once daily Multivitamin With Minerals 1 EACH tablet Discontinued 1 NMA PO DAILY July 01, 2018 1:00am September 17, 2019 1:51pm supplement nitroglycerin 0.4 mg sublingual tablet (15 sources) Nitrate Vasodilator Start: 07-04-2018 End: 04-20-2022 Nitroglycerin 0.4 MG tablet Discontinued 0.4 mg SL Q5M as needed for Chest Pain 1 0 July 04, 2018 1:00am April 20, 2022 11:[address] one tab under tongue every 5 minutes x 3 doses as needed Start: 07-04-2018 End: 04-20-2022 Nitroglycerin Discontinued 0 .4 MG SL Q5M July 04, 2018 12:00am April 20, 2022 10:[address] one tab under tongue every 5 minutes x 3 doses as needed omeprazole 20 mg delayed release oral tablet (5 sources) Proton Pump Inhibitor Start: 03-08-2019 End: 04-21-2020 take 1 tablet by mouth once daily Omeprazole 20 mg tablet,delayed release (DR/EC) Discontinued 20 mg PO DAILY March 08, 2019 12:00am April 21, 2020 1:04pm terbinafine 250 mg oral tablet (1 source) Allylamine Antifungal Start: 09-12-2023 End: 05-08-2024 take 1 tablet by mouth once daily Terbinafine Hcl 250 mg tablet Discontinued 250 mg PO DAILY September 12, 2023 1:00am May 08, 2024 11:34am Problems Active Problems Problem Classification Problem Date Documented Date Episodic/Chronic Acquired foot deformities (16 sources) Bunion 08-11-2020 Episodic Acute myocardial infarction (5 sources) Myocardial infarction; Translations: [Non-ST elevation (NSTEMI) myocardial infarction] 07-13-2018 Chronic Anxiety disorders (12 sources) Mixed anxiety and depressive disorder 06-19-2021 Chronic Cardiac dysrhythmias (10 sources) Ventricular premature beats; Translations: [Ventricular premature depolarization] 07-13-2018 Chronic Cardiac dysrhythmias (2 sources) Palpitations; Translations: [Palpitations] Onset: 01-24-2025 01-10-2025 Episodic Chronic ulcer of skin (2 sources) Ulcer of skin of lower extremity 08-02-2024 Chronic Coma; stupor; and brain damage (5 sources) Daytime somnolence; Translations: [Somnolence] 07-13-2018 Episodic Conditions associated with dizziness or vertigo (5 sources) Dizziness; Translations: [Dizziness and giddiness] 07-19-2018 Episodic Coronary atherosclerosis and other heart disease (20 sources) Coronary arteriosclerosis; Translations: [History of myocardial infarction] Onset: 07-03-2018 01-19-2019 Chronic Comment on above: SHEMAR to mid LCX (2.25 X 12 Promus Synergy) per Dr. Lopez @ [facility] 07/03/2019. SHEMAR to Distal RCA (3.0 X 12 Promus Synergy) and SHEMAR to Proximal RCA (3.0 X 12 Promus Synergy) 07/26/18. Coronary atherosclerosis and other heart disease (7 sources) Stented coronary artery; Translations: [Presence of coronary angioplasty implant and graft] Onset: 07-26-2018 07-26-2018 Episodic Comment on above: SHEMAR to mid LCX (2.25 X 12 Promus Synergy) per Dr. Lopez @ [facility] 07/03/2019. SHEMAR to Distal RCA (3.0 X 12 Promus Synergy) and SHEMAR to Proximal RCA (3.0 X 12 Promus Synergy) 07/26/18. Disorders of lipid metabolism (16 sources) Hyperlipidemia 02-08-2020 Chronic Essential hypertension (20 sources) Essential hypertension; Translations: [Hypertensive disorder] 01-19-2019 Chronic Heart valve disorders (5 sources) Mitral valve regurgitation; Translations: [Nonrheumatic mitral (valve) insufficiency] 04-21-2020 Chronic Mycoses (6 sources) Onychomycosis of toenails 08-12-2022 Episodic Nonspecific chest pain (5 sources) Chest pain; Translations: [Chest pain, unspecified] 07-19-2018 Episodic Occlusion or stenosis of precerebral arteries (17 sources) Bilateral stenosis of carotid arteries; Translations: [Occlusion and stenosis of bilateral carotid arteries] Onset: 11-12-2024 Chronic Other connective tissue disease (5 sources) Bursitis of right hip; Translations: [Other bursitis of hip, right hip] 07-13-2018 Episodic Other connective tissue disease (20 sources) Triggering of digit; Translations: [Trigger finger, unspecified finger] 02-09-2022 Episodic Comment on above: Right long and ring fingers, both A1 pulleys injected with corticosteroids winter Other connective tissue disease (5 sources) Cramp in lower limb 03-30-2023 Episodic Other diseases of veins and lymphatics (2 sources) Vascular insufficiency; Translations: [Venous insufficiency (chronic) (peripheral)] 10-10-2024 Episodic Other lower respiratory disease (5 sources) Snoring; Translations: [Snoring] 07-13-2018 Episodic Other lower respiratory disease (1 source) Dyspnea; Translations: [Shortness of breath] 01-10-2025 Episodic Other lower respiratory disease (1 source) Shortness of breath; Translations: [Shortness of breath] Onset: 02-14-2025 Episodic Other nervous system disorders (16 sources) Paresthesia of foot 02-08-2020 Episodic Other nervous system disorders (5 sources) Numbness of face; Translations: [Anesthesia of skin] 07-19-2018 Episodic Other skin disorders (9 sources) Alopecia 11-16-2021 Episodic Peripheral and visceral atherosclerosis (16 sources) Peripheral vascular disease 02-08-2020 Chronic Residual codes; unclassified (16 sources) Disturbance in sleep behavior 01-19-2019 Episodic Screening and history of mental health and substance abuse codes (6 sources) Ex-tobacco user 02-11-2023 Episodic Thyroid disorders (20 sources) Hypothyroidism; Translations: [Hypothyroidism, unspecified] 02-08-2020 Chronic Unclassified (5 sources) Age AND/OR growth finding; Translations: [65 years of age or older] 04-16-2021 Unclassified (6 sources) Body mass index 20-24 - normal 02-11-2023 Unclassified (6 sources) Patient encounter status 02-11-2023 Viral infection (10 sources) COVID-19; Translations: [Severe acute respiratory syndrome coronavirus 2 (SARS-CoV-2) detected] Onset: 04-15-2021 04-16-2021 Episodic Past or Other Problems Problem Classification Problem Date Documented Date Episodic/Chronic Genitourinary symptoms and ill-defined conditions (12 sources) Proteinuria; Translations: [Unspecified symptoms and signs involving the genitourinary system] Onset: 09-16-2023 02-11-2023 Episodic Other connective tissue disease (1 source) Trigger finger, unspecified finger; Translations: [Trigger finger, unspecified finger] Onset: 09-17-2024 Episodic Other screening for suspected conditions (not mental disorders or infectious disease) (6 sources) Cardiovascular stress test abnormal; Translations: [Abnormal result of other cardiovascular function study] Onset: 07-16-2024 12-01-2022 Episodic Other upper respiratory infections (2 sources) Acute upper respiratory infection, unspecified; Translations: [Acute upper respiratory infection, unspecified] Onset: 05-21-2023 Episodic Residual codes; unclassified (5 sources) History of cardiac catheterization; Translations: [Other specified postprocedural states] Onset: 06-22-2005 07-14-2018 Episodic Comment on above: @ [place], [place]: mild luminary irregularities, normal EF per Dr. Kit Sewell. Residual codes; unclassified (2 sources) Body mass index (BMI) 24.0-24.9, adult; Translations: [Body mass index [BMI] 24.0-24.9, adult] Onset: 07-16-2024 Episodic Residual codes; unclassified (2 sources) Other specified health status; Translations: [Other specified health status] Onset: 07-16-2024 Episodic Urinary tract infections (10 sources) Urinary tract infectious disease; Translations: [Bacterial urinary infection] Onset: 04-04-2023 02-11-2023 Episodic Results Test Name Value Interpretation Reference Range Facility No Panel Informationon 01-22 Culture Urine <10,000 cfu/ml. No Significant growth. Sensitivity not indicated. [facility] Work Phone: Absolute lymphocyte countOrd ered By: Frida Giang on 01-10-2025 Lymphocytes Auto (Unsp spec) [#/Vol] 2.73 10*3/uL 0.83-4.51 [facility] Absolute neutrophil countOrd ered By: Frida Giang on 01-10-2025 Neutrophils (Bld) [#/Vol] 3.8 10*3/uL 2.0-7.7 [facility] Anion gap in Serum or Plasma Ordered By: Frida Giang on 01-10-2025 Anion gap [Moles/Vol] 8 mmol/L 5- [facility] Automated lymphocyte count a s percentage of total leukocytesOrdered By: Frida Giang on 01-10-2025 Lymphocytes/100 WBC Auto (Unsp spec) 28.8 % [facility] BUN/creatinine ratioOrdered By: Frida Giang on 01-10-2025 Urea nitrogen/Creatinine [Mass ratio] 16.9 mg/mg - [facility] Basic Metabolic Profile (BMP )on 01-10-2025 BUN/CRE 16.9 RATIO Normal - [facility] Comment on above: Performed By: #### L [id number], [id number], L500.2500, L100.0100 #### [facility] [address] [place], [address] Calcium [Mass/Vol] 9.7 mg/dL Normal 7.6-11.0 [facility] Comment on above: Performed By: #### L [id number], [id number], L500.2500, L100.0100 #### [facility] [address] [place], [address] Chloride [Moles/Vol] 106 mmol/L Normal 98-108 [facility] Comment on above: Performed By: #### L [id number], [id number], [id number], L100.0100 #### [facility] [address] [place], [address] CO2 [Moles/Vol] 28.7 mmol/L Normal 21.0-32.0 [facility] Comment on above: Performed By: #### L [id number], [id number], [id number], L100.0100 #### [facility] [address] [place], [address] Creatinine [Mass/Vol] 0.86 mg/dL Normal 0.70-1.20 [facility] Comment on above: Performed By: #### L [id number], [id number], L500.2500, L100.0100 #### [facility] [address] [place], [address] GAP 8 Normal 5-15 [facility] Comment on above: Performed By: #### L [id number], [id number], [id number], L100.0100 #### [facility] [address] [place], [address] GFR/1.73 sq M.predicted among non-blacks MDRD (S/P/Bld) [Vol rate/Area] 68 mL/min/{1.73_m2} Normal >60 [facility] Comment on above: Result Comment: mL/m in/1.73m2 CKD-EPI Creatinine Equation (2020) Performed By: #### L [id number], [id number], L500.2500, L100.0100 #### [facility] [address] [place], [address] Glucose [Mass/Vol] 81 mg/dL Normal 70-99 [facility] Comment on above: Performed By: #### L [id number], [id number], L500.2500, L100.0100 #### [facility] [address] [place], [address] Potassium [Moles/Vol] 4.2 mmol/L Normal 3.3-5.1 [facility] Comment on above: Performed By: #### L [id number], [id number], L500.2500, L100.0100 #### [facility] [address] [place], [address] Sodium [Moles/Vol] 143 mmol/L Normal 133-145 [facility] Comment on above: Performed By: #### L [id number], [id number], L500.2500, L100.0100 #### [facility] [address] [place], [address] Urea nitrogen [Mass/Vol] 15 mg/dL Normal 4-19 [facility] Comment on above: Performed By: #### L [id number], [id number], L500.2500, L100.0100 #### [facility] [address] [place], [address] Basophil percentageOrdered B y: Frida Giang on 01-10-2024 Basophils/100 WBC (Bld) 0.6 % 0-1 [facility] CBC W/Diff, Automatedon 07-0 -2024 Absolute Lymph 2.73 X10 3/uL Normal 0.83-4.51 [facility] Comment on above: Performed By: #### L [id number], [id number], L500.2500, L100.0100 #### [facility] [address] [place], [address] Absolute Neut 3.8 X10 3/uL Normal 2.0-7.7 [facility] Comment on above: Performed By: #### L [id number], [id number], L500.2500, L100.0100 #### [facility] [address] [place], [address] Basophils/100 WBC (Bld) 0.6 % Normal 0-1 [facility] Comment on above: Performed By: #### L [id number], [id number], L500.2500, L100.0100 #### [facility] [address] [place], [address] Eosinophils/100 WBC (Bld) 16.1 % High 0-5 [facility] Comment on above: Performed By: #### L [id number], [id number], L500.2500, L100.0100 #### [facility] [address] [place], [address] Erythrocyte distribution width (RBC) [Ratio] 13.2 % Normal 11.6-14.6 [facility] Comment on above: Performed By: #### L [id number], [id number], L500.2500, L100.0100 #### [facility] [address] [place], [address] Hematocrit (Bld) [Volume fraction] 38.7 % Normal 37-47 [facility] Comment on above: Performed By: #### L [id number], [id number], L500.2500, L100.0100 #### [facility] [address] [place], [address] Hemoglobin (Bld) [Mass/Vol] 12.9 g/dL Normal 12.0-15.0 [facility] Comment on above: Performed By: #### L [id number], [id number], L500.2500, L100.0100 #### [facility] [address] [place], [address] IG% 0.200 Normal 0.0-0.9 [facility] Comment on above: Result Comment: IG% - Immature Granulocytes (promyelocytes, myelocytes and metamyelocytes) > 1% indicates that a LEFT SHIFT is Present. Performed By: #### L [id number], [id number], L500.2500, L100.0100 #### [facility] [address] [place], [address] Lymphocytes/100 WBC (Bld) 28.8 % Normal 19-41 [facility] Comment on above: Performed By: #### L [id number], [id number], L500.2500, L100.0100 #### [facility] [address] [place], [address] MCH (RBC) [Entitic mass] 31.2 pg Normal 27.0-32.0 [facility] Comment on above: Performed By: #### L [id number], [id number], L500.2500, L100.0100 #### [facility] [address] [place], [address] MCHC (RBC) [Mass/Vol] 33.3 g/dL Normal 32-36 [facility] Comment on above: Performed By: #### L [id number], [id number], L500.2500, L100.0100 #### [facility] [address] [place], [address] MCV (RBC) [Entitic vol] 93.7 fL Normal 81-99 [facility] Comment on above: Performed By: #### L [id number], [id number], L500.2500, L100.0100 #### [facility] [address] [place], [address] Monocytes/100 WBC (Bld) 13.9 % High 0-10 [facility] Comment on above: Performed By: #### L [id number], [id number], L500.2500, L100.0100 #### [facility] [address] [place], [address] Neutrophils/100 WBC (Bld) 40.4 % Low 47-70 [facility] Comment on above: Performed By: #### L [id number], [id number], L500.2500, L100.0100 #### [facility] [address] [place], [address] Nucleated RBC (Bld) [#/Vol] 0 10*3/uL Normal 0-5 [facility] Comment on above: Performed By: #### L [id number], [id number], L500.2500, L100.0100 #### [facility] [address] [place], [address] Platelet mean volume (Bld) [Entitic vol] 11.1 fL Normal 6.2-12.0 [facility] Comment on above: Performed By: #### L [id number], [id number], L500.2500, L100.0100 #### [facility] [address] [place], [address] Platelets (Bld) [#/Vol] 250 10*3/uL Normal 150-450 [facility] Comment on above: Performed By: #### L [id number], [id number], L500.2500, L100.0100 #### [facility] [address] [place], [address] RBC (Bld) [#/Vol] 4.13 10*6/uL Low 4.2-5.4 [facility] Comment on above: Performed By: #### L [id number], [id number], L500.2500, L100.0100 #### [facility] [address] [place], [address] RDW SD 45.3 fl High 35.1-43.9 [facility] Comment on above: Performed By: #### L [id number], [id number], L500.2500, L100.0100 #### [facility] [address] [place], [address] WBC (Bld) [#/Vol] 9.5 10*3/uL Normal 4.4-11.0 [facility] Comment on above: Performed By: #### L [id number], [id number], L500.2500, L100.0100 #### [facility] [place], [id number] Carbon dioxide, total [Moles /volume] in Central venous bloodOrdered By: Frida Giang on 01-10-2025 CO2 [Moles/Vol] 28.7 mmol/L 21.0-32.0 [facility] Chloride assayOrdered By: Charlene Giang on 01-10-2025 Chloride [Moles/Vol] 106 mmol/L 98-108 [facility] Eosinophil percentageOrdered By: Frida Giang on 01-10-2025 Eosinophils/100 WBC (Bld) 16.1 % High 0-5 [facility] Erythrocyte distribution wid th ratioOrdered By: Frida Giang on 01-10-2025 Erythrocyte distribution width (RBC) [Ratio] 13.2 % 11.6-14.6 [facility] Erythrocyte distribution wid th standard deviationOrdered By: Frida Giang on 01-10-2025 Erythrocyte distribution width (RBC) [Ratio] 45.3 fl High 35.1-43.9 [facility] Glomerular filtration rate ( GFR) estimation/1.73 sq m using serum, plasma, or whole bOrdered By: Frida Giang on 01-10-2025 GFR/1.73 sq M.predicted among non-blacks MDRD (S/P/Bld) [Vol rate/Area] 68 mL/min/{1.73_m2} >60 [facility] Comment on above: mL/min/1.73m2 CKD-EP I Creatinine Equation (2020) Hematocrit Auto (Bld) [Volum e fraction]Ordered By: Frida Giang on 01-10-2025 Hematocrit (Bld) [Volume fraction] 38.7 % 37-47 [facility] Hemoglobin measurementOrdere d By: Frida Giang on 01-10-2025 Hemoglobin (Bld) [Mass/Vol] 12.9 g/dL 12.0-15.0 [facility] Immature granulocytes/100 WB C Auto (Bld)Ordered By: Frida Giang on 01-10-2025 Immature granulocytes/100 WBC (Bld) 0.200 % 0.0-0.9 [facility] Comment on above: IG% - Immature Granu locytes (promyelocytes, myelocytes and metamyelocytes) > 1% indicates that a LEFT SHIFT is Present. MCV (mean corpuscular volume ) determinationOrdered By: Frida Giang on 01-10-2025 MCV (RBC) [Entitic vol] 93.7 fL 81-99 [facility] Magnesiumon 01-10-2025 Magnesium [Mass/Vol] 2.3 mg/dL High 1.5-2.2 [facility] Comment on above: Performed By: #### L 501.9520, L501.5200, L500.2500, L100.0100 #### [facility] [address] [place], [address] Magnesium measurement (mass/ volume)Ordered By: Frida Giang on 01-10-2025 Magnesium (Unsp spec) [Mass/Vol] 2.3 mg/dL High 1.5-2.2 [facility] Mean corpuscular hemoglobin (MCH) determinationOrdered By: Frida Giang on 01-10-2025 MCH (RBC) [Entitic mass] 31.2 pg 27.0-32.0 [facility] Mean corpuscular hemoglobin concentration (MCHC) determinationOrdered By: Frida Giang on 01-10-2025 MCHC (RBC) [Mass/Vol] 33.3 g/dL 32-36 [facility] Mean platelet volume determi nationOrdered By: Frida Giang on 01-10-2025 Platelet mean volume (Bld) [Entitic vol] 11.1 fL 6.2-12.0 [facility] Monocyte percentageOrdered B y: Frida Giang on 01-10-2025 Monocytes/100 WBC (Bld) 13.9 % High 0-10 [facility] Neutrophil percentageOrdered By: Frida Giang on 01-10-2025 Neutrophils/100 WBC (Bld) 40.4 % Low 47-70 [facility] Nucleated red blood cell per centageOrdered By: Frida Giang on 07-03-2025 Nucleated RBC/100 WBC (Bld) [Ratio] 0 % 0-5 [facility] Platelet countOrdered By: Charlene Giang on 01-10-2025 Platelets (Bld) [#/Vol] 250 10*3/uL 150-450 [facility] Potassium measurement (mass/ volume)Ordered By: Frida Giang on 01-10-2025 Potassium (Unsp spec) [Mass/Vol] 4.2 mmol/L 3.3-5.1 [facility] RBC Auto (Bld) [#/Vol]Ordere d By: Frida Giang on 01-10-2025 RBC (Bld) [#/Vol] 4.13 10*6/uL Low 4.2-5.4 [facility] Serum creatinine measurement (mass/volume)Ordered By: Frida Giang on 01-10-2025 Creatinine [Mass/Vol] 0.86 mg/dL 0.70-1.20 [facility] Serum glucose measurement (m ass/volume)Ordered By: Frida Giang on 01-10-2025 Glucose [Mass/Vol] 81 mg/dL 70-99 [facility] Serum or plasma calcium drake urement (mass/volume)Ordered By: Frida Giang on 01-10-2025 Calcium [Mass/Vol] 9.7 mg/dL 7.6-11.0 [facility] Serum or plasma urea nitroge n measurement (mass/volume)Ordered By: Frida Giang on 01-10-2025 Urea nitrogen [Mass/Vol] 15 mg/dL 4-19 [facility] Sodium levelOrdered By: Carlos Eduardo Giang on 01-10-2025 Sodium [Moles/Vol] 143 mmol/L 133-145 [facility] TSH DL <= 0.005 mIU/L QnOrde red By: Frida Giang on 01-10-2025 TSH Qn 1.270 uIU/mL 0.300-4.200 [facility] Thyroid Stim Hormone (TSH)on 01-10-2025 TSH 1.270 uIU/mL Normal 0.300-4.200 [facility] Comment on above: Performed By: #### L 501.9520, L501.5200, L500.2500, L100.0100 #### [facility] [address] [place], [address] White blood cell (WBC) count Ordered By: Frida Giang on 01-10-2025 WBC (Bld) [#/Vol] 9.5 10*3/uL 4.4-11.0 [facility] Carotid Duplex Ultrasoundon 11-05-2024 Carotid Duplex Ultrasound [facility] [address] [place] [address] Carotid Duplex Ultrasound 11/05/24 0857 MR#: [id number] Acct: [id number] Name: LAURA SOLO (KATIE) Rep #: [id number] : 1945 79 From: Dave Starkey MD Attending Dr: EMANI Olsen Status: REG CLI Ordering Dr: Izzy Dietrich Date: 11/05/24 Location: [facility] Sex: F C Admitted: Reason For Study Reason For Study: Right ICA stenosis Rt. Velocities/BP Lt. Velocities/BP Prox CCA 58.9/9.7 cm/sec. Prox CCA 77.7/12.6 cm/sec. Mid CCA 50.9/12.5 cm/sec. Mid CCA 65.4/11.4 cm/sec. Dist CCA 63.1/14.2 cm/sec. Dist CCA 53.1/12.4 cm/sec. Prox ICA 192.6/42.2 cm/sec. Prox ICA 80.6/16.8 cm/sec. Mid ICA 152.1/22.5 cm/sec. Mid ICA 90.5/23.4 cm/sec. Dist ICA 106/26.2 cm/sec. Dist ICA 93.8/21.2 cm/sec. Rt. ICA/CCA = 3.78. Lt. ICA/CCA = 1.43. Prox ECA 53.5/4.6 cm/sec. Prox ECA 67.4/5.8 cm/sec. Rt. Vert. 56.4/13.5 cm/sec. Lt. Vert. 43/8.1 cm/sec. Right Extracranial There is heterogeneous, irregular atherosclerotic plaque noted in the right common carotid artery. There is heterogeneous, irregular atherosclerotic plaque noted in the right internal carotid artery. There is heterogeneous, irregular atherosclerotic plaque noted in the right external carotid artery. Antegrade flow is noted in the right vertebral artery. Left Extracranial There is heterogeneous, irregular atherosclerotic plaque noted in the left common carotid artery. There is heterogeneous, irregular atherosclerotic plaque noted in the left internal carotid artery. There is heterogeneous, irregular atherosclerotic plaque noted in the left external carotid artery. Antegrade flow is noted in the left vertebral artery. Procedure Carotid Duplex [id number]. This is a Carotid Duplex examination using B-mode, color flow and specral Doppler. Exam performed in department. VL/Carotid Duplex Ultrasound Interpretation Summary Moderate (50-69%) stenosis right extracranial internal carotid. Mild (<50%) stenosis left extracranial internal carotid. Patent and antegrade vertebrals bilaterally. Ordering Physician: Izzy Dietrich Referring Physician: Wilman Aden Performed By: Mikala Alvarado RVT 11/05/24 1118 Date Dave Starkey MD CC: EMANI Olsen; Dr. Wilman Aden DO Date Dictated: 11/05/24 0857 Date Transcribed: 11/05/24 1118 [employer]: Signed Normal [facility] Plastic Surgery Visit Report on 10-18-2024 Plastic Surgery Visit Report [facility] Plastic Reconstructive Surgery [address] [place] [address], [address] [place] [address] OFFICE VISIT Date of Service: 10/18/24 MR#: [id number] Acct: [id number] Name: LAURA SOLO (KATIE) Rep #: [id number] : 1945 Provider: Dr. Wilman Junior MD Age/Sex: 79/F Location[place] [facility] [place] Status: Signed Intake Vital Signs 08/17/24 14:55 10/18/24 09:17 Height 5 ft 3 in BP 184/72 H 179/70 H Blood Pressure Location Rt brachial Rt brachial Position Sitting Sitting Respiration 18 18 Pulse 52 L 52 L Pulse Source Monitor Monitor Temp 97.7 F L Temp Source Oral Pulse Oximetry (%) 95 94 Oxygen Delivery Method room air room air Intake Visit Reasons: 2 M F/U Chief Complaint: f/u injection Is patient in pain?: No Allergies azithromycin (From Zithromax Z-Demar) Allergy (Intermediate, Verified 10/18/24 09:16) Itching Penicillins Allergy (Verified 10/18/24 09:16) Rash meloxicam Adverse Reaction (Severe, Verified 10/18/24 09:16) Elevated BP acetaminophen (From Vicodin) Adverse Reaction (Verified 10/18/24 09:16) Nausea codeine Adverse Reaction (Verified 10/18/24 09:16) Nausea erythromycin base Adverse Reaction (Verified 10/18/24 09:16) Nausea hydrocodone (From Vicodin) Adverse Reaction (Verified 10/18/24 09:16) Nausea Sulfa (Sulfonamide Antibiotics) Adverse Reaction (Verified 10/18/24 09:16) Nausea Tetracyclines Adverse Reaction (Verified 10/18/24 09:16) Nausea Medications ???Medication ???Instructions ???Recorded ???Confirmed ???Type aspirin 81 mg chewable tablet 81 mg PO DAILY@0800 heart health 0 11/22/17 10/18/24 History vitamin E 268 mg (400 unit) capsule 400 unit PO DAILY supplement 10/18/24 History multivitamin with minerals 1 tab PO DAILY 04/21/20 10/18/24 H istory (Hair,Skin and Nails tablet) calcium 500 mg (as 1 tab PO DAILY supplement 04/28/21 10/18/24 History carbonate)-vitamin D3 15 mcg (600 unit) tablet magnesium oxide 400 mg PO DAILY 04/28/21 10/18/24 History hydrochlorothiazide 25 mg tablet 25 mg PO DAILY water pill/blood 10 /10/23 04/10/25 Rx pressure #90 tabs isosorbide mononitrate 30 mg 30 mg PO DAILY #90 tabs 04/19/23 0 10/18/24 Rx tablet,extended release 24 hr levothyroxine 88 mcg tablet 75 mcg PO 6XW 04/19/23 10/18/24 Hi story Handicap Placard #1 ea 04/21/23 10/18/24 Rx metoprolol tartrate 50 mg tablet 50 mg PO BID blood pressure/heart 09/06/23 10/18/24 Rx rate #180 tabs atorvastatin 40 mg tablet 40 mg PO QHS #90 tabs 11/02/2305/04 Rx potassium chloride 20 mEq See Rx Instructions .Route 4 10/18/24 Rx tablet,extended .COMPLEX #90 tabs release(part/cryst) (Klor-Con M) Have you fallen in the past year?: No [facility] Medical History Trigger finger Trigger finger of both hands Cataracts, bilateral Murmur Heart disease Hives Abnormal stress test Carotid stenosis COVID-19 virus detected (04/15/21) Premature ventricular contractions Carotid stenosis, right Bursitis of right hip Premature ventricular contractions Snoring Daytime somnolence History of non-ST elevation myocardial infarction (NSTEMI) (07/03/18) Atherosclerotic heart disease of [place] coronary artery without angina pectoris Hypothyroidism Hypertension Surgical History History of bilateral cataract extraction History of left heart catheterization (06/22/05) History of bladder suspension procedure H/O total hysterectomy (11/17/88) Status post left foot surgery (11/22/17) Stented coronary artery (07/26/18) Family History Father CAD (coronary artery disease) Hypertension Brother CAD (coronary artery disease) Stented coronary artery Brother Lung cancer CAD (coronary artery disease) Stented coronary artery Sister Diabetes Daughter Thyroid disorder Social History Smoking Status: Former smoker how long ago did patient quit smokin second hand exposure: No alcohol intake: current alcohol intake frequency: a few times a month Alcohol type: wine substance use type: does not use caffeine: Yes Type: coffee Number of servings: 2 HPI 2 M F/U Details: HPI, 05 August 2024 Laura Solo is a delightful 79 YO female here for evaluation of trigger finger in long fingers on both hands, as well as the adjacent ring fingers. She has had injections in the past that have helped, but has noticed it coming back. It has become painful and persistent. She would like to try another injection and do surgery as a last resort when injections no longer work. 17 August 2024: Doing well overall. 1 time (more content not included)... Normal [facility] MR/BMS.BVSon 10-10-2024 MR/BMS.BVS [facility] Vascular Surgery [address] [place] [address] OFFICE VISIT Date of Service: 10/10/24 MR#: [id number] Acct: [id number] Name: LAURA SOLO (KATIE) Rep #: [id number] : 1945 Provider: EMANI Olsen Age/Sex: 79/F Location: [facility] [place] Status: Signed Intake Vital Signs 05/08/24 07:53 08/17/24 14:55 10/10/24 08:43 Height 5 ft 3 in 5 ft 3 in Weight: 137 lb BP 178/69 H Blood Pressure Location Lt brachial Position Sitting Respiration 16 Pulse 53 L Pulse Source Monitor Temp 97.8 F Temp Source Temporal Pulse Oximetry (%) 97 Oxygen Delivery Method room air Intake Visit Reasons: Previous Pt of Dr. Flores Chief Complaint: establish care Is patient in pain?: No Allergies azithromycin (From Zithromax Z-Demar) Allergy (Intermediate, Verified 10/10/24 08:45) Itching Penicillins Allergy (Verified 10/10/24 08:45) Rash meloxicam Adverse Reaction (Severe, Verified 10/10/24 08:45) Elevated BP acetaminophen (From Vicodin) Adverse Reaction (Verified 10/10/24 08:45) Nausea codeine Adverse Reaction (Verified 10/10/24 08:45) Nausea erythromycin base Adverse Reaction (Verified 10/10/24 08:45) Nausea hydrocodone (From Vicodin) Adverse Reaction (Verified 10/10/24 08:45) Nausea Sulfa (Sulfonamide Antibiotics) Adverse Reaction (Verified 10/10/24 08:45) Nausea Tetracyclines Adverse Reaction (Verified 10/10/24 08:45) Nausea Is last menstrual period known: No Post menopausal: Yes Patient : No Have you fallen in the past year?: No [facility] Medical History Trigger finger Trigger finger of both hands Cataracts, bilateral Murmur Heart disease Hives Abnormal stress test Carotid stenosis COVID-19 virus detected (04/15/21) Premature ventricular contractions Carotid stenosis, right Bursitis of right hip Premature ventricular contractions Snoring Daytime somnolence History of non-ST elevation myocardial infarction (NSTEMI) (07/03/18) Atherosclerotic heart disease of [place] coronary artery without angina pectoris Hypothyroidism Hypertension Surgical History History of bilateral cataract extraction History of left heart catheterization (06/22/05) History of bladder suspension procedure H/O total hysterectomy (11/17/88) Status post left foot surgery (11/22/17) Stented coronary artery (07/26/18) Family History Father CAD (coronary artery disease) Hypertension Brother CAD (coronary artery disease) Stented coronary artery Brother Lung cancer CAD (coronary artery disease) Stented coronary artery Sister Diabetes Daughter Thyroid disorder Social History Smoking Status: Former smoker how long ago did patient quit smokin second hand exposure: No alcohol intake: current alcohol intake frequency: a few times a month Alcohol type: wine substance use type: does not use caffeine: Yes Type: coffee Number of servings: 2 HPI HPI HPI: LAURA SOLO, is a 79 F who presents to the office today for evaluation of carotid artery stenosis for which she has previously followed with Dr. Flores. She does not have any history of CVA/TIA. She notes the carotid disease was identified due to screening after she had a heart attack in 2018. She denies any episodes of focal neurologic symptoms such as unilateral weakness/sensory deficits, facial droop, dysarthria, monocular vision loss. She takes ASA 81mg and atorvastatin 40mg daily. Her most recent duplex was August 2023 and demonstrated stable R ICA 50-69% stenosis with max PSV 194/43 cm/s and L ICA stenosis <50%. She also have a history of venous insufficiency with varicose veins and more recently acute stasis dermatitis to her left medial calf. She has previously followed with Dr. Payne for her varicose veins, but never had any interventions. She notes any symptoms were well-controlled with compression and elevation, but she had gotten away from the compression due to foot surgeries over the last couple years and then recently developed this stasis dermatitis. The dermatitis has resolved with topical steroids and she is now back to consistently wearing her compression stockings. ROS General General: No weight change, appetite, fatigue, colon cancer, breast cancer or weakness HEENT HEENT: No difficulty swallowing, eye injury, eye surgery, swollen glands or hoarseness Endo Endocrine: Yes thyroid disease; No diabetes mellitus, thyroid cancer, Hair loss, heat intolerance or cold intolerance Skin Skin: No rash or changing moles Musc Musculoskeletal: Yes arthritis; No back problems, rheumatoid arthritis, gout or ann (more content not included)... Normal [facility] Plastic Surgery Visit Report on 08-17-2024 Plastic Surgery Visit Report [facility] [address] [place] [address] OFFICE VISIT Date of Service: 08/17/24 MR#: [id number] Acct: [id number] Name: LAURA SOLO Rep #: [id number] : 1945 Provider: Dr. Wilman Junior MD Age/Sex: 79/F Location: [facility] Status: Signed Intake Vital Signs 08/03/24 14:36 08/17/24 14:55 Height 5 ft 3 in 5 ft 3 in Weight: 135 lb BMI 23.9 BP 184/78 H 184/72 H Blood Pressure Location Rt brachial Rt brachial Position Sitting Sitting Respiration 18 18 Pulse 78 52 L Pulse Source Monitor Monitor Temp 97.7 F L 97.7 F L Temp Source Oral Oral Pulse Oximetry (%) 92 95 Oxygen Delivery Method room air room air Intake Visit Reasons: 2 W F/U Chief Complaint: trigger fingers bilateral Allergies azithromycin (From [employer] Z-Demar) Allergy (Intermediate, Verified 08/17/24 14:55) Itching Penicillins Allergy (Verified 08/17/24 14:55) Rash meloxicam Adverse Reaction (Severe, Verified 08/17/24 14:55) Elevated BP acetaminophen (From Vicodin) Adverse Reaction (Verified 08/17/24 14:55) Nausea codeine Adverse Reaction (Verified 08/17/24 14:55) Nausea erythromycin base Adverse Reaction (Verified 08/17/24 14:55) Nausea hydrocodone (From Vicodin) Adverse Reaction (Verified 08/17/24 14:55) Nausea Sulfa (Sulfonamide Antibiotics) Adverse Reaction (Verified 08/17/24 14:55) Nausea Tetracyclines Adverse Reaction (Verified 08/17/24 14:55) Nausea Medications ???Medication ???Instructions ???Recorded ???Confirmed ???Type aspirin 81 mg chewable tablet 81 mg PO DAILY@0800 heart health 0 11/22/17 08/17/24 History vitamin E 268 mg (400 unit) capsule 400 unit PO DAILY supplement 08/17/24 History multivitamin with minerals 1 tab PO DAILY 04/21/20 08/17/24 H istory (Hair,Skin and Nails tablet) calcium 500 mg (as 1 tab PO DAILY supplement 04/28/21 08/17/24 History carbonate)-vitamin D3 15 mcg (600 unit) tablet magnesium oxide 400 mg PO DAILY 04/28/21 08/17/24 History hydrochlorothiazide 25 mg tablet 25 mg PO DAILY water pill/blood 08/17/24 Rx pressure #90 tabs isosorbide mononitrate 30 mg 30 mg PO DAILY #90 tabs 04/19/23 0 08/17/24 Rx tablet,extended release 24 hr levothyroxine 88 mcg tablet 75 mcg PO 6XW 04/19/23 08/17/24 Hi story Handicap Placard #1 ea 04/21/23 08/17/24 Rx metoprolol tartrate 50 mg tablet 50 mg PO BID blood pressure/heart 09/06/23 08/17/24 Rx rate #180 tabs atorvastatin 40 mg tablet 40 mg PO QHS #90 tabs 11/02/2302/01 Rx potassium chloride 20 mEq See Rx Instructions .Route 4 08/17/24 Rx tablet,extended .COMPLEX #90 tabs release(part/cryst) (Klor-Con M) Have you fallen in the past year?: No [facility] Medical History Trigger finger Trigger finger of both hands Cataracts, bilateral Murmur Heart disease Hives Abnormal stress test Carotid stenosis COVID-19 virus detected (04/15/21) Premature ventricular contractions Carotid stenosis, right Bursitis of right hip Premature ventricular contractions Snoring Daytime somnolence History of non-ST elevation myocardial infarction (NSTEMI) (07/03/18) Atherosclerotic heart disease of [place] coronary artery without angina pectoris Hypothyroidism Hypertension Surgical History History of bilateral cataract extraction History of left heart catheterization (06/22/05) History of bladder suspension procedure H/O total hysterectomy (11/17/88) Status post left foot surgery (11/22/17) Stented coronary artery (07/26/18) Family History Father CAD (coronary artery disease) Hypertension Brother CAD (coronary artery disease) Stented coronary artery Brother Lung cancer CAD (coronary artery disease) Stented coronary artery Sister Diabetes Daughter Thyroid disorder Social History Smoking Status: Former smoker how long ago did patient quit smokin second hand exposure: No alcohol intake: current alcohol intake frequency: a few times a month Alcohol type: wine substance use type: does not use caffeine: Yes Type: coffee Number of servings: 2 HPI 2 W F/U Details: HPI, 05 August 2024 Laura Solo is a delightful 79 YO female here for evaluation of trigger finger in long fingers on both hands, as well as the adjacent ring fingers. She has had injections in the past that have helped, but has noticed it coming back. It has become painful and persistent. She would like to try another injection and do surgery as a last resort when injections no longer work. Current encoun (more content not included)... Normal [facility] Hand Min 3 Viewson 5 Hand Min 3 Views [facility] Services [address] [place] [address] Hand Min 3 Views MR#: [id number] Acct: [id number] Name: LAURA SOLO Rep #: [id number] : 1945 F 79 From: Dipak Wilson MD PCP: Dr. Wilman Aden DO Status: REG CLI Study: Hand Min 3 Views Date of Exam: 08/03/24 Exam# [id number] Ordering Dr: Wilman Junior MD [id number] STUDY: X-RAY - RIGHT HAND REASON FOR EXAM: Female, 79 years old. TRIGGER FINGER TECHNIQUE: 4 views of the right hand. COMPARISON: None. FINDINGS: Normal radiocarpal articulation. Normal distal radioulnar joint. Normal visualized carpal bones. Normal carpal articulations. There is degenerative arthrosis of the carpometacarpal (CMC) articulation of the thumb. Normal second through fifth carpometacarpal joints. Normal metacarpi. Normal metacarpophalangeal joint of the thumb. Normal proximal and distal phalanges of the thumb. Normal metacarpophalangeal joints of the second through fifth fingers. There is degenerative arthrosis of the interphalangeal joint of the thumb as well as second through fifth PIP and DIP joints. Intact phalanges of the second through fifth fingers. The soft tissue structures are unremarkable. 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 Electronically Signed: Dipak Wilson MD at 11:01 EST Reading Location ID and State: [facility] / [place] , Service support , CC: Dr. Wilman Aden DO; Dr. Wilman Junior MD [employer]: Signed Normal [facility] Hand Min 3 Views [facility] [address] [place] [address] Hand Min 3 Views MR#: [id number] Acct: [id number] Name: LAURA SOLO Rep #: [id number] : 1945 F 79 From: Dipak Wilson MD PCP: Dr. Wilman Aden DO Status: REG CLI Study: Hand Min 3 Views Date of Exam: 08/03/24 Exam# [id number] Ordering Dr: Wilman Junior MD [id number] STUDY: X-RAY - LEFT HAND REASON FOR EXAM: Female, 79 years old. Trigger finger. TECHNIQUE: 3 views of the left hand. COMPARISON: None. FINDINGS: Normal radiocarpal articulation. Normal distal radioulnar joint. Normal visualized carpal bones. Normal carpal articulations There is degenerative arthrosis of the carpometacarpal (CMC) articulation of the thumb. Normal second through fifth carpometacarpal joints. Normal metacarpi. Normal proximal and distal phalanges of the thumb. Normal metacarpophalangeal joints of the second through fifth fingers. There is degenerative arthrosis of the first MCP joint, interphalangeal joint of the thumb, as well as second through fifth PIP and DIP joints. Intact phalanges of the second through fifth fingers. There is no demonstrated acute fracture. The soft tissue structures are unremarkable. 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 No demonstrated acute fracture. Electronically Signed: Dipak Wilosn MD at 11:30 EST , CC: Dr. Wilman Aden DO; Dr. Wilman Junior MD [employer]: Signed Normal [facility] Plastic Surgery Visit Report on 08-03-2024 Plastic Surgery Visit Report [facility] Plastic Reconstructive Surgery [address], [address] [place] [address] OFFICE VISIT Date of Service: 08/03/24 MR#: [id number] Acct: [id number] Name: LAURA SOLO Rep #: [id number] : 1945 Provider: Dr. Wilman Junior MD Age/Sex: 79/F Location: [facility] Status: Signed Intake Vital Signs 05/08/24 07:53 08/03/24 14:36 Height 5 ft 3 in 5 ft 3 in Weight: 135 lb 135 lb BMI 23.9 23.9 BP 134/73 H 184/78 H Blood Pressure Location Lt brachial Rt brachial Position Sitting Sitting Respiration 18 18 Pulse 65 78 Pulse Source Monitor Monitor Temp 97.7 F L Temp Source Oral Pulse Oximetry (%) 98 92 Oxygen Delivery Method room air Intake Visit Reasons: TRIGGER FINGERS BOTH HANDS Chief Complaint: trigger fingers bilateral Is patient in pain?: No Allergies azithromycin (From Zithromax Z-Demar) Allergy (Intermediate, Verified 08/03/24 14:34) Itching Penicillins Allergy (Verified 08/03/24 14:34) Rash meloxicam Adverse Reaction (Severe, Verified 08/03/24 14:34) Elevated BP acetaminophen (From Vicodin) Adverse Reaction (Verified 08/03/24 14:34) Nausea codeine Adverse Reaction (Verified 08/03/24 14:34) Nausea erythromycin base Adverse Reaction (Verified 08/03/24 14:34) Nausea hydrocodone (From Vicodin) Adverse Reaction (Verified 08/03/24 14:34) Nausea Sulfa (Sulfonamide Antibiotics) Adverse Reaction (Verified 08/03/24 14:34) Nausea Tetracyclines Adverse Reaction (Verified 08/03/24 14:34) Nausea Medications ???Medication ???Instructions ???Recorded ???Confirmed ???Type aspirin 81 mg chewable tablet 81 mg PO DAILY@0800 heart health 11/22/17 08/03/24 History vitamin E 268 mg (400 unit) capsule 400 unit PO DAILY supplement 11/22/17 08/03/24 History multivitamin with minerals 1 tab PO DAILY 04/21/20 08/03/24 History (Hair,Skin and Nails tablet) calcium 500 mg (as 1 tab PO DAILY supplement 04/28/21 08/03/24 History carbonate)-vitamin D3 15 mcg (600 unit) tablet magnesium oxide 400 mg PO DAILY 04/28/21 08/03/24 History hydrochlorothiazide 25 mg tablet 25 mg PO DAILY water pill/blood 04/19/23 08/03/24 Rx pressure #90 tabs isosorbide mononitrate 30 mg 30 mg PO DAILY #90 tabs 04/19/23 08/03/24 Rx tablet,extended release 24 hr levothyroxine 88 mcg tablet 75 mcg PO 6XW 04/19/23 08/03/24 History Handicap Placard #1 ea 04/21/23 08/03/24 Rx metoprolol tartrate 50 mg tablet 50 mg PO BID blood pressure/heart 09/06/23 08/03/24 Rx rate #180 tabs atorvastatin 40 mg tablet 40 mg PO QHS #90 tabs 11/02/23 08/03/24 Rx potassium chloride 20 mEq See Rx Instructions .Route 11/23/23 08/03/24 Rx tablet,extended .COMPLEX #90 tabs release(part/cryst) (Klor-Con M) Have you fallen in the past year?: No Nurse's Note: pt here for trigger fingers [facility] Medical History Trigger finger Trigger finger of both hands Cataracts, bilateral Murmur Heart disease Hives Abnormal stress test Carotid stenosis COVID-19 virus detected (04/15/21) Premature ventricular contractions Carotid stenosis, right Bursitis of right hip Premature ventricular contractions Snoring Daytime somnolence History of non-ST elevation myocardial infarction (NSTEMI) (07/03/18) Atherosclerotic heart disease of [place] coronary artery without angina pectoris Hypothyroidism Hypertension Surgical History History of bilateral cataract extraction History of left heart catheterization (06/22/05) History of bladder suspension procedure H/O total hysterectomy (11/17/88) Status post left foot surgery (11/22/17) Stented coronary artery (07/26/18) Family History Father CAD (coronary artery disease) Hypertension Brother CAD (coronary artery disease) Stented coronary artery Brother Lung cancer CAD (coronary artery disease) Stented coronary artery Sister Diabetes Daughter Thyroid disorder Social History Smoking Status: Former smoker how long ago did patient quit smokin second hand exposure: No alcohol intake: current alcohol intake frequency: a few times a month Alcohol type: wine substance use type: does not use caffeine: Yes Type: coffee Number of servings: 2 HPI TRIGGER FINGERS BOTH HANDS Details: Laura Solo is a delightful 79 YO female here for evaluation of trigger finger in long fingers on both hands, as well as the adjacent ring fingers. She has had injections in the past that have helped, but has noticed it coming back. It has become painful and persistent. She would like to try another injection and do surgery as a last resort when i (more content not included)... Normal [facility] LABORATORYOrdered By: Ling Castillo on 08-02-2024 Albumin DL <= 20 mg/L (U) [Mass/Vol] 610 mcg/dL Invalid Interpretation Code AO ADM SS Albumin/Creatinine DL <= 20 mg/L (U) [Mass ratio] 10 mcg/mg Normal 0 - 30 mcg/mg AO Chemistry S Creatinine (U) [Mass/Vol] 60.3 mg/dL Invalid Interpretation Code AO ADM SS MALBRon 08-02-2024 U Creatinine 60.3 mg/dL Normal [facility] Comment on above: Performed By: #### M ALBR #### [id number] [place], [place] [address] U Microalb 610 mcg/dL Normal [facility] Comment on above: Performed By: #### M ALBR #### [facility] [address] [place], [place] [address] U Ratio Alb/Cre 10 mcg/mg Normal 0-30 [facility] Comment on above: Performed By: #### M ALBR #### [facility] [address] [place], [place] [address] No Panel Informationon 07-16 Culture Urine <10,000 cfu/ml. No Significant growth. Sensitivity not indicated. [facility] Work Phone: Cardiology Visit Reporton Cardiology Visit Report [facility] [place] [address] OFFICE VISIT Date of Service: 05/08/24 MR#: [id number] Acct: [id number] Name: LAURA SOLO Rep #: [id number] : 1945 Provider: Dr. 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 who presents to the office today for follow-up of her chest pain presentation on 07/01/18.??? At that time she developed midsternal chest pain, and came to the emergency room where an urgent echocardiogram was performed which showed hyperdynamic LV function with an EF around 75%.??? Patient was treated medically, and underwent a left heart catheterization on 07/03/18 which demonstrated an occluded vessel in her mid left circumflex which was quite small.??? She underwent a successful angioplasty and drug-eluting stenting receiving a 2.25 ex-12 Promus Synergy stent.??? She also has a significant lesion in her mid RCA and underwent successful elective angioplasty of her RCA on 07/18/17 with the following results Successful PTCA/SHEMAR of distal RCA with a 3.0 x 12 Promus Synergy; 85%-->0%, no dissection. Successful PTCA/SHEMAR proximal RCA with a 3.0 x 12 Promus Synergy, post dilated with a 3.0 x 8 NC Balloon; 75%-->0%, no dissection.??? Patient had nonobstructive disease of her LAD and diagonal which do not appear to require intervention. In addition the patient has a history of excessive snoring, sleep study performed at [facility] on 07/20/18 was negative for obstructive sleep apnea.??? Patient was also found to have significant carotid disease and is awaiting consultation with Dr. Wilman Flores. Patient denies any exertional chest pain, angina, shortness of breath or dyspnea on exertion.??? She is taking and tolerating her medicines well.??? Patient graduated from cardiac rehab and is continuing her exercise 4 to 5 days/week without any difficulty. In our office today her blood pressure is 130/50, pulse is 62 and regular.??? Her physical exam is as below.??? Her lipids as of 07/01/18 show an LDL of 130 and an HDL of 48.??? EKG today 08/10/18 shows normal sinus rhythm with PVC, no acute changes noted.??? QT corrected of 417 ms.??? Her lipids as of 07/01/2018 show an LDL of 130 and HDL of 48.??? Repeat lipids are pending. 04/21/2020: Patient is doing very well.??? She denies any cardiac complaints.She takes 20 mg of Lipitor as she gets muscle cramps with higher doses.??? Her recent lipid profile reveals an LDL of 72. 04/28/2001: Patient is doing well.??? She had Covid diagnosed on 04/15/2021.??? She is currently asymptomatic from a cardiac and respiratory standpoint. 04/20/2022: Patient is doing well. Denies any cardiac complaints. 04/19/2023: Patient is doing fairly well. She continues to have some chest discomfort that she believes is related to her spinal stenosis as it starts between her shoulder blades and radiates to the front. She has been having this for a few months. She underwent coronary angiography in November 2022 and it showed no significant stenoses that required intervention. Stents were patent. Her chest pain is unchanged since then. 05/08/2024: Patient is doing well from a cardiac standpoint. She had 1 episode of right-sided chest pressure radiating to her right arm. She took 4 baby aspirin tablets and then a few minutes the pain went away. Prior to her PCI she had chest pressure involving the whole of her chest with radiation to both arms up to the elbow. Intake Vital Signs 04/19/23 10:19 05/08/24 07:53 Height 5 ft 3 in 5 ft 3 in Weight: 135 lb BMI 23.9 BP 134/73 H Blood Pressure Location Lt brachial Position Sitting Respiration 18 Pulse 65 Pulse Source Monitor Pulse Oximetry (%) 98 Intake Visit Reasons: 1 Y FU Micro Photographer Required: No Is patient in pain?: No Allergies azithromycin (From Zithromax Z-Demar) Allergy (Intermediate, Verified 05/08/24 11:31) Itching Penicillins Allergy (Verified 05/08/24 11:31) Rash meloxicam Adverse Reaction (Severe, Verified 05/08/24 11:31) Elevated BP acetaminophen (From Vicodin) Adverse Reaction (Verified 05/08/24 11:31) Nausea codeine Adverse Reaction (Verified 05/08/24 11:31) Nausea erythromycin base Adverse Reaction (Verified 05/08/24 11:31) Nausea hydrocodone (From Vicodin) Adverse Reaction (Verified 05/08/24 11:31) Nausea Sulfa (Sulfonamide Antibiotics) Adverse Reaction (Verified 05/08/24 11:31) Nausea Tetracyclines Adverse Reaction (Verified 05/08/24 11:31) Nausea Medications ???Medication ???Instructions ???Recorded ???Confirmed ???Type aspirin 81 mg chewable tablet 81 mg PO DAILY@0800 heart health 11/22/17 05/08/24 History vitamin E 268 mg (400 unit) capsule 400 unit P (more content not included)... Normal [facility] No Panel Informationon 03-28 Culture Urine >100,000 cfu/ml Streptococcus mitis group Sensitivity testing is not recommended for one of the following reasons: 1. Established susceptibility patterns are available or 2. Interpretative criteria are not available. [facility] Work Phone: Streptococcus mitis group Streptococcus mitis group [facility] Work Phone: .GFRon 02-03-2024 GFR Non- 53 ml/min/1.73sqm Normal [facility] ([place]) Comment on above: Result Comment: GFR Population mean for , Non- Americans Ages 20-29 = 116 mL/min/1.73 sq.m. Ages 30-39 = 107 mL/min/1.73 sq.m. Ages 40-49 = 99 mL/min/1.73 sq.m. Ages 50-59 = 93 mL/min/1.73 sq.m. Ages 60-69 = 85 mL/min/1.73 sq.m. Ages 70+ = 75 mL/min/1.73 sq.m. Chronic Kidney Disease: Less than 60 mL/min/1.73 square meters End Stage Renal Disease: Less than 15 mL/min/1.73 square meters Performed By: #### C MP, GFR, TSH, LIPID #### [address] [address] GFR 64 ml/min/1.73sqm Normal [facility] ([place]) Comment on above: Result Comment: GFR Population mean for , Non- Americans Ages 20-29 = 116 mL/min/1.73 sq.m. Ages 30-39 = 107 mL/min/1.73 sq.m. Ages 40-49 = 99 mL/min/1.73 sq.m. Ages 50-59 = 93 mL/min/1.73 sq.m. Ages 60-69 = 85 mL/min/1.73 sq.m. Ages 70+ = 75 mL/min/1.73 sq.m. Chronic Kidney Disease: Less than 60 mL/min/1.73 square meters End Stage Renal Disease: Less than 15 mL/min/1.73 square meters Performed By: #### C MP, GFR, TSH, LIPID #### [address] [address] CMPon 02-03-2024 Albumin Level 3.4 G/dL Normal 3.4-4.8 [facility] ([place]) Comment on above: Performed By: #### C MP, GFR, TSH, LIPID #### [address] [address] Albumin/Globulin [Mass ratio] 1.0 {ratio} Low 1.1-2.5 [facility] ([place]) Comment on above: Performed By: #### C MP, GFR, TSH, LIPID #### [address] [address] ALP [Catalytic activity/Vol] 81 U/L Normal 40-135 [facility] ([place]) Comment on above: Performed By: #### C MP, GFR, TSH, LIPID #### [address] [address] ALT [Catalytic activity/Vol] 26 U/L Normal 14-59 [facility] ([place] Comment on above: Performed By: #### C MP, GFR, TSH, LIPID #### [address] [address] AST [Catalytic activity/Vol] 27 U/L Normal 10-40 [facility] ([place] Comment on above: Performed By: #### C MP, GFR, TSH, LIPID #### [address] [address] Bili Total 0.4 mg/dL Normal 0.2-1.0 [facility] ([place]) Comment on above: Result Comment: Use of this assay is not recommended for patients undergoing treatment with eltrombopag due to the potential for falsely elevated results. Performed By: #### C MP, GFR, TSH, LIPID #### [address] [address] BUN/Creatinine Ratio 15 ratio Normal 7-27 Counts include 234 beds at the [facility] ([place]) Comment on above: Performed By: #### C MP, GFR, TSH, LIPID #### [address] [address] Calcium [Mass/Vol] 9.5 mg/dL Normal 8.4-10.2 [facility] ([place]) Comment on above: Performed By: #### C MP, GFR, TSH, LIPID #### [address] [address] Chloride [Moles/Vol] 105 mmol/L Normal 98-107 Counts include 234 beds at the [facility] ([place]) Comment on above: Performed By: #### C MP, GFR, TSH, LIPID #### [address] [address] CO2 [Moles/Vol] 35 mmol/L High 23-31 [facility] ([place] Comment on above: Performed By: #### C MP, GFR, TSH, LIPID #### [address] [address] Creatinine [Mass/Vol] 1.01 mg/dL Normal 0.55-1.02 [facility] ([place]) Comment on above: Performed By: #### C MP, GFR, TSH, LIPID #### [address] [address] Electrolyte Balance 3.0 mEq/L Low 4.0-15.0 [facility] ([place]) Comment on above: Performed By: #### C MP, GFR, TSH, LIPID #### [address] [address] Globulin 3.5 G/dL Normal [facility] ([place]) Comment on above: Performed By: #### C MP, GFR, TSH, LIPID #### [address] [address] Glucose [Mass/Vol] 81 mg/dL Low 83-110 [facility] ([place]) Comment on above: Performed By: #### C MP, GFR, TSH, LIPID #### [address] [address] Potassium [Moles/Vol] 4.2 mmol/L Normal 3.5-5.1 [facility] ([place]) Comment on above: Performed By: #### C MP, GFR, TSH, LIPID #### [address] [address] Sodium [Moles/Vol] 143 mmol/L Normal 136-145 [facility] ([place]) Comment on above: Performed By: #### C MP, GFR, TSH, LIPID #### [address] [address] Total Protein 6.9 G/dL Normal 6.4-8.2 [facility] ([place]) Comment on above: Performed By: #### C MP, GFR, TSH, LIPID #### [address] [address] Urea nitrogen [Mass/Vol] 15 mg/dL Normal 7-18 [facility] ([place] Comment on above: Performed By: #### C MP, GFR, TSH, LIPID #### [address] [address] LIPIDon 07-26-2024 Cholesterol [Mass/Vol] 155 mg/dL Normal 0-200 [facility] ([place]) Comment on above: Result Comment: Chol esterol Reference Interval: Less than 200 Desirable 200-239 Borderline high risk 240 and above High risk Performed By: #### C MP, GFR, TSH, LIPID #### [address] [address] Cholesterol in HDL [Mass/Vol] 56 mg/dL Normal 40-60 [facility] ([place] Comment on above: Performed By: #### C MP, GFR, TSH, LIPID #### [address] [address] Cholesterol in LDL [Mass/Vol] 78 mg/dL Normal 0-130 [facility] ([place] Comment on above: Performed By: #### C MP, GFR, TSH, LIPID #### [address] [address] Triglyceride [Mass/Vol] 103 mg/dL Normal 0-150 [facility] ([place]) Comment on above: Result Comment: Trig lyceride Reference Interval: Less than 150 Normal 150-199 Borderline high risk 200-499 High risk 500 or higher Very high risk Performed By: #### C MP, GFR, TSH, LIPID #### [address] [address] TSHon 02-03-2024 TSH Qn 4.53 m[IU]/L High 0.36-3.74 [facility] ([place]) Comment on above: Performed By: #### C MP, GFR, TSH, LIPID #### [address] [address] No Panel Informationon 04-04 Culture Urine <10,000 cfu/ml. No Significant growth. Sensitivity not indicated. [facility] Work Phone: .GFRon 02-11-2023 GFR 80 ml/min/1.73sqm Normal [facility] ([place]) Comment on above: Result Comment: GFR Population mean for , Non- Americans Ages 20-29 = 116 mL/min/1.73 sq.m. Ages 30-39 = 107 mL/min/1.73 sq.m. Ages 40-49 = 99 mL/min/1.73 sq.m. Ages 50-59 = 93 mL/min/1.73 sq.m. Ages 60-69 = 85 mL/min/1.73 sq.m. Ages 70+ = 75 mL/min/1.73 sq.m. Chronic Kidney Disease: Less than 60 mL/min/1.73 square meters End Stage Renal Disease: Less than 15 mL/min/1.73 square meters Performed By: #### G FR, LIPID, TSH, CMP ####[address] [place], [place] [address] GFR Non- 66 ml/min/1.73sqm Normal [facility] ([place] Comment on above: Result Comment: GFR Population mean for , Non- Americans Ages 20-29 = 116 mL/min/1.73 sq.m. Ages 30-39 = 107 mL/min/1.73 sq.m. Ages 40-49 = 99 mL/min/1.73 sq.m. Ages 50-59 = 93 mL/min/1.73 sq.m. Ages 60-69 = 85 mL/min/1.73 sq.m. Ages 70+ = 75 mL/min/1.73 sq.m. Chronic Kidney Disease: Less than 60 mL/min/1.73 square meters End Stage Renal Disease: Less than 15 mL/min/1.73 square meters Performed By: #### G FR, LIPID, TSH, CMP ####[address] [place], [place] [address] CMPon 02-11-2023 Albumin Level 3.8 G/dL Normal 3.4-4.8 [facility] ([place]) Comment on above: Performed By: #### G FR, LIPID, TSH, CMP ####[address] [place], [place] [address] Albumin/Globulin [Mass ratio] 1.0 {ratio} Low 1.1-2.5 [facility] ([place] Comment on above: Performed By: #### G FR, LIPID, TSH, CMP ####[address] [place], [place] [address] ALP [Catalytic activity/Vol] 71 U/L Normal 40-135 [facility] ([place] Comment on above: Performed By: #### G FR, LIPID, TSH, CMP ####[address] [place], [place] [address] ALT [Catalytic activity/Vol] 28 U/L Normal 14-59 [facility] ([place] Comment on above: Performed By: #### G FR, LIPID, TSH, CMP ####[address] [place], [place] [address] AST [Catalytic activity/Vol] 33 U/L Normal 10-40 [facility] ([place] Comment on above: Performed By: #### Ju FR, LIPID, TSH, CMP ####[address] [place], [place] [address] Bili Total 0.5 mg/dL Normal 0.2-1.0 [facility] ([place] Comment on above: Result Comment: Use of this assay is not recommended for patients undergoing treatment with eltrombopag due to the potential for falsely elevated results. Performed By: #### Ju FR, LIPID, TSH, CMP ####[address] [place], [place] [address] BUN/Creatinine Ratio 25 ratio Normal 7-27 Counts include 234 beds at the [facility] ([place]) Comment on above: Performed By: #### G FR, LIPID, TSH, CMP ####[address] [place], [place] [address] Calcium [Mass/Vol] 9.3 mg/dL Normal 8.4-10.2 [facility] ([place]) Comment on above: Performed By: #### G FR, LIPID, TSH, CMP ####[address] [place], [place] [address] Chloride [Moles/Vol] 102 mmol/L Normal 98-107 Counts include 234 beds at the [facility] ([place]) Comment on above: Performed By: #### G FR, LIPID, TSH, CMP ####[address] [place], [place] [address] CO2 [Moles/Vol] 32 mmol/L High 23-31 [facility] ([place] Comment on above: Performed By: #### G FR, LIPID, TSH, CMP ####[address] [place], [place] [address] Creatinine [Mass/Vol] 0.83 mg/dL Normal 0.55-1.02 [facility] ([place]) Comment on above: Performed By: #### G FR, LIPID, TSH, CMP ####[address] [place], [place] [address] Electrolyte Balance 6.0 mEq/L Normal 4.0-15.0 [facility] ([place]) Comment on above: Performed By: #### G FR, LIPID, TSH, CMP ####[address] [place], [place] [address] Globulin 3.8 G/dL Normal [facility] ([place]) Comment on above: Performed By: #### G FR, LIPID, TSH, CMP ####[address] [place], [place] [address] Glucose [Mass/Vol] 79 mg/dL Low 83-110 [facility] ([place]) Comment on above: Performed By: #### G FR, LIPID, TSH, CMP ####[address] [place], [place] [address] Potassium [Moles/Vol] 4.1 mmol/L Normal 3.5-5.1 [facility] ([place]) Comment on above: Performed By: #### G FR, LIPID, TSH, CMP ####[address] [place], [place] [address] Sodium [Moles/Vol] 140 mmol/L Normal 136-145 [facility] ([place]) Comment on above: Performed By: #### G FR, LIPID, TSH, CMP ####[address] [place], [place] [address] Total Protein 7.6 G/dL Normal 6.4-8.2 [facility] ([place] Comment on above: Performed By: #### G FR, LIPID, TSH, CMP ####[address] [place], [place] [address] Urea nitrogen [Mass/Vol] 21 mg/dL High 7-18 [facility] ([place] Comment on above: Performed By: #### G FR, LIPID, TSH, CMP ####[address] [place], [place] [address] LIPIDon 02-11-2023 Cholesterol [Mass/Vol] 135 mg/dL Normal 0-200 [facility] ([place]) Comment on above: Result Comment: Chol esterol Reference Interval: Less than 200 Desirable 200-239 Borderline high risk 240 and above High risk Performed By: #### G FR, LIPID, TSH, CMP ####[address] [place], [place] [address] Cholesterol in HDL [Mass/Vol] 54 mg/dL Normal 40-60 [facility] ([place] Comment on above: Performed By: #### G FR, LIPID, TSH, CMP ####[address] [place], [place] [address] Cholesterol in LDL [Mass/Vol] 69 mg/dL Normal 0-130 [facility] ([place] Comment on above: Performed By: #### G FR, LIPID, TSH, CMP ####[address] [place], [place] [address] Triglyceride [Mass/Vol] 59 mg/dL Normal 0-150 [facility] ([place]) Comment on above: Result Comment: Trig lyceride Reference Interval: Less than 150 Normal 150-199 Borderline high risk 200-499 High risk 500 or higher Very high risk Performed By: #### G FR, LIPID, TSH, CMP ####[address] [place], [place] [address] MALBRon 02-11-2023 U Creatinine 44.7 mg/dL Normal 28.0-117.0 [facility] ([place] Comment on above: Performed By: #### M ALBR #### [id number] [place], [place] [address] U Microalb [address] mcg/dL Normal [facility] ([place] Comment on above: Performed By: #### M ALBR #### [id number] [place], [place] [address] U Ratio Alb/Cre 1214 mcg/mg High 0-30 [facility] ([place]) Comment on above: Performed By: #### M ALBR #### [facility] [address] [place], [place] [address] No Panel Informationon 02-11 Culture Urine 10,000 - 50,000 cfu/ ml Mixed growth consistent with normal urogenital cristobal. [facility] Work Phone: TSHon 02-11-2023 TSH Qn 1.47 m[IU]/L Normal 0.36-3.74 [facility] ([place]) Comment on above: Performed By: #### G FR, LIPID, TSH, CMP #### [address] [place], [place] [address] Absolute lymphocyte countOrd ered By: Frida Giang on 12-01-2022 Lymphocytes Auto (Unsp spec) [#/Vol] 2.21 10*3/uL 0.83-4.51 [facility] Basophil percentageOrdered B y: Frida Giang on 12-01-2022 Basophils/100 WBC (Bld) 0.9 % 0-1 [facility] Chloride [Moles/Vol] 107 mmol/L 98-107 [facility] Eosinophils/100 WBC (Bld) 18.9 % 0-5 [facility] Glucose [Mass/Vol] 87 mg/dL 74-106 [facility] Neutrophils (Bld) [#/Vol] 4.4 10*3/uL 2.0-7.7 [facility] Neutrophils/100 WBC (Bld) 45.2 % 47-70 [facility] Potassium [Moles/Vol] 4.1 mmol/L 3.5-5.1 [facility] [facility] Sodium [Moles/Vol] 141 mmol/L 136-145 [facility] WBC (Bld) [#/Vol] 9.8 10*3/uL 4.4-11.0 [facility] Blood erythrocytes count (nu mber/volume)Ordered By: Frida Giang on 12-01-2022 RBC (Bld) [#/Vol] 4.09 10*6/uL 4.2-5.4 [facility] Blood hemoglobin measurement (mass/volume)Ordered By: Frida Giang on 12-01-2022 Hemoglobin (Bld) [Mass/Vol] 12.8 g/dL 12.0-15.0 [facility] Blood lymphocytes/100 leukoc ytesOrdered By: Frida Giang on 12-01-2022 Lymphocytes/100 WBC (Bld) 22.6 % 19-41 [facility] Blood monocytes/100 leukocyt esOrdered By: Frida Giang on 12-01-2022 Monocytes/100 WBC (Bld) 12.2 % 0-10 [facility] Blood platelet mean volumeOr dered By: Frida Giang on 12-01-2022 Platelet mean volume (Bld) [Entitic vol] 11.6 fL 6.2-12.0 [facility] Determination of erythrocyte mean corpuscular volume (MCV)Ordered By: Frida Giang on 12-01-2022 MCV (RBC) [Entitic vol] 96.6 fL 81-99 [facility] Hematocrit Auto (Bld) [Volum e fraction]Ordered By: Frida Giang on 12-01-2022 Hematocrit (Bld) [Volume fraction] 39.5 % 37-47 [facility] INR in Blood by Coagulation assayOrdered By: Frida Giang on 12-01-2022 INR Coag (Bld) [Relative time] 1.0 {INR} [facility] Laboratory - Chemistry and C hemistry - challengeOrdered By: Frida Giang on 12-01-2022 CO2 [Moles/Vol] 28.0 mmol/L 21.0-32.0 [facility] Urea nitrogen/Creatinine [Mass ratio] 21.3 mg/mg 10-20 [facility] Laboratory - CoagulationOrde red By: Frida Giang on 12-01-2022 aPTT Coag (Bld) [Time] 26.3 s 24.1-36.2 [facility] PT Coag (PPP) [Time] 13.1 s 11.7-14.9 [facility] Laboratory - Hematology and Cell countsOrdered By: Frida Giang on 12-01-2022 Erythrocyte distribution width (RBC) [Entitic vol] 48.4 fL 35.1-43.9 [facility] Erythrocyte distribution width (RBC) [Ratio] 13.6 % 11.6-14.6 [facility] Immature granulocytes/100 WBC (Bld) 0.200 % 0.0-0.9 [facility] Comment on above: IG% - Immature Granu locytes (promyelocytes, myelocytes and metamyelocytes) > 1% indicates that a LEFT SHIFT is Present. MCH (RBC) [Entitic mass] 31.3 pg 27.0-32.0 [facility] Nucleated RBC/100 WBC (Bld) [Ratio] 0 % 0-5 [facility] MCHC Auto (RBC) [Mass/Vol]Or dered By: Frida Giang on 12-01-2022 MCHC (RBC) [Mass/Vol] 32.4 g/dL 32-36 [facility] No Panel InformationOrdered By: Frida Giang on 12-01-2022 Estimated GFR (MDRD) Amer 84 mL/min >60 [facility] Comment on above: GFR Calc Estimated GFR (MDRD) Non-Af Amer 69 mL/min >60 [facility] Comment on above: Non- GFR Calc Platelets bldOrdered By: Octavio Giang on 12-01-2022 Platelets (Bld) [#/Vol] 255 10*3/uL 150-450 [facility] Serum or plasma calcium drake urement (mass/volume)Ordered By: Frida Giang on 12-01-2022 Calcium [Mass/Vol] 9.2 mg/dL 8.5-10.1 [facility] Serum or plasma creatinine m easurement (mass/volume)Ordered By: Frida Giang on 12-01-2022 Creatinine [Mass/Vol] 0.84 mg/dL 0.55-1.02 [facility] Comment on above: The validity of the calculated GFR & GFRAA in patients over 70 years has not been determined. Clinical correlation is essential. Serum or plasma urea nitroge n measurement (mass/volume)Ordered By: Frida Giang on 12-01-2022 Urea nitrogen [Mass/Vol] 18 mg/dL 7-18 [facility] Thin prep Papanicolaou smear with manual screeningOrdered By: Frida Giang on 12-01-2022 Thin prep Papanicolaou smear with manual screening 11-22 [facility] No Panel Informationon 06-29 Culture Urine <10,000 cfu/ml. No Significant growth. Sensitivity not indicated. [facility] Work Phone: CEFUROXIME:SUSC:PT:ISOLATE:O RDQN:MICon 04-30-2022 Cefuroxime OCTAVIO [Susc] 50,000 - 100,000 cfu/ml Escherichia coli [facility] Work Phone: Cefuroxime OCTAVIO [Susc]on 04-11 Escherichia coli Escherichia coli [facility] Work Phone: LABORATORYOrdered By: Daljit Alarcon on 04-14-2022 Albumin BCP dye [Mass/Vol] 3.8 G/dL Invalid Interpretation Code 3.4 - 4.8 G/dL AO ADM SS Albumin/Globulin [Mass ratio] 1.0 {ratio} Invalid Interpretation Code 1.1 - 2.5 ratio AO ADM SS ALP [Catalytic activity/Vol] 77 U/L Invalid Interpretation Code 40 - 135 U/L AO ADM SS ALT With P-5'-P [Catalytic activity/Vol] 33 U/L Invalid Interpretation Code 14 - 59 U/L AO ADM SS AST With P-5'-P [Catalytic activity/Vol] 40 U/L Invalid Interpretation Code 10 - 40 U/L AO ADM SS Bili Indirect 0.4 mg/dL Invalid Interpretation Code AO Chemistry S Bilirubin [Mass/Vol] 0.6 mg/dL Invalid Interpretation Code 0.2 - 1.0 mg/dL AO ADM SS Bilirubin.direct [Mass/Vol] 0.2 mg/dL Invalid Interpretation Code 0.0 - 0.2 mg/dL AO ADM SS Cholesterol [Mass/Vol] 152 mg/dL Invalid Interpretation Code 0 - 200 mg/dL AO ADM SS Cholesterol in HDL [Mass/Vol] 54 mg/dL Invalid Interpretation Code 40 - 60 mg/dL AO ADM SS Cholesterol in LDL [Mass/Vol] 81 mg/dL Invalid Interpretation Code 0 - 130 mg/dL AO ADM SS Globulin 3.7 G/dL Invalid Interpretation Code AO ADM SS Protein [Mass/Vol] 7.5 G/dL Invalid Interpretation Code 6.4 - 8.2 G/dL AO ADM SS Triglyceride [Mass/Vol] 85 mg/dL Invalid Interpretation Code 0 - 150 mg/dL AO ADM SS Vit. D 25-Hydroxy 46.7 ng/mL Invalid Interpretation Code AO ADM SS LABORATORYOrdered By: [employer] on 04-14-2022 Cobalamin (Vitamin B12) [Mass/Vol] 558 pg/mL Invalid Interpretation Code 211 - 911 pg/mL AH ADM SS Folate [Mass/Vol] 10.12 ng/mL Invalid Interpretation Code 5.38 - 24.00 ng/mL AH ADM SS No Panel Informationon 04-05 Culture Urine <10,000 cfu/ml. No Significant growth. Sensitivity not indicated. [facility] Work Phone: LABORATORYOrdered By: Kylah Everett on 03-17-2022 TSH Qn 0.94 m[IU]/L Invalid Interpretation Code 0.36 - 3.74 mcIU/mL AO ADM SS LABORATORYOrdered By: Todd Awan on 01-26-2022 TSH Qn 0.08 m[IU]/L Invalid Interpretation Code 0.36 - 3.74 mcIU/mL AO ADM SS LABORATORYOrdered By: Kylah Everett on 12-02-2021 Albumin BCP dye [Mass/Vol] 3.4 G/dL Invalid Interpretation Code 3.4 - 4.8 G/dL AO ADM SS Albumin/Globulin [Mass ratio] 0.9 {ratio} Invalid Interpretation Code 1.1 - 2.5 ratio AO ADM SS ALP [Catalytic activity/Vol] 84 U/L Invalid Interpretation Code 40 - 135 U/L AO ADM SS ALT With P-5'-P [Catalytic activity/Vol] 27 U/L Invalid Interpretation Code 14 - 59 U/L AO ADM SS AST With P-5'-P [Catalytic activity/Vol] 26 U/L Invalid Interpretation Code 10 - 40 U/L AO ADM SS Bilirubin [Mass/Vol] 0.8 mg/dL Invalid Interpretation Code 0.2 - 1.0 mg/dL AO ADM SS Calcium [Mass/Vol] 9.5 mg/dL Invalid Interpretation Code 8.4 - 10.2 mg/dL AO ADM SS Chloride [Moles/Vol] 102 mmol/L Invalid Interpretation Code 98 - 107 mmol/L AO ADM SS CO2 [Moles/Vol] 33 mmol/L Invalid Interpretation Code 23 - 31 mmol/L AO ADM SS Creatinine [Mass/Vol] 0.92 mg/dL Invalid Interpretation Code 0.55 - 1.02 mg/dL AO ADM SS Electrolyte Balance 7.0 mEq/L Invalid Interpretation Code 4.0 - 15.0 mEq/L AO ADM SS Globulin 3.8 G/dL Invalid Interpretation Code AO ADM SS Glucose [Mass/Vol] 91 mg/dL Invalid Interpretation Code 83 - 110 mg/dL AO ADM SS Iron [Mass/Vol] 86 ug/dL Invalid Interpretation Code 50 - 170 mcg/dL AO ADM SS Potassium [Moles/Vol] 4.5 mmol/L Invalid Interpretation Code 3.5 - 5.1 mmol/L AO ADM SS Protein [Mass/Vol] 7.2 G/dL Invalid Interpretation Code 6.4 - 8.2 G/dL AO ADM SS Sodium [Moles/Vol] 142 mmol/L Invalid Interpretation Code 136 - 145 mmol/L AO ADM SS TSH Qn 0.10 m[IU]/L Invalid Interpretation Code 0.36 - 3.74 mcIU/mL AO ADM SS Urea nitrogen [Mass/Vol] 15 mg/dL Invalid Interpretation Code 7 - 18 mg/dL AO ADM SS Urea nitrogen/Creatinine [Mass ratio] 16 ratio Invalid Interpretation Code 7 - 27 ratio AO ADM SS Vit. D 25-Hydroxy 55.0 ng/mL Invalid Interpretation Code AO ADM SS LABORATORYOrdered By: Todd Awan on 12-02-2021 Basophil, Absolute 0.1 103/mcL Invalid Interpretation Code 0.0 - 0.2 10^3/mcL AO Workflow SS Basophils/100 WBC (Bld) 0.7 % Invalid Interpretation Code 0.0 - 2.5 % AO Workflow SS Eosinophil, Absolute 1.8 103/mcL Invalid Interpretation Code 0.0 - 0.4 10^3/mcL AO Workflow SS Eosinophils/100 WBC (Bld) 16.2 % Invalid Interpretation Code 0.0 - 7.0 % AO Workflow SS Erythrocyte distribution width (RBC) [Ratio] 13.2 % Invalid Interpretation Code 11.5 - 14.5 % AO Workflow SS Hematocrit (Bld) [Volume fraction] 41.4 % Invalid Interpretation Code 37.0 - 47.0 % AO Workflow SS Hgb 13.8 G/dL Invalid Interpretation Code 12.0 - 16.0 G/dL AO Workflow SS Lymphocyte, Absolute 2.8 103/mcL Invalid Interpretation Code 0.8 - 3.9 10^3/mcL AO Workflow SS Lymphocytes/100 WBC (Bld) 25.5 % Invalid Interpretation Code 10.0 - 50.0 % AO Workflow SS MCH (RBC) [Entitic mass] 30.5 pg Invalid Interpretation Code 27.0 - 31.2 pg AO Workflow SS MCHC 33.2 G/dL Invalid Interpretation Code 33.0 - 37.0 G/dL AO Workflow SS MCV (RBC) [Entitic vol] 91.7 fL Invalid Interpretation Code 80.0 - 94.0 fL AO Workflow SS Monocyte distribution width Auto (Bld) [Entitic vol] Not Performed *NA* (12/02/21 7:06 AM) Invalid Interpretation Code 0.00 - 20.00 AO Workflow SS Monocyte, Absolute 1.7 103/mcL Invalid Interpretation Code 0.2 - 1.0 10^3/mcL AO Workflow SS Monocytes/100 WBC (Bld) 15.3 % Invalid Interpretation Code 1.7 - 13.0 % AO Workflow SS Neutrophil, Absolute 4.7 103/mcL Invalid Interpretation Code 2.9 - 6.2 10^3/mcL AO Workflow SS Neutrophils/100 WBC (Bld) 42.3 % Invalid Interpretation Code 37.0 - 80.0 % AO Workflow SS Platelet 289 103/mcL Invalid Interpretation Code 130 - 400 10^3/mcL AO Workflow SS Platelet mean volume (Bld) [Entitic vol] 9.5 fL Invalid Interpretation Code 7.4 - 10.4 fL AO Workflow SS RBC 4.52 106/mcL Invalid Interpretation Code 4.20 - 5.40 10^6/mcL AO Workflow SS WBC 11.0 103/mcL Invalid Interpretation Code 4.6 - 10.8 10^3/mcL AO Workflow SS LABORATORYOrdered By: SYSTEM SYSTEM on 12-02-2021 Cobalamin (Vitamin B12) [Mass/Vol] 1865 pg/mL Invalid Interpretation Code 211 - 911 pg/mL AH ADM SS GFR 72 ml/min/1.73sqm Invalid Interpretation Code AO Chemistry S GFR Non- 59 ml/min/1.73sqm Invalid Interpretation Code AO Chemistry S Basophil percentageon 2021 Basophil percentage < 0.9 mg/dL 0.55-1.02 [facility] Work Phone: No Panel Informationon 11-25 Bedside Estimated GFR (eGFR) > 60.0000 mL/min >60 [facility] Work Phone: LABORATORYOrdered By: Kylah Everett on 10-14-2021 TSH Qn 0.02 m[IU]/L Invalid Interpretation Code 0.36 - 3.74 mcIU/mL AO ADM SS No Panel Informationon 09-24 Culture Urine >100,000 cfu/ml Escherichia coli [facility] Work Phone: Escherichia coli Escherichia coli [facility] Work Phone: LABORATORYOrdered By: Kylah Everett on 08-19-2021 Albumin BCP dye [Mass/Vol] 3.6 G/dL Invalid Interpretation Code 3.4 - 4.8 G/dL AO ADM SS Albumin/Globulin [Mass ratio] 1.0 {ratio} Invalid Interpretation Code 1.1 - 2.5 ratio AO ADM SS ALP [Catalytic activity/Vol] 82 U/L Invalid Interpretation Code 40 - 135 U/L AO ADM SS ALT With P-5'-P [Catalytic activity/Vol] 30 U/L Invalid Interpretation Code 14 - 59 U/L AO ADM SS AST With P-5'-P [Catalytic activity/Vol] 31 U/L Invalid Interpretation Code 10 - 40 U/L AO ADM SS Bilirubin [Mass/Vol] 0.3 mg/dL Invalid Interpretation Code 0.2 - 1.0 mg/dL AO ADM SS Calcium [Mass/Vol] 9.3 mg/dL Invalid Interpretation Code 8.4 - 10.2 mg/dL AO ADM SS Chloride [Moles/Vol] 104 mmol/L Invalid Interpretation Code 98 - 107 mmol/L AO ADM SS Cholesterol [Mass/Vol] 150 mg/dL Invalid Interpretation Code 0 - 200 mg/dL AO ADM SS Cholesterol in HDL [Mass/Vol] 50 mg/dL Invalid Interpretation Code 40 - 60 mg/dL AO ADM SS Cholesterol in LDL [Mass/Vol] 87 mg/dL Invalid Interpretation Code 0 - 130 mg/dL AO ADM SS CO2 [Moles/Vol] 33 mmol/L Invalid Interpretation Code 23 - 31 mmol/L AO ADM SS Creatinine [Mass/Vol] 0.89 mg/dL Invalid Interpretation Code 0.55 - 1.02 mg/dL AO ADM SS Electrolyte Balance 6.0 mEq/L Invalid Interpretation Code 4.0 - 15.0 mEq/L AO ADM SS Globulin 3.6 G/dL Invalid Interpretation Code AO ADM SS Glucose [Mass/Vol] 83 mg/dL Invalid Interpretation Code 83 - 110 mg/dL AO ADM SS Potassium [Moles/Vol] 4.3 mmol/L Invalid Interpretation Code 3.5 - 5.1 mmol/L AO ADM SS Protein [Mass/Vol] 7.2 G/dL Invalid Interpretation Code 6.4 - 8.2 G/dL AO ADM SS Sodium [Moles/Vol] 143 mmol/L Invalid Interpretation Code 136 - 145 mmol/L AO ADM SS Triglyceride [Mass/Vol] 67 mg/dL Invalid Interpretation Code 0 - 150 mg/dL AO ADM SS TSH Qn 5.62 m[IU]/L Invalid Interpretation Code 0.36 - 3.74 mcIU/mL AO ADM SS Urea nitrogen [Mass/Vol] 20 mg/dL Invalid Interpretation Code 7 - 18 mg/dL AO ADM SS Urea nitrogen/Creatinine [Mass ratio] 22 ratio Invalid Interpretation Code 7 - 27 ratio AO ADM SS LABORATORYOrdered By: SYSTEM SYSTEM on 08-19-2021 GFR 75 ml/min/1.73sqm Invalid Interpretation Code AO Chemistry S GFR Non- 62 ml/min/1.73sqm Invalid Interpretation Code AO Chemistry S Vital Signs Date Time Vital Sign Value Performing Clinician Lei camacho 10-18-2024 09:17-0400 Diastolic blood pressure 70 mm[Hg] Dr. Wilman Aden DO Work Phone: [facility] 10-18-2024 09:17-0400 Heart rate 52 /min Dr. Wilman Aden DO Work Phone: [facility] 10-18-2024 09:17-0400 Respiratory rate 18 /min Dr. Wilman Aden DO Work Phone: [facility] 10-18-2024 09:17-0400 SaO2% (BldA) [Mass fraction] 94 % Dr. Wilman Aden DO Work Phone: [facility] 10-18-2024 09:17-0400 Systolic blood pressure 179 mm[Hg] Dr. Wilman Aden DO Work Phone: [facility] 10-10-2024 08:43-0400 Body temperature 97.8 [degF] Dr. Wilman Aden DO Work Phone: [facility] 10-10-2024 08:43-0400 Body weight 62.[address] Wilman Aden DO Work Phone: [facility] 10-10-2024 08:43-0400 Diastolic blood pressure 69 mm[Hg] Dr. Wilman Aden DO Work Phone: [facility] 10-10-2024 08:43-0400 Heart rate 53 /min Dr. Wilman Aden DO Work Phone: [facility] 10-10-2024 08:43-0400 Respiratory rate 16 /min Dr. Wilman Aden DO Work Phone: [facility] 10-10-2024 08:43-0400 SaO2% (BldA) [Mass fraction] 97 % Dr. Wilman Aden DO Work Phone: [facility] 10-10-2024 08:43-0400 Systolic blood pressure 178 mm[Hg] Dr. Wilman Aden DO Work Phone: [facility] 12-03-2022 09:09-0400 Body height 160.[address] Wilman Aden Work Phone: [facility] 12-03-2022 09:09-0400 Body weight 61.[address] Wilman Aden Work Phone: [facility] 12-02-2022 12:21-0400 Body mass index (BMI) [Ratio] 24 kg/m2 Dr. Wilman Aden Work Phone: [facility] 09-14-2022 12:46-0500 Diastolic blood pressure 64 mm[Hg] Dr. Wilman Aden Work Phone: [facility] 09-14-2022 12:46-0500 Systolic blood pressure 164 mm[Hg] Dr. Wilman Aden Work Phone: [facility] 08-26-2021 12:46-0500 Diastolic blood pressure 69 mm[Hg] Dr. Wilman Aden Work Phone: [facility] Work Phone: 08-26-2021 12:46-0500 Respiratory rate 18 /min Dr. Wilman Aden Work Phone: [facility] Work Phone: 08-26-2021 12:46-0500 Systolic blood pressure 168 mm[Hg] Dr. Wilman Aden Work Phone: [facility] Work Phone: Encounters Encounter Date Encounter Type Care Provider Facility Start: 02-18-2025 ambulatory [facility] Facility :[facility] Start: 2025 End: 01-26-2025 ambulatory [facility] Facility:[facility] Start: 2025 End: 01-26-2025 Outreach Lab NAV FERNÁNDEZ CONTINUOUS LOFT OPERATOR-MICRO PHOTOGRAPHER [facility] Start: 01-10-2025 End: 01-10-2025 Patient encounter procedure Frida JOAQUIN -Pulmonary Services/Neurology Work Phone: Start: 01-10-2025 End: 01-10-[address] Wilman Aden DO Work Phone: -Pulmonary Services/Neurology Start: 01-10-2025 End: 01-10-2025 ambulatory Frida JOAQUIN Facility:[facility] Start: 11-05-2024 ambulatory [facility] Start: 11-05-2024 Non-patient / Non-visit Dr. Dave pak MD -[facility] Start: 11-05-2024 End: 11-05-2024 Patient encounter procedure Izzy JOAQUIN -Cardiovascular Services Work Phone: Start: 11-05-2024 End: 11-05-2024 ambulatory Wilman Keiko Facility:[facility] Start: 10-25-2024 End: 10-29-2024 ambulatory WILMAN KEIKO DO [facility] Start: 10-18-2024 End: 10-18-[address] Wilman Junior MD -[facility] Work Phone: Start: 10-18-2024 End: 10-18-2024 ambulatory Wilman Keiko Facility:[facility] Start: 10-10-2024 End: 10-10-2024 Patient encounter procedure Izzy JOAQUIN -[facility] Work Phone: Start: 10-10-2024 End: 10-10-2024 ambulatory Wilman Keiko Facility:[facility] Start: 08-17-2024 End: 08-17-2024 ambulatory Wilman Keiko Facility:[facility] Start: 08-03-2024 End: 08-03-2024 ambulatory Wilman Junior Facility:[facility] Start: 08-02-2024 End: 08-06-2024 ambulatory WILMAN KEIKO DO [facility] Start: 08-02-2024 End: 08-06-2024 Outreach Lab WILMAN KEIKO DO [facility] Start: 07-16-2024 End: 07-20-2024 ambulatory WILMAN KEIKO DO [facility] Start: 07-16-2024 End: 07-20-2024 Outreach Lab FEROZ SMITH CONTINUOUS LOFT OPERATOR-MICRO PHOTOGRAPHER [facility] Start: 05-08-2024 End: 05-08-2024 ambulatory Wilman Keiko Facility:[facility] Start: 03-28-2024 End: 04-01-2024 ambulatory WILMAN KEIKO DO [facility] Start: 03-28-2024 End: 04-01-2024 Outreach Lab SUSIE GERARD CONTINUOUS LOFT OPERATOR-MICRO PHOTOGRAPHER [facility] Start: 02-03-2024 End: 02-03-2024 ambulatory WILMAN ADEN DO Facility:[facility] Start: 09-16-2023 End: 09-20-2023 ambulatory DUARTE BUNN APRNFELY Facility:[facility] Start: 08-29-2023 Non-patient / Non-visit Dr. Sarah Aden Work Phone: [facility] Start: 08-29-2023 End: 08-29-[address] Wilman Aden Work Phone: [facility] Work Phone: Start: 08-29-2023 End: 08-29-[address] [facility] Start: 05-21-2023 End: 05-25-2023 ambulatory IFEANYI AUGUSTIN Facility:[facility] Start: 04-04-2023 End: 04-08-2023 ambulatory WILMAN ADEN DO Facility:[facility] Start: 04-04-2023 End: 04-08-2023 Outreach Lab WILMAN ADEN DO [facility] Start: 02-11-2023 End: 02-15-2023 Outreach Lab DORA MERIDA DO [facility] Start: 02-11-2023 End: 02-15-2023 ambulatory DORA MERIDA DO Facility:[facility] Start: 12-03-2022 End: 12-03-2022 Admission to same day surgery center Dr. Wilman Aden Work Phone: [facility]-Professor Of Physics/Special Procedures Start: 12-02-2022 Non-patient / Non-visit Dr. Sarah Aden Work Phone: [facility] Start: 11-29-2022 Non-patient / Non-visit Dr. Sarah Aden Work Phone: [facility] Start: 11-29-2022 End: 11-29-[address] Wilman Aden Work Phone: [facility] Work Phone: Start: 11-29-2022 End: 11-29-[address] [facility] Start: 09-14-2022 End: 09-14-[address] Wilamn Aden Work Phone: [facility] Start: 08-26-2022 Non-patient / Non-visit Dr. Sarah Aden Work Phone: [facility] Start: 08-26-2022 End: 08-26-[address] Wilman Aden Work Phone: [facility] Work Phone: Start: 08-26-2022 End: 08-26-[address] [facility] Start: 06-29-2022 End: 07-03-2022 Outreach Lab DUARTE CONTINUOUS LOFT OPERATOR-MICRO PHOTOGRAPHER [facility] Start: 04-30-2022 End: 05-04-2022 Outreach Lab SAMSON CURRAN MD [facility] Start: 04-14-2022 End: 04-14-2022 Patient encounter procedure MARY GONZALES CNP [facility] Start: 04-05-2022 End: 04-09-2022 Outreach Lab DUARTE BUNN CONTINUOUS LOFT OPERATOR-MICRO PHOTOGRAPHER [facility] Start: 03-17-2022 End: 03-17-2022 Patient encounter procedure WILMAN ADEN DO [facility] Start: 01-26-2022 End: 01-26-2022 Patient encounter procedure WILMAN ADEN DO [facility] Start: 12-02-2021 End: 12-02-2021 Patient encounter procedure WILMAN ADEN DO [facility] Start: 11-25-2021 End: 11-25-[address] Wilman Aden Work Phone: [facility] Start: 10-14-2021 End: 10-14-2021 Patient encounter procedure WILMAN ADEN DO [facility] Start: 09-24-2021 End: 09-28-2021 Outreach Lab [facility] CONTINUOUS LOFT OPERATOR-MICRO PHOTOGRAPHER [facility] Start: 08-26-2021 End: 08-26-[address] Wilman Aden Work Phone: [facility] Start: 08-21-2021 Non-patient / Non-visit Dr. Sarah Aden Work Phone: [facility] Start: 08-21-2021 End: 08-21-[address] Wilman Aden Work Phone: [facility]-Cardiovascular Services Start: 08-19-2021 End: 08-19-2021 Patient encounter procedure WILMAN ADEN DO [facility] Procedures Date Procedure Procedure Detail Performing Clinician Start: 12-01-2022 Plain chest X-ray Dr. Stephanie Aden Work Phone: Start: 11-29-2022 Radionuclide imaging of perfusion of myocardium under exercise stress Dr. Wilman Aden Work Phone: Start: 11-25-2021 CT angiography of ch est with contrast Dr. Wilman Aden Work Phone: Start: 07-11-2017 Cardiac catheterization WILMAN ADEN DO Start: 07-11-1997 Hysterectomy WILMAN PARR DO Cystocele (disorder) WILMAN HARRISONSAY DO Comment on above: 2007 Foot structure (body structure) WILMAN HARRISONSAY DO Comment on above: cartilage replaced l eft foot 2017 Plan of Treatment Date Care Activity Detail Author US Carotid arteries [facility] Carotid arteries [facility] Immunizations Immunization Date Immunization Notes Care Provider Fa [facility] 04-16-2020 pneumococcal conjuga te vaccine, 13 valent WILMAN ADEN DO [facility] Comment on above: Result Comment: [facility] 03-21-2019 influenza virus vacc ine, unspecified formulation WILMAN ADEN DO [facility] Comment on above: Result Comment: [facility] 04-03-2018 influenza, injectabl e, quadrivalent, preservative free Dr. Wilman Aden Work Phone: [facility] 04-03-2018 influenza, seasonal, injectable Dr. Wilman Aden Work Phone: [facility] 07-11-2011 pneumococcal conjuga te vaccine, 13 valent WILMAN ADEN DO [facility] 07-11-2009 zoster vaccine, live WILMAN ADEN DO [facility] 07-11-2007 pneumococcal polysaccharide vaccine, 23 valent WILMAN ADEN DO [facility] Payers Date Payer Category Payer Private Health Insurance [id number] 2024 Unknown [id number] 2024 Self-pay [id number] 2023 Unknown [id number] 2019 Medicare [id number] 2014 Unknown [id number] 2009 Medicare [id number] 1945 Unknown [id number] 2.16.8 40.1.635144.3.579.2. 1945 Unknown [id number] 2.16.8 40.1.848299.3.579.2. 1945 Unknown [id number] 2.16.8 40.1.545188.3.579.2 1945 Unknown [id number] 2.16.8 40.1.544289.3.579.2. 1945 Unknown [id number] 2.16.8 40.1.044937.3.579.2 1944 Unknown [id number] 2.16.8 40.1.909797.3.579.2. 1945 Unknown [id number] 2.16. 840.1.431033.3.579.2 1945 Unknown [id number] 2.16.8 40.1.405361.3.579.2.627 1945 Unknown [id number] 2.16.8 40.1.404840.3.579.2.627 1944 Unknown [id number] 2.16.8 40.1.308984.3.579.2.627 1945 Unknown [id number] 2.16.8 40.1.544063.3.579.2.627 Unknown [id number] 2.16.8 40.1.232557.3.579.2.462 Unknown [id number] 2.16.8 40.1.941705.3.579.2.462 Unknown [id number] 2.16.8 40.1.229549.3.579.2.462 Unknown [id number] 2.16.8 40.1.080915.3.579.2.462 Unknown [id number] 2.16.8 40.1.437725.3.579.2.462 Unknown [id number] 2.16.8 40.1.577881.3.579.2.462 Unknown [id number] 2.16.8 40.1.588273.3.579.2.462 Unknown [id number] 2.16.8 40.1.135359.3.579.2.462 Unknown [id number] 2.16.8 40.1.354252.3.579.2.462 Unknown [id number] 2.16.8 40.1.210007.3.579.2.462 Unknown 1945 2.16.8 40.1.871671.3.579.2.462 Unknown [id number] 2.16.8 40.1.684190.3.579.2.462 Social History Date Type Detail Facility Start: 01-19-2019 End: 2025 Ex-smoker (finding) [facility] Comment on above: No smoke exposure Quit in 1988 Start: 1945 Sex Assigned At Female A [facility] Start: 08-26-2021 End: 04-19-2023 Tobacco smoking status NHIS Unknown if ever smoked [facility] Start: 07-01-[address] [facility] Start: 07-01-[address] [facility] Start: 07-01-[address] [facility] Start: 07-04-[address] [facility] Sexual Orientation [facility] Start: 01-03-2019 Sex Female (finding) [facility] Medical Equipment Procedure Code Equipment Code Equipment Origin al Text Equipment Identifier Dates 7.0MM TAPER POST FDA Start: 11-25-2017 12MM ARTICULAR COMP FDA Start : 11-25-2017 CEMENT,BONE FIFI H 1/2 BATCH FDA Start: 11-25-2017 CEMENT,BONE FIFI H 1/2 BATCH FDA Start: 11-25-2017 12MM ARTICULAR COMP FDA Start : 11-25-2017 7.0MM TAPER POST FDA Start: 11-25-2017 CEMENT,BONE FIFI H 1/2 BATCH FDA Start: 11-25-2017 CEMENT,BONE FIFI H 1/2 BATCH FDA Start: 11-25-2017 12MM ARTICULAR COMP FDA Start : 11-25-2017 7.0MM TAPER POST FDA Start: 11-25-2017 CEMENT,BONE FIFI H 1/2 BATCH FDA Start: 11-25-2017 CEMENT,BONE FIFI H 1/2 BATCH FDA Start: 11-25-2017 12MM ARTICULAR COMP FDA Start : 11-25-2017 7.0MM TAPER POST FDA Start: 11-25-2017 CEMENT,BONE FIFI H 1/2 BATCH FDA Start: 11-25-2017 CEMENT,BONE FIFI H 1/2 BATCH FDA Start: 11-25-2017 12MM ARTICULAR COMP FDA Start : 11-25-2017 7.0MM TAPER POST FDA Start: 11-25-2017 CEMENT,BONE FIFI H 1/2 BATCH FDA Start: 11-25-2017 CEMENT,BONE FIFI H 1/2 BATCH FDA Start: 11-25-2017 Clinical Notes 07-26-2018 to 01-23-2025 Note Date & Type Note Facility 07-16-2025 Note . MICRO - Microbiology PROCEDURE: Urine Culture [*1] SOURCE: Urine, Clean Catch BODY SITE: COLLECTED DATE/TIME: 2025 13:50 EDT RECEIVED DATE/TIME: 2025 17:22 EDT START DATE/TIME: 2025 17:22 EDT FREE TEXT SOURCE: FINAL REPORTS Final Report [] Verified Date/Time/Personnel: 01/23/2025 14:22 EDT <10,000 cfu/ml. No Significant growth. Sensitivity not indicated. PRELIMINARY REPORTS Preliminary Report [] Verified Date/Time/Personnel: 2025 17:59 EDT Specimen received in lab. Performing Locations *1: This test was performed at: [address], [facility] , [facility] 10-26-2024 Note . MICRO - Microbiology PROCEDURE: Urine Culture [*1] SOURCE: Urine, Clean Catch BODY SITE: COLLECTED DATE/TIME: 10/25/2024 16:22 EDT RECEIVED DATE/TIME: 10/25/2024 19:28 EDT START DATE/TIME: 10/25/2024 19:29 EDT FREE TEXT SOURCE: FINAL REPORTS Final Report [] Verified Date/Time/Personnel: 10/26/2024 14:28 EDT <10,000 cfu/ml. No Significant growth. Sensitivity not indicated. PRELIMINARY REPORTS Preliminary Report [] Verified Date/Time/Personnel: 10/25/2024 20:59 EDT Specimen received in lab. Performing Locations *1: This test was performed at: [address], [facility] , [facility] 10-10-2024 Evaluation note Diagnosis Onset Date Resolution Carotid stenosis acute October 8:28am Venous insufficiency acute Apri l 2024 8:28am Trigger finger acute October 8:51am [facility] Work Phone: [phone]) 829-586401-07-2025 Note. MICRO - Microbiology PROCEDURE: Urine Culture [*1] SOURCE: Urine, Clean Catch BODY SITE: COLLECTED DATE/TIME: 07/16/2024 16:11 EST RECEIVED DATE/TIME: 07/16/2024 19:31 EST START DATE/TIME: 07/16/2024 19:31 EST FREE TEXT SOURCE: FINAL REPORTS Final Report [] Verified Date/Time/Personnel: 07/17/2024 14:01 EST <10,000 cfu/ml. No Significant growth. Sensitivity not indicated. Performing Locations *1: This test was performed at: [address], [id number]- , [facility]09-20-2024 Note. MICRO - Microbiology PROCEDURE: Urine Culture [*1] SOURCE: Urine, Clean Catch BODY SITE: COLLECTED DATE/TIME: 03/28/2024 13:02 EDT RECEIVED DATE/TIME: 03/28/2024 18:57 EDT START DATE/TIME: 03/28/2024 18:57 EDT FREE TEXT SOURCE: FINAL REPORTS Final Report [] Verified Date/Time/Personnel: 03/30/2024 12:18 EDT >100,000 cfu/ml Streptococcus mitis group Sensitivity testing is not recommended for one of the following reasons: 1. Established susceptibility patterns are available or 2. Interpretative criteria are not available. PRELIMINARY REPORTS Preliminary Report [] Verified Date/Time/Personnel: 03/29/2024 10:04 EDT No growth to date SUSCEPTIBILITY RESULTS Streptococcus mitis group Antibiotic OCTAVIO Dilut OCTAVIO Inter ID Panel Not Not Applicable Applicable Performing Locations *1: This test was performed at: [address], [id number] , [facility]03-10-2024 Note. MICRO - Microbiology PROCEDURE: Urine Culture [*1] SOURCE: Urine, Clean Catch BODY SITE: COLLECTED DATE/TIME: 09/16/2023 08:58 EST RECEIVED DATE/TIME: 09/16/2023 19:14 EST START DATE/TIME: 09/16/2023 19:15 EST FREE TEXT SOURCE: FINAL REPORTS Final Report [] Verified Date/Time/Personnel: 09/18/2023 07:46 EDT 10,000 - 50,000 cfu/ml Mixed growth consistent with normal urogenital cristobal. PRELIMINARY REPORTS Preliminary Report [] Verified Date/Time/Personnel: 09/17/2023 08:44 EST No growth to date Performing Locations *1: This test was performed at: [address], [address] , [facility] ([place]05-23-2023 Note. MICRO - Microbiology PROCEDURE: Urine Culture [*1] SOURCE: Urine, Clean Catch BODY SITE: COLLECTED DATE/TIME: 05/21/2023 11:30 EST RECEIVED DATE/TIME: 05/21/2023 17:06 EST START DATE/TIME: 05/21/2023 17:07 EST FREE TEXT SOURCE: FINAL REPORTS Final Report [] Verified Date/Time/Personnel: 05/23/2023 08:09 EST >100,000 cfu/ml Escherichia coli PRELIMINARY REPORTS Preliminary Report [] Verified Date/Time/Personnel: 05/22/2023 12:03 EST >100,000 cfu/ml Escherichia coli OCTAVIO to follow SUSCEPTIBILITY RESULTS Escherichia coli Antibiotic OCTAVIO Dilut OCTAVIO Inter Ampicillin <=8 Susceptible Ampicillin/ <=4/2 Susceptible Sulbactam Aztreonam <=4 Susceptible Cefazolin <=2 Susceptible Ciprofloxacin >2 Resistant Ertapenem <=0.5 Susceptible Gentamicin <=2 Susceptible Imipenem <=1 Susceptible Levofloxacin >4 Resistant Meropenem <=1 Susceptible Minocycline <=4 Susceptible Nitrofurantoin <=32 Susceptible Trimethoprim/ <=0.5/9.5 Susceptible Sulfa Performing Locations *1: This test was performed at: [address], [address] , [facility] ([place]04-06-2023 Note. MICRO - Microbiology PROCEDURE: Urine Culture [*1] SOURCE: Urine, Clean Catch BODY SITE: COLLECTED DATE/TIME: 04/04/2023 16:39 EDT RECEIVED DATE/TIME: 04/04/2023 21:50 EDT START DATE/TIME: 04/04/2023 21:51 EDT FREE TEXT SOURCE: FINAL REPORTS Final Report [] Verified Date/Time/Personnel: 04/06/2023 07:39 EDT <10,000 cfu/ml. No Significant growth. Sensitivity not indicated. PRELIMINARY REPORTS Preliminary Report [] Verified Date/Time/Personnel: 04/05/2023 09:05 EDT Culture results pending. Performing Locations *1: This test was performed at: [address], [facility] , [facility] ([place]02-13-2023 Note. MICRO - Microbiology PROCEDURE: Urine Culture [*1] SOURCE: Urine, Clean Catch BODY SITE: COLLECTED DATE/TIME: 02/11/2023 09:52 EDT RECEIVED DATE/TIME: 02/11/2023 19:14 EDT START DATE/TIME: 02/11/2023 19:14 EDT FREE TEXT SOURCE: FINAL REPORTS Final Report [] Verified Date/Time/Personnel: 02/13/2023 07:34 EDT 10,000 - 50,000 cfu/ml Mixed growth consistent with normal urogenital cristobal. PRELIMINARY REPORTS Preliminary Report [] Verified Date/Time/Personnel: 02/12/2023 11:00 EDT No growth to date Performing Locations *1: This test was performed at: [address], [facility] , [facility] ([place]07-26-2018 Evaluation note* Diagnosis Onset Date Resolution Status Carotid stenosis, bilateral acute Hypertension chronic Abnormal stress test acute Hypertension chronic Stented coronary artery July 26, 2018 [facility] Work Phone: Evaluation + Plan note Future Appointments Appointment Date:02/09/2022 09:00:00 AM Scheduled Provider:WILMAN ADEN DO Location:[facility] Appointment Type: OV Future Scheduled Tests Laboratory* Microalbumin Level Urine 08/11/21 [facility] Evaluation + Plan note Future Appointments Appointment Date:02/09/2022 09:00:00 AM Scheduled Provider:WILMAN ADEN DO Location:[facility] Appointment Type:PC OV Future Scheduled Tests Laboratory* Thyroid Stimulating Hormone 10/04/21 * Urine Culture 09/24/21 * Microalbumin Level Urine 08/11/21 [facility] Evaluation + Plan note Future Appointments Appointment Date:02/09/2022 09:00:00 AM Scheduled Provider:WILMAN ADEN DO Location:[facility] Appointment Type:PC OV Future Scheduled Tests Laboratory* Thyroid Stimulating Hormone 11/25/21 * Urine Culture 09/24/21 * Microalbumin Level Urine 08/11/21 [facility] Evaluation + Plan note Future Appointments Appointment Date:02/09/2022 09:00:00 AM Scheduled Provider:WILMAN ADEN DO Location:[facility] Appointment Type:PC OV Future Scheduled Tests Laboratory* Thyroid Stimulating Hormone 01/13/22 * Urine Culture 09/24/21 * Microalbumin Level Urine 08/11/21 Radiology* CT Angiography Chest w/ Contrast 11/25/21 * XR Chest 2 Views (PA & Lateral) 11/23/21 * XR Chest 2 Views (PA & Lateral) 11/23/21 [facility] evaluation + Plan note Future Appointments Appointment Date:08/12/2022 09:00:00 AM Scheduled Provider:WILMAN ADEN DO Location:[facility] Appointment Type:PC OV Future Scheduled Tests Laboratory* Thyroid Stimulating Hormone 01/13/22 * Urine Culture 09/24/21 * Microalbumin Level Urine 08/11/21 Radiology* CT Angiography Chest w/ Contrast 11/25/21 * XR Chest 2 Views (PA & Lateral) 11/23/21 * XR Chest 2 Views (PA & Lateral) 11/23/21 [facility] evaluation + Plan note Future Appointments Appointment Date:08/12/2022 09:00:00 AM Scheduled Provider:WILMAN ADEN DO Location:[facility] Appointment Type:PC OV Future Scheduled Tests Laboratory* Thyroid Stimulating Hormone 01/13/22 * Microalbumin Level Urine 08/11/21 Radiology* CT Angiography Chest w/ Contrast 11/25/21 * XR Chest 2 Views (PA & Lateral) 11/23/21 * XR Chest 2 Views (PA & Lateral) 11/23/21 [facility] Evaluation + Plan note Future Appointments Appointment Date:08/12/2022 09:00:00 AM Scheduled Provider:WILMAN ADEN DO Location:[facility] Appointment Type:PC OV Future Scheduled Tests Laboratory* Microalbumin Level Urine 08/11/21 Radiology* CT Angiography Chest w/ Contrast 11/25/21 * XR Chest 2 Views (PA & Lateral) 11/23/21 * XR Chest 2 Views (PA & Lateral) 11/23/21 [facility] Evaluation + Plan note Future Appointments Appointment Date:08/12/2022 09:00:00 AM Scheduled Provider:WILMAN ADEN DO Location:[facility] Appointment Type:PC OV Future Scheduled Tests Laboratory* Urine Culture 04/30/22 * Microalbumin Level Urine 08/11/21 Radiology* CT Angiography Chest w/ Contrast 11/25/21 * XR Chest 2 Views (PA & Lateral) 11/23/21 * XR Chest 2 Views (PA & Lateral) 11/23/21 [facility] Evaluation + Plan note Future Appointments Appointment Date:08/11/2023 09:30:00 AM Scheduled Provider:WILMAN ADEN DO Location:[facility] Appointment Type:PC OV Future Scheduled Tests Laboratory* Urine Culture 04/30/22 * 24 Hr Urine Total Protein (AO) 02/11/23 * 24 Hr Urine Creatinine (AO) 02/11/23 [facility] Evaluation + Plan note Future Appointments Appointment Date:08/02/2024 10:00:00 AM Scheduled Provider:WILMAN ADEN DO Location:[facility] Appointment Type:PC OV Future Scheduled Tests Laboratory* Albumin/Creatinine Ratio, Random Urine 02/02/24 [facility] Evaluation + Plan note Future Appointments Appointment Date:01/31/2025 10:00:00 AM Scheduled Provider:BRIAN PATTON DO Location:[facility] Appointment Type:PC OV Future Scheduled Tests Laboratory* Albumin/Creatinine Ratio, Random Urine 02/02/24 [facility] Evaluation + Plan note Future Appointments Appointment Date:02/22/2025 07:30:00 AM Scheduled Provider:BRIAN PATTON DO Location:[facility] Appointment Type:PC Wellness Medicare Future Scheduled Tests Laboratory* Albumin/Creatinine Ratio, Random Urine 02/02/24 [facility] Evaluation note* Diagnosis Onset Date Resolution Status Carotid 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, 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 [facility] Work Phone: Evaluation noteNo assessment information available [facility] Work Phone: Hospital course Narrative No data available for this section [facility] Hospital Discharge instructions No data available for this section [facility] Progress note No data available for this section [facility] Reason for referral (narrative)No reason for [facility] Phone: Chief Complaint and Reason for Visit Chief Complaint CAROTID STENOSIS DEVENDRA AT YEARLY CAROTID US 08/21 [facility] Reason for Visit Carotid stenosis, ri ght Chief Complaint CAROTID STENOSIS Chief Complaint CAROTID STENOSIS CAROTID US 08/26 CHEST PAIN CHEST PAIN ABN STRESS CORANRY ARTREY CHEST PAIN ABN STRESS CORANRY ARTREY CHEST PAIN Reason for Visit Carotid stenosis, bi lateral Hypertension Abnormal stress test Hypertension Stented coronary artery Chief Complaint DIZZINESS Chief Complaint Admit Date Previous Pt of Dr. Flores October 10, 2024 8:28am 2 M F/U October 18, 2024 8:5 1am R ICA STENOSIS November 05, 2024 8:5 1am SOB PALP January 10, 2025 12:23 pm Reason for Visit Admit Date Carotid stenosis October 10, 2024 8:28 am Venous insufficiency October 10, 2024 8:2 8am Trigger finger October 18, 2024 8:5 1am Family History No Family History Records Found Relationship Condition Age at Onset Recorded Date/T chelle father Coronary artery disease Unknown Hypertension Unknown brother Coronary artery disease Unknown Presence of stent in coronary artery Unkn own brother Malignant neoplasm of lung Unknown Coronary artery disease Unknown sister Diabetes mellitus Unknown daughter Disorder of thyroid Unknown Advance Directives No Advanced Directives Records Found Advance Directive Response Recorded Date/ Time Advance Directives Yes July 26, 2018 10:52am Living Will Yes August 22 019 2:17pm Power of Hand Router Operator Yes August 22, 2018 2:17pm Advance Directive Response Recorded Date/ Time Advance Directives Yes July 26, 2018 9:52am Living Will Yes August 22 1:17pm Power of Hand Router Operator Yes August 22, 2018 1:17pm Advance Directive Response Recorded Date/ Time Advance Directives on File Yes November 092022 9:09am Name of Medical Power of Hand Router Operator Naye Barillas- daughter, Sridevi Cuellar- daughter December 03, 2022 9:09am Advance Directives Yes December 03 9:09am Living Will Yes December 03, 2022 9 :09am Power of Hand Router Operator Yes December 03, 2022 9:09am Advance Directive Response Recorded Date/ Time Advance Directives Yes March 8:51am Living Will Yes April 04, 2023 8:51am Power of Hand Router Operator Yes March 8:51am Advance Directive Response Recorded Date/ Time Advance Directives Yes March 9:51am Summary Purpose Additional Source Comments Care Team (unrecognized sect ion and content) Team Status: Active Member Role Status Dates Dr. Wilman Aden DO Family Provider Active Dr. Wilman Aden DO Primary Care Provider Active Team Status: Active Member Role Status Dates Dr. Wilman Aden DO Primary Care Provider Active Dr. Wilman Flores MD Attending Provider Active Team Status: Inactive Member Role Status Dates Dr. Wilman Aden DO Primary Care Provider Active Dr. Wilman Flores MD Attending Provider, Referring Provider Active Team Status: Inactive Member Role Status Dates Dr. Wilman Aden DO Primary Care Provider, Referri Provider Active Dr. Wilman Folres MD Attending Provider Active Team Status: Active Member Role Status Dates Dr. Wilman Aden DO Primary Care Provider Active Dr. Wilman Flores MD Attending Provider, Referring Provider Active Team Status: Active Member Role Status Dates Dr. Wilman Aden DO Primary Care Provider Active Frida JOAQUIN PA Referring Provider, Other Provider Active Dr. Kerrie Lawler MD Attending Provider Activ e Team Status: Active Member Role Status Dates Dr. Wilman Aden DO Primary Care Provider Active Dr. Kerrie Lawler MD Referring Provider, Othe r Provider Active Frida JOAQUIN PA Attending Provider Active Team Status: Inactive Member Role Status Dates Dr. Wilman Aden DO Primary Care Provider Active Frida JOAQUIN PA Attending Provider, Referr ing Provider Active Team Status: Inactive Member Role Status Dates Dr. Wilman Aden DO Primary Care Provider Active Dr. Kerrie Lawler MD Attending Provider, Refe rring Provider Active Team Status: Active Member Role/Relationship Status Dates Dr. Wilman Aden DO Primary Care Provider Active Team Status: Inactive Member Role/Relationship Status Dates Dr. Wilman Aden DO Primary Care Provider Active Start: October 10, 2024 End: October 10, 2024 Dr. Wilman Aden DO Referring Provider Active Start: October 10, 2024 End: October 10, 2024 EMANI Olsen Attending Provider Active Star t: October 10, 2024 End: October 10, 2024 Team Status: Inactive Member Role/Relationship Status Dates Dr. Wilman Aden DO Primary Care Provider Active Start: October 18, 2024 End: October 18, 2024 Dr. Wilman Aden DO Referring Provider Active Start: October 18, 2024 End: October 18, 2024 Dr. Wilman Junior MD Attending Provider Active Start: October 18, 2024 End: October 18, 2024 Team Status: Inactive Member Role/Relationship Status Dates Dr. Wilman Aden DO Primary Care Provider Active Start: November 05, 2024 End: November 05, 2024 EMANI Olsen Attending Provider Active Star t: November 05, 2024 End: November 05, 2024 EMANI Olsen Referring Provider Active Star t: November 05, 2024 End: November 05, 2024 Team Status: Active Member Role/Relationship Status Dates Dr. Wilman Aden DO Primary Care Provider Active Start: November 05, 2024 Dr. Dave Starkey MD Attending Provider Active S tart: November 05, 2024 EMANI Olsen Referring Provider Active Star t: November 05, 2024 Team Status: Inactive Member Role/Relationship Status Dates Dr. Wilman Aden DO Primary Care Provider Active Start: January 10, 2025 End: January 10, 2025 Frida JOAQUIN PA Attending Provider Active Start: January 10, 2025 End: January 10, 2025 Frida JOAQUIN PA Referring Provider Active Start: January 10, 2025 End: January 10, 2025 Goals (unrecognized section and content) Goals may be documented in a n alternate section Care Team (unrecognized sect ion and content) Care Team Personnel Name: Viola [place] Clerk Rosemary PT Position: P3 Scheduling - Carbonizer Tester Advanced Member Role: Other Name: WILMAN ADEN DO Position: P4 Physician - Primary Care Med Service: Active Provider Member Role: Primary Care Physician Address: Address: [address] [place] [address] Care Team Related Persons Name: NAYE GAXIOLA Care Team Personnel Name: Viola [place] Clerk Rosemary PT Position: P3 Scheduling - Carbonizer Tester Advanced Member Role: Other Name: WILMAN ADEN DO Position: P4 Physician - Primary Care Med Service: Active Provider Member Role: Primary Care Physician Address: Address: [address] [place] [address] Care Team Related Persons Name: NAYE GAXIOLA Care Team Personnel Name: Viola [place] Clerk Rosemary PT Position: P3 Scheduling - Carbonizer Tester Advanced Member Role: Other Name: WILMAN ADEN DO Position: P4 Physician - Primary Care Med Service: Active Provider Member Role: Primary Care Physician Address: Address: [address] [place] [address] Care Team Related Persons Name: NAYE GAXIOLA Care Team Personnel Name: Viola [place] Clerk Rosemary PT Position: P3 Scheduling - Carbonizer Tester Advanced Member Role: Other Name: WILMAN ADEN DO Position: P4 Physician - Primary Care Med Service: Active Provider Member Role: Primary Care Physician Address: Address: [address] [place] [address] Care Team Related Persons Name: NAYE GAXIOLA Care Team Personnel Name: Viola [place] Clerk Rosemary PT Position: P3 Scheduling - Carbonizer Tester Advanced Member Role: Other Name: WILMAN ADEN DO Position: P4 Physician - Primary Care Member Role: Primary Care Physician Address: Address: [address] [place] [address] Care Team Related Persons Name: NAYE GAXIOLA Care Team Personnel Name: Manuel Potato Peeling Machine Operator Rosemary PT Position: P3 Scheduling - Carbonizer Tester Advanced Member Role: Other Name: WILMAN ADEN DO Position: P4 Physician - Primary Care Member Role: Primary Care Physician Address: Address: [address] [place] [address] Care Team Related Persons Name: NAYE GAXIOLA INFORMATION SOURCE (unrecogn ized section and content) DATE CREATED AUTHOR 02/05/2024 [facility] ([place]) DATE CREATED AUTHOR AUTHOR'S ORGANIZ ATION 01/29/2025 [facility] DATE CREATED AUTHOR AUTHOR'S ORGANIZ ATION 02/16/[address] [facility] FOR RECORDS PERTAINING TO PATIENTS WHO ARE OR HAVE BEEN ENROLLED IN A CHEMICAL DEPENDENCY/SUBSTANCEABUSE PROGRAM, SOME INFORMATION MAY BE OMITTED. This clinical summary was aggregated from multiple sources. Caution should be exercised in using it in the provision of clinical care. This summary normalizes information from multiple sources, and as a consequence, information in this document may materially change the coding, format and clinical context of patient data. In addition, data may be omitted in some cases. CLINICAL DECISIONS SHOULD BE BASED ON THE PRIMARY CLINICAL RECORDS. [facility]. provides no warranty or guarantee of the accuracy or completeness of information in this document.
--- OUTSIDE RECORDS SUMMARY | 2025-02-18 06:06 | XMS RPT_ITS | CCD ---
Author Organization [facility] Care Team Providers Care Traveling Electrician Name Role Phone WILMAN ADEN DO Primary [...] Unavailable WILMAN ADEN DO Primary Care Unavailable [place] [employer] LE[employer]ER-DUARTE LYNN Attending Unavailabl e KEIKO DO, WILMAN [...] DO Referring Provider Izzy Albert Attending Provider [phone] Wilman Junior MD Attending Provider Kaur JOAQUIN, Izzy Referring Provider [phone] Dave Starkey MD Attending Provider [phone] Frida Brito Attending Provider [phone] Frida Brito Referring Provider [phone] KEIKO DO, WILMAN Primary Care Unavailable SARAH [employer]ION CREW LEADER-FEROZ LYNN Attending Unapiotri lable KEIKO DO, WILMAN Primary Care Unavailable KEIKO DO, WILMAN Attending Unavailable KEIKO DO, WILMAN Primary Care Unavailable BONG SUPPRESSION CREW LEADERLAMONT MILLER Attending Unavailabl e KEIKO DO, WILMAN Primary Care Unavailable [place] [employer]W LEADER-MANAGER FAMILYNAV Attending Unavailabl e KEIKO DO, WILMAN Primary Care Unavailable RAJANI SUPPRESSION CREW LEADERSUSIE GEIGER Attending Unavai lable Keiko, Wilman Referring [...] Translations: [acetaminophen-hy drocodone] Drug Allergy Nausea (finding) [facility] (20 sources) Codeine; Translations: [codeine] Drug Allergy 08-26-19 22 Nausea (finding) [facility] Comment on above: pt experiences sever e nausea (20 sources) Erythromycin; Translations: [erythromycin] Drug Allergy 08-26-19 22 Vomiting (disorder) [facility] (15 sources) Penicillin; Translations: [penicillins] Drug Allergy [facility] Comment on above: rash (15 sources) Sulfonamides (Antibiotic); Translations: [sulfa drugs] Drug allergy Tetracycline adverse reaction (disorder) [facility] Comment on above: rash (16 sources) Tetracycline; Translations: [tetracycline] Drug Allergy Eruption of skin (disorder) [facility] Comment on above: rash (5 sources) Acetaminophen Drug Allergy 08-26-19 22 Nausea [facility] (5 sources) Azithromycin Drug Allergy 08-26-19 22 Itching [facility] (5 sources) HYDROcodone Drug Allergy 08-26-19 22 Nausea [facility] (6 sources) Penicillins; Translations: [Penicillins] Allergy to substance 08-26-19 Rash [facility] (6 sources) Sulfonamides (Antibiotic); Translations: [Sulfa (Sulfonamide Antibiotics)] Propensity to adverse reactions 08-26-19 Nausea [facility] (6 sources) Tetracyclines; Translations: [Tetracyclines] Propensity to adverse reactions 08-26-19 Nausea [facility] (1 source) Penicillin; Translations: [penicillins] Drug Allergy [facility] Comment on above: rash (1 source) Sulfonamides (Antibiotic); Translations: [sulfa drugs] Drug allergy Tetracycline adverse reaction (disorder) [facility] Comment on above: rash (9 sources) meloxicam; Translations: [meloxicam] Drug Allergy 09-15-19 Nausea (finding) [facility] (1 source) Acetaminophen Drug Allergy 10-19-19 [facility] Rep[facility] (1 source) Azithromycin Drug Allergy 10-19-19 [facility] (1 source) Codeine Drug Allergy 10-19-19 [facility] (1 source) Erythromycin Drug Allergy 10-19-19 [facility] (1 source) HYDROcodone Drug Allergy 10-19-19 [facility] (1 source) meloxicam Drug Allergy 10-19-19 [facility] Medications Current Medications Medication Drug [...] mg PO DAILY@0800 November 22, 2017 12:00am [employer] [facility] Start: 09-03-2013 aspirin 81 mg oral tablet [...] supply., # 3 EA, 3 Refill(s), Pharmacy: [id number], Soln, 161, cm, 08/12/22 8:58:00 EST, Height, 62.5, kg, 08/12/22 8:58:00 EST, Dosing Weight Start Date: 08/12/22 Status: Ordered Quantity: 3.0 Unit: EA Repeat number: 4 Start: 12-17-2020 ciclopirox 8% topical solution See Instructions, Apply to toenails once daily as directed, dispense quantity sufficient for 90 day supply., # 3 EA, 3 Refill(s), Pharmacy: [id number], Soln, 162, cm, 08/11/20 9:02:00 EST, Height, 61.5, kg, 08/11/20 9:02:00 EST, Dosing... Start Date: 12/17/20 Status: Ordered Start: 12-17-2020 ciclopirox 8% topical solution See Instructions, Apply to toenails once daily as directed, dispense quantity sufficient for 90 day supply., # 3 EA, 3 Refill(s), Pharmacy: [id number], Soln, 162, cm, 08/11/20 9:02:00 EST, Height, 61.5, kg, 08/11/20 9:02:00 EST, Dosing... Start Date: 12/17/20 Status: Ordered ciprofloxacin 250 mg oral tablet (3 sources) Quinolone Antimicrobial Start: 06-29-2022 End: 07-06-2022 ciprofloxacin 250 mg oral tablet Dose : 250 mg = 1 tab(s), Oral, q12h, X 7 day(s), # 14 tab(s), 0 Refill(s), 07/06/22 15:37:00 EST, Pharmacy: [facility]/pharmacy #[id number], UTI (urinary tract infection), 161, cm, 06/29/22 15:17:00 EST, Height, 61.7 Start Date: 06/29/22 Stop Date: 07/06/22 Status: Ordered Start: 04-30-2022 End: 05-14-2022 Cipro 250 mg oral tablet Dos e : 250 mg = 1 tab(s), Oral, q12h, X 7 day(s), # 14 tab(s), 1 Refill(s), 05/14/22 10:40:00 EDT, Pharmacy: [facility]/pharmacy #[id number], 161, cm, 04/30/22 10:22:00 EDT, Height, 61.3 Start Date: 04/30/22 Stop Date: 05/14/22 Status: Ordered Start: 04-05-2022 End: 04-12-2022 Cipro 500 mg oral tablet Dos e : 500 mg = 1 tab(s), Oral, q12h, X 7 day(s), # 14 tab(s), 0 Refill(s), 04/12/22 9:44:00 EDT, Pharmacy: [facility]/pharmacy #[id number], UTI symptoms, 161, cm, 04/05/22 9:19:00 EDT, Height, 61.9 Start Date: 04/05/22 Stop Date: 04/12/22 Status: Ordered diclofenac sodium 0.01 mg/mg topical gel (20 sources) Nonsteroidal Anti-inflammatory Drug Start: 02-10-2023 diclofenac 1% topical gel 4 = gram(s), Topical, QID, PRN as needed for pain, # 100 gram(s), 11 Refill(s), Pharmacy: [id number], Gel, 161, cm, 02/10/23 9:01:00 EDT, Height, 61.8, kg, 02/10/23 9:01:00 EDT, Dosing Weight Start Date: 02/10/23 Status: Ordered Quantity: 100.0 Unit: g Repeat number: 12 Start: 02-08-2020 diclofenac 1% topical gel 4 = gram(s), Topical, QID, PRN as needed for pain, # 100 gram(s), 5 Refill(s), Pharmacy: [facility]/pharmacy #[id number], Gel, 161, cm, 02/08/20 9:00:00 EDT, Height, 61, kg, 02/08/20 9:00:00 EDT, Dosing Weight Start Date: 02/08/20 Status: Ordered Start: 02-08-2020 diclofenac 1% topical gel 4 = gram(s), Topical, QID, PRN as needed for pain, # 100 gram(s), 5 Refill(s), Pharmacy: [facility]/pharmacy #[id number], Gel, 161, cm, 02/08/20 9:00:00 EDT, [...] daily, # 30 tab(s), 2 Refill(s), Pharmacy: [facility]/pharmacy #[id number], Depression with anxiety, 160, cm, 06/19/21 16:11:00 EST, Height, kg, 06/19/21 16:... Start Date: 06/19/21 Status: Ordered hydroCHLOROthiazide 25 mg oral tablet (20 sources) Thiazide Diuretic Start: 06-18-2024 hydroCHLOROthiazide 25 mg oral tablet Dose : 25 mg = 1 tab(s), Oral, Daily, # 90 tab(s), 3 Refill(s), Pharmacy: [facility]/pharmacy #[id number], 159.8, cm, 03/28/24 11:18:00 EDT, Height, [...] qAM, # 90 tab(s), 3 Refill(s), Pharmacy: [facility]/pharmacy #[id number], CAD (coronary artery disease), 160.5, cm, 08/02/24 9:55:00 EST, Height, kg, 08/02/24 9:55:00 EST, Dosing Weight Start Date: 08/02/24 Status: Ordered Quantity: 90.0 Unit: tab(s) Repeat number: 4 Indications: Atherosclerotic heart disease of [place] coronary artery without angina pectoris; Start: 07-19-2018 [...] day(s), # 15 gram(s), 0 Refill(s), Pharmacy: [facility]/pharmacy #[id number], Cream, 160.5, cm, 08/02/24 9:55:00 EST, [...] Tuesday, # 90 tab(s), 3 Refill(s), Pharmacy: [facility]/pharmacy #[id number], 161, cm, 02/02/24 9:20:00 EDT, Height, [...] Tuesday, # 90 tab(s), 3 Refill(s), Pharmacy: [facility]/pharmacy #[id number], 161, cm, 04/30/22 10:22:00 EDT, Height, [...] Tuesday, # 90 tab(s), 1 Refill(s), Pharmacy: [facility]/pharmacy #[id number], 160, cm, 11/27/21 9:11:00 EDT, Height Start Date: 12/04/21 Status: Ordered Start: 11-16-2021 take 1 tablet by susanne th once daily levothyroxine 100 mcg (0.1 mg) oral tablet Dose : 100 mcg = 1 tab(s), Oral, qDay, Replaces previous Rx for levothyroxine 88 mcg daily, # 90 tab(s), 0 Refill(s), Pharmacy: [facility]/pharmacy #[id number], 161, cm, 09/24/21 9:45:00 EDT, Height, kg, 09/24/21 9:45:00 EDT, Dosing Weight Start Date: 11/16/21 Status: Ordered Start: 08-23-2021 take 1 tablet by susanne th once daily levothyroxine 100 mcg (0.1 mg) oral tablet Dose : 100 mcg = 1 tab(s), Oral, qDay, Replaces previous Rx for levothyroxine 88 mcg daily, # 90 tab(s), 0 Refill(s), [id number] 161, cm, 08/11/21 9:00:00 EST, Height, kg, 08/11/21 9:00:00 EST, Dosing Weight Start Date: 08/23/21 Status: Ordered Start: 08-11-2021 levothyroxine 88 mcg (0.088 mg) oral tablet Dose : 88 mcg = 1 tab(s), Oral, qDay, # 90 tab(s), 3 Refill(s), Pharmacy: [facility]/pharmacy #[id number], Hypothyroid, 161, cm, 08/11/21 9:00:00 EST, [...] dizziness, # 60 tab(s), 1 Refill(s), Pharmacy: [facility]/pharmacy #[id number], 161, cm, 02/08/20 9:00:00 EDT, Height, [...] cap(s), 0 Refill(s), 09/29/21 10:04:00 EDT, Pharmacy: [facility]/pharmacy #[id number], 161, cm, 09/24/21 9:45:00 EDT, Height, [...] 0 Refill(s), 01/27/25 10:05:00 AM EDT, Pharmacy: [facility]/pharmacy #[id number], 161, cm, 01/22/25 9:37:00 EDT, Height, [...] 0 Refill(s), 07/23/24 12:57:00 PM EST, Pharmacy: [facility]/pharmacy #[id number], UTI symptoms, 159, cm, 07/16/24 12:39:00 [...] 0 Refill(s), 04/02/24 11:44:00 AM EDT, Pharmacy: [facility]/pharmacy #[id number], 159.8, cm, 03/28/24 11:18:00 EDT, Height, [...] 0 Refill(s), 04/11/23 11:55:00 AM EDT, Pharmacy: [facility]/pharmacy #[id number], UTI (urinary tract infection), bacterial, 155, cm, 04/04/23 11:24:00 EDT, Height, 61.3, kg, 04/04/23 11:24:00 EDT, Dosing Weight Start Date: 04/04/23 Stop Date: 04/11/23 Status: Ordered Start: 02-11-2023 End: 02-21-2023 nitrofurantoin macrocrystals -monohydrate 100 mg oral capsule Dose : 100 mg = 1 cap(s), Oral, BID, Take with food, X 10 day(s), # 20 cap(s), 0 Refill(s), 02/21/23 10:10:00 AM EDT, Pharmacy: [facility]/pharmacy #[id number], Urinary tract infection, 161, cm, 02/11/23 9:43:00 EDT, Height, 61.5, kg, 02/11/23 9:43:00 EDT, Dosing Weight Start Date: 02/11/23 Stop Date: 02/21/23 Status: Ordered nitroglycerin 0.4 mg subling ual tablet (2 sources) Start: 02-08-2020 nitroglycerin 0.4 mg sublingual tablet 0.4 mg Dose = 1 tab(s), Sublingual, q5min, PRN as needed for chest pain, # 25 tab(s), 1 Refill(s), [id number] 161, cm, 02/08/20 9:00:00 EDT, Height, kg, 02/08/20 9:00:00 EDT, Dosing Weight Start Date: 02/08/20 Status: Ordered microencapsulated potassium chloride 20 meq extended release oral tablet (20 sources) Start: 08-11-2021 Klor-Con M20 o ral tablet, extended release Dose : 20 mEq = 1 tab(s), Oral, qDay, Take with food, # 90 tab(s), 3 Refill(s), [id number], 161, cm, 08/11/21 9:00:00 EST, Height, kg, 08/11/21 9:00:00 EST, Dosing Weight Start Date: 08/11/21 Status: Ordered Start: 07-04-2018 End: 11-23-2023 Klor-Con M20 oral tablet, ex tended release Dose : 20 mEq = 1 tab(s), Oral, qDay, Take with food, # 90 tab(s), 3 Refill(s), Pharmacy: [facility]/pharmacy #[id number], 161, cm, 08/11/21 9:00:00 EST, Height, [...] qPM, # 30 tab(s), 1 Refill(s), Pharmacy: [facility]/pharmacy #[id number], Nocturnal leg cramps, 155, cm, 03/30/23 10:57:00 [...] 12:00am April 21, 2028 12:00am Atherosclerosis of [place] coronary artery without angina pectoris Difficulty walking involving foot History of non-ST elevation myocardial infarction (NSTEMI) Atherosclerotic heart disease of [place] coronary artery without angina pectoris Difficulty in [...] BID, # 200 tab(s), 3 Refill(s), Pharmacy: [facility]/pharmacy #[id number], 161, cm, 08/11/23 9:29:00 EST, Height, kg, 08/11/23 9:29:00 EST, Dosing Weight Start Date: 08/11/23 Stop Date: 11/28/24 Status: Ordered Quantity: 200.0 Unit: tab(s) Repeat number: 4 Start: 08-12-2022 Metoprolol Tar trate 50 mg oral tablet Dose : 75 mg = 1.5 tab(s), Oral, BID, # 270 tab(s), 3 Refill(s), Pharmacy: [facility]/pharmacy #[id number], 161, cm, 08/12/22 8:58:00 EST, Height, kg, 08/12/22 8:58:00 EST, Dosing Weight Start Date: 08/12/22 Status: Ordered Start: 01-25-2022 Metoprolol Tar trate 50 mg oral tablet Dose : 75 mg = 1.5 tab(s), Oral, BID, # 270 tab(s), 3 Refill(s), Pharmacy: [facility]/pharmacy #[id number], 160, cm, 11/27/21 9:11:00 EDT, Height, kg, 11/27/21 9:11:00 EDT, Dosing Weight Start Date: 01/25/22 Status: Ordered Start: 01-26-2021 Metoprolol Tar trate 50 mg oral tablet Dose : 75 mg = 1.5 tab(s), Oral, BID, # 270 tab(s), 3 Refill(s), Pharmacy: [facility]/pharmacy #[id number], 162, cm, 08/11/20 9:02:00 EST, Height, [...] 12 [employer]) per Dr. Lopez @ [facility] 07/03/2019. SHEMAR to Distal RCA (3.0 X 12 [employer]) and SHEMAR to Proximal RCA (3.0 X 12 [employer]) 07/26/18. Coronary atherosclerosis and other heart disease (7 sources) Stented coronary artery; Translations: [Presence of coronary angioplasty implant and graft] Onset: 07-26-2018 07-26-2018 Episodic Comment on above: SHEMAR to mid LCX (2.25 X 12 [employer]) per Dr. Lopez @ [facility] 07/03/2019. SHEMAR to Distal RCA (3.0 [...] 06-22-2005 07-14-2018 Episodic Comment on above: @ [place], [place]: mild luminary irregularities, normal EF per [...] cfu/ml. No Significant growth. Sensitivity not indicated. [facility] Work Phone: Absolute lymphocyte countOrd ered By: Frida Giang on 01-10-2025 Lymphocytes Auto (Unsp spec) [#/Vol] 2.73 10*3/uL 0.83-4.51 [facility] Absolute neutrophil countOrd ered By: Frida Giang on 01-10-2025 Neutrophils (Bld) [#/Vol] 3.8 10*3/uL 2.0-7.7 [facility] Anion gap in Serum or Plasma Ordered By: Frida Giang on 01-10-2025 Anion gap [Moles/Vol] 8 mmol/L 5- [facility] Automated lymphocyte count a s percentage of total leukocytesOrdered By: Frida Giang on 01-10-2025 Lymphocytes/100 WBC Auto (Unsp spec) 28.8 % [facility] BUN/creatinine ratioOrdered By: Frida Giang on 01-10-2025 Urea nitrogen/Creatinine [Mass ratio] 16.9 mg/mg - [facility] Basic Metabolic Profile (BMP )on 01-10-2025 BUN/CRE 16.9 RATIO Normal - [facility] Comment on above: Performed By: #### L [id number], [id number], L500.2500, L100.0100 #### [facility] [address] [place], [address] Calcium [Mass/Vol] 9.7 mg/dL Normal 7.6-11.0 [facility] Comment on above: Performed By: #### L [id number], [id number], L500.2500, L100.0100 #### [facility] [address] [place], [address] Chloride [Moles/Vol] 106 mmol/L Normal 98-[address] [facility] Comment on above: Performed By: #### L [id number], [id number], L500.2500, L100.0100 #### [facility] [address], [address] CO2 [Moles/Vol] 28.7 mmol/L Normal 21.0-32.0 [facility] Comment on above: Performed By: #### L [id number], [id number], L500.2500, L100.0100 #### [facility] [address] [place], [address] Creatinine [Mass/Vol] 0.86 mg/dL Normal 0.70-1.20 [facility] Comment on above: Performed By: #### L [id number], [id number], L500.2500, L100.0100 #### [facility] [address] [place], [address] GAP 8 Normal 5-15 [facility] Comment on above: Performed By: #### L [id number], [id number], L500.2500, L100.0100 #### [facility] [address] [place], [address] GFR/1.73 sq M.predicted among non-blacks MDRD (S/P/Bld) [Vol rate/Area] 68 mL/min/{1.73_m2} Normal >60 [facility] Comment on above: Result Comment: mL/m in/1.73m2 CKD-EPI Creatinine Equation (2020) Performed By: #### L [id number], [id number], L500.2500, L100.0100 #### [facility] [address] [place], [address] Glucose [Mass/Vol] 81 mg/dL Normal 70-99 [facility] Comment on above: Performed By: #### L [id number], [id number], L500.2500, L100.0100 #### [facility] [address] [place], [address] Potassium [Moles/Vol] 4.2 mmol/L Normal 3.3-5.1 [facility] Comment on above: Performed By: #### L [id number], [id number], L500.2500, L100.0100 #### [facility] [address] [place], [address] Sodium [Moles/Vol] 143 mmol/L Normal 133-145 [facility] Comment on above: Performed By: #### L [id number], [id number], L500.2500, L100.0100 #### [facility] [address] [place], [address] Urea nitrogen [Mass/Vol] 15 mg/dL Normal 4-19 [facility] Comment on above: Performed By: #### L [id number], [id number], L500.2500, L100.0100 #### [facility] [address] [place], [address] Basophil percentageOrdered B y: Frida Giang on 01-10-2024 Basophils/100 WBC (Bld) 0.6 % 0-1 [facility] CBC W/Diff, Automatedon 07-0 -2024 Absolute Lymph 2.73 X10 3/uL Normal 0.83-4.51 [facility] Comment on above: Performed By: #### L [id number], [id number], L500.2500, L100.0100 #### [facility] [address] [place], [address] Absolute Neut 3.8 X10 3/uL Normal 2.0-7.7 [facility] Comment on above: Performed By: #### L [id number], [id number], L500.2500, L100.0100 #### [facility] [address] [place], [address] Basophils/100 WBC (Bld) 0.6 % Normal 0-1 [facility] Comment on above: Performed By: #### L [id number], [id number], L500.2500, L100.0100 #### [facility] [address] [place], [address] Eosinophils/100 WBC (Bld) 16.1 % High 0-5 [facility] Comment on above: Performed By: #### L [id number], [id number], L500.2500, L100.0100 #### [facility] [address] [place], [address] Erythrocyte distribution width (RBC) [Ratio] 13.2 % Normal 11.6-14.6 [facility] Comment on above: Performed By: #### L [id number], [id number], L500.2500, L100.0100 #### [facility] [address] [place], [address] Hematocrit (Bld) [Volume fraction] 38.7 % Normal 37-47 [facility] Comment on above: Performed By: #### L [id number], [id number], L500.2500, L100.0100 #### [facility] [address] [place], [address] Hemoglobin (Bld) [Mass/Vol] 12.9 g/dL Normal 12.0-15.0 [facility] Comment on above: Performed By: #### L [id number], [id number], L500.2500, L100.0100 #### [facility] [address] [place], [address] IG% 0.200 Normal 0.0-0.9 [facility] Comment on above: Result Comment: IG% - Immature Granulocytes (promyelocytes, myelocytes and metamyelocytes) > 1% indicates that a LEFT SHIFT is Present. Performed By: #### L [id number], [id number], L500.2500, L100.0100 #### [facility] [address] [place], [address] Lymphocytes/100 WBC (Bld) 28.8 % Normal 19-41 [facility] Comment on above: Performed By: #### L [id number], [id number], L500.2500, L100.0100 #### [facility] [address] [place], [address] MCH (RBC) [Entitic mass] 31.2 pg Normal 27.0-32.0 [facility] Comment on above: Performed By: #### L [id number], [id number], L500.2500, L100.0100 #### [facility] [address] [place], [address] MCHC (RBC) [Mass/Vol] 33.3 g/dL Normal 32-36 [facility] Comment on above: Performed By: #### L [id number], [id number], L500.2500, L100.0100 #### [facility] [address] [place], [address] MCV (RBC) [Entitic vol] 93.7 fL Normal 81-99 [facility] Comment on above: Performed By: #### L [id number], [id number], L500.2500, L100.0100 #### [facility] [address] [place], [address] Monocytes/100 WBC (Bld) 13.9 % High 0-10 [facility] Comment on above: Performed By: #### L [id number], [id number], L500.2500, L100.0100 #### [facility] [address] [place], [address] Neutrophils/100 WBC (Bld) 40.4 % Low 47-70 [facility] Comment on above: Performed By: #### L [id number], [id number], L500.2500, L100.0100 #### [facility] [address] [place], [address] Nucleated RBC (Bld) [#/Vol] 0 10*3/uL Normal 0-5 [facility] Comment on above: Performed By: #### L [id number], [id number], L500.2500, L100.0100 #### [facility] [address] [place], [address] Platelet mean volume (Bld) [Entitic vol] 11.1 fL Normal 6.2-12.0 [facility] Comment on above: Performed By: #### L [id number], [id number], L500.2500, L100.0100 #### [facility] [address] [place], [address] Platelets (Bld) [#/Vol] 250 10*3/uL Normal 150-450 [facility] Comment on above: Performed By: #### L [id number], [id number], L500.2500, L100.0100 #### [facility] [address] [place], [address] RBC (Bld) [#/Vol] 4.13 10*6/uL Low 4.2-5.4 [facility] Comment on above: Performed By: #### L [id number], [id number], L500.2500, L100.0100 #### [facility] [address] [place], [address] RDW SD 45.3 fl High 35.1-43.9 [facility] Comment on above: Performed By: #### L [id number], [id number], L500.2500, L100.0100 #### [facility] [address] [place], [address] WBC (Bld) [#/Vol] 9.5 10*3/uL Normal 4.4-11.0 [facility] Comment on above: Performed By: #### L [id number], [id number], L500.2500, L100.0100 #### [facility] [place], [address] Carbon dioxide, total [Moles /volume] in Central venous bloodOrdered By: Frida Giang on 01-10-2025 CO2 [Moles/Vol] 28.7 mmol/L 21.0-32.0 [facility] Chloride assayOrdered By: Charlene Giang on 01-10-2025 Chloride [Moles/Vol] 106 mmol/L 98-[address] [facility] Eosinophil percentageOrdered By: rFida Giang on 01-10-2025 Eosinophils/100 WBC (Bld) 16.1 % High 0-5 [facility] Erythrocyte distribution wid th ratioOrdered By: Frida Giang on 01-10-2025 Erythrocyte distribution width (RBC) [Ratio] 13.2 % 11.6-14.6 [facility] Erythrocyte distribution wid th standard deviationOrdered By: Frida Giang on 01-10-2025 Erythrocyte distribution width (RBC) [Ratio] 45.3 fl High 35.1-43.9 [facility] Glomerular filtration rate ( GFR) estimation/1.73 sq m using serum, plasma, or whole bOrdered By: Frida Giang on 01-10-2025 GFR/1.73 sq M.predicted among non-blacks MDRD (S/P/Bld) [Vol rate/Area] 68 mL/min/{1.73_m2} >60 [facility] Comment on above: mL/min/1.73m2 CKD-EP I Creatinine Equation (2020) Hematocrit Auto (Bld) [Volum e fraction]Ordered By: Frida Giang on 01-10-2025 Hematocrit (Bld) [Volume fraction] 38.7 % 37-47 [facility] Hemoglobin measurementOrdere d By: Frida Giang on 01-10-2025 Hemoglobin (Bld) [Mass/Vol] 12.9 g/dL 12.0-15.0 [facility] Immature granulocytes/100 WB C Auto (Bld)Ordered By: Frida Giang on 01-10-2025 Immature granulocytes/100 WBC (Bld) 0.200 % 0.0-0.9 [facility] Comment on above: IG% - Immature Granu locytes (promyelocytes, myelocytes and metamyelocytes) > 1% indicates that a LEFT SHIFT is Present. MCV (mean corpuscular volume ) determinationOrdered By: Frida Giang on 01-10-2025 MCV (RBC) [Entitic vol] 93.7 fL 81-99 [facility] Magnesiumon 01-10-2025 Magnesium [Mass/Vol] 2.3 mg/dL High 1.5-2.[address] [facility] Comment on above: Performed By: #### L 501.9520, L501.5200, L500.2500, L100.0100 #### [facility] [address] [place], [address] Magnesium measurement (mass/ volume)Ordered By: Frida Giang on 01-10-2025 Magnesium (Unsp spec) [Mass/Vol] 2.3 mg/dL High 1.5-2.2 [facility] Mean corpuscular hemoglobin (MCH) determinationOrdered By: Frida Giang on 01-10-2025 MCH (RBC) [Entitic mass] 31.2 pg 27.0-32.0 [facility] Mean corpuscular hemoglobin concentration (MCHC) determinationOrdered By: Frida Giang on 01-10-2025 MCHC (RBC) [Mass/Vol] 33.3 g/dL 32-36 [facility] Mean platelet volume determi nationOrdered By: Frida Giang on 01-10-2025 Platelet mean volume (Bld) [Entitic vol] 11.1 fL 6.2-12.0 [facility] Monocyte percentageOrdered B y: Frida Giang on 01-10-2025 Monocytes/100 WBC (Bld) 13.9 % High 0-10 [facility] Neutrophil percentageOrdered By: Frida Giang on 01-10-2025 Neutrophils/100 WBC (Bld) 40.4 % Low 47-70 [facility] Nucleated red blood cell per centageOrdered By: Frida Giang on 07-03-2025 Nucleated RBC/100 WBC (Bld) [Ratio] 0 % 0-5 [facility] Platelet countOrdered By: Charlene Giang on 01-10-2025 Platelets (Bld) [#/Vol] 250 10*3/uL 150-450 [facility] Potassium measurement (mass/ volume)Ordered By: Frida Giang on 01-10-2025 Potassium (Unsp spec) [Mass/Vol] 4.2 mmol/L 3.3-5.1 [facility] RBC Auto (Bld) [#/Vol]Ordere d By: Frida Giang on 01-10-2025 RBC (Bld) [#/Vol] 4.13 10*6/uL Low 4.2-5.4 [facility] Serum creatinine measurement (mass/volume)Ordered By: Frida Giang on 01-10-2025 Creatinine [Mass/Vol] 0.86 mg/dL 0.70-1.20 [facility] Serum glucose measurement (m ass/volume)Ordered By: Frida Giang on 01-10-2025 Glucose [Mass/Vol] 81 mg/dL 70-99 [facility] Serum or plasma calcium drake urement (mass/volume)Ordered By: Frida Giang on 01-10-2025 Calcium [Mass/Vol] 9.7 mg/dL 7.6-11.0 [facility] Serum or plasma urea nitroge n measurement (mass/volume)Ordered By: Frida Giang on 01-10-2025 Urea nitrogen [Mass/Vol] 15 mg/dL 4-19 [facility] Sodium levelOrdered By: Carlos Eduardo Giang on 01-10-2025 Sodium [Moles/Vol] 143 mmol/L 133-145 [facility] TSH DL <= 0.005 mIU/L QnOrde red By: Frida Giang on 01-10-2025 TSH Qn 1.270 uIU/mL 0.300-4.200 [facility] Thyroid Stim Hormone (TSH)on 01-10-2025 TSH 1.270 uIU/mL Normal 0.300-4.200 [facility] Comment on above: Performed By: #### L 501.9520, L501.5200, L500.2500, L100.0100 #### [facility] [address] [place], [address] White blood cell (WBC) count Ordered By: Frida Giang on 01-10-2025 WBC (Bld) [#/Vol] 9.5 10*3/uL 4.4-11.0 [facility] Carotid Duplex Ultrasoundon 11-05-[address] [facility] [address] [place] [address] Carotid Duplex Ultrasound 11/05/24 0857 MR#: [id number] Acct: [id number] Name: LAURA SOLO (KATIE) Rep #: [id number] : 1945 79 From: Dave Starkey MD [...] the left vertebral artery. Procedure Carotid Duplex 10123. 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 Wilman Junior MD Age/Sex: 79/F Location: [facility] Status: Signed Intake Vital Signs 08/17/24 [...] in the past year?: No [facility] Medical History Trigger finger Trigger finger of both hands Cataracts, bilateral Murmur Heart disease Hives Abnormal stress test Carotid stenosis COVID-19 virus detected (04/15/21) Premature ventricular contractions Carotid stenosis, right Bursitis of right hip Premature ventricular contractions Snoring Daytime somnolence History of non-ST elevation myocardial infarction (NSTEMI) (07/03/18) Atherosclerotic heart disease of [place] coronary artery without angina pectoris Hypothyroidism Hypertension [...] 1 time (more content not included)... Normal [facility] MR/BMS.BVSon 10-10-2024 MR/BMS.BVS [facility] Vascular Surgery [address] [place] [address] OFFICE VISIT Date of Service: 10/10/24 MR#: [id number] Acct: [id number] Name: LAURA SOLO (KATIE) Rep #: [id number] : 1945 Provider: EMANI Olsen Age/Sex: 79/F Location: [facility] Status: Signed Intake Vital Signs 05/08/24 07:53 [...] infarction (NSTEMI) (07/03/18) Atherosclerotic heart disease of [place] coronary artery without angina pectoris Hypothyroidism Hypertension [...] or ann (more content not included)... Normal [facility] Plastic Surgery Visit Report on 08-17-2024 Plastic Surgery Visit Report [facility]ive [facility] [address] [facility] [facility] [address] [place] [address] OFFICE VISIT Date of Service: 08/17/24 MR#: [id number] Acct: [id number] Name: LAURA SOLO Rep #: [id number] : 1945 Provider: Dr. Wilman Junior MD Age/Sex: 79/F Location: [facility] Status: Signed Intake Vital Signs 08/03/24 14:36 [...] Complaint: trigger fingers bilateral Allergies azithromycin (From ZiResilincomax Z-Demar) Allergy (Intermediate, Verified 08/17/24 14:55) Itching [...] in the past year?: No [facility] Medical History Trigger finger Trigger finger of both hands Cataracts, bilateral Murmur Heart disease Hives Abnormal stress test Carotid stenosis COVID-19 virus detected (04/15/21) Premature ventricular contractions Carotid stenosis, right Bursitis of right hip Premature ventricular contractions Snoring Daytime somnolence History of non-ST elevation myocardial infarction (NSTEMI) (07/03/18) Atherosclerotic heart disease of [place] coronary artery without angina pectoris Hypothyroidism Hypertension [...] Current encoun (more content not included)... Normal [facility] Hand Min 3 Viewson 5 Hand Min 3 Views [facility] Imaging Services [address] [place] [address] Hand Min 3 Views MR#: [id number] Acct: [id number] Name: LAURA SOLO Rep #: [id number] : 1945 F 79 From: Dipak Wilson MD PCP: Dr. Wilman Aden DO Status: REG CLI Study: Hand Min 3 Views Date of Exam: 08/03/24 Exam# [id number] Ordering Dr: Wilman Junior MD [id number] STUDY: X-RAY - RIGHT HAND REASON FOR [...] 11:01 EST Reading Location ID and State: [facility] , Service support , CC: Dr. Wilman Aden DO; Dr. 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 Wilman Aden DO Status: REG CLI Study: Hand Min 3 Views Date of Exam: 08/03/24 Exam# [id number] Ordering Dr: Wilman Junior MD [id number] STUDY: X-RAY - LEFT HAND REASON FOR [...] No demonstrated acute fracture. Electronically Signed: Dipak Wilson MD at 11:30 EST , CC: Dr. Wilman Aden DO; Dr. Wilman Junior MD [employer] P[employer] Supervisor: Signed Normal [facility] Plastic Surgery Visit Report on 08-03-2024 Plastic Surgery Visit Report [facility] Plastic Reconstructive Surgery [address], [address] [place] [address] OFFICE VISIT Date of Service: 08/03/24 MR#: [id number] Acct: [id number] Name: LAURA SOLO Rep #: [id number] : 1945 Provider: Dr. Wilman Junior MD Age/Sex: 79/F Location: [facility] Status: Signed Intake Vital Signs 05/08/24 [...] pt here for trigger fingers [facility] Medical History Trigger finger Trigger finger of both hands Cataracts, bilateral Murmur Heart disease Hives Abnormal stress test Carotid stenosis COVID-19 virus detected (04/15/21) Premature ventricular contractions Carotid stenosis, right Bursitis of right hip Premature ventricular contractions Snoring Daytime somnolence History of non-ST elevation myocardial infarction (NSTEMI) (07/03/18) Atherosclerotic heart disease of [place] coronary artery without angina pectoris Hypothyroidism Hypertension [...] when i (more content not included)... Normal [facility] LABORATORYOrdered By: Ling Castillo on 08-02-2024 Albumin DL <= 20 mg/L (U) [Mass/Vol] 610 mcg/dL Invalid Interpretation Code AO ADM SS Albumin/Creatinine DL <= 20 mg/L (U) [Mass ratio] 10 mcg/mg Normal 0 - 30 mcg/mg AO Chemistry S Creatinine (U) [Mass/Vol] 60.3 mg/dL Invalid Interpretation Code AO ADM SS MALBRon 08-02-2024 U Creatinine 60.3 mg/dL Normal [facility] Comment on above: Performed By: #### M ALBR #### [address] [place], [place] [address] U Microalb 610 mcg/dL Normal [facility] Comment on above: Performed By: #### M ALBR #### [facility] [address] [place], [place] [address] U Ratio Alb/Cre 10 mcg/mg Normal 0-30 [facility] Comment on above: Performed By: #### M ALBR #### [facility] [address] [place], [place] [address] No Panel Informationon 07-16 Culture Urine <10,000 cfu/ml. No Significant growth. Sensitivity not indicated. [facility] Work Phone: Cardiology Visit Reporton Cardiology Visit Report [facility] [address] [place] [address] OFFICE VISIT Date of Service: 05/08/24 MR#: [id number] Acct: [id number] Name: LAURA SOLO Rep #: [id number] : 1945 Provider: Dr. 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 Normal [facility] No Panel Informationon 03-28 Culture Urine >100,000 cfu/ml Streptococcus mitis group Sensitivity testing is not recommended for one of the following reasons: 1. Established susceptibility patterns are available or 2. Interpretative criteria are not available. [facility] Work Phone: Streptococcus mitis group Streptococcus mitis group [facility] Work Phone: .GFRon 02-03-2024 GFR Non- 53 ml/min/1.73sqm [facility] Comment on above: Result Comment: GFR [...] #### C MP, GFR, TSH, LIPID #### [address] [address] GFR 64 ml/min/1.73sqm Normal [facility] Comment on above: Result Comment: GFR Population [...] #### C MP, GFR, TSH, LIPID #### [address] [address] CMPon 02-03-2024 Albumin Level 3.4 G/dL Normal 3.4-4.8 [facility] Comment on above: Performed By: #### C MP, GFR, TSH, LIPID #### [address] [address] Albumin/Globulin [Mass ratio] 1.0 {ratio} Low 1.1-2.5 [facility] Comment on above: Performed By: #### C MP, GFR, TSH, LIPID #### [address] [address] ALP [Catalytic activity/Vol] 81 U/L Normal 40-135 [facility] Comment on above: Performed By: #### C MP, GFR, TSH, LIPID #### [address] [address] ALT [Catalytic activity/Vol] 26 U/L Normal 14-59 [facility] Comment on above: Performed By: #### C MP, GFR, TSH, LIPID #### [address] [address] AST [Catalytic activity/Vol] 27 U/L Normal 10-40 [facility] Comment on above: Performed By: #### C MP, GFR, TSH, LIPID #### [address] [address] Bili Total 0.4 mg/dL Normal 0.2-1.0 [facility] Comment on above: Result Comment: Use of this assay is not recommended for patients undergoing treatment with eltrombopag due to the potential for falsely elevated results. Performed By: #### C MP, GFR, TSH, LIPID #### [address] [address] BUN/Creatinine Ratio 15 ratio Normal 7-27 [facility] ([place] Comment on above: Performed By: #### C MP, GFR, TSH, LIPID #### [address] [address] Calcium [Mass/Vol] 9.5 mg/dL Normal 8.4-10.2 [facility] ([place] Comment on above: Performed By: #### C MP, GFR, TSH, LIPID #### [address] [address] Chloride [Moles/Vol] 105 mmol/L Normal 98-107 [facility] ([place] Comment on above: Performed By: #### C MP, GFR, TSH, LIPID #### [address] [address] CO2 [Moles/Vol] 35 mmol/L High 23-31 [facility] Comment on above: Performed By: #### C MP, GFR, TSH, LIPID #### [address] [address] Creatinine [Mass/Vol] 1.01 mg/dL Normal 0.55-1.02 [facility] ([place] Comment on above: Performed By: #### C MP, GFR, TSH, LIPID #### [address] [address] Electrolyte Balance 3.0 mEq/L Low 4.0-15.0 [facility] ([place] Comment on above: Performed By: #### C MP, GFR, TSH, LIPID #### [address] [address] Globulin 3.5 G/dL Normal [facility] Comment on above: Performed By: #### C MP, GFR, TSH, LIPID #### [address] [address] Glucose [Mass/Vol] 81 mg/dL Low 83-110 [facility] ([place] Comment on above: Performed By: #### C MP, GFR, TSH, LIPID #### [address] [address] Potassium [Moles/Vol] 4.2 mmol/L Normal 3.5-5.1 [facility] ([place] Comment on above: Performed By: #### C MP, GFR, TSH, LIPID #### [address] [address] Sodium [Moles/Vol] 143 mmol/L Normal 136-145 [facility] ([place] Comment on above: Performed By: #### C MP, GFR, TSH, LIPID #### [address] [address] Total Protein 6.9 G/dL Normal 6.4-8.2 [facility] Comment on above: Performed By: #### C MP, GFR, TSH, LIPID #### [address] [address] Urea nitrogen [Mass/Vol] 15 mg/dL Normal 7-18 [facility] Comment on above: Performed By: #### C MP, GFR, TSH, LIPID #### [address] [address] LIPIDon 07-26-2024 Cholesterol [Mass/Vol] 155 mg/dL Normal 0-200 [facility] ([place] Comment on above: Result Comment: Chol esterol Reference Interval: Less than 200 Desirable 200-239 Borderline high risk 240 and above High risk Performed By: #### C MP, GFR, TSH, LIPID #### [address] [address] Cholesterol in HDL [Mass/Vol] 56 mg/dL Normal 40-60 [facility] Comment on above: Performed By: #### C MP, GFR, TSH, LIPID #### [address] [address] Cholesterol in LDL [Mass/Vol] 78 mg/dL Normal 0-130 [facility] Comment on above: Performed By: #### C MP, GFR, TSH, LIPID #### [address] [address] Triglyceride [Mass/Vol] 103 mg/dL Normal 0-150 [facility] ([place] Comment on above: Result Comment: Trig lyceride Reference Interval: Less than 150 Normal 150-199 Borderline high risk 200-499 High risk 500 or higher Very high risk Performed By: #### C MP, GFR, TSH, LIPID #### [address] [address] TSHon 02-03-2024 TSH Qn 4.53 m[IU]/L High 0.36-3.74 [facility] ([place] Comment on above: Performed By: #### C MP, GFR, TSH, LIPID #### [address] [address] No Panel Informationon 04-04 Culture Urine <10,000 cfu/ml. No Significant growth. Sensitivity not indicated. [facility] Work Phone: .GFRon 02-11-2023 GFR 80 ml/min/1.73sqm [facility] Comment on above: Result Comment: GFR Population [...] G FR, LIPID, TSH, CMP ####[address] [place], [place] [address] GFR Non- 66 ml/min/1.73sqm Normal [facility] Comment on above: Result Comment: GFR Population [...] G FR, LIPID, TSH, CMP ####[address] [place], [place] [address] CMPon 02-11-2023 Albumin Level 3.8 G/dL Normal 3.4-4.8 [facility] Comment on above: Performed By: #### G FR, LIPID, TSH, CMP ####[address] [place], [place] [address] Albumin/Globulin [Mass ratio] 1.0 {ratio} Low 1.1-2.5 [facility] Comment on above: Performed By: #### G FR, LIPID, TSH, CMP ####[address] [place], [place] [address] ALP [Catalytic activity/Vol] 71 U/L Normal 40-135 [facility] [place] Comment on above: Performed By: #### G FR, LIPID, TSH, CMP ####[address] [place], [place] [address] ALT [Catalytic activity/Vol] 28 U/L Normal 14-59 [facility] Comment on above: Performed By: #### G FR, LIPID, TSH, CMP ####[address] [place], [place] [address] AST [Catalytic activity/Vol] 33 U/L Normal 10-40 [facility] Comment on above: Performed By: #### Ju FR, LIPID, TSH, CMP ####[address] [place], [place] [address] Bili Total 0.5 mg/dL Normal 0.2-1.0 [facility] [place] Comment on above: Result Comment: Use of this assay is not recommended for patients undergoing treatment with eltrombopag due to the potential for falsely elevated results. Performed By: #### Ju FR, LIPID, TSH, CMP ####[address] [place], [place] [address] BUN/Creatinine Ratio 25 ratio Normal 7-27 [facility] ([place] Comment on above: Performed By: #### G FR, LIPID, TSH, CMP ####[address] [place], [place] [address] Calcium [Mass/Vol] 9.3 mg/dL Normal 8.4-10.2 [facility] ([place] Comment on above: Performed By: #### G FR, LIPID, TSH, CMP ####[address] [place], [place] [address] Chloride [Moles/Vol] 102 mmol/L Normal 98-107 [facility] ([place] Comment on above: Performed By: #### G FR, LIPID, TSH, CMP ####[address] [place], [place] [address] CO2 [Moles/Vol] 32 mmol/L High 23-31 [facility] [place] Comment on above: Performed By: #### G FR, LIPID, TSH, CMP ####[address] [place], [place] [address] Creatinine [Mass/Vol] 0.83 mg/dL Normal 0.55-1.02 [facility] ([place] Comment on above: Performed By: #### G FR, LIPID, TSH, CMP ####[address] [place], [place] [address] Electrolyte Balance 6.0 mEq/L Normal 4.0-15.0 [facility] ([place] Comment on above: Performed By: #### G FR, LIPID, TSH, CMP ####[address] [place], [place] [address] Globulin 3.8 G/dL Normal [facility] [place] Comment on above: Performed By: #### G FR, LIPID, TSH, CMP ####[address] [place], [place] [address] Glucose [Mass/Vol] 79 mg/dL Low 83-110 [facility] ([place] Comment on above: Performed By: #### G FR, LIPID, TSH, CMP ####[address] [place], [place] [address] Potassium [Moles/Vol] 4.1 mmol/L Normal 3.5-5.1 [facility] ([place] Comment on above: Performed By: #### G FR, LIPID, TSH, CMP ####[address] [place], [place] [address] Sodium [Moles/Vol] 140 mmol/L Normal 136-145 [facility] ([place] Comment on above: Performed By: #### G FR, LIPID, TSH, CMP ####[address] [place], [place] [address] Total Protein 7.6 G/dL Normal 6.4-8.2 [facility] [place] Comment on above: Performed By: #### G FR, LIPID, TSH, CMP ####[address] [place], [place] [address] Urea nitrogen [Mass/Vol] 21 mg/dL High 7-18 [facility] Comment on above: Performed By: #### G FR, LIPID, TSH, CMP ####[address] [place], [place] [address] LIPIDon 02-11-2023 Cholesterol [Mass/Vol] 135 mg/dL Normal 0-200 [facility] ([place] Comment on above: Result Comment: Chol esterol Reference Interval: Less than 200 Desirable 200-239 Borderline high risk 240 and above High risk Performed By: #### G FR, LIPID, TSH, CMP ####[address] [place], [place] [address] Cholesterol in HDL [Mass/Vol] 54 mg/dL Normal 40-60 [facility] [place] Comment on above: Performed By: #### G FR, LIPID, TSH, CMP ####[address] [place], [place] [address] Cholesterol in LDL [Mass/Vol] 69 mg/dL Normal 0-130 [facility] [place] Comment on above: Performed By: #### G FR, LIPID, TSH, CMP ####[address] [place], [place] [address] Triglyceride [Mass/Vol] 59 mg/dL Normal 0-150 [facility] ([place] Comment on above: Result Comment: Trig lyceride Reference Interval: Less than 150 Normal 150-199 Borderline high risk 200-499 High risk 500 or higher Very high risk Performed By: #### G FR, LIPID, TSH, CMP ####[address] [place], [place] [address] MALBRon 02-11-2023 U Creatinine 44.7 mg/dL Normal 28.0-117.0 [facility] Comment on above: Performed By: #### M ALBR #### [address] [place], [place] [address] U Microalb [address] mcg/dL Normal [facility] [place] Comment on above: Performed By: #### M ALBR #### [address] [place], [place] [address] U Ratio Alb/Cre 1214 mcg/mg High 0-30 [facility] Comment on above: Performed By: #### M ALBR #### [facility] [address] [place], [place] [address] No Panel Informationon 02-11 Culture Urine 10,000 - 50,000 cfu/ ml Mixed growth consistent with normal urogenital cristobal. [facility] Work Phone: TSHon 02-11-2023 TSH Qn 1.47 m[IU]/L Normal 0.36-3.74 [facility] Comment on above: Performed By: #### G FR, LIPID, TSH, CMP #### [address] [place], [place] [address] Absolute lymphocyte countOrd ered By: Frida Giang on 12-01-2022 Lymphocytes Auto (Unsp spec) [#/Vol] 2.21 10*3/uL 0.83-4.51 [facility] Basophil percentageOrdered B y: Frida Giang on 12-01-2022 Basophils/100 WBC (Bld) 0.9 % 0-1 [facility] Chloride [Moles/Vol] 107 mmol/L 98-[address] [facility] Eosinophils/100 WBC (Bld) 18.9 % 0-5 [facility] Glucose [Mass/Vol] 87 mg/dL 74-106 [facility] Neutrophils (Bld) [#/Vol] 4.4 10*3/uL 2.0-7.7 [facility] Neutrophils/100 WBC (Bld) 45.2 % 47-70 [facility] Potassium [Moles/Vol] 4.1 mmol/L 3.5-5.1 [facility] Sodium [Moles/Vol] 141 mmol/L 136-145 [facility] WBC (Bld) [#/Vol] 9.8 10*3/uL 4.4-11.0 [facility] Blood erythrocytes count (nu mber/volume)Ordered By: Frida Giang on 12-01-2022 RBC (Bld) [#/Vol] 4.09 10*6/uL 4.2-5.4 [facility] Blood hemoglobin measurement (mass/volume)Ordered By: Frida Giang on 12-01-2022 Hemoglobin (Bld) [Mass/Vol] 12.8 g/dL 12.0-15.0 [facility] Blood lymphocytes/100 leukoc ytesOrdered By: Frida Giang on 12-01-2022 Lymphocytes/100 WBC (Bld) 22.6 % 19-41 [facility] Blood monocytes/100 leukocyt esOrdered By: Frida Giang on 12-01-2022 Monocytes/100 WBC (Bld) 12.2 % 0-10 [facility] Blood platelet mean volumeOr dered By: Frida Giang on 12-01-2022 Platelet mean volume (Bld) [Entitic vol] 11.6 fL 6.2-12.0 [facility] Determination of erythrocyte mean corpuscular volume (MCV)Ordered By: Frida Giang on 12-01-2022 MCV (RBC) [Entitic vol] 96.6 fL 81-99 [facility] Hematocrit Auto (Bld) [Volum e fraction]Ordered By: Frida Giang on 12-01-2022 Hematocrit (Bld) [Volume fraction] 39.5 % 37-47 [facility] INR in Blood by Coagulation assayOrdered By: Frida Giang on 12-01-2022 INR Coag (Bld) [Relative time] 1.0 {INR} [facility] Laboratory - Chemistry and C hemistry - challengeOrdered By: Frida Giang on 12-01-2022 CO2 [Moles/Vol] 28.0 mmol/L 21.0-32.0 [facility] Urea nitrogen/Creatinine [Mass ratio] 21.3 mg/mg 10-20 [facility] Laboratory - CoagulationOrde red By: Frida Giang on 12-01-2022 aPTT Coag (Bld) [Time] 26.3 s 24.1-36.2 [facility] PT Coag (PPP) [Time] 13.1 s 11.7-14.[address] [facility] Laboratory - Hematology and Cell countsOrdered By: Frida Giang on 12-01-2022 Erythrocyte distribution width (RBC) [Entitic vol] 48.4 fL 35.1-43.9 [facility] Erythrocyte distribution width (RBC) [Ratio] 13.6 % 11.6-14.6 [facility] Immature granulocytes/100 WBC (Bld) 0.200 % 0.0-0.9 [facility] Comment on above: IG% - Immature Granu locytes (promyelocytes, myelocytes and metamyelocytes) > 1% indicates that a LEFT SHIFT is Present. MCH (RBC) [Entitic mass] 31.3 pg 27.0-32.0 [facility] Nucleated RBC/100 WBC (Bld) [Ratio] 0 % 0-5 [facility] MCHC Auto (RBC) [Mass/Vol]Or dered By: Frida Giang on 12-01-2022 MCHC (RBC) [Mass/Vol] 32.4 g/dL 32-36 [facility] No Panel InformationOrdered By: Frida Giang on 12-01-2022 Estimated GFR (MDRD) Amer 84 mL/min >60 [facility] Comment on above: GFR Calc Estimated GFR (MDRD) Non-Af Amer 69 mL/min >60 [facility] Comment on above: Non- GFR Calc Platelets bldOrdered By: Octavio Giang on 12-01-2022 Platelets (Bld) [#/Vol] 255 10*3/uL 150-450 [facility] Serum or plasma calcium drake urement (mass/volume)Ordered By: Frida Giang on 12-01-2022 Calcium [Mass/Vol] 9.2 mg/dL 8.5-10.1 [facility] Serum or plasma creatinine m easurement (mass/volume)Ordered By: Frida Giang on 12-01-2022 Creatinine [Mass/Vol] 0.84 mg/dL 0.55-1.02 [facility] Comment on above: The validity of the calculated GFR & GFRAA in patients over 70 years has not been determined. Clinical correlation is essential. Serum or plasma urea nitroge n measurement (mass/volume)Ordered By: Frida Giang on 12-01-2022 Urea nitrogen [Mass/Vol] 18 mg/dL 7-18 [facility] Thin prep Papanicolaou smear with manual screeningOrdered By: Frida Giang on 12-01-2022 Thin prep Papanicolaou smear with manual screening 11-22 [facility] No Panel Informationon 06-29 Culture Urine <10,000 cfu/ml. No Significant growth. Sensitivity not indicated. [facility] Work Phone: CEFUROXIME:SUSC:PT:ISOLATE:O RDQN:MICon 04-30-2022 Cefuroxime OCTAVIO [Susc] 50,000 - 100,000 cfu/ml Escherichia coli [facility] Work Phone: Cefuroxime OCTAVIO [Susc]on 04-[address] [facility] Work Phone: LABORATORYOrdered By: Daljit Alarcon on [...] Interpretation Code AO ADM SS LABORATORYOrdered By: [employer] on 04-14-2022 Cobalamin (Vitamin B12) [Mass/Vol] 558 pg/mL Invalid Interpretation Code 211 - 911 pg/mL AH ADM SS Folate [Mass/Vol] 10.12 ng/mL Invalid Interpretation Code 5.38 - 24.00 ng/mL AH ADM SS No Panel Informationon 04-05 Culture Urine <10,000 cfu/ml. No Significant growth. Sensitivity not indicated. [facility] Work Phone: LABORATORYOrdered By: Kylah [...] 2021 Basophil percentage < 0.9 mg/dL 0.55-1.[address] [facility] Work Phone: No Panel Informationon 11-25 Bedside Estimated GFR (eGFR) > 60.0000 mL/min >60 [facility] Work Phone: LABORATORYOrdered By: Kylah Everett on 10-14-2021 TSH Qn 0.02 m[IU]/L Invalid Interpretation Code 0.36 - 3.74 mcIU/mL AO ADM SS No Panel Informationon 09-24 Culture Urine >100,000 cfu/ml Escherichia coli [facility] Work Phone: Escherichia coli Escherichia coli [facility] Work Phone: LABORATORYOrdered By: Kylah Everett [...] mm[Hg] Dr. Wilman Aden DO Work Phone: [facility] 10-18-2024 09:17-0400 Heart rate 52 /min Dr. Wilman Aden DO Work Phone: [facility] 10-18-2024 09:17-0400 Respiratory rate 18 /min Dr. Wilman Aden DO Work Phone: [facility] 10-18-2024 09:17-0400 SaO2% (BldA) [Mass fraction] 94 % Dr. Wilman Aden DO Work Phone: [facility] 10-18-2024 09:17-0400 Systolic blood pressure 179 mm[Hg] Dr. Wilman Aden DO Work Phone: [facility] 10-10-2024 08:43-0400 Body temperature 97.8 [degF] Dr. Wilman Aden DO Work Phone: [facility] 10-10-2024 08:43-0400 Body weight 62.[address] Wilman Aden DO Work Phone: [facility] 10-10-2024 08:43-0400 Diastolic blood pressure 69 mm[Hg] Dr. Wilman Aden DO Work Phone: [facility] 10-10-2024 08:43-0400 Heart rate 53 /min Dr. Wilman Aden DO Work Phone: [facility] 10-10-2024 08:43-0400 Respiratory rate 16 /min Dr. Wilman Aden DO Work Phone: [facility] 10-10-2024 08:43-0400 SaO2% (BldA) [Mass fraction] 97 % Dr. Wilman Aden DO Work Phone: [facility] 10-10-2024 08:43-0400 Systolic blood pressure 178 mm[Hg] Dr. Wilman Aden DO Work Phone: [facility] 12-03-2022 09:09-0400 Body height 160.[address] Wilman Aden Work Phone: [facility] 12-03-2022 09:09-0400 Body weight 61.[address] Wilman Aden Work Phone: [facility] 12-02-2022 12:21-0400 Body mass index (BMI) [Ratio] 24 kg/m2 Dr. Wilman Aden Work Phone: [facility] 09-14-2022 12:46-0500 Diastolic blood pressure 64 mm[Hg] Dr. Wilman Aden Work Phone: [facility] 09-14-2022 12:46-0500 Systolic blood pressure 164 mm[Hg] Dr. Wilman Aden Work Phone: [facility] 08-26-2021 12:46-0500 Diastolic blood pressure 69 mm[Hg] Dr. Wilman Aden Work Phone: [facility] Work Phone: 08-26-2021 12:46-0500 Respiratory rate 18 /min Dr. Wilman Aden Work Phone: [facility] Work Phone: 08-26-2021 12:46-0500 Systolic blood pressure 168 mm[Hg] Dr. 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 Wilman Aden DO Work Phone: -Pulmonary Services/Neurology Start: 01-10-2025 End: 01-10-2025 ambulatory Frida JOAQUIN Facility:[facility] Start: 11-05-2024 ambulatory [facility] Facility :[facility] Start: 11-05-2024 Non-patient / Non-visit Dr. Dave pak MD -[facility] Start: 11-05-2024 End: 11-05-2024 Patient encounter procedure Izzy JOAQUIN -Cardiovascular Services Work Phone: Start: 11-05-2024 End: 11-05-2024 ambulatory Wilman Keiko Facility:[facility] Start: 10-25-2024 End: 10-29-2024 ambulatory WILMAN KEIKO DO [facility] Start: 10-18-2024 End: 10-18-[address] Wilman Junior MD -[facility] Work Phone: Start: 10-18-2024 End: 10-18-2024 ambulatory Wilman Keiko Facility:[facility] Start: 10-10-2024 End: 10-10-2024 Patient encounter procedure Izzy JOAQUIN -[facility] Work Phone: Start: 10-10-2024 End: 10-10-2024 ambulatory Wilman Keiko Facility:[facility] Start: 08-17-2024 End: 08-17-2024 ambulatory Wilman Keiko Facility:[facility] Start: 08-03-2024 End: 08-03-2024 ambulatory Wilman Junior Facility:[facility] Start: 08-02-2024 End: 08-06-2024 ambulatory WILMAN KEIKO DO [facility] Start: 08-02-2024 End: 08-06-2024 Outreach Lab WILMAN KEIKO DO [facility] Start: 07-16-2024 End: 07-20-2024 ambulatory WILMAN KEIKO DO [facility] Start: 07-16-2024 End: 07-20-2024 Outreach Lab 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 Sarah Aden Work Phone: [facility] Start: 08-29-2023 End: 08-29-[address] Wilman Aden Work Phone: [facility] Work Phone: Start: 08-29-2023 End: 08-29-[address] [facility] Work [facility]: Start: 05-21-2023 End: 05-25-2023 ambulatory IFEANYI AUGUSTIN Facility:[facility] Start: 04-04-2023 End: 04-08-2023 ambulatory WILMAN ADEN DO Facility:[facility] Start: 04-04-2023 End: 04-08-2023 Outreach Lab WILMAN ADEN DO [facility] Start: 02-11-2023 End: 02-15-2023 Outreach Lab DORA MERIDA DO [facility] Start: 02-11-2023 End: 02-15-2023 ambulatory DORA MERIDA DO Facility:[facility] Start: 12-03-2022 End: 12-03-2022 Admission to same day surgery center Dr. Wilman Aden Work Phone: [facility]-Technology Methodology Consultant/Special Procedures Start: 12-02-2022 Non-patient / Non-visit Dr. Sarah Aden Work Phone: [facility] Start: 11-29-2022 Non-patient / Non-visit Dr. Sarah Aden Work Phone: [facility] Start: 11-29-2022 End: 11-29-[address] Wilman Aden Work Phone: [facility] Work Phone: Start: 11-29-2022 End: 11-29-[address] Wil[facility] Aden Work Phone[facility] Start: 09-14-2022 End: 09-14-[address] Wilman Aden Work Phone: [facility] Start: 08-26-2022 Non-patient / Non-visit Dr. Sarah Aden Work Phone: [facility] Start: 08-26-2022 End: 08-26-[address] Wilman Aden Work Phone: [facility] Work Phone: Start: 08-26-2022 End: 08-26-[address] Wilman Aden Work Phone: [facility] Start: 06-29-2022 End: 07-03-2022 Outreach Lab DUARTE SUPPRESSION CREW LEADER-MANAGER FAMILY [facility] Start: 04-30-2022 End: 05-04-2022 Outreach Lab SAMSON CURRAN MD [facility] Start: 04-14-2022 End: 04-14-2022 Patient encounter procedure MARY GONZALES CNP [facility] Start: 04-05-2022 End: 04-09-2022 Outreach Lab DUARTE BUNN SUPPRESSION CREW LEADER-MANAGER FAMILY [facility] Start: 03-17-2022 End: 03-17-2022 Patient encounter procedure WILMAN ADNE DO [facility] Start: 01-26-2022 End: 01-26-2022 Patient encounter procedure WILMAN ADEN DO [facility] Start: 12-02-2021 End: 12-02-2021 Patient encounter procedure WILMAN ADEN DO [facility] Start: 11-25-2021 End: 11-25-[address] Wilman Aden Work Phone: [facility] Start: 10-14-2021 End: 10-14-2021 Patient encounter procedure WILMAN ADEN DO [facility] Start: 09-24-2021 End: 09-28-2021 Outreach Lab [facility] SUPPRESSION CREW LEADER-MANAGER FAMILY [facility] Start: 08-26-2021 End: 08-26-[address] Wilman Aden Work Phone: [facility] Start: 08-21-2021 Non-patient / Non-visit Dr. Sarah Aden Work Phone: [facility] Start: 08-21-2021 End: 08-21-[address] Wilman Aden Work Phone: [facility]-Cardiovascular Services Start: 08-19-2021 End: 08-19-2021 Patient encounter procedure WILMAN ADEN DO [facility] Procedures Date Procedure Procedure Detail [...] Care Activity Detail Author US Carotid arteries [facility] Carotid arteries [facility] Immunizations Immunization Date Immunization Notes Care Provider Fa [facility] 04-16-2020 pneumococcal conjuga te vaccine, 13 valent WILMAN ADEN DO [facility] Comment on above: Result Comment: [facility] 03-21-2019 influenza virus vacc ine, unspecified formulation WILMAN ADEN DO [facility] Comment on above: Result Comment: [facility] 04-03-2018 influenza, injectabl e, quadrivalent, preservative free Dr. Wilman Aden Work Phone: [facility] 04-03-2018 influenza, seasonal, injectable Dr. Wilman Aden Work Phone: [facility] 07-11-2011 pneumococcal conjuga te vaccine, 13 valent WILMAN ADEN DO [facility] 07-11-2009 zoster vaccine, live WILMAN ADEN DO [facility] 07-11-2007 pneumococcal polysaccharide vaccine, 23 valent WILMAN ADEN DO [facility] Payers Date Payer Category Payer Private Health Insurance [id number] 2024 Unknown [id number] 2024 Self-pay [id number] 2023 Unknown [id number] 2019 Medicare [id number] 2014 Unknown 5 [id number] Medicare [id number] 1944 Unknown [id number] 2.16.8 40.1.045796.3.579.2. 1944 Unknown [id number] 2.16.8 40.1.622888.3.579.2. 1944 Unknown [id number] 2.16.8 40.1.303933.3.579.2 1944 Unknown [id number] 2.16.8 40.1.289322.3.579.2. 1944 Unknown [id number] 2.16.8 40.1.050810.3.579.2 1944 Unknown [id number] 2.16.8 40.1.931733.3.579.2. 1944 Unknown [id number] 2.16. 840.1.304327.3.579.2 1944 Unknown [id number] 2.16.8 40.1.757541.3.579.2.627 1944 Unknown [id number] 2.16.8 40.1.385053.3.579.2.627 1944 Unknown [id number] 2.16.8 40.1.401837.3.579.2.627 1944 Unknown [id number] 2.16.8 40.1.742200.3.579.2.627 Unknown [id number] 2.16.8 40.1.476403.3.579.2.462 Unknown [id number] 2.16.8 40.1.632555.3.579.2.462 Unknown [id number] 2.16.8 40.1.857747.3.579.2.462 Unknown [id number] 2.16.8 40.1.459098.3.579.2.462 Unknown [id number] 2.16.8 40.1.852703.3.579.2.462 Unknown [id number] 2.16.8 40.1.046973.3.579.2.462 Unknown [id number] 2.16.8 40.1.305568.3.579.2.462 Unknown [id number] 2.16.8 40.1.271432.3.579.2.462 Unknown [id number] 2.16.8 40.1.002745.3.579.2.462 Unknown [id number] 2.16.8 40.1.056886.3.579.2.462 Unknown [id number] 2.16.8 40.1.829086.3.579.2.462 Unknown [id number] 2.16.8 40.1.130756.3.579.2.462 Social History Date Type Detail Facility Start: 01-19-2019 End: 2025 Ex-smoker (finding) [facility] Comment on above: No smoke exposure Quit in 1988 Start: 1945 Sex Assigned At Female A [facility] Start: 08-26-2021 End: 04-19-2023 Tobacco smoking status NHIS Unknown if ever smoked [facility] Start: 07-01-2018 Occasional [facility] Start: 07-01-2018 None [facility] Start: 07-01-2018 Alone [facility] Start: 07-04-2018 Non-smoker [facility] Sexual Orientation [facility] Start: 01-03-2019 Sex Female (finding) [facility] Medical Equipment Procedure Code Equipment Code [...] Locations *1: This test was performed at: [address], [facility] , [facility] 10-26-2024 Note . MICRO - Microbiology PROCEDURE: [...] Locations *1: This test was performed at: [address], [facility] , [facility] 10-10-2024 Evaluation note Diagnosis Onset Date Resolution Carotid stenosis acute October 8:28am Venous insufficiency acute Apri l 2024 8:28am Trigger finger acute October 8:51am [facility] Work Phone: 1(332) 403-875001-07-2025 Note. MICRO - Microbiology PROCEDURE: Urine Culture [*1] SOURCE: Urine, Clean Catch BODY SITE: COLLECTED DATE/TIME: 07/16/2024 16:11 EST RECEIVED DATE/TIME: 07/16/2024 19:31 EST START DATE/TIME: 07/16/2024 19:31 EST FREE TEXT SOURCE: FINAL REPORTS Final Report [] Verified Date/Time/Personnel: 07/17/2024 14:01 EST <10,000 cfu/ml. No Significant growth. Sensitivity not indicated. Performing Locations *1: This test was performed at: [address], [address] , [facility]09-20-2024 Note. MICRO - Microbiology PROCEDURE: Urine Culture [...] Locations *1: This test was performed at: [address], [address] , [facility]03-10-2024 Note. MICRO - Microbiology PROCEDURE: Urine Culture [...] Locations *1: This test was performed at: [address], [address] , [facility] [place]05-23-2023 Note. MICRO - Microbiology PROCEDURE: Urine Culture [...] Locations *1: This test was performed at: [address], [address] , [facility]04-06-2023 Note. MICRO - Microbiology PROCEDURE: Urine Culture [...] Locations *1: This test was performed at: [address], [facility] , [facility]02-13-2023 Note. MICRO - Microbiology PROCEDURE: Urine Culture [...] Locations *1: This test was performed at: [address], [facility] , [facility]07-26-2018 Evaluation note* Diagnosis Onset Date Resolution Status Carotid stenosis, bilateral acute Hypertension chronic Abnormal stress test acute Hypertension chronic Stented coronary artery July 26, 2018 [facility] Work Phone: Evaluation + Plan note Future Appointments Appointment Date:02/09/2022 09:00:00 AM Scheduled Provider:WILMAN ADEN DO Location:[facility] Appointment Type: OV Future Scheduled Tests Laboratory* Microalbumin Level Urine 08/11/21 [facility] Evaluation + Plan note Future Appointments Appointment Date:02/09/2022 09:00:00 AM Scheduled Provider:WILMAN ADEN DO Location:[facility] Appointment Type:PC OV Future Scheduled Tests Laboratory* Thyroid Stimulating Hormone 10/04/21 * Urine Culture 09/24/21 * Microalbumin Level Urine 08/11/21 [facility] Evaluation + Plan note Future Appointments Appointment Date:02/09/2022 09:00:00 AM Scheduled Provider:WILMAN ADEN DO Location:[facility] Appointment Type:PC OV Future Scheduled Tests Laboratory* Thyroid Stimulating Hormone 11/25/21 * Urine Culture 09/24/21 * Microalbumin Level Urine 08/11/21 [facility] Evaluation + Plan note Future Appointments Appointment Date:02/09/2022 09:00:00 AM Scheduled Provider:WILMAN ADEN DO Location:[facility] Appointment Type:PC OV Future Scheduled Tests Laboratory* Thyroid Stimulating Hormone 01/13/22 * Urine Culture 09/24/21 * Microalbumin Level Urine 08/11/21 Radiology* CT Angiography Chest w/ Contrast 11/25/21 * XR Chest 2 Views (PA & Lateral) 11/23/21 * XR Chest 2 Views (PA & Lateral) 11/23/21 [facility] evaluation + Plan note Future Appointments Appointment Date:08/12/2022 09:00:00 AM Scheduled Provider:WILMAN ADEN DO Location:[facility] Appointment Type:PC OV Future Scheduled Tests Laboratory* Thyroid Stimulating Hormone 01/13/22 * Urine Culture 09/24/21 * Microalbumin Level Urine 08/11/21 Radiology* CT Angiography Chest w/ Contrast 11/25/21 * XR Chest 2 Views (PA & Lateral) 11/23/21 * XR Chest 2 Views (PA & Lateral) 11/23/21 [facility] evaluation + Plan note Future Appointments Appointment Date:08/12/2022 09:00:00 AM Scheduled Provider:WILMAN ADEN DO Location:[facility] Appointment Type:PC OV Future Scheduled Tests Laboratory* Thyroid Stimulating Hormone 01/13/22 * Microalbumin Level Urine 08/11/21 Radiology* CT Angiography Chest w/ Contrast 11/25/21 * XR Chest 2 Views (PA & Lateral) 11/23/21 * XR Chest 2 Views (PA & Lateral) 11/23/21 [facility] Evaluation + Plan note Future Appointments Appointment Date:08/12/2022 09:00:00 AM Scheduled Provider:WILMAN ADEN DO Location:[facility] Appointment Type:PC OV Future Scheduled Tests Laboratory* Microalbumin Level Urine 08/11/21 Radiology* CT Angiography Chest w/ Contrast 11/25/21 * XR Chest 2 Views (PA & Lateral) 11/23/21 * XR Chest 2 Views (PA & Lateral) 11/23/21 [facility] Evaluation + Plan note Future Appointments Appointment Date:08/12/2022 09:00:00 AM Scheduled Provider:WILMAN ADEN DO Location:[facility] Appointment Type:PC OV Future Scheduled Tests Laboratory* Urine Culture 04/30/22 * Microalbumin Level Urine 08/11/21 Radiology* CT Angiography Chest w/ Contrast 11/25/21 * XR Chest 2 Views (PA & Lateral) 11/23/21 * XR Chest 2 Views (PA & Lateral) 11/23/21 [facility] Evaluation + Plan note Future Appointments Appointment Date:08/11/2023 09:30:00 AM Scheduled Provider:WILMAN ADEN DO Location:[facility] Appointment Type:PC OV Future Scheduled Tests Laboratory* Urine Culture 04/30/22 * 24 Hr Urine Total Protein (AO) 02/11/23 * 24 Hr Urine Creatinine (AO) 02/11/23 [facility] Evaluation + Plan note Future Appointments Appointment Date:08/02/2024 10:00:00 AM Scheduled Provider:WILMAN ADEN DO Location:[facility] Appointment Type:PC OV Future Scheduled Tests Laboratory* Albumin/Creatinine Ratio, Random Urine 02/02/24 [facility] Evaluation + Plan note Future Appointments Appointment Date:01/31/2025 10:00:00 AM Scheduled Provider:BRIAN PATTON DO Location:[facility] Appointment Type:PC OV Future Scheduled Tests Laboratory* Albumin/Creatinine Ratio, Random Urine 02/02/24 [facility] Evaluation + Plan note Future Appointments Appointment Date:02/22/2025 07:30:00 AM Scheduled Provider:BRIAN PATTON DO Location:[facility] Appointment Type:PC Wellness Medicare Future Scheduled Tests Laboratory* Albumin/Creatinine Ratio, Random Urine 02/02/24 [facility] Evaluation note* Diagnosis Onset Date Resolution Status Carotid stenosis, 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 [facility] Work Phone: Evaluation noteNo assessment information available [facility] Work Phone: Hospital course Narrative No data available for this section [facility] Hospital Discharge instructions No data available for this section [facility] Progress note No data available for this section [facility] Reason for referral (narrative)No reason for [facility] Work Phone: Chief Complaint and Reason for Visit Chief Complaint CAROTID STENOSIS DEVENDRA AT YEARLY CAROTID US 08/21 [facility] Reason for Visit [...] Yes August 22 019 2:17pm Power of Radio Board Operator Announcer Yes August 22, 2018 2:17pm Advance Directive Response Recorded Date/ Time Advance Directives Yes July 26, 2018 9:52am Living Will Yes August 22 1:17pm Power of Radio Board Operator Announcer Yes August 22, 2018 1:17pm Advance Directive Response Recorded Date/ Time Advance Directives on File Yes November 092022 9:09am Name of Medical Power of Radio Board Operator Announcer Naye Barillas- daughter, Sridevi Cuellar- daughter December 03, 2022 9:09am Advance Directives Yes December 03 9:09am Living Will Yes December 03, 2022 9 :09am Power of Radio Board Operator Announcer Yes December 03, 2022 9:09am Advance Directive Response Recorded Date/ Time Advance Directives Yes March 8:51am Living Will Yes April 04, 2023 8:51am Power of Radio Board Operator Announcer Yes March 8:51am Advance Directive Response Recorded [...] Care Provider, Referri Provider Active Dr. Wilman Flores MD Attending Provider Active Team Status: Active [...] Clerk Rosemary PT Position: P3 Scheduling - Housekeeping Supervisor Hotel Advanced Member Role: Other Name: WILMAN ADEN DO Position: P4 Physician - Primary Care Med Service: Active Provider Member Role: Primary Care Physician Address: Address: [address] [place] [address] Care Team Related Persons Name: NAYE GAXIOLA Care Team Personnel Name: Viola Jackson Clerk Rosemary PT Position: P3 Scheduling - Housekeeping Supervisor Hotel Advanced Member Role: Other Name: WILMAN ADEN DO Position: P4 Physician - Primary Care Med Service: Active Provider Member Role: Primary Care Physician Address: Address: [address] [place] [address] Care Team Related Persons Name: NAYE GAXIOLA Care Team Personnel Name: Viola Jackson Clerk Rosemary PT Position: P3 Scheduling - Housekeeping Supervisor Hotel Advanced Member Role: Other Name: WILMAN ADEN DO Position: P4 Physician - Primary Care Med Service: Active Provider Member Role: Primary Care Physician Address: Address: [address] [place] [address] Care Team Related Persons Name: NAYE GAXIOLA Care Team Personnel Name: Viola Jackson Clerk Rosemary PT Position: P3 Scheduling - Housekeeping Supervisor Hotel Advanced Member Role: Other Name: WILMAN ADEN DO Position: P4 Physician - Primary Care Med Service: Active Provider Member Role: Primary Care Physician Address: Address: [address] [place] [address] Care Team Related Persons Name: NAYE GAXIOLA Care Team Personnel Name: Viola Jackson Clerk Rosemary PT Position: P3 Scheduling - Housekeeping Supervisor Hotel Advanced Member Role: Other Name: WILMAN ADEN DO Position: P4 Physician - Primary Care Member Role: Primary Care Physician Address: Address: [address] [place] [address] Care Team Related Persons Name: NAYE GAXIOLA Care Team Personnel Name: Manuel Brazer [employer] Rosemary PT Position: P3 Scheduling - Housekeeping Supervisor Hotel Advanced Member Role: Other Name: WILMAN ADEN DO Position: P4 Physician - Primary Care Member Role: Primary Care Physician Address: Address: [address] [place] [address] Care Team Related Persons Name: NAYE GAXIOLA INFORMATION SOURCE (unrecogn ized section and content) DATE CREATED AUTHOR 02/05/2024 [facility] ([place] DATE CREATED AUTHOR AUTHOR'S ORGANIZ ATION 01/29/2025 [facility] DATE CREATED AUTHOR AUTHOR'S ORGANIZ ATION 02/16/2025 [facility] FOR RECORDS PERTAINING TO PATIENTS WHO ARE [...] BE BASED ON THE PRIMARY CLINICAL RECORDS. [employer] [facility]. provides no warranty or guarantee of the accuracy or completeness of information in this document.
--- NOTE | 2025-02-18 18:25 | STRESSREP_ITS ---
Stress Test Report Exercise myocardial perfusion stress test. 80-year-old lady with a history of chest pain Stress protocol: Resting EKG demonstrates normal sinus rhythm with a rate of 76 bpm resting blood pressure is 138/62 mmHg. The patient exercised according to the regular Delvin protocol for a total duration of 4 minutes attaining a maximum heart rate of 157 bpm which was 112% of maximum predicted heart rate; the maximum workload was 7 metabolic equivalents. At rest there were no ST or T wave changes noted to suggest ischemia and at peak exercise upsloping ST changes only were noted which did not meet the criteria for ischemia. No clinical angina was noted the test was terminated due to the target heart rate being achieved/fatigue. The peak bl ood pressure was 180/80 mmHg. Rate-pressure product was 25,300. Myocardial perfusion protocol. 11.6 mCi of technetium 99m sestamibi was injected at rest. The patient exercised according to regular Delvin protocol for total duration of 4 minutes and at peak exercise 32.9 mCi of technetium 99m sestamibi was injected stress images were obtained stress and rest images were reconstructed in comparing the short axis vertical long and horizontal long axis. Gated images were also obtained. Perfusion SPECT analysis: Review of the stress images demonstrate normal uptake of tracer noted in all areas of the myocardium. The resting images similarly demonstrate normal uptake of tracer noted in all areas of the myocardium. No areas of reversibility are noted to suggest ischemia no previous infarct was noted. Gated SPECT analysis: The gated ejection fraction is 78%. Conclusion: Normal exercise myocardial perfusion stress test at a moderate workload Preserved ejection fraction.
== END | disposition home or self-care (01) ==
PROVIDERS: PCP Preventive Medicine Occupational Medicine; Referring Provider Physician Assistant Medical; Visit Provider Physician Assistant Medical
DX: R06.02 Shortness of breath (principal); I25.10 Atherosclerotic heart disease of native coronary artery without angina pectoris; Z95.5 Presence of coronary angioplasty implant and graft
CPT/HCPCS: 78452; 93017; A9500; A4216

== ENCOUNTER → 2025-05-13 | Outpatient (CLI) | payer MEDICARE, OTHER, SELFPAY ==
--- NOTE | 2025-05-13 12:22 | US_ITS ---
PROCEDURE: US/Kidney and Bladder
== END | disposition home or self-care (01) ==
LOC: US 12:19
PROVIDERS: Referring Provider Urology; Visit Provider Urology
DX: N39.0 Urinary tract infection, site not specified (principal)
CPT/HCPCS: 76770